=== PATIENT | male | born 1935 | race Caucasian/White ===

== ENCOUNTER → 2022-10-19 10:32 | Outpatient (BNVA) | payer MEDICARE, SELFPAY | PROVIDERS: PCP Family Medicine; Visit Provider Podiatrist Foot & Ankle Surgery | DX: I73.9 Peripheral vascular disease, unspecified (principal); L60.8 Other nail disorders; I89.0 Lymphedema, not elsewhere classified | CPT/HCPCS: 99203 ==

== ENCOUNTER 2022-10-26 14:03 | Inpatient (IN) | payer MEDICARE, SELFPAY ==
[2022-10-26 14:06] VITALS: BP 157/70; PULSE 83; RESP 16; TEMP 37.1; O2SAT 94
--- NOTE | 2022-10-26 14:23 | W.ED.FALL ---
HPI - Fall General: Chief Complaint: Fall Stated Complaint: FALL/ BACK PAIN Time Seen by Provider: 10/26/22 14:23 Source: patient Mode of arrival: ambulatory History of Present Illness: 87-year-old male who fell while going up stairs he missed stepped did not have a firm painter ski edge on the stair rail while he was going up into a porch from ground-level he slipped fell backwards landed on his upper back and his head he does not believe he lost consciousness he is not on anything more than an aspirin daily. No vomiting. He is otherwise awake and alert answers questions well. MD complaint: fall Onset (ago): minute(s) Fall from: down stairs (#) (2) Place fall occurred: home Loss of consciousness: Unsure Prolonged down time: no Symptoms prior to fall: none Context: tripped/slipped Location of injury: head and back (Thoracic) Associated symptoms-after fall: Denies abdominal pain, chest pain, confusion, difficulty walking, headache(s), hematuria, lightheadedness, neck pain, numbness, short of breath, vertigo or weakness Review of Systems Const: Denies: fever(s), chills, body aches, change in appetite, fatigue or malaise ENMT: Denies: throat pain, ear or mastoid pain, nasal discharge or nasal congestion Card: Denies: chest pain or lightheadedness Resp: Denies: dyspnea, productive cough or non-productive cough GI: Denies: abdominal pain, nausea or vomiting : Denies: flank pain, dysuria, urinary frequency, urinary urgency or hematuria Musc: Denies: neck pain Skin/Breast: Denies: rash or pruritus Neuro: Denies: headache(s), difficulty walking, vertigo or confusion [facility] ED PFSH: Medical History (Updated 10/26/22 @ 17:36 by Bartolome Rios DO) HTN (hypertension) Physical Exam Const: GENERAL APPEARANCE: cooperative and comfortable ORIENTATION/CONSCIOUSNESS: Yes awake, Yes oriented to person, Yes oriented to place and Yes oriented to time HENMT: COMMON NORMALS: normocephalic, atraumatic and hearing grossly normal bilaterally HEAD & SCALP: normocephalic and atraumatic Resp: COMMON NORMALS: normal respiratory effort, No retractions, No use of accessory muscles and clear to auscultation bilaterally AUSCULTATION: clear to auscultation bilaterally Cardio: COMMON NORMALS: regular rate, regular rhythm and No murmurs present (Cardio) RATE: regular rate RHYTHM: regular rhythm GI: COMMON NORMALS: Soft to palpation and No hepatosplenomegaly present AUSCULTATION: Yes normoactive bowel sounds PALPATION: Yes Soft to palpation, No Tenderness to palpation present (GI), No Guarding due to palpation present (GI) and Yes No hepatosplenomegaly present Extremity: COMMON NORMALS: normal to inspection, capillary refill normal and no calf tenderness OTHER: Neurovascular intact lower extremities patient is able to dorsi plantarflex strength and follow commands with movements of the lower extremities. Neuro: SENSORIUM/ORIENTATION: Yes oriented to person, Yes oriented to place and Yes oriented to time Skin: COMMON NORMALS: no rashes or lesions noted GENERAL SKIN EXAM: no rashes or lesions noted Course Vital Signs: Vital signs: Vital Signs Temperature 98.7 F 10/26/22 14:06 Pulse Rate 83 10/26/22 14:06 Respiratory Rate 16 10/26/22 14:06 Blood Pressure 157/70 10/26/22 14:06 Pulse Oximetry 94 10/26/22 14:06 Oxygen Delivery Me thod 10/26/22 14:06 MDM - Fall Medical Decision Making Unstable thoracic spine fracture without current cord impingement but at risk for same. Discussed Dr. Hughes he will see the patient. Will admit to the hospitalist. Thomson catrachito advised that he remain at bedrest n.p.o. after midnight discussed the hospitalist orders written preoperative labs ordered. Medical Records I reviewed the patient's medical records. Lab Data I reviewed the patient's lab results. 10/26/22 14:46 10/26/22 14:46 Radiology Impressions Cervical Spine CT 10/26/22 14:29 IMPRESSION: No evidence of acute fracture or dislocation. Head CT 10/26/22 14:29 IMPRESSION: 1. No evidence of intracranial hemorrhage or mass effect. 2. Moderate small vessel changes with moderate parenchymal volume loss. 3. Vascular calcification. 4. No acute intracranial findings. Thoracic Spine CT 10/26/22 14:29 IMPRESSION: 1. Hyperextension shear type fracture with distraction involving the superior endplate at T10 extending into the T9-T10 disc space. Associated widening anteriorly with disruption of the anterior longitudinal ligament measuring 13 mm. Disruption of the posterior longitudinal ligament with probable extension to the posterior elements. 2. Additional comminuted fracture of the T9 spinous process. 3. Minimal retropulsion of the above-described fracture with moderate central canal stenosis and indentation on the thoracic cord at this level. Recommend spine surgery consultation and further evaluation with MRI. 4. Associated moderate surrounding paravertebral hematoma at the T9-T10 levels. 5. Moderate thoracic kyphosis with diffuse ankylosis. Notified Bartolome Rios DO at 10/26/2022 4:03 PM. Chest X-Ray 10/26/22 16:18 IMPRESSION: Tracheal and mediastinal findings as noted above. Right diaphragm elevation may be due to hepatomegaly or focal eventration. Laboratory Results WBC 11.2 10^3/uL (4.0-10.0) H 10/26/22 14:46 RBC 4.34 10^6/uL (4.1-5.3) 10/26/22 14:46 Hgb 12.8 g/dL (11.7-16.6) 10/26/22 14:46 Hct 40.0 % (42.0-52.0) L 10/26/22 14:46 MCV 92.2 fl (80-94) 10/26/22 14:46 MCH 29.5 pg (28.0-34.0) 10/26/22 14:46 MCHC 32.0 g/dL (30.0-36.0) 10/26/22 14:46 RDW 14.2 % (12.1-15.1) 10/26/22 14:46 Plt Count 223 10^3/cmm (130-400) 10/26/22 14:46 MPV 10.0 fL (7.4-10.4) 10/26/22 14:46 Neut % (Auto) 77.0 % 10/26/22 14:46 Lymph % (Auto) 12.8 % 10/26/22 14:46 [place] % (Auto) 7.6 % 10/26/22 14:46 Eos % (Auto) 1.4 % 10/26/22 14:46 Baso % (Auto) 0.3 % 10/26/22 14:46 Neut # (Auto) 8.61 10^3/uL (1.8-7.7) H 10/26/22 14:46 Lymph # (Auto) 1.4 10^3/uL (0.8-4.8) 10/26/22 14:46 [place] # (Auto) 0.9 10^3/uL (0.2-0.9) 10/26/22 14:46 Eos # (Auto) 0.2 10^3/uL (0.0-0.8) 10/26/22 14:46 Baso # (Auto) 0.0 10^3/uL (0.0-0.1) 10/26/22 14:46 Nucleated RBC % (auto) 0 % 10/26/22 14:46 Nucleated RBCs # 0.0 /100WBC 10/26/22 14:46 PT 13.40 SECONDS (12.1-14.9) 10/26/22 14:46 INR 0.99 (0.8-1.2) 10/26/22 14:46 APTT 27.0 SECONDS (23.9-36.7) 10/26/22 14:46 Sodium 138 mmol/L (136-145) 10/26/22 14:46 Potassium 4.0 mmol/L (3.5-5.1) 10/26/22 14:46 Chloride 100 mmol/L (98-107) 10/26/22 14:46 Carbon Dioxide 27 mmol/L (22-29) 10/26/22 14:46 Anion Gap 15.0 (5-19) 10/26/22 14:46 BUN 21 mg/dL (8-23) 10/26/22 14:46 Creatinine 0.9 mg/dL (0.7-1.2) 10/26/22 14:46 GFR Calculation Not Reportable 10/26/22 14:46 Glucose 115 mg/dL (65-115) 10/26/22 14:46 Calculated Osmolality 290 mOsm/kg (285-295) 10/26/22 14:46 Calcium 9.3 mg/dL (8.5-10.5) 10/26/22 14:46 Urine Color Yellow (Yellow) 10/26/22 15:30 Urine Appearance Clear (CLEAR) 10/26/22 15:30 Urine pH 7 (5-7) 10/26/22 15:30 Ur Specific Morris 1.015 (1.005-1.030) 10/26/22 15:30 Urine Protein Neg (Negative) 10/26/22 15:30 Urine Glucose (UA) Norm (Normal) 10/26/22 15:30 Urine Ketones Negative (Negative) 10/26/22 15:30 Urine Blood Neg (Negative) 10/26/22 15:30 Urine Nitrate Negative (Negative) 10/26/22 15:30 Urine Bilirubin Neg (Negative) 10/26/22 15:30 Urine Urobilinogen 1 mg/dL (Negative) H 10/26/22 15:30 Ur Leukocyte Esterase Negative (Negative) 10/26/22 15:30 Discharge Plan Discharge Patient Disposition: Admitted As Inpatient Clinical Impression: Fracture of thoracic spine Condition: Stable Prescriptions: No Action irbesartan-hydrochlorothiazide 300-12.5 mg tablet 1 tab PO DAILY duloxetine 20 mg capsule,delayed release(DR/EC) 20 mg PO DAILY methimazole 10 mg tablet 10 mg PO DAILY Referrals: Miki Ariza MD [Primary Care Provider] - Patient Instructions: Opioid Safety, Pain Management Coding Level of Care Code ED Dining Services Manager for Sonny Nelson
--- NOTE | 2022-10-26 14:29 | CT_ITS ---
WS: [id number] CT CERVICAL TRAUMA TECHNIQUE: Noncontrast CT of the cervical spine with coronal and sagittal reformatted images. CLINICAL INFORMATION: trauma COMPARISON: 2018 DLP: 1486.[address] scans at [facility] use at least one of these dose optimization techniques: automated e xposure control; mA and/or kV adjustment per patient size (includes targeted exams where dose is matc hed to clinical indication); or iterative reconstruction. FINDINGS: Straightening of the normal cervical lordosis. Advanced spondylitic changes cervical spine. Prominent pannus formation at the C1-2 articulation similar to 2018. Slight anterolisthesis C5 on C6. Disc spa ce narrowing worse at C6-C7 and C7-T1. Advanced multilevel facet arthropathy. Normal occipital condyles. No high-grade spinal canal narrowing. Normal C1 ring. No evidence of acute fracture or dislocation. Large LEFT thyroid nodule similar to 2018 measuring 3.6 x 4.2 CM. Mastoids air cells are well aerated . CT/CT cervical spin wo con* [id number] IMPRESSION: No evidence of acute fracture or dislocation.
--- NOTE | 2022-10-26 14:29 | CT_ITS ---
WS: [id number] CT HEAD TECHNIQUE: Noncontrast CT of the head obtained from the skullbase to the vertex. CLINICAL INFORMATION: trauma COMPARISON: 2018 DLP: 1486.[address] scans at [facility] use at least one of these dose optimization techniques: automated e xposure control; mA and/or kV adjustment per patient size (includes targeted exams where dose is matc hed to clinical indication); or iterative reconstruction. FINDINGS: Some images degraded by patient motion. No evidence of intracranial hemorrhage or mass effect. Ventricular system and basal cisterns are marques nt. Moderate small vessel changes with moderate parenchymal volume loss. Vascular calcification. No e xtra-axial fluid collections. No evidence of mass or mass effect. Paranasal sinuses and mastoid air cells are well aerated. .Normal visualized soft tissues. CT/CT head wo con* [id number] IMPRESSION: 1. No evidence of intracranial hemorrhage or mass effect. 2. Moderate small vessel changes with moderate parenchymal volume loss. 3. Vascular calcification. 4. No acute intracranial findings.
--- NOTE | 2022-10-26 14:29 | CT_ITS ---
WS: [id number] CT THORACIC SPINE TECHNIQUE: Noncontrast CT of the thoracic spine with coronal and sagittal reformatted images. CLINICAL INFORMATION: trauma COMPARISON: None. DLP: 1860.[address] scans at [facility] use at least one of these dose optimization techniques: automated e xposure control; mA and/or kV adjustment per patient size (includes targeted exams where dose is matc hed to clinical indication); or iterative reconstruction. FINDINGS: Ankylosis thoracic spine with mild thoracic kyphosis. Calcified anterior and posterior longitudinal l igaments. Hyperextension type injury with shear type fracture involving the superior endplate at T10. This extends into the disc space at T9-T10 and likely into the posterior elements. Anterior widening at the fracture site with disruption of the anterior longitudinal ligament measuring 13 mm. Associat ed surrounding paravertebral hematoma. Disruption of the posterior longitudinal ligament. Mild retropulsion with moderate central canal stenosis with indentation on the thoracic cord. Recomme nd further evaluation with MRI. Associated fracture of the T9 spinous process mass with extension thr ough the nuchal ligament. Fracture extends to involve the posterior cortex at T10. Fracture extends t o the RIGHT pedicle at T10. Pedicles otherwise appear grossly intact. Adrenal glands are normal. Peripherally calcified RIGHT renal lesion measuring 2.3 CM. Bilateral pretty l cortical atrophy. CT/CT thoracic spin wo con* [id number] IMPRESSION: 1. Hyperextension shear type fracture with distraction involving the superior endplate at T10 extending into the T9-T10 disc space. Associated widening anter iorly with disruption of the anterior longitudinal ligament measuring 13 mm. Di sruption of the posterior longitudinal ligament with probable extension to the posterior elements. 2. Additional comminuted fracture of the T9 spinous process. 3. Minimal retropulsion of the above-described fracture with moderate central canal stenosis and indentation on the thoracic cord at this level. Recommend sp ine surgery consultation and further evaluation with MRI. 4. Associated moderate surrounding paravertebral hematoma at the T9-T10 levels . 5. Moderate thoracic kyphosis with diffuse ankylosis. Notified Bartolome Rios DO at 10/26/2022 4:03 PM.
[2022-10-26 14:57] LABS: Basophils % 0.3 %; Eosinophils # 0.2 10^3/uL (0.0-0.8); Eosinophils % 1.4 %; Hemoglobin 12.8 g/dL (11.7-16.6); Lymphocytes # 1.4 10^3/uL (0.8-4.8); Lymphocytes % 12.8 %; Mean Corpuscular Hemoglobin 29.5 pg (28.0-34.0); Mean Corpuscular Volume 92.2 fl (80-94); Monocytes # 0.9 10^3/uL (0.2-0.9); Monocytes % 7.6 %; Neutrophils # 8.61 10^3/uL (1.8-7.7); Nucleated Red Blood Cells % 0 %; Platelet Count 223 10^3/cmm (130-400); Red Blood Count 4.34 10^6/uL (4.1-5.3); Red Cell Distribution Width 14.2 % (12.1-15.1); White Blood Count 11.2 10^3/uL (4.0-10.0)
[2022-10-26 15:17] LABS: Blood Urea Nitrogen 21 mg/dL (8-23); Calcium 9.3 mg/dL (8.5-10.5); Carbon Dioxide 27 mmol/L (22-29); Chloride 100 mmol/L (98-107); Glucose 115 mg/dL (65-115); Osmolality Calculated 290 mOsm/kg (285-295); Sodium 138 mmol/L (136-145)
[2022-10-26] MEDS: ketorolac 30 mg/mL INJ 15 MG IVP (15:54)
[2022-10-26] MEDS: dexamethasone 10 mg/mL INJ IVP (15:57)
[2022-10-26] MEDS: orphenadrine 30 mg/mL Inj 2 mL 60 MG IVP (15:57)
[2022-10-26 16:14] LABS: Add Urine Microscopic? NO; Charge for UA Resulting for Rev
--- NOTE | 2022-10-26 16:17 | ECG_ITS ---
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 Measurements Intervals [place] Rate: 84 P: 89 GA: 191 QRS: -40 QRSD: 146 T: 28 QT: 387 QTc: 458 Interpretive Statements SINUS RHYTHM LEFT AXIS DEVIATION [QRS AXIS < -30] RIGHT BUNDLE BRANCH BLOCK [120+ ms QRS DURATION, UPRIGHT V1, 40+ ms S IN I/aVL/V4/V5/V6] No previous ECG available for comparison Electronically Signed On 10-27-2022 2:19:39 CDT by Bao Ibarra M.D. [email or web address]
--- NOTE | 2022-10-26 16:18 | XR_ITS ---
WS: [id number] EXAMINATION: XR chest 1V portable [id number] REASON FOR EXAM: dyspnea/cough COMPARISON: None available. ORDER DATE: 10/26/2022 4:18 PM TECHNIQUE: A single, portable frontal chest x-ray was obtained. X-RAY FINDINGS: The lungs are clear. There is 5 to 6 cm elevation of the right hemidiaphragm. Pleural spaces are roddy r. There is possible tracheal displacement to the right with widened mediastinum possibly due to goit er or other left paratracheal mass. No previous studies available for comparison.. No pleural effusio ns or pneumothorax. No cardiomegaly. No evidence for pulmonary edema. Soft tissue and osseous structures are unremarkable. No tubes or lines are present. XR/XR chest 1V portable [id number] IMPRESSION: Tracheal and mediastinal findings as noted above. Right diaphragm elevation may be due to hepatomegaly or focal eventration.
[2022-10-26 16:32] LABS: Bilirubin Urine Neg (Negative); Blood Urine Neg (Negative); Glucose Urine UA Norm (Normal); Ketones Urine Negative (Negative); Leukocyte Esterase Urine Negative (Negative); Nitrate Urine Negative (Negative); Protein Urine Neg (Negative); Specific Gravity, Urine 1.015 (1.005-1.030); Urine Appearance Clear (CLEAR); Urine Color Yellow (Yellow); Urobilinogen Urine 1 mg/dL (Negative); pH Urine 7 (5-7)
--- NOTE | 2022-10-26 16:47 | PM.HP ---
Providers/Chief Complaint Primary Care Provider: Miki Ariza MD Chief Complaint: FALL/ BACK PAIN History of Present Illness Chuckie Gandhi is a 87 year old male with past medical history of hypertension, hyperthyroidism, came in today after experiencing a mechanical fall at home, while climbing stairs, denied any chest pain, palpitation, lightheadedness, loss of consciousness, during the episode, currently is back pain is controlled with, pain medication. CT thoracic spine has shown: Hyperextension shear type fracture with distraction involving the superior endplate at T10 extending into the T9-T10 disc space. CT head without contrast: No acute intracranial pathology CT cervical spin wo con:No evidence of acute fracture or dislocation X-ray chest: No acute findings Pertinent labs: WBC 11.2, H&H 12/40 PLT : 223 , serum sodium 138 serum potassium 4, BUN 21 serum creatinine 0.9, urinalysis clean Review of Systems General: Reports: 10 or more systems reviewed and unremarkable except in HPI and below Const: Denies: fever(s), chills, body aches, change in appetite or diaphoresis Card: Denies: palpitations, edema, swelling of feet/ankles, dyspnea on exertion, orthopnea or leg pain with exertion Resp: Denies: dyspnea, productive cough, wheezing or pain on inspiration GI: Denies: abdominal pain, nausea, vomiting, diarrhea or constipation : Denies: flank pain or difficulty urinating Musc: Denies: extremity swelling Neuro: Denies: headache(s) or confusion Medications/Allergies Home Medications Medication Instructions Recorded Confirmed Last Taken Type duloxetine 20 mg capsule,delayed 20 mg PO DAILY 10/19/22 10/26/22 10/26/22 History release irbesartan 300 1 tab PO DAILY 10/19/22 10/26/22 10/26/22 History mg-hydrochlorothiazide 12.5 mg tablet methimazole 10 mg tablet 10 mg PO DAILY 10/26/22 10/26/22 10/26/22 History Allergies Allergy/AdvReac Type Severity Reaction Status Date / Time No Known Allergies Allergy Verified 10/26/22 14:13 PFSH Acute PFSH: Medical History (Updated 10/26/22 @ 17:36 by Bartolome Rios DO) HTN (hypertension) Vitals/I&O/Wt Last Vital Signs Temp 98.7 F 10/26/22 14:06 Pulse 83 10/26/22 14:06 Resp 16 10/26/22 14:06 BP 157/70 10/26/22 14:06 Pulse Ox 94 10/26/22 14:06 O2 Del Method 10/26/22 14:06 Weight last 48 hrs Weight 125.191 kg Physical Exam Const: COMMON NORMALS: patient oriented x3 HENMT: COMMON NORMALS: normocephalic and atraumatic HEAD & SCALP: normocephalic and atraumatic Resp: COMMON NORMALS: clear to auscultation bilaterally AUSCULTATION: clear to auscultation bilaterally Cardio: COMMON NORMALS: regular rate, regular rhythm, S1 normal heart sound present, S2 normal heart sound present, No gallops present (Cardio), No murmurs present (Cardio), No rub (Cardio) and Peripheral pulses 2+ throughout RATE: regular rate RHYTHM: regular rhythm HEART SOUNDS: S1 normal heart sound present and S2 normal heart sound present PERIPHERAL PULSES: Peripheral pulses 2+ throughout GI: COMMON NORMALS: Normal to inspection, nondistended, normoactive bowel sounds present, Soft to palpation, non-tender, No hepatosplenomegaly present and no masses AUSCULTATION: Yes normoactive bowel sounds PALPATION: Yes Soft to palpation and Yes No hepatosplenomegaly present RECTAL EXAM: Yes deferred Extremity: COMMON NORMALS: no clubbing, cyanosis or edema and no pedal edema Neuro: COMMON NORMALS: patient oriented x3 Data 10/26/22 14:46 10/26/22 14:46 A&P Assessment and plan (1) HTN (hypertension): (2) Thoracic spine fracture: (3) Hyperthyroidism: Plan Chuckie Gandhi is a 87 year old male with past medical history of hypertension, hyperthyroidism, came in today after experiencing a mechanical fall at home, while climbing stairs, denied any chest pain, palpitation, lightheadedness, loss of consciousness, during the episode, currently is back pain is controlled with, pain medication. Assessment: Thoracic spine fracture: Pain control Bowel regimen Spine surgery on board N.p.o. History of hyperthyroidism Continue methimazole History of hypertension: Continue losartan and hydrochlorothiazide CODE STATUS: Full code DVT prophylaxis on Lovenox Attestations Medical Necessity Statement*: Patient is to be in hospital management of thoracic spine fracture.Anticipated length of stay greater than 2 midnights Coding Level of Care Code 31883 Diagnoses HTN (hypertension) I10 Thoracic spine fracture S22.009A Hyperthyroidism E05.90
[2022-10-26 17:00] LABS: INR 0.99 (0.8-1.2)
--- NOTE | 2022-10-26 18:14 | PC.NURSE ---
Report called to Lilliam SAEZ. @ 1247
--- NOTE | 2022-10-26 18:34 | P.CONIM_ITS ---
Providers/Reason For Consult Consulting Physician/Specialty*: Orthospine Reason for Consult*: Back pain Attending Physician: Angelito Longoria MD Primary Care Provider: Miki Ariza MD History of Present Illness History of Present Illness Chuckie Gandhi is a 87 year old male who fell from a standing position after tripping on his left lower extremity falling backwards sustaining injury to his mid back. He presented to [facility] where x-rays confirmed a T10 fracture. Orthopedic spine was consulted for further management. Patient was evaluated in room 261 after being transferred up from the emergency room with continued back pain denied any leg pain other than leg weakness that has had for a long time on the left side. He denies any loss of conscious in the fall denies any neck pain . Denies any hip pain. States he has normal sensation in both legs all the way up to his abdomen and to his arms and chest. Any movement makes his back much worse. Rest gives him some temporary relief. He has had bilateral total knee replacements in the past with cataract surgery. Has a Thomson catheter present. He lives with his grandsons. Review of Systems General: Reports: 10 or more systems reviewed and unremarkable except in HPI and below Const: Denies: fever(s), chills, body aches, change in appetite or diaphoresis Card: Denies: palpitations, edema, swelling of feet/ankles, dyspnea on exertion, orthopnea or leg pain with exertion Resp: Denies: dyspnea, productive cough, wheezing or pain on inspiration GI: Denies: abdominal pain, nausea, vomiting, diarrhea or constipation : Denies: flank pain or difficulty urinating Musc: Denies: extremity swelling Neuro: Denies: headache(s) or confusion Medications/Allergies Home Medications Medication Instructions Recorded Confirmed Last Taken Type duloxetine 20 mg capsule,delayed 20 mg PO DAILY 10/19/22 10/26/22 10/26/22 History release irbesartan 300 1 tab PO DAILY 10/19/22 10/26/22 10/26/22 History mg-hydrochlorothiazide 12.5 mg tablet methimazole 10 mg tablet 10 mg PO DAILY 10/26/22 10/26/22 10/26/22 History Allergies Allergy/AdvReac Type Severity Reaction Status Date / Time No Known Allergies Allergy Verified 10/26/22 14:13 PFSH Acute PFSH: Medical History (Updated 10/26/22 @ 18:39 by Jayden Siddiqui PA-C) HTN (hypertension) Vitals/I&O/Wt Last Vital Signs Temp 98.7 F 10/26/22 14:06 Pulse 83 10/26/22 14:06 Resp 16 10/26/22 14:06 BP 157/70 10/26/22 14:06 Pulse Ox 94 10/26/22 14:06 O2 Del Method 10/26/22 14:06 Weight last 48 hrs Weight 276 lb Physical Exam Narrative: He is alert oriented x3 has good general appearance mild acute distress. He is tender with palpation in the mid back. He has full range of motion of both upper extremities full range of motion of the cervical spine. He has good sensation light touch through all 4 extremities. He does have 1+ edema in both lower extremities. He appears to fire in both upper extremities in all motor groups with 5/5 strength. Radial pulses are palpable. He has good sensat ion light touch in all dermatomal layers of the thoracic spine. He has good sensation light touch in all dermatomes of both lower extremities he moves both lower extremities with good strength. 1+ edema in both feet. Pulses are weak but palpable at the dorsalis pedis and posterior tibial region. Calves are supple. Negative logroll bilaterally. Well-healed incisions over both anterior knees from previous knee replacement surgery. HENMT: COMMON NORMALS: normocephalic and atraumatic HEAD & SCALP: norm ocephalic and atraumatic Resp: OTHER: Labored Cardio: COMMON NORMALS: regular rate and regular rhythm RATE: regular rate RHYTHM: regular rhythm GI: COMMON NORMALS: Soft to palpation and non-tender PALPATION: Yes Soft to palpation : COMMON NORMALS: Yes no CVA tenderness BLADDER/KIDNEY EXAM: Yes no CVA tenderness Back/Pelvis: COMMON NORMALS: no CVA tenderness Psych: COMMON NORMALS: mental status grossly normal and cooperative Data 10/26/22 14:46 10/26/22 14:[address]: Radiologist's impression: CT/CT thoracic spin wo con* [id number] IMPRESSION: ? 1.? Hyperextension shear type fracture with distraction involving the superior endplate at T10 extending into the T9-T10 disc space. Associated widening anteriorly with disruption of the anterior longitudinal ligament measuring 13 mm. Disruption of the posterior longitudinal ligament with probable extension to the posterior elements. 2. ? Additional comminuted fracture of the T9 spinous process. 3.? Minimal retropulsion of the above-described fracture with moderate central canal stenosis and indentation on the thoracic cord at this level. Recommend spine surgery consultation and further evaluation with MRI. 4.? Associated moderate surrounding paravertebral hematoma at the T9-T10 levels. 5.? Moderate thoracic kyphosis with diffuse ankylosis. A&P Assessment and plan (1) Traumatic compression fracture of T10 vertebra: Discussed at length with the patient and operative procedure that involves T7- T12 lumbar fusion based on the the nature of his fracture required for spinal cord stabilization. I discussed the procedure at length with him. We will keep him n.p.o. after midnight. Discussed with Dr. Natarajan agrees above-stated plan. More than 50% of the time spent with the patient today involved coordination of care, counseling and discussion of conservative versus surgical treatment options. Total amount of time spent with the patient was 34 minutes. Coding Level of Care Code Acute Code for [facility] Fwd Diagnoses Traumatic compression fracture of T10 vertebra S22.070A Time Spent (min) 34
[2022-10-26 20:00] VITALS: BP 154/78; BP 161/80; PULSE 80; PULSE 85; RESP 18; TEMP 36.3; TEMP 36.8; O2SAT 90
[2022-10-26] MEDS: ceFAZolin 2,000 MG in sodium chloride 0.9% (plus) 50 ML 100 MG IV (20:11)
[2022-10-26] MEDS: sodium chloride 0.9% 1,000 ML 100 ML IV (20:12)
[2022-10-27] VITALS (27 sets, daily range): BP systolic 112–161; BP diastolic 60–109; PULSE 73–103; RESP 11–21; TEMP 35.9–36.8; O2SAT 93–100
[2022-10-27 05:45] LABS: Basophils % 0.1 %; Hematocrit 39.9 % (42.0-52.0); Hemoglobin 12.9 g/dL (11.7-16.6); Lymphocytes % 7.8 %; Mean Corpuscular HGB Conc 32.3 g/dL (30.0-36.0); Mean Corpuscular Hemoglobin 29.4 pg (28.0-34.0); Mean Corpuscular Volume 90.9 fl (80-94); Mean Platelet Volume 10.2 fL (7.4-10.4); Monocytes # 0.3 10^3/uL (0.2-0.9); Monocytes % 2.4 %; Neutrophils # 11.31 10^3/uL (1.8-7.7); Neutrophils % 89.3 %; Nucleated Red Blood Cells % 0 %; Platelet Count 211 10^3/cmm (130-400); Red Blood Count 4.39 10^6/uL (4.1-5.3); Red Cell Distribution Width 14.1 % (12.1-15.1); White Blood Count 12.7 10^3/uL (4.0-10.0)
[2022-10-27] MEDS: sodium chloride 0.9% 1,000 ML 100 ML IV ×2 (05:51→14:43)
[2022-10-27 05:58] LABS: Anion Gap 14.3 (5-19); Blood Urea Nitrogen 23 mg/dL (8-23); Calcium 8.8 mg/dL (8.5-10.5); Carbon Dioxide 25 mmol/L (22-29); Chloride 103 mmol/L (98-107); Glucose 144 mg/dL (65-115); Osmolality Calculated 292 mOsm/kg (285-295); Potassium 4.3 mmol/L (3.5-5.1); Sodium 138 mmol/L (136-145)
[2022-10-27] MEDS: sodium chloride 0.9% 1,000 ML 30 ML IV (06:52)
[2022-10-27] MEDS: ipratropium-albuterol 3 mL Neb INHALATION (06:52)
--- NOTE | 2022-10-27 06:58 | SUR.PREOP ---
on arrival to pre op patient has audible wheezes, sat is 94%. patient states not short of breath. duoneb given per order from appliance assembler/ antesthesia
[2022-10-27] MEDS: ceFAZolin 2,000 MG in sodium chloride 0.9% (plus) 50 ML 100 MG IV ×3 (07:02→22:24)
--- NOTE | 2022-10-27 07:05 | W.PM.OPSUD ---
Surgery/Procedure H&P Update DATE OF PROCEDURE: October 27, 2022 DATE H&P PERFORMED: 10/27/22 H&P UPDATE INFORMATION: I have reviewed H&P completed within last 30 days, I have examined patient prior to procedure and No changes to prior documentation PREOP DIAGNOSIS: Traumatic fracture to thoracic 10 PLANNED PROCEDURE: Operation Date: 10/27/22 07:00 Proposed Procedures p Spinal Fusion(Not Applicable) - Johan Hughes DO
[2022-10-27] MEDS: lidocaine-epi 1% 20 mL INJ 10 ML INJECTION (07:45)
[2022-10-27] MEDS: vancomycin 1,000 MG SDV 1000 MG XX (07:45)
--- NOTE | 2022-10-27 09:19 | PC.CHAP ---
Pastoral Care Encounter/Spiritual Assessment Type of Contact [] Declined human capital analyst visit [] Patient/Family/Request visit [] Outpatient visit [] Follow-up visit [] Physician referral [] Code/Alert [x] Routine visit [] Staff referral [] Actively dying [] Patient sleeping [] Family support [] [x] Out of room [] Palliative care [] [] Receiving care in room [] Pre-surgical visit [] Trauma [] Long length of stay [] ICU visit [] Other: Relational/Emotional Strength [] Patient feels connected with others/family/visitors/staff [] Distress [] Loneliness/isolation [] Abandonment Spirituality of Patient [] Person of Aliyah [] Attends Mandaeism of their Aliyah [] Believes in Prayer [] Reads Bible or Druze materials [] There are Spiritual issues to be addressed Flight Inspector Interventions [] Prayer [] Active listening [] Non-anxious presence [] Spiritual/emotional support [] Crisis/trauma care [] Spiritual counseling [] Bereavement support [] Provided bereavement packet [] Provided Bible/devotional materials [] Provided toy/stuffed animal, coloring book to patient or family member [] Provided Communion [] Anointing/[place] [] Salvation [] Completed spiritual assessment [] Other: Impact on Illness or Injury [] Angry [] Fearful [] Anxious [] Often cries [] Exhaustion [] Unable to work [] Unable to attend rastafari [] Unable to walk/stand [] Unable to read [] Unable to drive [] Unable to eat/drink [] Unable to sleep [] Unable to be with family [] Patient intubated [] Other: Summary Pt was out of room in surgery. However, two males sitting in the room. One identified as a grandson and the second was a friend. Time spent with patient 3m
--- NOTE | 2022-10-27 09:30 | XR_ITS ---
WS: [id number] EXAMINATION: XR thoracic spine 2V [id number] REASON FOR EXAM: OR PICS COMPARISON: None available. ORDER DATE: 10/27/2022 9:30 AM FINDINGS: Under penetrated intraoperative single view which is a 3-D seen as a cine study rotated exam include s some vertebra which are located in the thoracic region with rib outlines faintly seen. This is a la teral projection with surgical sponges noted in or superimposing the dorsal soft tissue XR/XR thoracic spine 2V [id number] IMPRESSION: Fluoroscopy time 17 seconds.
--- NOTE | 2022-10-27 09:31 | P.ANESASSM_ITS ---
Pre-Anesthetic Assessment Height/Weight: Height 1.78 m Weight 125.191 kg Temp Pulse Resp BP Pulse Ox O2 Del Method 97.4 F L 87 18 151/63 95 Room Air 10/27/22 06:37 10/27/22 06:37 10/27/22 06:37 10/27/22 06:37 10/27/22 06:37 10/27/22 06:37 Preop Diagnosis: Traumatic fracture to thoracic 10 Operation Date: 10/27/22 07:00 Proposed Procedures p Spinal Fusion(Not Applicable) - Johan Hughes, Familial anesthetic complications: none Was Beta Nini taken within 24 hours: N/A Was Clonidine taken within 24 hours: N/A Social No alcohol and No tobacco Exam alert, oriented x 3 and regular rate & rhythm rhonchi, audible wheezing Airway Submandibular: within normal limits Cervical ROM: within normal limits Mallampati: Class III Dentition: chipped Pulmonary Chronic Obstructive Pulmonary Disease CV/HEM Hypertension and Peripheral Vascular Disease Metabolic Hyperlipidemia, Morbid Obesity and Thyroid Disease Musc/skel Lower Back Pain and Osteoarthritis/DJD Anesthetic Plan ASA status: 3 Anesthesia: General Other: a.line Medications/Allergies Home Medications Medication Instructions Recorded Confirmed Last Taken Type duloxetine 20 mg capsule,delayed 20 mg PO DAILY 10/19/22 10/26/22 10/26/22 History release irbesartan 300 1 tab PO DAILY 10/19/22 10/26/22 10/26/22 History mg-hydrochlorothiazide 12.5 mg tablet methimazole 10 mg tablet 10 mg PO DAILY 10/26/22 10/26/22 10/26/22 History intraoperative neuromonitoring #1 ea 10/27/22 10/27/22 Unknown Rx Allergies Allergy/AdvReac Type Severity Reaction Status Date / Time No Known Allergies Allergy Verified 10/26/22 14:13 Current Medications Generic Name Dose Route Start Last Admin Trade Name Freq PRN Reason Stop Dose Admin Hydrochlorothiazide 12.5 mg 10/27/22 06:00 10/27/22 05:51 Hydrochlorothiazide 25 Mg Tablet PO Not Given QAM REJI Sodium Chloride 1,000 mls @ 100 mls/hr 10/26/22 18:37 10/27/22 05:51 Sodium Chloride 0.9% IV 100 mls/hr .Q10H REJI Administration Sodium Chloride 1,000 mls @ 30 mls/hr 10/27/22 07:00 10/27/22 06:52 Sodium Chloride 0.9% IV 10/28/22 06:59 30 mls/hr .Q24H REJI Administration Losartan Potassium 100 mg 10/27/22 06:00 10/27/22 05:51 Losartan 50 Mg Tablet PO Not Given QAM REJI PFSH Anesthesia Medical History (Updated 10/26/22 @ 18:39 by Jayden Siddiqui PA-C) HTN (hypertension) Data Anesthesia 10/27/22 05:11 10/27/22 05:11 Short CBC 10/26/22 10/27/22 Range/Units 14:46 05:11 WBC 11.2 H 12.7 H (4.0-10.0) 10^3/uL Hgb 12.8 12.9 (11.7-16.6) g/dL Hct 40.0 L 39.9 L (42.0-52.0) % MCV 92.2 90.9 (80-94) fl Plt Count 223 211 (130-400) 10^3/cmm Neut % (Auto) 77.0 89.3 % Neut # (Auto) 8.61 H 11.31 H (1.8-7.7) 10^3/uL BMP 10/26/22 10/27/22 14:46 05:11 Sodium 138 138 Potassium 4.0 4.3 Chloride 100 103 Carbon Dioxide 27 25 BUN 21 23 Creatinine 0.9 0.8 Glucose 115 144 H Calcium 9.3 8.8 Urine 10/26/22 Range/Units 15:30 Urine Color Yellow (Yellow) Urine Appearance Clear (CLEAR) Urine pH 7 (5-7) Ur Specific [place] 1.015 (1.005-1.030) Urine Protein Neg (Negative) Urine Glucose (UA) Norm (Normal) Urine Ketones Negative (Negative) Urine Nitrate Negative (Negative) Urine Bilirubin Neg (Negative) Ur Leukocyte Esterase Negative (Negative) Coags 10/26/22 14:46 PT 13.40 INR 0.99 APTT 27.0 Cardiac Studies: No Data to Display
--- NOTE | 2022-10-27 10:05 | P.OP_ITS ---
Operative Report Date of procedure: October 27, 2022 Pre-op diagnosis: Preop Diagnosis Traumatic fracture to thoracic 10 Post-op diagnosis: same Procedure done: 1. T7-T12 posterior spine fusion 2. T7- T12 posterior spine instrumentation 3. Bone marrow aspirate right iliac crest 4. Use of computer navigation stereotactic spine 5. fracture reduction of spine 6. use of allograft Surgeon: Johan Hughes Patient Safety Manager: Jayden Siddiqui Patient Safety Manager: The surgical aide, Jayden Siddiqui, PAC was needed for his expertise under the microscope. He was important and necessary throughout the procedure to complete in a safe and timely manner. He assisted with patient positioning prepping and draping tissue retraction suctioning of the operative field protection of the dural sac and tissue closure Estimated blood loss (mL): 300 Procedure: 1. T7-T12 posterior spine fusion 2. T7- T12 posterior spine instrumentation 3. Bone marrow aspirate right iliac crest 4. Use of computer navigation stereotactic spine 5. fracture reduction of spine 6. use of allograft Patient brought the op suite after undergoing anesthesia patient was placed in the prone position. Neuro monitoring was done prior to prepping the patient neuro monitoring showed no changes after from the patient in the prone position. All areas impingement well-padded. Patient was prepped draped normal sterile fashion. Skin incision made from T7 down to T12. Subperiosteal dissection was made out from the spinous process out to the transverse processes of T7 down to T12. Spinous process of L1 was exposed. Next bone marrow aspirate was taken from the right iliac crest using the SnapUp cell bone marrow aspiration kit. Approximate 20 cc of bone marrow aspirate were taken from right iliac crest through percutaneous incision. Next attention was brought to attaching the spinous process clamp to the L1 spinous process in order to facilitate using computer navigation. The C-arm was then brought in fiducial was attached to the spinous process clamp. C-arm was then spun around the patient. Information from the C-arm was then loaded the computer then used for placement of the pedicle screws. Extension was brought to placing the pedicle screws. This was done using the gearshift probe which was linked to the computer navigation. Pedicle feeler was used followed by placement of screw. This was done at T12 bilaterally, T11 bilaterally, only on T10 on the right side because left side had the fracture going through. Screws were also placed at T9 bilaterally T8 bilaterally and T7 bilaterally. Next tension was brought to placing the rods on the screws. Rods were measured and cut to appropriate size implants. Rods were then placed onto the pedicle screw tulips. In the screw caps were then placed. The fracture was then reduced by distracting through the T9-10 screws. On the right. And then T9 and a heavy marisa clamp on the left. All the screws were then torqued down and the position of the fracture was reduced. Next the lamina and transverse processes were decorticated using high-speed bur. In the ostial amp bone graft mixed with the bone marrow aspirate was packed in the gutters. Wound had vancomycin placed deep drain placed and then was closed in a layered fashion with 0 Vicryl 2-0 Vicryl and Monocryl suture. Sterile dressings were applied and patient was transferred to the PACU in stable condition.
[2022-10-27] MEDS: midazolam 1 mg/mL INJ 2 mL 2 MG IVP (10:40)
[2022-10-27] MEDS: fentaNYL 50 mcg/mL INJ 2mL 100 MCG IVP (11:00)
--- NOTE | 2022-10-27 13:43 | PM.PN ---
Subjective Subjective: Currently scheduled for thoracic spine fusion. Medications: Medication Review Details: Generic Name Dose Route Start Last Admin Trade Name Freq PRN Reason Stop Dose Admin Hydrochlorothiazid e 12.5 mg 10/27/22 06:00 10/27/22 05:51 Hydrochlorothiaz merced 25 Mg Tablet PO Not Given QAM REJI Sodium Chloride 1,000 mls @ 100 m ls/hr 10/26/22 18:37 10/27/22 05:51 Sodium Chloride 0.9% IV 100 mls/hr .Q10H REJI Administration Losartan Potassium 100 mg 10/27/22 06:00 10/27/22 05:51 Losartan 50 Mg T ablet PO Not Given QAM REJI Vitals/I&O/Wt Last Vital Signs Temp 96.6 F L 10/27/22 12:23 Pulse 94 10/27/22 13:14 Resp 12 10/27/22 12:23 BP 145/74 10/27/22 12:23 Pulse Ox 98 10/27/22 13:14 O2 Del Method Simple Mask 10/27/22 12:23 O2 Flow Rate 5 10/27/22 12:23 FiO2 40 10/27/22 13:14 10/26/22 10/27/22 10/27/22 22:59 06:59 14:59 Intake Total 290 / 290 965 / 1255 1264 / 1264 Output Total 850 / 850 600 / 600 Balance 290 / 290 115 / 405 664 / 664 Weight last 48 hrs Weight 125.191 kg Physical Exam Const: COMMON NORMALS: patient oriented x3 HENMT: COMMON NORMALS: normocephalic and atraumatic HEAD & SCALP: normocephalic and atraumatic Resp: COMMON NORMALS: clear to auscultation bilaterally AUSCULTATION: clear to auscultation bilaterally Cardio: COMMON NORMALS: regular rate, regular rhythm, S1 normal heart sound present, S2 normal heart sound present, No gallops present (Cardio), No murmurs present (Cardio), No rub (Cardio) and Peripheral pulses 2+ throughout RATE: regular rate RHYTHM: regular rhythm HEART SOUNDS: S1 normal heart sound present and S2 normal heart sound present PERIPHERAL PULSES: Peripheral pulses 2+ throughout GI: COMMON NORMALS: Normal to inspection, nondistended, normoactive bowel sounds present, Soft to palpation, non-tender, No hepatosplenomegaly present and no masses AUSCULTATION: Yes normoactive bowel sounds PALPATION: Yes Soft to palpation and Yes No hepatosplenomegaly present RECTAL EXAM: Yes deferred Extremity: COMMON NORMALS: no clubbing, cyanosis or edema and no pedal edema Neuro: COMMON NORMALS: patient oriented x3 Urinary Catheter Management: Thomson: Cath Placed During This Visit: no Reason for Continuing Indwelling Catheter: Perioperative Use in Selected Surgeries Data 10/27/22 05:11 10/27/22 05:11 A&P Assessment and plan (1) HTN (hypertension): (2) Thoracic spine fracture: (3) Hyperthyroidism: Plan Chuckie Gandhi is a 87 year old male with past medical history of hypertension, hyperthyroidism, came in today after experiencing a mechanical fall at home, while climbing stairs, denied any chest pain, palpitation, lightheadedness, loss of consciousness, during the episode, currently is back pain is controlled with, pain medication. Assessment: Traumatic thoracic spine fracture: Status post: T7-T12 posterior spine fusion. Pain control Bowel regimen Spine surgery on board N.p.o. History of hyperthyroidism Continue methimazole History of hypertension: Continue losartan and hydrochlorothiazide CODE STATUS: Full code DVT prophylaxis on Lovenox Attestations Medical Necessity Statement*: Needs to be in hospital for management of thoracic spine fracture. Coding Level of Care Code 74113 Diagnoses HTN (hypertension) I10 Thoracic spine fracture S22.009A Hyperthyroidism E05.90
--- NOTE | 2022-10-27 15:32 | ANE.PACU2 ---
Inpatient post-anesthesia follow up: Airway intact: Yes Vital signs: Temperature 97.6 F Pulse Rate 73 Respiratory Rate 15 Blood Pressure 147/79 Pulse Oximetry 100 Oxygen Delivery Me thod BiPAP Oxygen Flow Rate 5 Fraction of Inspir ed Oxygen 40 Hydration adequate: Yes Nausea and vomiting: No Pain level: 3 Mental status: Baseline
[2022-10-27] MEDS: HYDROcodone-acetaminophen 5-325 mg Tablet PO (17:41)
[2022-10-27] MEDS: docusate sodium 100 mg Capsule PO (17:41)
--- NOTE | 2022-10-27 20:24 | PC.NURSE ---
patient was audibly wheezing at shift change bedside report this evening, this nurse notified dr boswell to relay symptoms and order to d/c IVF was given. fluids stopped per orders, will continue to monitor the patient.
[2022-10-28] VITALS (11 sets, daily range): BP systolic 120–157; BP diastolic 64–82; PULSE 76–97; RESP 16–18; TEMP 36.6–36.9; O2SAT 92–95
[2022-10-28 05:35] LABS: Basophils % 0.1 %; Hematocrit 35.5 % (42.0-52.0); Hemoglobin 11.1 g/dL (11.7-16.6); Lymphocytes # 1.2 10^3/uL (0.8-4.8); Lymphocytes % 6.7 %; Mean Corpuscular HGB Conc 31.3 g/dL (30.0-36.0); Mean Corpuscular Hemoglobin 29.4 pg (28.0-34.0); Mean Corpuscular Volume 94.2 fl (80-94); Mean Platelet Volume 10.6 fL (7.4-10.4); Monocytes # 1.4 10^3/uL (0.2-0.9); Monocytes % 8.1 %; Neutrophils # 14.69 10^3/uL (1.8-7.7); Neutrophils % 84.7 %; Nucleated Red Blood Cells % 0 %; Platelet Count 174 10^3/cmm (130-400); Red Blood Count 3.77 10^6/uL (4.1-5.3); Red Cell Distribution Width 14.5 % (12.1-15.1); White Blood Count 17.4 10^3/uL (4.0-10.0)
[2022-10-28 05:51] LABS: Blood Urea Nitrogen 29 mg/dL (8-23); Calcium 8.2 mg/dL (8.5-10.5); Carbon Dioxide 24 mmol/L (22-29); Chloride 105 mmol/L (98-107); Glucose 126 mg/dL (65-115); Osmolality Calculated 293 mOsm/kg (285-295); Sodium 138 mmol/L (136-145)
[2022-10-28 05:58] LABS: Slide Review Slide Review Perform
[2022-10-28] MEDS: losartan 50 mg Tablet 100 MG PO (06:03)
[2022-10-28] MEDS: hydroCHLOROthiazide 25 mg Tablet 12.5 MG PO (06:03)
[2022-10-28] MEDS: ceFAZolin 2,000 MG in sodium chloride 0.9% (plus) 50 ML 100 MG IV (06:04)
[2022-10-28] MEDS: enoxaparin 40 mg/0.4 mL Syringe SUBCUT (06:04)
--- NOTE | 2022-10-28 07:16 | PM.PN ---
Subjective Subjective: POD 1 Patient resting comfortably. Reports mild back pain. Reports continued weakness in his left lower extremity which she had prior to his fall. Denies any chest pain, shortness of breath, headaches. Vitals/I&O/Wt Last Vital Signs Temp 97.8 F 10/28/22 03:49 Pulse 79 10/28/22 05:53 Resp 16 10/28/22 03:49 BP 126/70 10/28/22 06:03 Pulse Ox 93 10/28/22 03:49 O2 Del Method Room Air 10/28/22 03:49 O2 Flow Rate 5 10/27/22 12:23 FiO2 40 10/27/22 14:57 10/27/22 10/28/22 10/28/22 22:59 06:59 14:59 Intake Total 966.667 / 3117.334 50 / 3167.334 50 / 50 Output Total 685 / 1285 300 / 1585 Balance 281.667 / 1832.334 -250 / 1582.334 50 / 50 Weight last 48 hrs Weight 276 lb Physical Exam Narrative: Patient presents alert and oriented x3 with a good general appearance normal mood and affect. Normal coordination normal stability. Mild tenderness around the incisional site with the incision appear to be clean and dry with Hemovac intact. No signs of erythema or drainage. No signs of infection. Patient denies any fevers or chills. 4/5 motor strength both lower extremities with negative straight leg raise bilaterally. Calves are supple no medial thigh tenderness. Pulses are 1+ at the dorsalis pedis and posterior tibial region. Good capillary refill throughout normal sensation light touch both lower extremities. Urinary Catheter Management: Thomson: Cath Placed During This Visit: no Reason for Continuing Indwelling Catheter: Perioperative Use in Selected Surgeries Data 10/28/22 05:23 10/28/22 05:23 A&P Assessment and plan (1) S/P spinal fusion: Discussed with the nurse to discontinue Hemovac drain as well as Thomson catheter after physical therapy assesses. Continue incentive spirometer for pulmonary toilet. We will have delinquency prevention social worker consulted for placement. SCD for mechanical DVT prophylaxis. (2) Traumatic compression fracture of T10 vertebra: Attestations Medical Necessity Statement*: Defer to the medical team Coding Level of Care Code Acute Code for [facility] Fwd Diagnoses S/P spinal fusion Z98.1 Traumatic compression fracture of T10 vertebra S22.070A
[2022-10-28] MEDS: docusate sodium 100 mg Capsule PO ×2 (07:57→16:33)
[2022-10-28] MEDS: HYDROcodone-acetaminophen 5-325 mg Tablet PO ×2 (07:57→23:55)
[2022-10-28] MEDS: methIMAzole 5 MG Tablet 10 MG PO (08:35)
[2022-10-28] MEDS: duloxetine 20 mg Capsule PO (08:35)
--- NOTE | 2022-10-28 11:31 | PC.NURSE ---
Addendum entered by Beverly Rogers RN 10/28/22 16:36: Love remained in place, removal was of a different patient, this patient refuses removal at this time and wanting to wait til tomorrow as he does not feel as though he can urinate appropriatly into urinal at this time. This nurse educated patient on risks of leaving love in longer than expected. Original Note: Patient accidentally pulled out hemavac this AM, this nurse and nursing service administrator at bedside to place occlusive dressing after assessing site. Love removed with no complications.
[2022-10-28] MEDS: lidocaine 4% cream 5 gm 1 APPLIC TOPICAL (16:32)
--- NOTE | 2022-10-28 17:31 | PM.PN ---
Subjective Subjective: S/p thoracic spine fusion, so far has done well, WBC has up trended to 17.4, likely reactive, from postop. Working with physical therapy. Medications: Medication Review Details: Generic Name Dose Route Start Last Admin Trade Name Freq PRN Reason Stop Dose Admin Hydrocodone Bitart /Acetaminophen 1 - 2 tab 10/27/22 09:47 10/28/22 07:57 Hydrocodone-Acet aminophen 5-325 Mg Tablet PO 1 tab Q4H PRN Administration MODERATE TO SEVER E PAIN Docusate Sodium 100 mg 10/27/22 18:00 10/28/22 16:33 Docusate Sodium 100 Mg Capsule PO 100 mg BID REJI Administration Duloxetine HCl 20 mg 10/27/22 09:00 10/28/22 08:35 Duloxetine 20 Mg Capsule PO 20 mg DAILY REJI Administration Enoxaparin Sodium 40 mg 10/28/22 06:00 10/28/22 06:04 Enoxaparin 40 Mg /0.4 Ml Syringe SUBCUT 40 mg Q24H REJI Administration Hydrochlorothiazid e 12.5 mg 10/27/22 06:00 10/28/22 06:03 Hydrochlorothiaz merced 25 Mg Tablet PO 12.5 mg QAM REJI Administration Lidocaine 1 applic 10/28/22 14:46 10/28/22 16:32 Lidocaine 4% Cre am 5 Gm TOPICAL 1 applic TID PRN Administration DISCOMFORT Losartan Potassium 100 mg 10/27/22 06:00 10/28/22 06:03 Losartan 50 Mg T ablet PO 100 mg QAM REJI Administration Methimazole 10 mg 10/27/22 09:00 10/28/22 08:35 Methimazole 5 Mg Tablet PO 10 mg DAILY REJI Administration Vitals/I&O/Wt Last Vital Signs Temp 97.9 F 10/28/22 11:45 Pulse 93 10/28/22 15:28 Resp 18 10/28/22 15:28 BP 134/82 10/28/22 15:28 Pulse Ox 94 10/28/22 15:28 O2 Del Method Room Air 10/28/22 15:28 O2 Flow Rate 5 10/27/22 12:23 FiO2 40 10/27/22 14:57 10/28/22 10/28/22 10/28/22 06:59 14:59 22:59 Intake Total 50 / 3167.334 530 / 530 Output Total 300 / 1585 40 / 40 400 / 440 Balance -250 / 1582.334 490 / 490 -400 / 90 Physical Exam Const: COMMON NORMALS: patient oriented x3 HENMT: COMMON NORMALS: normocephalic and atraumatic HEAD & SCALP: normocephalic and atraumatic Resp: COMMON NORMALS: clear to auscultation bilaterally AUSCULTATION: clear to auscultation bilaterally Cardio: COMMON NORMALS: regular rate, regular rhythm, S1 normal heart sound present, S2 normal heart sound present, No gallops present (Cardio), No murmurs present (Cardio), No rub (Cardio) and Peripheral pulses 2+ throughout RATE: regular rate RHYTHM: regular rhythm HEART SOUNDS: S1 normal heart sound present and S2 normal heart sound present PERIPHERAL PULSES: Peripheral pulses 2+ throughout GI: COMMON NORMALS: Normal to inspection, nondistended, normoactive bowel sounds present, Soft to palpation, non-tender, No hepatosplenomegaly present and no masses AUSCULTATION: Yes normoactive bowel sounds PALPATION: Yes Soft to palpation and Yes No hepatosplenomegaly present RECTAL EXAM: Yes deferred Extremity: COMMON NORMALS: no clubbing, cyanosis or edema and no pedal edema Neuro: COMMON NORMALS: patient oriented x3 Urinary Catheter Management: Thomson: Cath Placed During This Visit: no Reason for Continuing Indwelling Catheter: Perioperative Use in Selected Surgeries Data 10/28/22 05:23 10/28/22 05:23 A&P Assessment and plan (1) HTN (hypertension): (2) Thoracic spine fracture: (3) Hyperthyroidism: (4) Leukocytosis: Plan Chuckie Gandhi is a 87 year old male with past medical history of hypertension, hyperthyroidism, came in today after experiencing a mechanical fall at home, while climbing stairs, denied any chest pain, palpitation, lightheadedness, loss of consciousness, during the episode, currently is back pain is controlled with, pain medication. Assessment: Traumatic thoracic spine fracture: Status post: T7-T12 posterior spine fusion. Pain control Bowel regimen Spine surgery on board History of hyperthyroidism Continue methimazole History of hypertension: Continue losartan and hydrochlorothiazide Leukocytosis: Likely reactive, postop Monitor for now CODE STATUS: Full code DVT prophylaxis on Lovenox Attestations Medical Necessity Statement*: Patient in hospital awaiting SNF placement. Coding Level of Care Code 31910 Diagnoses HTN (hypertension) I10 Thoracic spine fracture S22.009A Hyperthyroidism E05.90 Leukocytosis D72.829
[2022-10-29] VITALS (9 sets, daily range): BP systolic 118–159; BP diastolic 69–78; PULSE 80–95; RESP 14–20; TEMP 36.6–37.3; O2SAT 92–94
[2022-10-29 06:05] LABS: Anion Gap 14.7 (5-19); Blood Urea Nitrogen 29 mg/dL (8-23); Calcium 8.1 mg/dL (8.5-10.5); Carbon Dioxide 25 mmol/L (22-29); Chloride 104 mmol/L (98-107); Glucose 133 mg/dL (65-115); Osmolality Calculated 296 mOsm/kg (285-295); Potassium 4.7 mmol/L (3.5-5.1); Sodium 139 mmol/L (136-145)
[2022-10-29] MEDS: losartan 50 mg Tablet 100 MG PO (06:08)
[2022-10-29] MEDS: hydroCHLOROthiazide 25 mg Tablet 12.5 MG PO (06:09)
[2022-10-29] MEDS: enoxaparin 40 mg/0.4 mL Syringe SUBCUT (06:10)
--- NOTE | 2022-10-29 09:00 | PM.PN ---
Subjective Subjective: Patient pain controlled. Sitting up eating breakfast Vitals/I&O/Wt Last Vital Signs Temp 98.5 F 10/29/22 07:41 Pulse 82 10/29/22 08:47 Resp 16 10/29/22 08:47 BP 159/78 10/29/22 07:41 Pulse Ox 94 10/29/22 08:47 O2 Del Method Room Air 10/29/22 08:47 O2 Flow Rate 5 10/27/22 12:23 FiO2 40 10/27/22 14:57 10/28/22 10/29/22 10/29/22 22:59 06:59 14:59 Intake Total 240 / 770 Output Total 900 / 940 600 / 1540 300 / 300 Balance -660 / -170 -600 / -770 -300 / -300 Physical Exam Narrative: Moving extremities ambulating Urinary Catheter Management: Thomson: Cath Placed During This Visit: no Reason for Continuing Indwelling Catheter: Required Immobilization for Trauma or Surgery or Anesthesia Data 10/28/22 05:23 10/29/22 05:20 A&P Assessment and plan (1) S/P spinal fusion: Okay to discharge from spine standpoint I will have him follow-up in 1 to 2 weeks in the orthopedic clinic Attestations Medical Necessity Statement*: Per primary service Coding Level of Care Code Acute Code for Chg Fwd Diagnoses S/P spinal fusion Z98.1
[2022-10-29 09:27] LABS: Basophils % 0.1 %; Eosinophils % 0.1 %; Hemoglobin 10.9 g/dL (11.7-16.6); Lymphocytes # 1.5 10^3/uL (0.8-4.8); Mean Corpuscular HGB Conc 32.1 g/dL (30.0-36.0); Mean Corpuscular Volume 93.7 fl (80-94); Mean Platelet Volume 10.1 fL (7.4-10.4); Monocytes # 1.3 10^3/uL (0.2-0.9); Monocytes % 9.4 %; Neutrophils # 10.57 10^3/uL (1.8-7.7); Neutrophils % 78.7 %; Nucleated Red Blood Cells % 0 %; Platelet Count 179 10^3/cmm (130-400); Red Blood Count 3.63 10^6/uL (4.1-5.3); Red Cell Distribution Width 14.6 % (12.1-15.1); White Blood Count 13.4 10^3/uL (4.0-10.0)
[2022-10-29] MEDS: HYDROcodone-acetaminophen 5-325 mg Tablet PO (09:56)
[2022-10-29] MEDS: duloxetine 20 mg Capsule PO (09:57)
[2022-10-29] MEDS: methIMAzole 5 MG Tablet 10 MG PO (09:57)
[2022-10-29] MEDS: docusate sodium 100 mg Capsule PO ×2 (09:57→18:02)
--- NOTE | 2022-10-29 15:06 | P.PN_ITS ---
Subjective Subjective: Pain is better controlled, no other acute events, working with physical therapy. Medications: Medication Review Details: Generic Name Dose Route Start Last Admin Trade Name Freq PRN Reason Stop Dose Admin Hydrocodone Bitart /Acetaminophen 1 - 2 tab 10/27/22 09:47 10/29/22 09:56 Hydrocodone-Acet aminophen 5-325 Mg Tablet PO 2 tab Q4H PRN Administration MODERATE TO SEVER E PAIN Docusate Sodium 100 mg 10/27/22 18:00 10/29/22 09:57 Docusate Sodium 100 Mg Capsule PO 100 mg BID REJI Administration Duloxetine HCl 20 mg 10/27/22 09:00 10/29/22 09:57 Duloxetine 20 Mg Capsule PO 20 mg DAILY REJI Administration Enoxaparin Sodium 40 mg 10/28/22 06:00 10/29/22 06:10 Enoxaparin 40 Mg /0.4 Ml Syringe SUBCUT 40 mg Q24H REJI Administration Hydrochlorothiazid e 12.5 mg 10/27/22 06:00 10/29/22 06:09 Hydrochlorothiaz merced 25 Mg Tablet PO 12.5 mg QAM REJI Administration Lidocaine 1 applic 10/28/22 14:46 10/28/22 16:32 Lidocaine 4% Cre am 5 Gm TOPICAL 1 applic TID PRN Administration DISCOMFORT Losartan Potassium 100 mg 10/27/22 06:00 10/29/22 06:08 Losartan 50 Mg T ablet PO 100 mg QAM REJI Administration Methimazole 10 mg 10/27/22 09:00 10/29/22 09:57 Methimazole 5 Mg Tablet PO 10 mg DAILY REJI Administration Vitals/I&O/Wt Last Vital Signs Temp 97.9 F 10/29/22 11:30 Pulse 95 10/29/22 11:30 Resp 20 H 10/29/22 11:30 BP 154/76 10/29/22 11:30 Pulse Ox 93 10/29/22 11:30 O2 Del Method Room Air 10/29/22 11:30 O2 Flow Rate 5 10/27/22 12:23 FiO2 40 10/27/22 14:57 10/29/22 10/29/22 10/29/22 06:59 14:59 22:59 Output Total 600 / 1540 600 / 600 Balance -600 / -770 -600 / -600 Physical Exam Const: COMMON NORMALS: patient oriented x3 HENMT: COMMON NORMALS: normocephalic and atraumatic HEAD & SCALP: normoceph alic and atraumatic Resp: COMMON NORMALS: clear to auscultation bilaterally AUSCULTATION: clear to auscultation bilaterally Cardio: COMMON NORMALS: regular rate, regular rhythm, S1 normal heart sound present, S2 normal heart sound present, No gallops present (Cardio), No murmurs present (Cardio), No rub (Cardio) and Peripheral pulses 2+ throughout RATE: regular rate RHYTHM: regular rhythm HEART SOUNDS: S1 normal heart sound present and S2 normal heart sound present PERIPHERAL PULSES: Peripheral pulses 2+ throughout GI: COMMON NORMALS: Normal to inspection, nondistended, normoactive bowel sounds present, Soft to palpation, non-tender, No hepatosplenomegaly present and no masses AUSCULTATION: Yes normoactive bowel sounds PALPATION: Yes Soft to palpation and Yes No hepatosplenomegaly present RECTAL EXAM: Yes deferred Extremity: COMMON NORMALS: no clubbing, cyanosis or edema and no pedal edema Neuro: COMMON NORMALS: patient oriented x3 Urinary Catheter Management: Thomson: Cath Placed During This Visit: no Reason for Continuing Indwelling Catheter: Required Immobilization for Trauma or Surgery or Anesthesia Data 10/29/22 09:15 10/29/22 05:20 A&P Assessment and plan (1) HTN (hypertension): (2) Thoracic spine fracture: (3) Hyperthyroidism: (4) Leukocytosis: Plan Chuckie Gandhi is a 87 year old male with past medical history of hypertension, hyperthyroidism, came in today after experiencing a mechanical fall at home, while climbing stairs, denied any chest pain, palpitation, lightheadedness, loss of consciousness, during the episode, currently is back pain is controlled with, pain medication. Assessment: Traumatic thoracic spine fracture: Status post: T7-T12 posterior spine fusion. Pain control Bowel regimen Spine surgery on board History of hyperthyroidism Continue methimazole History of hypertension: Continue losartan and hydrochlorothiazide Leukocytosis: Likely reactive, postop Monitor for now CODE STATUS: Full code DVT prophylaxis on Lovenox Attestations Medical Necessity Statement*: Awaiting placement. Coding Level of Care Code 86534 Diagnoses HTN (hypertension) I10 Thoracic spine fracture S22.009A Hyperthyroidism E05.90 Leukocytosis D72.829
[2022-10-30] VITALS (10 sets, daily range): BP systolic 111–161; BP diastolic 66–82; PULSE 79–89; RESP 16–22; TEMP 36.6–37; O2SAT 91–95
[2022-10-30] MEDS: hydroCHLOROthiazide 25 mg Tablet 12.5 MG PO (04:27)
[2022-10-30] MEDS: losartan 50 mg Tablet 100 MG PO (04:27)
[2022-10-30] MEDS: enoxaparin 40 mg/0.4 mL Syringe SUBCUT (04:32)
[2022-10-30] MEDS: HYDROcodone-acetaminophen 5-325 mg Tablet PO (08:43)
[2022-10-30] MEDS: duloxetine 20 mg Capsule PO (08:44)
[2022-10-30] MEDS: methIMAzole 5 MG Tablet 10 MG PO (08:44)
[2022-10-30] MEDS: docusate sodium 100 mg Capsule PO ×2 (08:44→17:42)
--- NOTE | 2022-10-30 12:17 | P.PN_ITS ---
Subjective Subjective: No acute events doing better. Medications: Medication Review Details: Generic Name Dose Route Start Last Admin Trade Name Freq PRN Reason Stop Dose Admin Hydrocodone Bitart /Acetaminophen 1 - 2 tab 10/27/22 09:47 10/30/22 08:43 Hydrocodone-Acet aminophen 5-325 Mg Tablet PO 2 tab Q4H PRN Administration MODERATE TO SEVER E PAIN Docusate Sodium 100 mg 10/27/22 18:00 10/30/22 08:44 Docusate Sodium 100 Mg Capsule PO 100 mg BID REJI Administration Duloxetine HCl 20 mg 10/27/22 09:00 10/30/22 08:44 Duloxetine 20 Mg Capsule PO 20 mg DAILY REJI Administration Enoxaparin Sodium 40 mg 10/28/22 06:00 10/30/22 04:32 Enoxaparin 40 Mg /0.4 Ml Syringe SUBCUT 40 mg Q24H REJI Administration Hydrochlorothiazid e 12.5 mg 10/27/22 06:00 10/30/22 04:27 Hydrochlorothiaz merced 25 Mg Tablet PO 12.5 mg QAM REJI Administration Lidocaine 1 applic 10/28/22 14:46 10/28/22 16:32 Lidocaine 4% Cre am 5 Gm TOPICAL 1 applic TID PRN Administration DISCOMFORT Losartan Potassium 100 mg 10/27/22 06:00 10/30/22 04:27 Losartan 50 Mg T ablet PO 100 mg QAM REJI Administration Methimazole 10 mg 10/27/22 09:00 10/30/22 08:44 Methimazole 5 Mg Tablet PO 10 mg DAILY REJI Administration Vitals/I&O/Wt Last Vital Signs Temp 97.8 F 10/30/22 11:51 Pulse 89 10/30/22 11:51 Resp 18 10/30/22 11:51 BP 111/66 10/30/22 11:51 Pulse Ox 95 10/30/22 11:51 O2 Del Method Room Air 10/30/22 11:51 O2 Flow Rate 5 10/27/22 12:23 FiO2 40 10/27/22 14:57 10/29/22 10/30/22 10/30/22 22:59 06:59 14:59 Intake Total 593 / 593 360 / 360 Output Total 650 / 1250 400 / 1650 Balance -57 / -657 -400 / -1057 360 / 360 Physical Exam Const: COMMON NORMALS: patient oriented x3 HENMT: COMMON NORMALS: normocephalic and atraumatic HEAD & SCALP: normocephalic and atraumatic Resp: COMMON NORMALS: clear to auscultation bilaterally AUSCULTATION: clear to auscultation bilaterally Cardio: COMMON NORMALS: regular rate, regular rhythm, S1 normal heart sound present, S2 normal heart sound present, No gallops present (Cardio), No murmurs present (Cardio), No rub (Cardio) and Peripheral pulses 2+ throughout RATE: regular rate RHYTHM: regular rhythm HEART SOUNDS: S1 normal heart sound present and S2 normal heart sound present PERIPHERAL PULSES: Peripheral pulses 2+ throughout GI: COMMON NORMALS: Normal to inspection, nondistended, normoactive bowel sounds present, Soft to palpation, non-tender, No hepatosplenomegaly present and no masses AUSCULTATION: Yes normoactive bowel sounds PALPATION: Yes Soft to palpation and Yes No hepatosplenomegaly present RECTAL EXAM: Yes deferred Extremity: COMMON NORMALS: no clubbing, cyanosis or edema and no pedal edema Neuro: COMMON NORMALS: patient oriented x3 Urinary Catheter Management: Thomson: Cath Placed During This Visit: no Reason for Continuing Indwelling Catheter: Acute Urinary Retention or Obstruction Data 10/29/22 09:15 10/29/22 05:20 A&P Assessment and plan (1) HTN (hypertension): (2) Thoracic spine fracture: (3) Hyperthyroidism: (4) Leukocytosis: Plan Chuckie Gandhi is a 87 year old male with past medical history of hypertension, hyperthyroidism, came in today after experiencing a mechanical fall at home, while climbing stairs, denied any chest pain, palpitation, lightheadedness, loss of consciousness, during the episode, currently is back pain is controlled with, pain medication. Assessment: Traumatic thoracic spine fracture: Status post: T7-T12 posterior spine fusion. Pain control Bowel regimen Spine surgery on board History of hyperthyroidism Continue methimazole History of hypertension: Continue losartan and hydrochlorothiazide Leukocytosis: Likely reactive, postop Monitor for now CODE STATUS: Full code DVT prophylaxis on Lovenox Attestations Medical Necessity Statement*: Currently awaiting shelter placement. Coding Level of Care Code 95492 Diagnoses HTN (hypertension) I10 Thoracic spine fracture S22.009A Hyperthyroidism E05.90 Leukocytosis D72.829
[2022-10-31] VITALS (11 sets, daily range): BP systolic 108–164; BP diastolic 65–79; PULSE 71–86; RESP 15–18; TEMP 36.2–37.3; O2SAT 92–96
--- NOTE | 2022-10-31 04:39 | PC.NURSE ---
Patient's love removed by dayshift at the end of shift, Patient has voided with urinal twice for a total of 200 ml urine output. Patient bladder scanned and 230 mls urine retained. Fluids encouraged.
[2022-10-31] MEDS: enoxaparin 40 mg/0.4 mL Syringe SUBCUT (05:44)
[2022-10-31] MEDS: hydroCHLOROthiazide 25 mg Tablet 12.5 MG PO (05:45)
[2022-10-31] MEDS: losartan 50 mg Tablet 100 MG PO (05:45)
[2022-10-31] MEDS: docusate sodium 100 mg Capsule PO ×2 (08:48→17:26)
[2022-10-31] MEDS: duloxetine 20 mg Capsule PO (08:48)
[2022-10-31] MEDS: methIMAzole 5 MG Tablet 10 MG PO (08:48)
[2022-10-31] MEDS: HYDROcodone-acetaminophen 5-325 mg Tablet PO (08:48)
--- NOTE | 2022-10-31 12:24 | P.PN_ITS ---
Subjective Subjective: No acute events doing better. Medications: Medication Review Details: Generic Name Dose Route Start Last Admin Trade Name Freq PRN Reason Stop Dose Admin Docusate Sodium 100 mg 10/27/22 18:00 10/31/22 08:48 Docusate Sodium 100 Mg Capsule PO 100 mg BID REJI Administration Duloxetine HCl 20 mg 10/27/22 09:00 10/31/22 08:48 Duloxetine 20 Mg Capsule PO 20 mg DAILY REJI Administration Enoxaparin Sodium 40 mg 10/28/22 06:00 10/31/22 05:44 Enoxaparin 40 Mg /0.4 Ml Syringe SUBCUT 40 mg Q24H REJI Administration Hydrochlorothiazid e 12.5 mg 10/27/22 06:00 10/31/22 05:45 Hydrochlorothiaz merced 25 Mg Tablet PO 12.5 mg QAM REJI Administration Lidocaine 1 applic 10/28/22 14:46 10/28/22 16:32 Lidocaine 4% Cre am 5 Gm TOPICAL 1 applic TID PRN Administration DISCOMFORT Losartan Potassium 100 mg 10/27/22 06:00 10/31/22 05:45 Losartan 50 Mg T ablet PO 100 mg QAM REJI Administration Methimazole 10 mg 10/27/22 09:00 10/31/22 08:48 Methimazole 5 Mg Tablet PO 10 mg DAILY REJI Administration Vitals/I&O/Wt Last Vital Signs Temp 98.0 F 10/31/22 11:35 Pulse 84 10/31/22 11:35 Resp 18 10/31/22 11:35 BP 108/65 10/31/22 11:35 Pulse Ox 92 10/31/22 11:35 O2 Del Method Room Air 10/31/22 11:35 O2 Flow Rate 5 10/27/22 12:23 FiO2 40 10/27/22 14:57 10/30/22 10/31/22 10/31/22 22:59 06:59 14:59 Intake Total 480 / 1080 480 / 480 Output Total 800 / 800 350 / 1150 175 / 175 Balance -320 / 280 -350 / -70 305 / 305 Physical Exam Const: COMMON NORMALS: patient oriented x3 HENMT: COMMON NORMALS: normocephalic and atraumatic HEAD & SCALP: normocephalic and atraumatic Resp: COMMON NORMALS: clear to auscultation bilaterally AUSCULTATION: clear to auscultation bilaterally Cardio: COMMON NORMALS: regular rate, regular rhythm, S1 normal heart sound present, S2 normal heart sound present, No gallops present (Cardio), No murmurs present (Cardio), No rub (Cardio) and Peripheral pulses 2+ throughout RATE: regular rate RHYTHM: regular rhythm HEART SOUNDS: S1 normal heart sound present and S2 normal heart sound present PERIPHERAL PULSES: Peripheral pulses 2+ throughout GI: COMMON NORMALS: Normal to inspection, nondistended, normoactive bowel sounds present, Soft to palpation, non-tender, No hepatosplenomegaly present and no masses AUSCULTATION: Yes normoactive bowel sounds PALPATION: Yes Soft to palpation and Yes No hepatosplenomegaly present RECTAL EXAM: Yes deferred Extremity: COMMON NORMALS: no clubbing, cyanosis or edema and no pedal edema Neuro: COMMON NORMALS: patient oriented x3 Urinary Catheter Management: Thomson: Cath Placed During This Visit: yes, but has since been removed by the nurse Reason for Continuing Indwelling Catheter: Decision to DC Catheter Date Urinary Catheter Removed: 10/30/22 Time Urinary Catheter Discontinued: 19:30 Data 10/29/22 09:15 10/29/22 05:20 A&P Assessment and plan (1) HTN (hypertension): (2) Thoracic spine fracture: (3) Hyperthyroidism: (4) Leukocytosis: Plan Chuckie Gandhi is a 87 year old male with past medical history of hypertension, hyperthyroidism, came in today after experiencing a mechanical fall at home, while climbing stairs, denied any chest pain, palpitation, lightheadedness, loss of consciousness, during the episode, currently is back pain is controlled with, pain medication. Assessment: Traumatic thoracic spine fracture: Status post: T7-T12 posterior spine fusion. Pain control Bowel regimen Spine surgery on board History of hyperthyroidism Continue methimazole History of hypertension: Continue losartan and hydrochlorothiazide Leukocytosis: Likely reactive, postop Monitor for now CODE STATUS: Full code DVT prophylaxis on Lovenox Attestations Medical Necessity Statement*: Awaiting [facility] [facility]. Coding Level of Care Code Acute Code for [facility] Fwd Diagnoses HTN (hypertension) I10 Thoracic spine fracture S22.009A Hyperthyroidism E05.90 Leukocytosis D72.829
--- NOTE | 2022-10-31 15:16 | PC.SOCIAL ---
IMM Update pg 2 of IMM updated and reviewed w/ patient. Copy provided and copy in chart dated, and initialed.
[2022-10-31] MEDS: ketorolac 30 mg/mL INJ IVP (23:10)
[2022-11-01 04:00] VITALS: BP 135/73; PULSE 75; RESP 16; TEMP 36.6; O2SAT 94
[2022-11-01 05:49] VITALS: BP 135/73
[2022-11-01] MEDS: losartan 50 mg Tablet 100 MG PO (05:49)
[2022-11-01] MEDS: hydroCHLOROthiazide 25 mg Tablet 12.5 MG PO (05:49)
[2022-11-01] MEDS: enoxaparin 40 mg/0.4 mL Syringe SUBCUT (05:50)
--- NOTE | 2022-11-01 07:30 | PM.PN ---
Subjective Subjective: POD 5 Patient resting comfortably. Patient has been very deconditioned difficulty with mobilizing. Denies any back pain. Describes lower extremity weakness primarily on the left side. Denies any chest pain, Vitals/I&O/Wt Last Vital Signs Temp 97.9 F 11/01/22 04:00 Pulse 75 11/01/22 04:00 Resp 16 11/01/22 04:00 BP 135/73 11/01/22 05:49 Pulse Ox 94 11/01/22 04:00 O2 Del Method Room Air 10/31/22 16:00 O2 Flow Rate 5 10/27/22 12:23 FiO2 40 10/27/22 14:57 10/31/22 11/01/22 11/01/22 22:59 06:59 14:59 Intake Total 480 / 1320 Output Total 225 / 400 550 / 950 Balance 255 / 920 -550 / 370 Physical Exam Narrative: Patient presents alert and oriented x3 with a good general appearance normal mood and affect. Normal coordination normal stability. Mild tenderness around the incisional site with the incision appear to be clean and dry. No signs of erythema or drainage. No signs of infection. Patient denies any fevers or chills. 4/5 motor strength both lower extremities with negative straight leg raise bilaterally. Calves are supple no medial thigh tenderness. Pulses are 2+ at the dorsalis pedis and posterior tibial region. Good capillary refill throughout normal sensation light touch both lower extremities. HENMT: COMMON NORMALS: normocephalic HEAD & SCALP: normocephalic Urinary Catheter Management: Thomson: Cath Placed During This Visit: yes, but has since been removed by the nurse Reason for Continuing Indwelling Catheter: Decision to DC Catheter Date Urinary Catheter Removed: 10/30/22 Time Urinary Catheter Discontinued: 19:30 Data 10/29/22 09:15 10/29/22 05:20 A&P Assessment and plan (1) S/P spinal fusion: Physical therapy to continue to mobilize. Continue to be cautious with bending lifting or twisting activities. Continue incentive spirometry for pulmonary toilet. Discussed with the nurse to change the dressing to [place]. We will see him back in the office in 1 to 2 weeks for postoperative follow-up. Ready for discharge to nursing facility when medically stable. Attestations Medical Necessity Statement*: Defer to medical team Coding Level of Care Code Acute Code for Chg Fwd Diagnoses S/P spinal fusion Z98.1
[2022-11-01 07:59] VITALS: BP 153/69; PULSE 80; RESP 18; TEMP 36.4; O2SAT 94
[2022-11-01] MEDS: duloxetine 20 mg Capsule PO (09:56)
[2022-11-01] MEDS: methIMAzole 5 MG Tablet 10 MG PO (09:56)
[2022-11-01] MEDS: docusate sodium 100 mg Capsule PO (09:56)
[2022-11-01] MEDS: acetaminophen 325 mg Tablet 650 MG PO (09:58)
--- NOTE | 2022-11-01 10:17 | P.DS_ITS ---
Discharge Providers Date of Admission: 10/26/22 17:53 Date of Discharge: November 01, 2022 Attending Provider at Admission: Angelito Longoria MD Attending Provider at Discharge: Ana Rosa Corbin MD Primary Care Provider: Miki Ariza MD Diagnoses at Discharge Discharge Diagnosis (1) S/P spinal fusion: Status: Acute Reason for Visit Reason for Visit: FALL/ BACK PAIN Hospital Course Hospital Course Chuckie Gandhi is a 87 year old male with past medical history of hypertension, hyperthyroidism, came in today after experiencing a mechanical fall at home, while climbing stairs, He was found to have hyperextension shear type fracture with distraction involving the superior endplate at T10 extending into the T9- T10 disc space. He underwent T7-T12 posterior spine fusion and instrumentation with Dr. Hughes on October 27, 2022. Postop course was notable for transiently requiring high oxygen up to 5 L, however currently patient is saturating 94% on room air. Transiently high oxygen requirements were likely related to a combination of atelectasis, postop sedation and pain management. He has been successfully been able to wean down 94% on room air. Chest x-ray showed possible tracheal displacement to the right side with mild widened mediastinum possibly due to goiter. She lungs were otherwise clear. Patient is known to have an enlarged thyroid with multiple thyroid nodules largest in the left lobe, trachea was noted to be deviated to the right by the enlarged left thyroid lobe even in April 2021. Rceommend continued follow up with PCP as outapatient for the same. Physical Exam Narrative: General: No acute distress, AO x3 HEENT: PERRLA, pupils bilaterally equal and reactive, pallors not present Chest: Normal vesicular breath sounds, no added sounds, equal good air entry bilaterally CVS: S1-S2 regular, no murmurs, no tachycardia, no gallops, no rubs Abdomen: Soft, nontender, no organomegaly, bowel sounds present Neuro: No focal deficits, no facial deformity, AO x3, power 5/5 in all limbs Urinary Catheter Management: Thomson: Cath Placed During This Visit: yes, but has since been removed by the nurse Reason for Continuing Indwelling Catheter: Decision to DC Catheter Date Urinary Catheter Removed: 10/30/22 Time Urinary Catheter Discontinued: 19:30 Discharge Data Studies Completed and Pending Completed Studies During Hospitalization Category Date Time Status CT cervical spin wo con* [id number] Stat Cat Scan 10/26/22 14:[address] head wo con* [id number] Stat Cat Scan 10/26/22 14:[address] thoracic spin wo con* [id number] Stat Cat Scan 10/26/22 14:29 Completed XR chest 1V portable [id number] Stat Exams 10/26/22 16:18 Completed XR thoracic spine 2V [id number] Routine Exams 10/27/22 09:30 Completed Pending at discharge Category Date Time Status COVID [SARS Covid-2 Antigen] Routine Lab 11/01/22 08:09 Uncollected Radiology Impressions Cervical Spine CT 10/26/22 14:29 IMPRESSION: No evidence of acute fracture or dislocation. Head CT 10/26/22 14:29 IMPRESSION: 1. No evidence of intracranial hemorrhage or mass effect. 2. Moderate small vessel changes with moderate parenchymal volume loss. 3. Vascular calcification. 4. No acute intracranial findings. Thoracic Spine CT 10/26/22 14:29 IMPRESSION: 1. Hyperextension shear type fracture with distraction involving the superior endplate at T10 extending into the T9-T10 disc space. Associated widening a nteriorly with disruption of the anterior longitudinal ligament measuring 13 mm. Disruption of the posterior longitudinal ligament with probable extension to the posterior elements. 2. Additional comminuted fracture of the T9 spinous process. 3. Minimal retropulsion of the above-described fracture with moderate central canal stenosis and indentation on the thoracic cord at this level. Recommend spine surgery consultation and further evaluation with MRI. 4. Associated moderate surrounding paravertebral hematoma at the T9-T10 levels. 5. Moderate thoracic kyphosis with diffuse ankylosis. Notified Bartolome Rios DO at 10/26/2022 4:03 PM. Chest X-Ray 10/26/22 16:18 IMPRESSION: Tracheal and mediastinal findings as noted above. Right diaphragm elevation may be due to hepatomegaly or focal eventration. Thoracic Spine X-Ray 10/27/22 09:30 IMPRESSION: Fluoroscopy time 17 seconds. Laboratory Results WBC 13.4 10^3/uL (4.0-10.0) H 10/29/22 09:15 Corrected WBC Cancelled 10/29/22 05:20 RBC 3.63 10^6/uL (4.1-5.3) L 10/29/22 09:15 Hgb 10.9 g/dL (11.7-16.6) L 10/29/22 09:15 Hct 34.0 % (42.0-52.0) L 10/29/22 09:15 MCV 93.7 fl (80-94) 10/29/22 09:15 MCH 30.0 pg (28.0-34.0) 10/29/22 09:15 MCHC 32.1 g/dL (30.0-36.0) 10/29/22 09:15 RDW 14.6 % (12.1-15.1) 10/29/22 09:15 Plt Count 179 10^3/cmm (130-400) 10/29/22 09:15 MPV 10.1 fL (7.4-10.4) 10/29/22 09:15 Gran % Cancelled 10/29/22 05:20 Neut % (Auto) 78.7 % 10/29/22 09:15 Lymph % (Auto) 11.0 % 10/29/22 09:15 [place] % (Auto) 9.4 % 10/29/22 09:15 Eos % (Auto) 0.1 % 10/29/22 09:15 Baso % (Auto) 0.1 % 10/29/22 09:15 Neut # (Auto) 10.57 10^3/uL (1.8-7.7) H 10/29/22 09:15 Lymph # (Auto) 1.5 10^3/uL (0.8-4.8) 10/29/22 09:15 [place] # (Auto) 1.3 10^3/uL (0.2-0.9) H 10/29/22 09:15 Eos # (Auto) 0.0 10^3/uL (0.0-0.8) 10/29/22 09:15 Baso # (Auto) 0.0 10^3/uL (0.0-0.1) 10/29/22 09:15 Absolute Gran (auto) Cancelled 10/29/22 05:20 Nucleated RBC % (auto) 0 % 10/29/22 09:15 Nucleated RBCs # 0.0 /100WBC 10/29/22 09:15 PT 13.40 SECONDS (12.1-14.9) 10/26/22 14:46 INR 0.99 (0.8-1.2) 10/26/22 14:46 APTT 27.0 SECONDS (23.9-36.7) 10/26/22 14:46 Sodium 139 mmol/L (136-145) 10/29/22 05:20 Potassium 4.7 mmol/L (3.5-5.1) 10/29/22 05:20 Chloride 104 mmol/L (98-107) 10/29/22 05:20 Carbon Dioxide 25 mmol/L (22-29) 10/29/22 05:20 Anion Gap 14.7 (5-19) 10/29/22 05:20 BUN 29 mg/dL (8-23) H 10/29/22 05:20 Creatinine 0.8 mg/dL (0.7-1.2) 10/29/22 05:20 GFR Calculation Not Reportable 10/29/22 05:20 Glucose 133 mg/dL (65-115) H 10/29/22 05:20 Calculated Osmolality 296 mOsm/kg (285-295) H 10/29/22 05:20 Calcium 8.1 mg/dL (8.5-10.5) L 10/29/22 05:20 Urine Color Yellow (Yellow) 10/26/22 15:30 Urine Appearance Clear (CLEAR) 10/26/22 15:30 Urine pH 7 (5-7) 10/26/22 15:30 Ur Specific [place] 1.015 (1.005-1.030) 10/26/22 15:30 Urine Protein Neg (Negative) 10/26/22 15:30 Urine Glucose (UA) Norm (Normal) 10/26/22 15:30 Urine Ketones Negative (Negative) 10/26/22 15:30 Urine Blood Neg (Negative) 10/26/22 15:30 Urine Nitrate Negative (Negative) 10/26/22 15:30 Urine Bilirubin Neg (Negative) 10/26/22 15:30 Urine Urobilinogen 1 mg/dL (Negative) H 10/26/22 15:30 Ur Leukocyte Esterase Negative (Negative) 10/26/22 15:30 Vitals Last Vital Signs Temp 97.6 F 11/01/22 07:59 Pulse 80 11/01/22 07:59 Resp 18 11/01/22 07:59 BP 153/69 11/01/22 07:59 Pulse Ox 94 11/01/22 07:59 O2 Del Method Room Air 11/01/22 07:59 O2 Flow Rate 5 10/27/22 12:23 FiO2 40 10/27/22 14:57 Discharge Plan Discharge Patient Disposition: Xfer SNF Condition: Stable Prescriptions: New (DME) intraoperative neuromonitoring See Rx Instructions .Route .MEDSUPPLY Qty: 1 0RF Rx Instructions: As directed tramadol 50 mg tablet 50 mg PO Q8H PRN (Reason: pain) 5 Days Qty: 15 0RF bisacodyl 5 mg Tablet,Delayed Release (Dr/Ec) 10 mg PO DAILY PRN (Reason: Constipation (see protocol)) 30 Days Qty: 60 0RF ibuprofen 600 mg tablet 600 mg PO Q8H PRN (Reason: pain (scale score 4-6)) 7 Days Qty: 20 0RF docusate sodium 100 mg Capsule 100 mg PO BID 30 Days Qty: 60 0RF Continued irbesartan-hydrochlorothiazide 300-12.5 mg tablet 1 tab PO DAILY duloxetine 20 mg capsule,delayed release(DR/EC) 20 mg PO DAILY methimazole 10 mg tablet 10 mg PO DAILY Discharge Orders: Discharge Order (Routine); Ordered 11/01/22 Ordered By: Ana Rosa Corbin Referrals: [facility] [Outside] Johan Hughes DO [Physician] - 11/09/22 10:15 am Miki Ariza MD [Primary Care Provider] - Discharge Diet: Advance as tolerated Discharge Activity: Limit activity as instructed Patient Instructions: Opioid Safety, Pain Management Activity Restrictions/Additional Instructions: Thank you for choosing [facility] for your care! The following is a list of instructions, from your provider, to follow upon your dis charge to ensure you have the optimal recovery from your recent injury or surgery. Follow-up care is a street part of your treatment and safety. Be sure to make and go to all appointments and call your doctor if you are having problems. If you do not already have a follow-up appointment made, call Dr. Hughes's] office in the next 1-3 days to make follow up appointment for 1 weeks at [phone]. It is also a good idea to know your test results and keep a list of the medicines you take. Medications will be prescribed for you at your provider's discretion. These medications are to be used as instructed; if they are taken more often that prescribed they will not be refilled early and in most cases will not be refilled at all. > When a refill is needed, you should contact taisha varela 2-3 business days before your prescription runs out. Medications will NOT be refilled by [employer] providers after hours! > Many pain medications contain Tylenol (Acetaminophen). Do not consume more than 4,000 mg of Tylenol per day in total with any combination of medications. > Pain medications can cause constipation. Please use an over the counter stool softener as directed, while taking pain medications. Consult your local pharmacist with questions or recommendations on stool softeners. If constipation persists, contact our office or your primary care provider. > While under our care, you are not to receive pain medications or other controlled substances from any other provider unless our office is notified and approves. Any attempts to do so will result in refusal to prescribe any further pain medications and possible dismissal from our practice. ? Walking is essential for the healing process after surgery. We would like you to slowly advance your walking. This should be done on relatively flat clear ground (inside or out) or can be done on a treadmill. Remember this goal does not have to happen all at once, slowly increase your d istance and duration. This can be broken into more more than one walk per day as tolerated. Patients who walk as directed after surgery rarely require Physical Therapy. In the unlikely event this issue arises your provider will direct hospital staff to make the appropriate arrangements. ? No lifting over 5 pounds {a gallon of milk) or bending/twisting until further notice. Each of these activities places an unnecessary amount of stress onto the body and can impede the delicate healing process. > Instead of bending at the waist, keep your back straight and bend at the knees. > Instead of twisting your torso, keep your back straight and turn your entire body with your feet. ? You may sleep in any position which makes you comfortable. Many patients find comfort sleeping in a reclining chair. It is not abnormal to have difficulty sleeping for the first several weeks following your surgery. We recommend trying Benadry! or Tylenol PM as directed to help with your sleeping difficulties. Both medications are over the counter and available without prescription. ? NO SMOKING!!! Smoking dramatically increases the probability of developing postoperative wound infections. ? Common complaints after lumbar and/or thoracic spine surgery include, but are not limited to: numbness and/or tingling in the legs, pain around the incision and surrounding tissues, muscle spasms, or stiffness of the middle to low back. Contact our office if these symptoms persist or if an acute change occurs. ? No driving for the first 3-5days, and not while taking narcotics until seen at your follow-up appointment and cleared. There are no restrictions for riding on short trips, however if you take a longer trip, arrangements should be made to make regular stops to get out of the vehicle and stretch . ? Swelling is an unfortunate event that will take place with any surgery and is the primary source of your postoperative discomfort. While walking and regular approved activities helps control inflammation, there are additional steps you can take to minimize swelling. > Place ice over the surgical site and surrounding tissue for twenty minutes, followed by applying a low/medium heat (heating pad) for an additional twenty minutes every 1-2 hours as needed for painrelief. > You may use of over the counter anti-inflammatory medications (Ibuprofen, Motrin, Aleve, Advil, etc) as directed on the package label. These types of medicines will significantly reduce the amount of discomfort you experience after surgery from swelling. It should be noted that if you have and allergy to any of these medications, or a history of ulcers or kidney disease you should consult you primary care provider prior to starting these medications. Discharge Attestations Time Spent in Discharge Care*: greater than 30 min Quality Metrics Clinical Quality Measures [ No reported AMI, CVA or VTE this stay] Coding Level of Care Code Acute Code for Chg Fwd Diagnoses S/P spinal fusion Z98.1
[2022-11-01 12:00] VITALS: BP 137/66; PULSE 87; RESP 16; TEMP 36.7; O2SAT 92
[2022-11-01 13:38] VITALS: BP 137/66; PULSE 87; RESP 16; TEMP 36.7; O2SAT 92
[2022-11-01 13:38] LABS: SARS Covid-2 Antigen negative (Negative)
== END 2022-11-01 14:34 | disposition skilled nursing facility (03) | DRG 460 ==
LOC: ER 17:36 → MEDSURG 17:53
PROVIDERS: Orthopaedic Surgery; Admitting Provider Internal Medicine; Emergency Provider Family Medicine; PCP Family Medicine; Visit Provider Student in an Organized Health Care Education/Training Program
PROC: 0RG707J Fusion of 2 to 7 Thoracic Vertebral Joints with Autologous Tissue Substitute, Posterior Approach, Anterior Column, Open Approach (ICD-10-PCS; principal; 2022-10-27 07:00)
DX: S22.070A Wedge compression fracture of T9-T10 vertebra, initial encounter for closed fracture (principal); W10.9XXA Fall (on) (from) unspecified stairs and steps, initial encounter; I10 Essential (primary) hypertension; E04.2 Nontoxic multinodular goiter; Z75.1 Person awaiting admission to adequate facility elsewhere; D72.829 Elevated white blood cell count, unspecified
CPT/HCPCS: 36415; 51702; 51798; 70450; 71045; 72070; 72125; 72128; 76000; 80048; 81003; 85025; 85610; 85730; 87426; 93005; 94660; 96365; 96372; 96375; 97110; 97116; 97161; 97167; 97530; 97535; 99285; A9281; C1713; J0690; J1100; J1170; J1650; J1885; J2250; J2360; J2370; J2405; J2704; J3010; J3370; J3490; J3535; J7030; P9047

== ENCOUNTER 2022-11-06 20:20 | Inpatient (IN) | payer MEDICARE, SELFPAY ==
[2022-11-06] VITALS (8 sets, daily range): BP systolic 94–139; BP diastolic 50–82; PULSE 97–110; RESP 22–24; TEMP 37.5; O2SAT 91–98; BMI 43.0
--- NOTE | 2022-11-06 20:45 | XRR_ITS ---
PROCEDURE INFORMATION: Exam: XR Chest Exam date and time: 11/06/2022 9:05 PM Age: 87 years old Clinical indication: Other: AMS TECHNIQUE: Imaging protocol: Radiologic exam of the chest. Views: 1 view. Other technique: The patient is rotated to the left. COMPARISON: No relevant prior studies available. FINDINGS: Lungs: Lungs are clear bilaterally. Pleural spaces: No pleural effusion. No pneumothorax. Heart/Mediastinum: Cardiac silhouette is moderately enlarged. Mediastinal contours are unremarkable. Bones/joints: Patient has had prior fusion in the mid and lower thoracic spine. Degenerative changes in the spine and shoulders. XR/XR chest 1V portable [id number] IMPRESSION: 1. No acute cardiopulmonary process. 2. Incidental/nonacute findings are listed in the report.
--- NOTE | 2022-11-06 20:45 | CTR_ITS ---
PROCEDURE INFORMATION: Exam: CT Head Without Contrast Exam date and time: 11/06/2022 9:33 PM Age: 87 years old Clinical indication: Altered mental status/memory loss; Additional info: AMS TECHNIQUE: Imaging protocol: Computed tomography of the head without contrast. Radiation optimization: All CT scans at this facility use at least one of these dose optimization techniques: automated exposure control; mA and/or kV adjustment per patient size (includes targeted exams where dose is matched to clinical indication); or iterative reconstruction. REPORTING DATA: Count of CT and Cardiac NM exams in prior 12 months: This patient has received 3 known CTs and 0 known cardiac nuclear medicine studies in the 12 months prior to the current study. COMPARISON: CT head wo con* [id number] 10/26/2022 3:01 PM RADIATION DOSE METRICS: Total DLP (mGy-cm): 1198.08 FINDINGS: Brain: No acute intracranial hemorrhage. No acute infarct. No intra-axial or extra-axial masses. Cannon-white matter differentiation is preserved. No cerebral edema. No extra-axial fluid collections. No midline shift. Stable moderate atrophy of the brain parenchyma. Stable moderately decreased attenuation in the deep white matter, consistent with moderate chronic microangiopathic change. No evidence for Chiari 1 malformation. Bilateral basal ganglia calcifications. Cerebral ventricles: No hydrocephalus. Paranasal sinuses: Paranasal sinuses are clear. Mastoid air cells: Mastoid air cells are clear bilaterally. Orbital cavities: Globes and lenses, extraocular muscles, and optic nerves are intact bilaterally. No acute intraorbital abnormality. Nasal cavity: Mild right nasal septal deviation. Bones/joints: No acute fracture. Soft tissues: No acute abnormality of the extracranial soft tissues. Vasculature: Atherosclerotic changes in the visualized arteries. CT/CT head wo con* [id number] IMPRESSION: 1. No acute abnormality of the brain. 2. Stable moderate atrophy of the brain parenchyma. 3. 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 4. Incidental/nonacute findings are listed in the report.
--- NOTE | 2022-11-06 20:56 | ED_ITS ---
HPI - General Adult General: Chief complaint: General Medical Stated complaint: AMS Time Seen by Provider: 11/06/22 20:36 Source: patient History of Present Illness: 87-year-old male who had thoracic surgery last week. He has been at [facility] for rehabilitation. His son called an ambulance today because he was concerned about the patient's confusion. He seemed more confused than normal. Evidently he has not been up since his surgery. He is running a temperature today. No increase in pain. Onset (ago): unknown Location: back Radiation: non-radiation Severity: moderate Pain Consistency: constant Associated symptoms: Reports confusion, decreased appetite, dyspnea, fevers/chills, short of breath and weakness (Generalized); Deny chest pain, cough, headache(s), nausea, rash or vomiting Review of Systems General: Reports: ROS unobtainable due to mental status Const: Reports: fever(s) ENMT: Denies: throat pain Card: Denies: chest pain Resp: Reports: dyspnea; Denies: productive cough or non-productive cough GI: Denies: abdominal pain, nausea or vomiting Musc: Reports: back pain Skin/Breast: Denies: rash Neuro: Reports: confusion; Denies: headache(s) PFSH ED PFSH: Medical History HTN (hypertension) Physical Exam Const: COMMON NORMALS: no acute distress GENERAL APPEARANCE: cooperative, ill appearing and frail appearing ORIENTATION/CONSCIOUSNESS: Yes awake, Yes oriented to person, Yes oriented to place and Yes confused (Mildly); not oriented to time HENMT: COMMON NORMALS: normocephalic, atraumatic and Normal external nose present HEAD & SCALP: normocephalic and atraumatic FACE & SINUS: normal facial exam and face symmetric NOSE: Normal external nose present Eye: COMMON NORMALS: Equal, round and reactive pupils present and EOMs intact bilaterally PUPIL: Yes Equal, round and reactive pupils present Neck/C-Spine: GENERAL: Yes trachea midline Chest: CHEST: Yes Symmetrical chest wall rise Resp: COMMON NORMALS: normal respiratory effort, No retractions, No use of accessory muscles and clear to auscultation bilaterally AUSCULTATION: clear to auscultation bilaterally Cardio: COMMON NORMALS: regular rate and regular rhythm RATE: regular rate RHYTHM: regular rhythm GI: COMMON NORMALS: Normal to inspection, nondistended, normoactive bowel sounds present Extremity: COMMON NORMALS: no pedal edema Neuro: RJ COMA SCALE: document GCS findings Rj coma scale eye opening: Spontaneous Rj coma scale verbal response: Confused Rj coma scale motor response: Obey commands Rj coma scale total score: 14 SENSOR IUM/ORIENTATION: Yes oriented to person, Yes oriented to place and No oriented to time CRANIAL NERVES: Yes CN normal except as noted SENSORY EXAM: Yes extremities (intact) MOTOR EXAM: Normal motor muscle tone present throughout Psych: ATTITUDE: Yes calm Skin: COMMON NORMALS: no rashes or lesions noted GENERAL SKIN EXAM: no rashes or lesions noted Course Consultations: Consultation #1: [place] Vital Signs: Vital signs: Vital Signs Temperature 99.5 F 11/06/22 20:20 Pulse Rate 98 11/06/22 22:05 Respiratory Rate 22 H 11/06/22 22:05 Blood Pressure 139/72 11/06/22 22:05 Pulse Oximetry 98 11/06/22 22:05 Oxygen Delivery Me thod Nasal Cannula 11/06/22 21:35 Oxygen Flow Rate 2 11/06/22 22:05 [facility] - General Adult Medical Decision Making Elevated temperature and heart rate. White blood cell count is 13.6. Hemoglobin is 10.6. Sodium is 127. BUN 47 creatinine 1.2. His urinalysis shows positive nitrates 2+ leukocyte esterase and 10-15 whites. His CRP is 162. Head CT shows no acute abnormality. Chest x-ray shows no acute process. His D-dimer was significantly elevated postoperatively. CTA of the chest is pending. CTA reveals small bilateral pleural effusions and atelectasis versus infiltrates. After Thomson was placed, he had well over a liter out, which may not have been helping his mental status. Although, it does not seem significantly improved. He will be admitted for urinary tract infection, urinary retention with mental status changes. Hospitalist is seeing the patient in the ER. Lab Data 11/06/22 20:36 11/06/22 20:36 Radiology Impressions Chest X-Ray 11/06/22 20:45 IMPRESSION: 1. No acute cardiopulmonary process. 2. Incidental/nonacute findings are listed in the report. Head CT 11/06/22 20:45 IMPRESSION: 1. No acute abnormality of the brain. 2. Stable moderate atrophy of the brain parenchyma. 3. 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 4. Incidental/nonacute findings are listed in the report. Chest CTA 11/06/22 21:17 IMPRESSION: 1. Negative for pulmonary embolus. 2. Left thyroid 3.9 cm complex cyst, nonemergent thyroid ultrasound could further evaluate this. 3. Coronary artery atherosclerotic calcifications. 4. Small bilateral pleural effusions. 5. Bibasilar atelectasis versus infiltrate. 6. Surgical hardware in the spine with a T10 vertebral body fracture, similar to prior exam. COMMENTS: Consistent with the [employer]'s Incidental Findings Committee white paper (J Am Jose Radiol 2015): In patients aged 35 years and older with an incidental thyroid nodule equal to or greater than 1.[address], MRI or extrathyroidal US, further evaluation with dedicated thyroid US is recommended for patients with normal life expectancy and without comorbidities. For smaller nodules without suspicious features, no further evaluation or follow up is recommended. Laboratory Results WBC 13.6 10^3/uL (4.0-10.0) H 11/06/22 20:36 RBC 3.65 10^6/uL (4.1-5.3) L 11/06/22 20:36 Hgb 10.6 g/dL (11.7-16.6) L 11/06/22 20:36 Hct 33.8 % (42.0-52.0) L 11/06/22 20:36 MCV 92.6 fl (80-94) 11/06/22 20:36 MCH 29.0 pg (28.0-34.0) 11/06/22 20:36 MCHC 31.4 g/dL (30.0-36.0) 11/06/22 20:36 RDW 15.0 % (12.1-15.1) 11/06/22 20:36 Plt Count 347 10^3/cmm (130-400) 11/06/22 20:36 MPV 9.7 fL (7.4-10.4) 11/06/22 20:36 Neut % (Auto) 87.5 % 11/06/22 20:36 Lymph % (Auto) 4.2 % 11/06/22 20:36 Baldwin % (Auto) 6.3 % 11/06/22 20:36 Eos % (Auto) 0.8 % 11/06/22 20:36 Baso % (Auto) 0.1 % 11/06/22 20:36 Neut # (Auto) 11.88 10^3/uL (1.8-7.7) H 11/06/22 20:36 Lymph # (Auto) 0.6 10^3/uL (0.8-4.8) L 11/06/22 20:36 Baldwin # (Auto) 0.9 10^3/uL (0.2-0.9) 11/06/22 20:36 Eos # (Auto) 0.1 10^3/uL (0.0-0.8) 11/06/22 20:36 Baso # (Auto) 0.0 10^3/uL (0.0-0.1) 11/06/22 20:36 Nucleated RBC % (auto) 0 % 11/06/22 20:36 Nucleated RBCs # 0.0 /100WBC 11/06/22 20:36 PT 15.50 SECONDS (12.1-14.9) H 11/06/22 20:36 INR 1.19 (0.8-1.2) 11/06/22 20:36 APTT 24.9 SECONDS (23.9-36.7) 11/06/22 20:36 D-Dimer 5.97 ug/mIFEU (0-0.59) H 11/06/22 20:36 Specimen Type Arterial 11/06/22 21:21 Sample Site Radial, right 11/06/22 21:21 ABG pH 7.48 (7.35-7.45) H 11/06/22 21:21 ABG pCO2 43.2 mmHg (35-45) 11/06/22 21:21 ABG pO2 74.5 mmHg (80.0-100.0) L 11/06/22 21:21 ABG HCO3 32.3 mmol/L (22-26) H 11/06/22 21:21 ABG Base Excess 8.0 mmol/L (-2.0-2.0) H 11/06/22 21:21 Navjot Test Pos 11/06/22 21:21 Hematocrit 31.0 % (42-52) L 11/06/22 21:21 O2 Delivery Device Nc 11/06/22 21:21 O2 Liters/Min 1.5 % 11/06/22 21:21 Topology Professor ID ellpe 11/06/22 21:21 Sodium 127 mmol/L (136-145) L 11/06/22 20:36 Potassium 3.7 mmol/L (3.5-5.1) 11/06/22 20:36 Chloride 90 mmol/L (98-107) L 11/06/22 20:36 Carbon Dioxide 31 mmol/L (22-29) H 11/06/22 20:36 Anion Gap 9.7 (5-19) 11/06/22 20:36 BUN 47 mg/dL (8-23) H 11/06/22 20:36 Creatinine 1.2 mg/dL (0.7-1.2) 11/06/22 20:36 GFR Calculation Not Reportable 11/06/22 20:36 Glucose 146 mg/dL (65-115) H 11/06/22 20:36 Calculated Osmolality 279 mOsm/kg (285-295) L 11/06/22 20:36 Lactate 1.5 mmol/L (0.5-2.2) 11/06/22 20:36 Calcium 8.1 mg/dL (8.5-10.5) L 11/06/22 20:36 Total Bilirubin 0.7 mg/dL (0.15-1.2) 11/06/22 20:36 AST 26 U/L (0-40) 11/06/22 20:36 ALT 16 U/L (0-41) 11/06/22 20:36 Alkaline Phosphatase 135 U/L (40-130) H 11/06/22 20:36 Creatine Kinase 73 U/L (39-308) 11/06/22 20:36 C-Reactive Protein 161.9 mg/L (0.0-4.9) H 11/06/22 20:36 NT-Pro-B Natriuret Pep 554 pg/mL (0-450) H 11/06/22 20:36 Total Protein 6.7 g/dL (6.6-8.7) 11/06/22 20:36 Albumin 2.7 g/dL (3.5-5.2) L 11/06/22 20:36 Globulin 4.0 g/dL (1.3-4.6) 11/06/22 20:36 Urine Color Yellow (Yellow) 11/06/22 21:00 Urine Appearance Sl hazy (CLEAR) A 11/06/22 21:00 Urine pH 8 (5-7) H 11/06/22 21:00 Ur Specific [place] 1.010 (1.005-1.030) 11/06/22 21:00 Urine Protein Neg (Negative) 11/06/22 21:00 Urine Glucose (UA) Norm (Normal) 11/06/22 21:00 Urine Ketones Negative (Negative) 11/06/22 21:00 Urine Blood Neg (Negative) 11/06/22 21:00 Urine Nitrate Positive (Negative) H 11/06/22 21:00 Urine Bilirubin Neg (Negative) 11/06/22 21:00 Prot Sulfosalicylic Acd Negative (Negative) 11/06/22 21:00 Urine Urobilinogen 1 mg/dL (Negative) H 11/06/22 21:00 Ur Leukocyte Esterase 2+ (Negative) H 11/06/22 21:00 Urine RBC 0-4 /hpf (0-2) H 11/06/22 21:00 Urine WBC 10-15 /hpf (0-5) H 11/06/22 21:00 Ur Squamous Epith Cells 0-4 /hpf (0-5) H 11/06/22 21:00 Calcium Oxalate Crystal 15-25 /hpf H 11/06/22 21:00 Amorphous Sediment Not Reportable 11/06/22 21:00 Urine Bacteria 3+ /hpf (NONE) H 11/06/22 21:00 SARS-CoV-2 Ag (Rapid) negative (Negative) 11/06/22 22:08 Discharge Plan Discharge Patient Disposition: Admitted As Inpatient Clinical Impression: Acute UTI, Altered mental status, LAKEISHA (acute kidney injury), Acute urinary retention Condition: Fair Prescriptions: No Action irbesartan-hydrochlorothiazide 300-12.5 mg tablet 1 tab PO DAILY duloxetine 20 mg capsule,delayed release(DR/EC) 20 mg PO DAILY methimazole 10 mg tablet 10 mg PO DAILY (DME) intraoperative neuromonitoring See Rx Instructions .Route .MEDSUPPLY Qty: 1 0RF Rx Instructions: As directed bisacodyl 5 mg Tablet,Delayed Release (Dr/Ec) 10 mg PO DAILY PRN (Reason: Constipation (see protocol)) 30 Days Qty: 60 0RF docusate sodium 100 mg Capsule 100 mg PO BID 30 Days Qty: 60 0RF ibuprofen 600 mg tablet 600 mg PO Q8H PRN (Reason: pain (scale score 4-6)) 7 Days Qty: 20 0RF Referrals: Miki Ariza MD [Primary Care Provider] - Coding Level of Care Code ED 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
[2022-11-06 20:58] LABS: Basophils % 0.1 %; Eosinophils # 0.1 10^3/uL (0.0-0.8); Eosinophils % 0.8 %; Hematocrit 33.8 % (42.0-52.0); Hemoglobin 10.6 g/dL (11.7-16.6); Lymphocytes # 0.6 10^3/uL (0.8-4.8); Lymphocytes % 4.2 %; Mean Corpuscular HGB Conc 31.4 g/dL (30.0-36.0); Mean Corpuscular Volume 92.6 fl (80-94); Mean Platelet Volume 9.7 fL (7.4-10.4); Monocytes # 0.9 10^3/uL (0.2-0.9); Monocytes % 6.3 %; Neutrophils # 11.88 10^3/uL (1.8-7.7); Neutrophils % 87.5 %; Nucleated Red Blood Cells % 0 %; Platelet Count 347 10^3/cmm (130-400); Red Blood Count 3.65 10^6/uL (4.1-5.3); White Blood Count 13.6 10^3/uL (4.0-10.0)
[2022-11-06 21:04] LABS: INR 1.19 (0.8-1.2); Partial Thromboplastin Time 24.9 SECONDS (23.9-36.7)
[2022-11-06 21:12] LABS: Lactate (Lactic Acid level) 1.5 mmol/L (0.5-2.2)
[2022-11-06 21:14] LABS: D Dimer 5.97 ug/mIFEU (0-0.59)
--- NOTE | 2022-11-06 21:17 | CTR_ITS ---
PROCEDURE INFORMATION: Exam: CTA Chest With Contrast Exam date and time: 11/06/2022 9:36 PM Age: 87 years old Clinical indication: Shortness of breath and other: S/P thoracic spine surgery x2 weeks; Prior surgery; Surgery date: <1 month; Surgery type: Thoracic rods x2 weeks ago; Additional info: SOB post op TECHNIQUE: Imaging protocol: Computed tomographic angiography of the chest with contrast. 3D rendering (Not supervised by radiologist): MIP and/or 3D reconstructed images were created by the technologist. Radiation optimization: All CT scans at this facility use at least one of these dose optimization techniques: automated exposure control; mA and/or kV adjustment per patient size (includes targeted exams where dose is matched to clinical indication); or iterative reconstruction. Contrast material: OMNI 350; Contrast volume: 100 ml; Contrast route: INTRAVENOUS (IV); REPORTING DATA: Count of CT and Cardiac NM exams in prior 12 months: This patient has received 3 known CTs and 0 known cardiac nuclear medicine studies in the 12 months prior to the current study. COMPARISON: CR (CHEST, ) 11/06/2022 9:05 PM RADIATION DOSE METRICS: Total DLP (mGy-cm): 493.54 FINDINGS: Pulmonary arteries: Normal. No pulmonary emboli. Aorta: Unremarkable. No aortic aneurysm. No aortic dissection. Thyroid: Left thyroid 3.9 cm complex cyst, nonemergent thyroid ultrasound could further evaluate this. Lungs: Bibasilar atelectasis versus infiltrate. Pleural spaces: Small bilateral pleural effusions. Heart: Unremarkable. No cardiomegaly. No pericardial effusion. Coronary arteries: Coronary artery atherosclerotic calcifications. Lymph nodes: Unremarkable. No enlarged lymph nodes. Bones/joints: Surgical hardware in the spine with a T10 vertebral body fracture, similar to prior exam. Soft tissues: Unremarkable. CT/CT angio chest PE protcl [id number] IMPRESSION: 1. Negative for pulmonary embolus. 2. Left thyroid 3.9 cm complex cyst, nonemergent thyroid ultrasound could further evaluate this. 3. Coronary artery atherosclerotic calcifications. 4. Small bilateral pleural effusions. 5. Bibasilar atelectasis versus infiltrate. 6. Surgical hardware in the spine with a T10 vertebral body fracture, similar to prior exam. COMMENTS: Consistent with the [employer]'s Incidental Findings Committee white paper (J Am Jose Radiol 2015): In patients aged 35 years and older with an incidental thyroid nodule equal to or greater than 1.[address], MRI or extrathyroidal US, further evaluation with dedicated thyroid US is recommended for patients with normal life expectancy and without comorbidities. For smaller nodules without suspicious features, no further evaluation or follow up is recommended.
[2022-11-06 21:20] LABS: ABG PCO2 43.2 mmHg (35-45); ABG PH Result 7.48 (7.35-7.45); Blood Gas Allen Test Pos; Blood Gas LPM 1.5 %; Blood Gas Sample Site Radial, right; Blood Gas Sample Type Arterial; HCO3 ABG 32.3 mmol/L (22-26); Oxygen Device NC; PO2 ABG 74.5 mmHg (80.0-100.0)
[2022-11-06 21:21] LABS: Bilirubin Urine Neg (Negative); Blood Urine Neg (Negative); Glucose Urine UA Norm (Normal); Ketones Urine Negative (Negative); Leukocyte Esterase Urine 2+ (Negative); Nitrate Urine Positive (Negative); Protein Urine Neg (Negative); Sulfosalicylic Acid Urine Negative (Negative); Urine Appearance SL Hazy (CLEAR); Urine Color Yellow (Yellow); Urobilinogen Urine 1 mg/dL (Negative); pH Urine 8 (5-7)
[2022-11-06 21:22] LABS: Add Urine Microscopic? YES; Bacteria Urine 3+ /hpf; Squamous Epithelial Cell Urine 0-4 /hpf (0-5)
[2022-11-06] MEDS: iohexol 350 mg/mL 500 mL Btl (per mL) IV (21:22)
[2022-11-06 21:23] LABS: Calcium Oxalate Crystals Urine 15-25 /hpf
[2022-11-06 21:23] LABS: Alanine Aminotransferase 16 U/L (0-41); Albumin Level 2.7 g/dL (3.5-5.2); Alkaline Phosphatase 135 U/L (40-130); Anion Gap 9.7 (5-19); Aspartate Amino Transferase 26 U/L (0-40); Blood Urea Nitrogen 47 mg/dL (8-23); C Reactive Protein 161.9 mg/L (0.0-4.9); Calcium 8.1 mg/dL (8.5-10.5); Carbon Dioxide 31 mmol/L (22-29); Chloride 90 mmol/L (98-107); Creatine Phosphokinase 73 U/L (39-308); Glucose 146 mg/dL (65-115); NT Pro B Type Natriuretic Pept 554 pg/mL (0-450); Osmolality Calculated 279 mOsm/kg (285-295); Potassium 3.7 mmol/L (3.5-5.1); Sodium 127 mmol/L (136-145); Total Bilirubin 0.7 mg/dL (0.15-1.2); Total Protein 6.7 g/dL (6.6-8.7)
[2022-11-06 21:24] LABS: Add Urine Culture? Yes; RBC Urine 0-4 /hpf (0-2)
[2022-11-06] MEDS: piperacillin-tazobactam 4.5 GM in sodium chloride 0.9% (plus) 50 ML IV (22:01)
[2022-11-06] MEDS: vancomycin 1,000 MG in sodium chloride 0.9% 250 ML 250 MG IV (22:02)
[2022-11-06 22:30] LABS: SARS Covid-2 Antigen negative (Negative)
[2022-11-07] VITALS (10 sets, daily range): BP systolic 112–148; BP diastolic 40–75; PULSE 60–99; RESP 16–23; TEMP 36.5–37.2; O2SAT 91–96; BMI 40.3
--- NOTE | 2022-11-07 01:25 | P.HP_ITS ---
Providers/Chief Complaint Admitting Physician: Edwin Onofre MD Primary Care Provider: Miki Ariza MD Chief Complaint: AMS History of Present Illness Chuckie Gandhi is a 87 year old male with a past medical history of hypertension, hypothyroidism, recent history of traumatic thoracic spine fracture, who presents to [facility] due to altered mental status. Currently patient is alert to person, not to place, to time, he follows some commands, but I cannot get much history from him, he keeps repeating that he came here to the hospital because he hurt his back, he keeps asking for his sons, he denies any chest pain, denies any shortness of breath is on 2 L, denies any abdominal pain, denies any diarrhea, Thomson catheter was placed, over 1200 cc output, according to ER physician, family has been checking up on him daily after his surgery, he had a fever according to family, he has been confused, no family at bedside Review of Systems Const: Denies: fever(s) Card: Denies: chest pain Resp: Denies: dyspnea GI: Denies: abdominal pain Medications/Allergies Home Medications Medication Instructions Recorded Confirmed Last Taken Type duloxetine 20 mg capsule,delayed 20 mg PO DAILY 10/19/22 11/03/22 10/26/22 History release irbesartan 300 1 tab PO DAILY 10/19/22 11/03/22 10/26/22 History mg-hydrochlorothiazide 12.5 mg tablet methimazole 10 mg tablet 10 mg PO DAILY 10/26/22 11/03/22 10/26/22 History intraoperative neuromonitoring #1 ea 10/27/22 11/03/22 Unknown Rx bisacodyl 5 mg tablet,delayed 10 mg PO DAILY PRN Constipation 11/01/22 11/03/22 Unknown Rx release (see protocol) 30 days #60 tabs docusate sodium 100 mg capsule 100 mg PO BID 30 days #60 caps 11/01/22 11/03/22 Unknown Rx ibuprofen 600 mg tablet 600 mg PO Q8H PRN pain (scale 11/01/22 11/03/22 Unknown Rx score 4-6) 7 days #20 tabs Allergies Allergy/AdvReac Type Severity Reaction Status Date / Time No Known Allergies Allergy Verified 11/03/22 15:04 PFSH Acute PFSH: Medical History (Updated 11/07/22 @ 01:29 by Edwin Onofre MD) HTN (hypertension) Surgical History (Updated 11/07/22 @ 01:27 by Edwin Onofre MD) History of spinal fusion Vitals/I&O/Wt Last Vital Signs Temp 98.5 F 11/07/22 00:00 Pulse 99 11/07/22 00:00 Resp 22 H 11/06/22 22:05 BP 118/40 11/07/22 00:00 Pulse Ox 95 11/07/22 00:00 O2 Del Method Nasal Cannula 11/07/22 00:00 O2 Flow Rate 2 11/07/22 00:00 11/06/22 11/06/22 11/07/22 14:59 22:59 06:59 Output Total 1600 / 1600 Balance -1600 / -1600 Weight last 48 hrs Weight 136.078 kg Physical Exam Const: COMMON NORMALS: no acute distress EXAM LIMITATIONS: altered mental status ORIENTATION/CONSCIOUSNESS: Yes awake and Yes oriented to person; not oriented to place and not oriented to time HENMT: COMMON NORMALS: normocephalic HEAD & SCALP: normocephalic Eye: COMMON NORMALS: Equal, round and reactive pupils present Neck/C-Spine: COMMON NORMALS: no JVD Lymph: LYMPHATIC: no lymphadenopathy noted Resp: COMMON NORMALS: normal respiratory effort, No retractions and No use of accessory muscles Cardio: COMMON NORMALS: regular rate, regular rhythm, S1 normal heart sound present and S2 normal heart sound present RATE: regular rate RHYTHM: regular rhythm HEART SOUNDS: S1 normal heart sound present and S2 normal heart sound present GI: COMMON NORMALS: Normal to inspection, nondistended, normoactive bowel sounds present, Soft to palpation and non-tender Extremity: COMMON NORMALS: no pedal edema Neuro: OTHER: Does not follow neurologic testing Urinary Catheter Management: Thomson: Cath Placed During This Visit: yes Urinary Catheter Date of Insertion: 11/06/22 Urinary Catheter Time of Insertion: 21:00 Data 11/06/22 20:36 11/06/22 20:36 Micro: Microbiology 11/06/22 20:30 Blood Culture - Preliminary Blood SPECIMEN COLLECTED 11/06/22 20:45 Blood Culture - Preliminary Blood SPECIMEN COLLECTED A&P Assessment and plan (1) Acute UTI: (2) Altered mental status: (3) LAKEISHA (acute kidney injury): (4) Pneumonia: (5) Hyperthyroidism: (6) HTN (hypertension): Plan Acute encephalopathy -Likely secondary pneumonia, UTI -Neurochecks, aspiration precautions Pneumonia, with hypoxia -CT of the chest showing bibasilar atelectasis versus infiltrate -Sputum cultures, blood cultures -Vancomycin, cefepime UTI diet, follow urine cultures, continue cefepime Full code Lovenox DVT prophylaxis Attestations Medical Necessity Statement*: Patient requires hospitalization, inpatient, greater than 2 minutes, for altered mental status, UTI, pneumonia, hypoxia Diagnoses Acute UTI N39.0 Altered mental status R41.82 LAKEISHA (acute kidney injury) N17.9 Pneumonia J18.9 Hyperthyroidism E05.90 HTN (hypertension) I10
--- NOTE | 2022-11-07 01:29 | USR_ITS ---
PROCEDURE INFORMATION: Exam: US Retroperitoneal; Complete; Kidneys and Bladder Exam date and time: 11/07/2022 2:09 AM Age: 87 years old Clinical indication: Abnormal findings; Abnormal lab test; Other: UTI TECHNIQUE: Imaging protocol: Real-time ultrasound of the retroperitoneum with image documentation. Complete exam focused on the kidneys and bladder. COMPARISON: No relevant prior studies available. FINDINGS: The right kidney measures 12.9 cm in length. The left kidney measures 13.6 cm in length. There is no hydronephrosis or perinephric fluid. Neither ureter is visible or obviously dilated. The renal parenchymal thickness and echogenicity appear within normal limits for age. 26 x 21 x 23 mm cyst in the lower right kidney. There is no sonographically visible renal calculus, or solid mass. Thomson catheter in the urinary bladder. The bladder is empty, not able to be otherwise evaluated at this time. US/US renal BI* [id number] IMPRESSION: 1. No hydronephrosis of either kidney. 2. No perinephric fluid. 3. Other findings discussed above.
--- NOTE | 2022-11-07 01:34 | PC.NURSE ---
Pt arrived from ER via transport on [facility], transferred to bariatric bed.
--- NOTE | 2022-11-07 02:03 | PC.PHAR ---
Pharmacokinetic dosing service Date: 11/07/22 Time: 202 Objective: Patient: Chuckie Gandhi Floor: 262-1 Age: 87 yo Serum creatinine: 1.2 mg/dL Height: 70.0 Inches Weight (kg): 136.078 Diagnosis: Relevant medical/social history: Cultures and sensitivities: Other labs: Assessment: IBW (kg): 73.00 Dosing wt(kg): 98.2 Estimated Creatinine clearance (ml/min): 43.9 CRCL method: Cockcroft and Gault using ibw(default). Drug selected: Vancomycin Loading dose (mg): 0 Vd (liters): 88.4 (factor used: 0.9 L/kg) Jayson (hr-1): 0.041 Half life (hrs): 16.91 Recommended dose: 2000 mg Interval: 24 hrs Infusion time (hrs): 1.5 Predicted peak (mcg/mL): 35.0 Predicted trough (mcg/mL): 13.91 Adjusted body weight was selected for vancomycin dosing. To switch back, select the total body weight option above. Renal function is stable [ ] /unstable [ ] Recommendations: Give Vancomycin 2000 mg q 24 hrs with an expected Cpeak of 35.0 mcg/ml and an expected Ctrough of 13.91 mcg/ml Renal dosing of other antibiotics (review renal dosing of other medications and list guidelines here): Thank you for the consult, will continue to follow. Signature: Jagruti Malave [facility]
[2022-11-07 02:12] LABS: Procalcitonin 0.36 ng/mL (0-0.5); Thyroid Stimulating Hormone 0.06 uIU/mL (0.27-4.20)
[2022-11-07] MEDS: sodium chloride 0.9% 1,000 ML 75 ML IV ×2 (03:06→17:16)
[2022-11-07] MEDS: enoxaparin 40 mg/0.4 mL Syringe SUBCUT (03:07)
[2022-11-07] MEDS: vancomycin 1,000 MG in sodium chloride 0.9% 250 ML 250 MG IV (03:07)
[2022-11-07] MEDS: pantoprazole 40 mg SDV IVP (03:19)
--- NOTE | 2022-11-07 03:39 | PC.NURSE ---
Received call from [facility] NADJA Levine to get update on pt status. RN informed of current dx and tx. RN was thankful for the update.
[2022-11-07] MEDS: piperacillin-tazobactam 3.375 GM in sodium chloride 0.9% (plus) 50 ML IV ×3 (05:36→21:38)
--- NOTE | 2022-11-07 18:30 | PM.MISC ---
Miscellaneous Note Purpose of Documentation: Mental status improving today, mentation at baseline per family who visisted him today ongoing wound care TSH 0.06, patient takes methimazole as outpatient which is on hold now Check FT3 and FT4
[2022-11-08] VITALS (9 sets, daily range): BP systolic 126–167; BP diastolic 64–92; PULSE 66–84; RESP 16–19; TEMP 36.7–37.1; O2SAT 63–97
[2022-11-08] MEDS: enoxaparin 40 mg/0.4 mL Syringe SUBCUT (02:07)
[2022-11-08] MEDS: vancomycin 2,000 MG/400 ML PIGGYBACK 200 MG IV (02:07)
[2022-11-08] MEDS: pantoprazole 40 mg SDV IVP (02:20)
[2022-11-08] MEDS: sodium chloride 0.9% 1,000 ML 75 ML IV (04:57)
[2022-11-08] MEDS: piperacillin-tazobactam 3.375 GM in sodium chloride 0.9% (plus) 50 ML IV ×3 (04:58→20:05)
[2022-11-08 05:47] LABS: Basophils % 0.2 %; Eosinophils # 0.2 10^3/uL (0.0-0.8); Eosinophils % 2.7 %; Hematocrit 30.5 % (42.0-52.0); Hemoglobin 9.4 g/dL (11.7-16.6); Lymphocytes # 1.3 10^3/uL (0.8-4.8); Lymphocytes % 14.5 %; Mean Corpuscular HGB Conc 30.8 g/dL (30.0-36.0); Mean Corpuscular Volume 94.1 fl (80-94); Mean Platelet Volume 9.2 fL (7.4-10.4); Monocytes # 0.8 10^3/uL (0.2-0.9); Monocytes % 9.5 %; Neutrophils # 6.29 10^3/uL (1.8-7.7); Neutrophils % 72.1 %; Nucleated Red Blood Cells % 0 %; Platelet Count 306 10^3/cmm (130-400); Red Blood Count 3.24 10^6/uL (4.1-5.3); White Blood Count 8.7 10^3/uL (4.0-10.0)
[2022-11-08] MEDS: morphine 4 mg/mL SDV 1 mL 2 MG IVP (06:28)
[2022-11-08 06:32] LABS: Alanine Aminotransferase 15 U/L (0-41); Albumin Level 2.5 g/dL (3.5-5.2); Alkaline Phosphatase 98 U/L (40-130); Anion Gap 12.4 (5-19); Aspartate Amino Transferase 26 U/L (0-40); Blood Urea Nitrogen 31 mg/dL (8-23); Calcium 7.8 mg/dL (8.5-10.5); Carbon Dioxide 28 mmol/L (22-29); Chloride 101 mmol/L (98-107); Creatinine Clr Calc Pharmacy 85.6097; Free T4 Free Thyroxine 1.25 ng/dL (0.82-1.77); Globulin 3.4 g/dL (1.3-4.6); Glucose 98 mg/dL (65-115); Osmolality Calculated 293 mOsm/kg (285-295); Potassium 3.4 mmol/L (3.5-5.1); Sodium 138 mmol/L (136-145); T3 Free 1.5 PG/ML (2.0-4.4); Total Bilirubin 0.5 mg/dL (0.15-1.2); Total Protein 5.9 g/dL (6.6-8.7)
[2022-11-08 12:16] LABS: Cortisol Random 18.01 ug/dL (2.47-19.5)
--- NOTE | 2022-11-08 16:21 | P.PN_ITS ---
Subjective Subjective: Patient was seen and examined this morning, has been afebrile,wbc is trending down Medications: Medication Review Details: Generic Name Dose Route Start Last Admin Trade Name Freq PRN Reason Stop Dose Admin Enoxaparin Sodium 40 mg 11/07/22 01:30 11/08/22 02:07 Enoxaparin 40 Mg /0.4 Ml Syringe SUBCUT 40 mg Q24H REJI Administration Piperacillin Sod/T azobactam 50 mls @ 12.5 mls /hr 11/07/22 05:00 11/08/22 13:48 Sod 3.375 gm/ So dium Chloride IV 12.5 mls/hr Q8H REJI Administration Protocol Vancomycin/PEG/NAD A/Lysine/Water 2,000 mg in 400 m ls @ 200 mls/hr 11/08/22 02:00 11/08/22 04:53 Vancocin IV Infused Q24H REJI Infusion Morphine Sulfate 2 mg 11/07/22 01:29 11/08/22 06:28 Morphine 4 Mg/Ml Sdv 1 Ml IVP 2 mg Q4H PRN Administration SEVERE PAIN Pantoprazole Sodiu m 40 mg 11/07/22 01:30 11/08/22 02:20 Pantoprazole 40 Mg Sdv IVP 40 mg Q24H REJI Administration Vitals/I&O/Wt Last Vital Signs Temp 98.3 F 11/08/22 12:00 Pulse 66 11/08/22 12:00 Resp 19 H 11/08/22 12:00 BP 126/64 11/08/22 12:00 Pulse Ox 63 L 11/08/22 12:00 O2 Del Method Nasal Cannula 11/08/22 12:00 O2 Flow Rate 2 11/08/22 08:48 11/08/22 11/08/22 11/08/22 06:59 14:59 22:59 Intake Total 1326.25 / 3146.25 770 / 770 Output Total 1250 / 1250 Balance 76.25 / 1896.25 770 / 770 Weight last 48 hrs Weight 127.573 kg Weight 136.078 kg Physical Exam HENMT: COMMON NORMALS: normocephalic and atraumatic HEAD & SCALP: normocephalic and atraumatic Resp: COMMON NORMALS: clear to auscultation bilaterally EFFORT & INSPEC TION: Yes symmetric chest movement AUSCULTATION: clear to auscultation bilaterally Cardio: COMMON NORMALS: regular rate, regular rhythm, S1 normal heart sound present, S2 normal heart sound present, No gallops present (Cardio), No murmurs present (Cardio), No rub (Cardio) and Peripheral pulses 2+ throughout RATE: regular rate RHYTHM: regular rhythm HEART SOUNDS: S1 normal heart sound present and S2 normal heart sound present PERIPHERAL PULSES: Peripheral pulses 2+ throughout GI: COMMON NORMALS: Normal to inspection, nondistended, normoactive bowel sounds present, Soft to palpation, non-tender, No hepatosplenomegaly present and no masses AUSCULTATION: Yes normoactive bowel sounds PALPATION: Yes Soft to palpation and Yes No hepatosplenomegaly present RECTAL EXAM: Yes deferred Extremity: COMMON NORMALS: no clubbing, cyanosis or edema and no pedal edema Urinary Catheter Management: Thomson: Cath Placed During This Visit: yes Reason for Continuing Indwelling Catheter: Other Urinary Catheter Date of Insertion: 11/06/22 Urinary Catheter Time of Insertion: 21:00 Data 11/08/22 05:15 11/08/22 05:15 Micro: Microbiology 11/06/22 20:45 Blood Culture - Preliminary Blood Staphylococcus sp coag neg 11/06/22 21:00 Urine Culture - Preliminary Urine,Clean Catch Gram Negative Rods 11/06/22 20:30 Blood Culture - Preliminary Blood NEGATIVE TO DATE 11/07/22 05:45 MRSA Culture - Final Nose A&P Assessment and plan (1) Acute UTI: (2) Altered mental status: (3) LAKEISHA (acute kidney injury): (4) Pneumonia: (5) Hyperthyroidism: (6) HTN (hypertension): Plan 89-ynrh-wap-year-old male with past medical his hypertension hyperthyroidism, recent history of thoracic spine fusion s/p traumatic thoracic spine fracture, recently discharged to SNF, came back with chief complaint of altered mental status.Currently he is being managed for Assessment: Acute metabolic encephalopathy: Possibly secondary to UTI and pneumonia CTA chest: Reviewed negative for pulmonary embolism, small bilateral pleural effusion, bibasilar atelectasis versus infiltrate. CT head without contrast: No acute intracranial pathology Urine culture gram-negative marisa: Pending identification Blood culture:07/21 coagulase-negative staph: Possible contamination:Currently appropriately covered with vancomycin. MRSA culture negative Currently he is empirically on vancomycin and Zosyn Aspiration precaution Frequent neurochecks Pneumonia, with hypoxia -CT of the chest showing bibasilar atelectasis versus infiltrate -Sputum cultures, blood cultures -Vancomycin, cefepime History of hyperthyroidism: TSH:0.06 , free T4:1.25 , free T3:1.5 , Follow repeat TSH free T4 and T3 Continue to hold methimazole UTI: Renal ultrasound has not shown any hydronephrosis,No perinephric fluid. Follow urine cultures, continue Zosyn Full code Lovenox DVT prophylaxis Attestations Medical Necessity Statement*: Needs to be in hospital for IV antibiotics. Coding Level of Care Code 68083 Diagnoses Acute UTI N39.0 Altered mental status R41.82 LAKEISHA (acute kidney injury) N17.9 Pneumonia J18.9 Hyperthyroidism E05.90 HTN (hypertension) I10
[2022-11-09] VITALS (8 sets, daily range): BP systolic 132–175; BP diastolic 69–89; PULSE 64–75; RESP 15–18; TEMP 36.4–36.5; O2SAT 90–98
[2022-11-09] MEDS: vancomycin 2,000 MG/400 ML PIGGYBACK 200 MG IV (01:26)
[2022-11-09] MEDS: enoxaparin 40 mg/0.4 mL Syringe SUBCUT (01:26)
[2022-11-09] MEDS: pantoprazole 40 mg SDV IVP (01:26)
[2022-11-09] MEDS: piperacillin-tazobactam 3.375 GM in sodium chloride 0.9% (plus) 50 ML IV ×3 (04:06→20:47)
[2022-11-09 06:03] LABS: Basophils % 0.1 %; Eosinophils # 0.3 10^3/uL (0.0-0.8); Eosinophils % 4.1 %; Hematocrit 32.1 % (42.0-52.0); Hemoglobin 9.9 g/dL (11.7-16.6); Lymphocytes # 1.2 10^3/uL (0.8-4.8); Lymphocytes % 16.4 %; Mean Corpuscular HGB Conc 30.8 g/dL (30.0-36.0); Mean Corpuscular Hemoglobin 29.7 pg (28.0-34.0); Mean Corpuscular Volume 96.4 fl (80-94); Mean Platelet Volume 9.4 fL (7.4-10.4); Monocytes # 0.5 10^3/uL (0.2-0.9); Monocytes % 7.3 %; Neutrophils # 5.12 10^3/uL (1.8-7.7); Neutrophils % 71.5 %; Nucleated Red Blood Cells % 0 %; Platelet Count 306 10^3/cmm (130-400); Red Blood Count 3.33 10^6/uL (4.1-5.3); Red Cell Distribution Width 14.9 % (12.1-15.1); White Blood Count 7.2 10^3/uL (4.0-10.0)
[2022-11-09 06:25] LABS: Alanine Aminotransferase 14 U/L (0-41); Albumin Level 2.4 g/dL (3.5-5.2); Alkaline Phosphatase 95 U/L (40-130); Anion Gap 11.4 (5-19); Aspartate Amino Transferase 26 U/L (0-40); Blood Urea Nitrogen 20 mg/dL (8-23); Calcium 7.9 mg/dL (8.5-10.5); Carbon Dioxide 30 mmol/L (22-29); Chloride 98 mmol/L (98-107); Creatinine Clr Calc Pharmacy 85.6097; Globulin 3.6 g/dL (1.3-4.6); Glucose 93 mg/dL (65-115); Osmolality Calculated 284 mOsm/kg (285-295); Potassium 3.4 mmol/L (3.5-5.1); Sodium 136 mmol/L (136-145); Total Bilirubin 0.5 mg/dL (0.15-1.2)
[2022-11-09 06:35] LABS: Thyroid Stimulating Hormone 0.09 uIU/mL (0.27-4.20)
[2022-11-09 06:36] LABS: Free T4 Free Thyroxine 1.18 ng/dL (0.82-1.77); T3 Free 1.6 PG/ML (2.0-4.4)
[2022-11-09] MEDS: acetaminophen 325 mg Tablet 650 MG PO (10:54)
--- NOTE | 2022-11-09 17:31 | PM.PN ---
Subjective Subjective: Patient was seen and examined this morning, he was seen sitting in the chair, holding good conversation, denied any significant complaints. Medications: Medication Review Details: Generic Name Dose Route Start Last Admin Trade Name Marah PRN Reason Stop Dose Admin Acetaminophen 650 mg 11/07/22 01:29 11/09/22 10:54 Acetaminophen 32 5 Mg Tablet PO 650 mg Q6H PRN Administration Mild/Mod Pain Or Temp >/= 101 Enoxaparin Sodium 40 mg 11/07/22 01:30 11/09/22 01:26 Enoxaparin 40 Mg /0.4 Ml Syringe SUBCUT 40 mg Q24H REJI Administration Piperacillin Sod/T azobactam 50 mls @ 12.5 mls /hr 11/07/22 05:00 11/09/22 17:01 Sod 3.375 gm/ So dium Chloride IV Infused Q8H REJI Infusion Protocol Vancomycin/PEG/NAD A/Lysine/Water 2,000 mg in 400 m ls @ 200 mls/hr 11/08/22 02:00 11/09/22 03:25 Vancocin IV Infused Q24H REJI Infusion Morphine Sulfate 2 mg 11/07/22 01:29 11/08/22 06:28 Morphine 4 Mg/Ml Sdv 1 Ml IVP 2 mg Q4H PRN Administration SEVERE PAIN Pantoprazole Sodiu m 40 mg 11/07/22 01:30 11/09/22 01:26 Pantoprazole 40 Mg Sdv IVP 40 mg Q24H REJI Administration Vitals/I&O/Wt Last Vital Signs Temp 97.7 F 11/09/22 12:00 Pulse 64 11/09/22 15:35 Resp 16 11/09/22 15:35 BP 132/74 11/09/22 15:35 Pulse Ox 95 11/09/22 15:35 O2 Del Method Nasal Cannula 11/09/22 15:35 O2 Flow Rate 2 11/09/22 08:00 11/09/22 11/09/22 11/09/22 06:59 14:59 22:59 Intake Total 1170 / 3230 290 / 290 50 / 340 Output Total 850 / 850 700 / 700 Balance 320 / 2380 290 / 290 -650 / -360 Physical Exam HENMT: COMMON NORMALS: normocephalic and atraumatic HEAD & SCALP: normocephalic and atraumatic Resp: COMMON NORMALS: normal respiratory effort, No retractions, No use of accessory muscles and clear to auscultation bilaterally EFFORT & INSPECTION: Yes symmetric chest movement AUSCULTATION: clear to auscultation bilaterally Cardio: COMMON NORMALS: regular rate, regular rhythm, S1 normal heart sound present, S2 normal heart sound present, No gallops present (Cardio), No murmurs present (Cardio), No rub (Cardio) and Peripheral pulses 2+ throughout RATE: regular rate RHYTHM: regular rhythm HEART SOUNDS: S1 normal heart sound present and S2 normal heart sound present PERIPHERAL PULSES: Peripheral pulses 2+ throughout GI: COMMON NORMALS: Normal to inspection, nondistended, normoactive bowel sounds present, Soft to palpation, non-tender, No hepatosplenomegaly present and no masses AUSCULTATION: Yes normoactive bowel sounds PALPATION: Yes Soft to palpation and Yes No hepatosplenomegaly present RECTAL EXAM: Yes deferred Extremity: COMMON NORMALS: no clubbing, cyanosis or edema and no pedal edema Urinary Catheter Management: Thomson: Cath Placed During This Visit: yes Reason for Continuing Indwelling Catheter: Acute Urinary Retention or Obstruction Urinary Catheter Date of Insertion: 11/06/22 Urinary Catheter Time of Insertion: 21:00 Data 11/09/22 05:36 11/09/22 05:36 Micro: Microbiology 11/06/22 20:45 Blood Culture - Preliminary Blood Staphylococcus epidermidis 11/06/22 21:00 Urine Culture - Final Urine,Clean Catch Morganella morganii A&P Assessment and plan (1) Acute UTI: (2) Altered mental status: (3) Pneumonia: (4) Hyperthyroidism: (5) HTN (hypertension): Plan 74-qflb-[age]ai-year-old male with past medical his hypertension hyperthyroidism, recent history of thoracic spine fusion s/p traumatic thoracic spine fracture, recently discharged to SNF, came back with chief complaint of altered mental status.Currently he is being managed for Assessment: Acute metabolic encephalopathy: Possibly secondary to UTI and pneumonia CTA chest: Reviewed negative for pulmonary embolism, small bilateral pleural effusion, bibasilar atelectasis versus infiltrate. CT head without contrast: No acute intracranial pathology Urine culture : Morganella Morgagni Blood culture:07/21 coagulase-negative staph: Possible contamination:Currently appropriately covered with vancomycin. MRSA culture negative Currently he is empirically on vancomycin and Zosyn Aspiration precaution Frequent neurochecks Pneumonia, with hypoxia -CT of the chest showing bibasilar atelectasis versus infiltrate -Sputum cultures, blood cultures -Vancomycin, cefepime History of hyperthyroidism: TSH:0.06 , free T4:1.25 , free T3:1.5 , Repeat TSH:0.09 free T4: 1.18 and Free T3: 1.6 Resume methimazole UTI: Renal ultrasound has not shown any hydronephrosis,No perinephric fluid. Follow urine cultures, continue Zosyn Full code Lovenox DVT prophylaxis Attestations Medical Necessity Statement*: In hospital for IV antibiotic. Coding Level of Care Code 98019 Diagnoses Acute UTI N39.0 Altered mental status R41.82 Pneumonia J18.9 Hyperthyroidism E05.90 HTN (hypertension) I10
--- NOTE | 2022-11-09 17:50 | XRR_ITS ---
PROCEDURE INFORMATION: Exam: XR Thoracic Spine Exam date and time: 11/09/2022 6:38 PM Age: 87 years old Clinical indication: Pain in thoracic spine; Prior surgery; Surgery date: Post-operative (0-2 days); Additional info: Fusion, needs to be portable TECHNIQUE: Imaging protocol: Radiologic exam of the thoracic spine. Views: 3 views. COMPARISON: OT XR thoracic spine 2V [id number] 10/27/2022 7:47 AM FINDINGS: Bones/joints: Recently placed posterior spinal fusion hardware within the mid and lower thoracic spine. Normal alignment. Redemonstrated sequela of ankylosing spondylitis. Soft tissues: Unremarkable. XR/XR thoracic spine 2V [id number] IMPRESSION: Posterior spinal fusion hardware in expected alignment. No acute findings.
[2022-11-10] VITALS (7 sets, daily range): BP systolic 121–177; BP diastolic 67–82; PULSE 66–74; RESP 16–20; TEMP 36.3–37.1; O2SAT 95–98
[2022-11-10] MEDS: enoxaparin 40 mg/0.4 mL Syringe SUBCUT (01:08)
[2022-11-10] MEDS: vancomycin 2,000 MG/400 ML PIGGYBACK 200 MG IV (01:11)
[2022-11-10] MEDS: pantoprazole 40 mg SDV IVP (03:16)
[2022-11-10] MEDS: piperacillin-tazobactam 3.375 GM in sodium chloride 0.9% (plus) 50 ML IV ×2 (05:36→13:09)
[2022-11-10 08:18] LABS: Basophils % 0.2 %; Eosinophils # 0.3 10^3/uL (0.0-0.8); Eosinophils % 4.7 %; Hemoglobin 9.5 g/dL (11.7-16.6); Lymphocytes # 1.1 10^3/uL (0.8-4.8); Lymphocytes % 20.2 %; Mean Corpuscular HGB Conc 30.6 g/dL (30.0-36.0); Mean Corpuscular Hemoglobin 29.6 pg (28.0-34.0); Mean Corpuscular Volume 96.6 fl (80-94); Mean Platelet Volume 9.6 fL (7.4-10.4); Monocytes # 0.5 10^3/uL (0.2-0.9); Monocytes % 8.6 %; Neutrophils # 3.69 10^3/uL (1.8-7.7); Neutrophils % 65.9 %; Nucleated Red Blood Cells % 0 %; Platelet Count 288 10^3/cmm (130-400); Red Blood Count 3.21 10^6/uL (4.1-5.3); Red Cell Distribution Width 14.6 % (12.1-15.1); White Blood Count 5.6 10^3/uL (4.0-10.0)
[2022-11-10] MEDS: methIMAzole 5 MG Tablet 10 MG PO (09:05)
[2022-11-10 09:15] LABS: Alanine Aminotransferase 13 U/L (0-41); Albumin Level 0.2 g/dL (3.5-5.2); Alkaline Phosphatase 80 U/L (40-130); Aspartate Amino Transferase 25 U/L (0-40); Blood Urea Nitrogen 16 mg/dL (8-23); Calcium 7.4 mg/dL (8.5-10.5); Carbon Dioxide 25 mmol/L (22-29); Creatinine Clr Calc Pharmacy 85.6097; Globulin 5.1 g/dL (1.3-4.6); Glucose 95 mg/dL (65-115); Total Bilirubin 0.4 mg/dL (0.15-1.2); Total Protein 5.3 g/dL (6.6-8.7)
[2022-11-10 09:21] LABS: Anion Gap 16.6 (5-19); Chloride 102 mmol/L (98-107); Osmolality Calculated 291 mOsm/kg (285-295); Potassium 3.6 mmol/L (3.5-5.1); Sodium 140 mmol/L (136-145)
--- NOTE | 2022-11-10 12:12 | PC.SOCIAL ---
IMM update IMM updated with patient. Verbalized an understanding. Copy Pg 2 provided. Initialled, dated, timed, and placed in chart.
--- NOTE | 2022-11-10 19:36 | P.PN_ITS ---
Subjective Subjective: Patient was seen and examined this morning, no acute events, working with physical therapy. Medications: Medication Review Details: Generic Name Dose Route Start Last Admin Trade Name Freq PRN Reason Stop Dose Admin Acetaminophen 650 mg 11/07/22 01:29 11/09/22 10:54 Acetaminophen 32 5 Mg Tablet PO 650 mg Q6H PRN Administration Mild/Mod Pain Or Temp >/= 101 Enoxaparin Sodium 40 mg 11/07/22 01:30 11/10/22 01:08 Enoxaparin 40 Mg /0.4 Ml Syringe SUBCUT 40 mg Q24H REJI Administration Piperacillin Sod/T azobactam 50 mls @ 12.5 mls /hr 11/07/22 05:00 11/10/22 17:09 Sod 3.375 gm/ So dium Chloride IV Infused Q8H REJI Infusion Protocol Vancomycin/PEG/NAD A/Lysine/Water 2,000 mg in 400 m ls @ 200 mls/hr 11/08/22 02:00 11/10/22 03:16 Vancocin IV Infused Q24H REJI Infusion Methimazole 10 mg 11/10/22 09:00 11/10/22 09:05 Methimazole 5 Mg Tablet PO 10 mg DAILY REJI Administration Morphine Sulfate 2 mg 11/07/22 01:29 11/08/22 06:28 Morphine 4 Mg/Ml Sdv 1 Ml IVP 2 mg Q4H PRN Administration SEVERE PAIN Pantoprazole Sodiu m 40 mg 11/07/22 01:30 11/10/22 03:16 Pantoprazole 40 Mg Sdv IVP 40 mg Q24H REJI Administration Vitals/I&O/Wt Last Vital Signs Temp 98.4 F 11/10/22 19:17 Pulse 68 11/10/22 19:17 Resp 18 11/10/22 19:17 BP 177/82 11/10/22 19:17 Pulse Ox 96 11/10/22 19:17 O2 Del Method Nasal Cannula 11/10/22 19:17 O2 Flow Rate 3 11/10/22 19:17 11/10/22 11/10/22 11/10/22 06:59 14:59 22:59 Intake Total 450 / 910 880 / 880 290 / 1170 Output Total 1250 / 1950 600 / 600 Balance -800 / -1040 880 / 880 -310 / 570 Physical Exam HENMT: COMMON NORMALS: normocephalic and atraumatic HEAD & SCALP: normocephalic and atraumatic Resp: COMMON NORMALS: normal respiratory effort, No retractions, No use of accessory muscles and clear to auscultation bilaterally EFFORT & INSPECTION: Yes symmetric chest movement AUSCULTATION: clear to auscultation bilaterally Cardio: COMMON NORMALS: regular rate, regular rhythm, S1 normal heart sound present, S2 normal heart sound present, No gallops present (Cardio), No murmurs present (Cardio), No rub (Cardio) and Peripheral pulses 2+ throughout RATE: regular rate RHYTHM: regular rhythm HEART SOUNDS: S1 normal heart sound present and S2 normal heart sound present PERIPHERAL PULSES: Peripheral pulses 2+ throughout GI: COMMON NORMALS: Normal to inspection, nondistended, normoactive bowel sounds present, Soft to palpation, non-tender, No hepatosplenomegaly present and no masses AUSCULTATION: Yes normoactive bowel sounds PALPATION: Yes Soft to palpation and Yes No hepatosplenomegaly present RECTAL EXAM: Yes deferred Extremity: COMMON NORMALS: no clubbing, cyanosis or edema and no pedal edema Urinary Catheter Management: Thomson: Cath Placed During This Visit: yes Reason for Continuing Indwelling Catheter: Acute Urinary Retention or Obstructi on Urinary Catheter Date of Insertion: 11/06/22 Urinary Catheter Time of Insertion: 21:00 Data 11/10/22 07:46 11/10/22 07:46 Micro: Microbiology 11/06/22 20:45 Blood Culture - Final Blood Staphylococcus epidermidis A&P Assessment and plan (1) Acute UTI: (2) Altered mental status: (3) Pneumonia: (4) Hyperthyroidism: (5) HTN (hypertension): Plan [id number]-year-old male with past medical his hypertension hyperthyroidism, recent history of thoracic spine fusion s/p traumatic thoracic spine fracture, recently discharged to SNF, came back with chief complaint of altered mental status.Currently he is being managed for Assessment: Acute metabolic encephalopathy: Possibly secondary to UTI and pneumonia CTA chest: Reviewed negative for pulmonary embolism, small bilateral pleural effusion, bibasilar atelectasis versus infiltrate. CT head without contrast: No acute intracranial pathology Urine culture : Morganella Morgagni Blood culture:07/21 coagulase-negative staph: Possible contamination:Currently appropriately covered with vancomycin. MRSA culture negative Currently he is empirically on vancomycin and Zosyn Aspiration precaution Frequent neurochecks Pneumonia, with hypoxia -CT of the chest showing bibasilar atelectasis versus infiltrate -Sputum cultures, blood cultures -Vancomycin, cefepime History of hyperthyroidism: TSH:0.06 , free T4:1.25 , free T3:1.5 , Repeat TSH:0.09 free T4: 1.18 and Free T3: 1.6 Resume methimazole UTI: Renal ultrasound has not shown any hydronephrosis,No perinephric fluid. Follow urine cultures, continue Zosyn Full code Lovenox DVT prophylaxis Attestations Medical Necessity Statement*: Currently awaiting placement Coding Level of Care Code Acute Code for Chg Fwd Diagnoses Acute UTI N39.0 Altered mental status R41.82 Pneumonia J18.9 Hyperthyroidism E05.90 HTN (hypertension) I10
[2022-11-11] VITALS: BP 158/73; PULSE 70; RESP 20; TEMP 36.5
[2022-11-11] MEDS: enoxaparin 40 mg/0.4 mL Syringe SUBCUT (01:17)
[2022-11-11 01:24] LABS: Basophils % 0.2 %; Eosinophils # 0.2 10^3/uL (0.0-0.8); Eosinophils % 3.1 %; Hemoglobin 9.4 g/dL (11.7-16.6); Lymphocytes # 1.6 10^3/uL (0.8-4.8); Mean Corpuscular HGB Conc 31.3 g/dL (30.0-36.0); Mean Corpuscular Hemoglobin 29.4 pg (28.0-34.0); Mean Corpuscular Volume 93.8 fl (80-94); Mean Platelet Volume 9.4 fL (7.4-10.4); Monocytes # 0.5 10^3/uL (0.2-0.9); Neutrophils % 64.2 %; Nucleated Red Blood Cells % 0 %; Platelet Count 285 10^3/cmm (130-400); Red Cell Distribution Width 14.3 % (12.1-15.1); White Blood Count 6.5 10^3/uL (4.0-10.0)
[2022-11-11 01:44] LABS: Alanine Aminotransferase 14 U/L (0-41); Albumin Level 2.4 g/dL (3.5-5.2); Alkaline Phosphatase 90 U/L (40-130); Anion Gap 8.2 (5-19); Aspartate Amino Transferase 23 U/L (0-40); Blood Urea Nitrogen 16 mg/dL (8-23); Calcium 7.8 mg/dL (8.5-10.5); Carbon Dioxide 32 mmol/L (22-29); Chloride 101 mmol/L (98-107); Globulin 3.5 g/dL (1.3-4.6); Glucose 96 mg/dL (65-115); Osmolality Calculated 287 mOsm/kg (285-295); Potassium 3.2 mmol/L (3.5-5.1); Sodium 138 mmol/L (136-145); Total Bilirubin 0.4 mg/dL (0.15-1.2); Total Protein 5.9 g/dL (6.6-8.7)
[2022-11-11 01:46] LABS: Creatinine Clr Calc Pharmacy 85.6097; Vancomycin Trough 12.3 ug/mL (10-15)
[2022-11-11] MEDS: pantoprazole 40 mg SDV IVP (03:03)
[2022-11-11 03:53] VITALS: BP 144/68; PULSE 70; RESP 22; TEMP 36.8; O2SAT 97
[2022-11-11] MEDS: levoFLOXacin 750 mg Tablet PO (05:59)
[2022-11-11 08:00] VITALS: BP 146/69; PULSE 70; RESP 18; TEMP 36.4; O2SAT 96; O2SAT 98
[2022-11-11] MEDS: potassium chloride ER 20 mEq Tablet PO (09:21)
[2022-11-11] MEDS: methIMAzole 5 MG Tablet 10 MG PO (09:21)
--- NOTE | 2022-11-11 09:37 | P.DS_ITS ---
Discharge Providers Date of Admission: 11/07/22 00:54 Date of Discharge: November 11, 2022 Attending Provider at Admission: Edwin Onofre MD Attending Provider at Discharge: Angelito Longoria MD Primary Care Provider: Miki Ariza MD Diagnoses at Discharge Discharge Diagnosis (1) Acute UTI: Status: Acute (2) Altered mental status: Status: Acute (3) Pneumonia: Status: Acute (4) Hyperthyroidism: Status: Acute (5) HTN (hypertension): Status: Acute Reason for Visit Reason for Visit: AMS Hospital Course Hospital Course [id number]-year-old male with past medical his hypertension hyperthyroidism, recent history of thoracic spine fusion s/p traumatic thoracic spine fracture, recently discharged to SNF, came back with chief complaint of altered mental status.during the hospital stay he was managed for acute metabolic encephalopathy secondary to UTI pneumonia and COVID-19,CTA chest: Reviewed negative for pulmonary embolism, small bilateral pleural effusion, bibasilar atelectasis versus infiltrate.CT head without contrast: No acute intracranial pathology,Urine culture : Morganella Morgagni,Blood culture:07/21 coagulase- negative staph: Possible contamination:Appropriately covered with vancomycin.MRSA culture negative During the hospital stay he was on broad spectrum antibiotic vancomycin and Zosyn, on discharge he was switched to p.o. levofloxacin for additional 3 days. At the time of discharge he was at his baseline mentation he was holding good conversations, he was afebrile hemodynamically stable, overall he responded well to above medical management and was discharged in stable condition to SNF.He will continue to follow his PCP as outpatient. Physical Exam HENMT: COMMON NORMALS: normocephalic and atraumatic HEAD & SCALP: normocephalic and atraumatic Resp: COMMON NORMALS: normal respiratory effort, No retractions, No use of accessory muscles and clear to auscultation bilaterally EFFORT & INSPECTION: Yes symmetric chest movement AUSCULTATION: clear to auscultation bilaterally Cardio: COMMON NORMALS: regular rate, regular rhythm, S1 normal heart sound present, S2 normal heart sound present, No gallops present (Cardio), No murmurs present (Cardio), No rub (Cardio) and Peripheral pulses 2+ throughout RATE: regular rate RHYTHM: regular rhythm HEART SOUNDS: S1 normal heart sound present and S2 normal heart sound present PERIPHERAL PULSES: Peripheral pulses 2+ throughout GI: COMMON NORMALS: Normal to inspection, nondistended, normoactive bowel sounds present, Soft to palpation, non-tender, No hepatosplenomegaly present and no masses AUSCULTATION: Yes normoactive bowel sounds PALPATION: Yes Soft to palpation and Yes No hepatosplenomegaly present RECTAL EXAM: Yes deferred Extremity: COMMON NORMALS: no clubbing, cyanosis or edema and no pedal edema Urinary Catheter Management: Thomson: Cath Placed During This Visit: yes Reason for Continuing Indwelling Catheter: Acute Urinary Retention or Obstruction Urinary Catheter Date of Insertion: 11/06/22 Urinary Catheter Time of Insertion: 21:00 Discharge Data Studies Completed and Pending Completed Studies During Hospitalization Category Date Time Status CT angio chest PE protcl [id number] Urgent Cat Scan 11/06/22 21:[address] head wo con* [id number] Stat Cat Scan 11/06/22 20:45 Completed XR chest 1V portable [id number] Stat Exams 11/06/22 20:45 Completed XR thoracic spine 2V [id number] Routine Exams 11/09/22 17:50 Completed US renal BI* [id number] Routine Ultrasound 11/07/22 01:29 Completed Pending at discharge Category Date Time Status Blood Culture Stat Lab 11/06/22 20:45 Results SARS Covid-2 Antigen Routine Lab 11/11/22 09:23 Received Sputum Culture and Gram Stain Stat Lab 11/07/22 01:24 Uncollected Radiology Impressions Chest X-Ray 11/06/22 20:45 IMPRESSION: 1. No acute cardiopulmonary process. 2. Incidental/nonacute findings are listed in the report. Head CT 11/06/22 20:45 IMPRESSION: 1. No acute abnormality of the brain. 2. Stable moderate atrophy of the brain parenchyma. 3. 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 4. Incidental/nonacute findings are listed in the report. Chest CTA 11/06/22 21:17 IMPRESSION: 1. Negative for pulmonary embolus. 2. Left thyroid 3.9 cm complex cyst, nonemergent thyroid ultrasound could further evaluate this. 3. Coronary artery atherosclerotic calcifications. 4. Small bilateral pleural effusions. 5. Bibasilar atelectasis versus infiltrate. 6. Surgical hardware in the spine with a T10 vertebral body fracture, similar to prior exam. COMMENTS: Consistent with the [employer]'s Incidental Findings Committee white paper (J Am Jose Radiol 2015): In patients aged 35 years and older with an incidental thyroid nodule equal to or greater than 1.[address], MRI or extrathyroidal US, further evaluation with dedicated thyroid US is recommended for patients with normal life expectancy and without comorbidities. For smaller nodules without suspicious features, no further evaluation or follow up is recommended. Renal Ultrasound 11/07/22 01:29 IMPRESSION: 1. No hydronephrosis of either kidney. 2. No perinephric fluid. 3. Other findings discussed above. Thoracic Spine X-Ray 11/09/22 17:50 IMPRESSION: Posterior spinal fusion hardware in expected alignment. No acute findings. Laboratory Results WBC 6.5 10^3/uL (4.0-10.0) 11/11/22 01:03 RBC 3.20 10^6/uL (4.1-5.3) L 11/11/22 01:03 Hgb 9.4 g/dL (11.7-16.6) L 11/11/22 01:03 Hct 30.0 % (42.0-52.0) L 11/11/22 01:03 MCV 93.8 fl (80-94) 11/11/22 01:03 MCH 29.4 pg (28.0-34.0) 11/11/22 01:03 MCHC 31.3 g/dL (30.0-36.0) 11/11/22 01:03 RDW 14.3 % (12.1-15.1) 11/11/22 01:03 Plt Count 285 10^3/cmm (130-400) 11/11/22 01:03 MPV 9.4 fL (7.4-10.4) 11/11/22 01:03 Neut % (Auto) 64.2 % 11/11/22 01:03 Lymph % (Auto) 24.0 % 11/11/22 01:03 [place] % (Auto) 8.0 % 11/11/22 01:03 Eos % (Auto) 3.1 % 11/11/22 01:03 Baso % (Auto) 0.2 % 11/11/22 01:03 Neut # (Auto) 4.20 10^3/uL (1.8-7.7) 11/11/22 01:03 Lymph # (Auto) 1.6 10^3/uL (0.8-4.8) 11/11/22 01:03 [place] # (Auto) 0.5 10^3/uL (0.2-0.9) 11/11/22 01:03 Eos # (Auto) 0.2 10^3/uL (0.0-0.8) 11/11/22 01:03 Baso # (Auto) 0.0 10^3/uL (0.0-0.1) 11/11/22 01:03 Nucleated RBC % (auto) 0 % 11/11/22 01:03 Nucleated RBCs # 0.0 /100WBC 11/11/22 01:03 PT 15.50 SECONDS (12.1-14.9) H 11/06/22 20:36 INR 1.19 (0.8-1.2) 11/06/22 20:36 APTT 24.9 SECONDS (23.9-36.7) 11/06/22 20:36 D-Dimer 5.97 ug/mIFEU (0-0.59) H 11/06/22 20:36 Specimen Type Arterial 11/06/22 21:21 Sample Site Radial, right 11/06/22 21:21 ABG pH 7.48 (7.35-7.45) H 11/06/22 21:21 ABG pCO2 43.2 mmHg (35-45) 11/06/22 21:21 ABG pO2 74.5 mmHg (80.0-100.0) L 11/06/22 21:21 ABG HCO3 32.3 mmol/L (22-26) H 11/06/22 21:21 ABG Base Excess 8.0 mmol/L (-2.0-2.0) H 11/06/22 21:21 Navjot Test Pos 11/06/22 21:21 Hematocrit 31.0 % (42-52) L 11/06/22 21:21 O2 Delivery Device Nc 11/06/22 21:21 O2 Liters/Min 1.5 % 11/06/22 21:21 Wet Suit Gluer ID irasema 11/06/22 21:21 Sodium 138 mmol/L (136-145) 11/11/22 01:03 Potassium 3.2 mmol/L (3.5-5.1) L 11/11/22 01:03 Chloride 101 mmol/L (98-107) 11/11/22 01:03 Carbon Dioxide 32 mmol/L (22-29) H 11/11/22 01:03 Anion Gap 8.2 (5-19) 11/11/22 01:03 BUN 16 mg/dL (8-23) 11/11/22 01:03 Creatinine 0.6 mg/dL (0.7-1.2) L 11/11/22 01:03 GFR Calculation Not Reportable 11/11/22 01:03 Glucose 96 mg/dL (65-115) 11/11/22 01:03 Calculated Osmolality 287 mOsm/kg (285-295) 11/11/22 01:03 Lactate 1.5 mmol/L (0.5-2.2) 11/06/22 20:36 Calcium 7.8 mg/dL (8.5-10.5) L 11/11/22 01:03 Total Bilirubin 0.4 mg/dL (0.15-1.2) 11/11/22 01:03 AST 23 U/L (0-40) 11/11/22 01:03 ALT 14 U/L (0-41) 11/11/22 01:03 Alkaline Phosphatase 90 U/L (40-130) 11/11/22 01:03 Creatine Kinase 73 U/L (39-308) 11/06/22 20:36 C-Reactive Protein 161.9 mg/L (0.0-4.9) H 11/06/22 20:36 NT-Pro-B Natriuret Pep 554 pg/mL (0-450) H 11/06/22 20:36 Total Protein 5.9 g/dL (6.6-8.7) L 11/11/22 01:03 Albumin 2.4 g/dL (3.5-5.2) L 11/11/22 01:03 Globulin 3.5 g/dL (1.3-4.6) 11/11/22 01:03 Procalcitonin 0.36 ng/mL (0-0.5) 11/06/22 20:36 TSH 0.09 uIU/mL (0.27-4.20) L 11/09/22 05:36 Free T4 1.18 ng/dL (0.82-1.77) 11/09/22 05:36 Free T3 1.6 PG/ML (2.0-4.4) L 11/09/22 05:36 Random Cortisol 18.01 ug/dL (2.47-19.5) 11/08/22 05:15 Urine Color Yellow (Yellow) 11/06/22 21:00 Urine Appearance Sl hazy (CLEAR) A 11/06/22 21:00 Urine pH 8 (5-7) H 11/06/22 21:00 Ur Specific [place] 1.010 (1.005-1.030) 11/06/22 21:00 Urine Protein Neg (Negative) 11/06/22 21:00 Urine Glucose (UA) Norm (Normal) 11/06/22 21:00 Urine Ketones Negative (Negative) 11/06/22 21:00 Urine Blood Neg (Negative) 11/06/22 21:00 Urine Nitrate Positive (Negative) H 11/06/22 21:00 Urine Bilirubin Neg (Negative) 11/06/22 21:00 Prot Sulfosalicylic Acd Negative (Negative) 11/06/22 21:00 Urine Urobilinogen 1 mg/dL (Negative) H 11/06/22 21:00 Ur Leukocyte Esterase 2+ (Negative) H 11/06/22 21:00 Urine RBC 0-4 /hpf (0-2) H 11/06/22 21:00 Urine WBC 10-15 /hpf (0-5) H 11/06/22 21:00 Ur Squamous Epith Cells 0-4 /hpf (0-5) H 11/06/22 21:00 Calcium Oxalate Crystal 15-25 /hpf H 11/06/22 21:00 Amorphous Sediment Not Reportable 11/06/22 21:00 Urine Bacteria 3+ /hpf (NONE) H 11/06/22 21:00 Vancomycin Trough 12.3 ug/mL (10-15) 11/11/22 01:03 SARS-CoV-2 Ag (Rapid) negative (Negative) 11/06/22 22:08 Vitals Last Vital Signs Temp 97.5 F L 11/11/22 08:00 Pulse 70 11/11/22 08:00 Resp 18 11/11/22 08:00 BP 146/69 11/11/22 08:00 Pulse Ox 96 11/11/22 08:00 O2 Del Method Nasal Cannula 11/11/22 08:00 O2 Flow Rate 3 11/11/22 08:00 Discharge Plan Discharge Patient Disposition: Xfer SNF Condition: Stable Prescriptions: New levofloxacin 500 mg tablet 500 mg PO DAILY 3 Days Qty: 3 0RF Continued irbesartan-hydrochlorothiazide 300-12.5 mg tablet 1 tab PO DAILY duloxetine 20 mg capsule,delayed release(DR/EC) 20 mg PO DAILY methimazole 10 mg tablet 10 mg PO DAILY bisacodyl 5 mg Tablet,Delayed Release (Dr/Ec) 10 mg PO DAILY PRN (Reason: Constipation (see protocol)) 30 Days Qty: 60 0RF docusate sodium 100 mg Capsule 100 mg PO BID 30 Days Qty: 60 0RF ibuprofen 600 mg tablet 600 mg PO Q8H PRN (Reason: pain (scale score 4-6)) 7 Days Qty: 20 0RF Discharge Orders: Discharge Order (Routine); Ordered 11/11/22 Ordered By: Angelito Longoria Referrals: [facility] [Outside] Miki Ariza MD [Primary Care Provider] - Patient Instructions: Opioid Safety Discharge Attestations Time Spent in Discharge Care*: less than 30 min Quality Metrics Clinical Quality Measures [ No reported AMI, CVA or VTE this stay] Coding Level of Care Code Acute Code for Chg Fwd Diagnoses Acute UTI N39.0 Altered mental status R41.82 Pneumonia J18.9 Hyperthyroidism E05.90 HTN (hypertension) I10
[2022-11-11 09:50] LABS: SARS Covid-2 Antigen positive (Negative)
[2022-11-11 12:00] VITALS: BP 148/75; PULSE 71; RESP 16; TEMP 36.5; O2SAT 93
[2022-11-11 16:00] VITALS: BP 166/75; PULSE 81; RESP 18; TEMP 36.3; O2SAT 94
[2022-11-11 16:08] VITALS: BP 166/75; PULSE 81; RESP 18; TEMP 36.3; O2SAT 94
== END 2022-11-11 16:10 | disposition skilled nursing facility (03) | DRG 193 ==
LOC: ER 11-07 00:11 → MEDSURG 11-07 01:05
PROVIDERS: Student in an Organized Health Care Education/Training Program; Admitting Provider Family Medicine; Emergency Provider Emergency Medicine; PCP Family Medicine; Visit Provider Internal Medicine
DX: J18.9 Pneumonia, unspecified organism (principal); G93.41 Metabolic encephalopathy; U07.1 COVID-19; N39.0 Urinary tract infection, site not specified; N17.9 Acute kidney failure, unspecified; I10 Essential (primary) hypertension; E03.9 Hypothyroidism, unspecified; Z98.1 Arthrodesis status; B96.89 Other specified bacterial agents as the cause of diseases classified elsewhere
CPT/HCPCS: 36415; 36600; 51702; 70450; 71045; 71275; 72070; 76770; 80053; 80202; 81001; 82533; 82550; 82803; 83605; 83880; 84145; 84439; 84443; 84481; 85025; 85378; 85610; 85730; 86140; 87040; 87077; 87086; 87186; 87205; 87426; 87641; 94664; 96365; 96367; 96372; 97110; 97161; 97530; 99285; C9113; J1650; J2270; J2543; J3370; J3372; J7030; J7050; Q9967

== ENCOUNTER 2022-11-16 19:41 | Emergency (ER) | payer MEDICARE, SELFPAY ==
[2022-11-16 19:43] VITALS: BP 125/82; PULSE 86; RESP 22; TEMP 36.9; O2SAT 94; BMI 44.4
--- NOTE | 2022-11-16 19:54 | CTR_ITS ---
PROCEDURE INFORMATION: Exam: CTA Chest With Contrast Exam date and time: 11/16/2022 11:55 PM Age: 87 years old Clinical indication: Cough and shortness of breath; Prior surgery; Surgery type: Thoracolumbar fusion. Patient HX: Cough with SOB and hypoxia. Covid +; Additional info: Covid positive, dyspnea, hypoxia TECHNIQUE: Imaging protocol: Computed tomographic angiography of the chest with contrast. 3D rendering (Not supervised by radiologist): MIP and/or 3D reconstructed images were created by the technologist. Radiation optimization: All CT scans at this facility use at least one of these dose optimization techniques: automated exposure control; mA and/or kV adjustment per patient size (includes targeted exams where dose is matched to clinical indication); or iterative reconstruction. Contrast material: OMNI 350; Contrast volume: 61 ml; Contrast route: INTRAVENOUS (IV); REPORTING DATA: Count of CT and Cardiac NM exams in prior 12 months: This patient has received 5 known CTs and 0 known cardiac nuclear medicine studies in the 12 months prior to the current study. COMPARISON: CT angio chest PE [facility] [id number] 11/06/2022 9:36 PM RADIATION DOSE METRICS: Total DLP (mGy-cm): 323.84 FINDINGS: Pulmonary arteries: There is a left upper lobe subsegmental pulmonary artery filling defect on series 7, image 168. No other definite thrombus is seen. There is mixing artifact distally in the pulmonary arteries. Aorta: Unremarkable. No aortic aneurysm. No aortic dissection. Thyroid: Cystic mass left thyroid measuring 3.9 cm is unchanged. Lungs: There is a new 8 mm ground-glass nodule posterior right upper lobe series 5, image 30. There is consolidation or atelectasis in the lower lobes adjacent to the pleural fluid which is similar. Pleural spaces: There is a small left pleural effusion. Heart: Stable heart size. Heart RV/LV ratio: RV/LV ratio is normal. Coronary arteries: Marked coronary artery atherosclerosis. Lymph nodes: Unremarkable. No enlarged lymph nodes. Bones/joints: Thoracic fusion hardware again seen. Fracture of the T10 vertebrae adjacent to the screws unchanged. Soft tissues: Unremarkable. CT/CT angio chest [id number] IMPRESSION: 1. Left upper lobe subsegmental filling defects suspicious for thrombus. Differential diagnosis is mixing artifact. No findings of right heart strain. 2. Small left pleural effusion with bibasilar consolidation or atelectasis is similar. There is a new right upper lobe ground-glass nodule which is favored to be infectious/inflammatory.
[2022-11-16 20:26] LABS: ABG PH Result 7.36 (7.35-7.45); Alveolar-Arterial Oxygen Gradi 6.1 mmHg (5-10); Arterial Blood Gas Hematocrit 32.9 % (42-52); Base Excess ABG 9.1 mmol/L (-2.0-2.0); Blood Gas Sample Site Brachial, right; Blood Gas Sample Type Arterial; Carboxyhemoglobin 1.5 %THgb (0.4-20.1); HCO3 ABG 36.6 mmol/L (22-26); HGB O2 Sat 96.4 % (95-100); Ionized Calcium Level - ABG 1.2 mmol/L (1.1-1.4); Methemoglobin 0.2 % (0.4-1.5); Oxygen Device NC; Total Hemoglobin 10.7 g/dL (14-18)
[2022-11-16 20:27] LABS: ABG PCO2 65.5 mmHg (35-45)
--- NOTE | 2022-11-16 20:42 | W.ED.AMS ---
Documented by User: Matt Wilkins DO 11/16/22 20:45 HPI - Altered Mental Status General: Chief Complaint: Altered Mental Status Stated Complaint: AMS, Covid pt Time Seen by Provider: 11/16/22 19:46 History of Present Illness: Patient presents to the ER by EMS with complaints that detention stated that he is harder to understand and has altered mental status since being tested positive for COVID on Tuesday. Patient is on oxygen and is currently on his baseline oxygen at 3 L per nasal cannula. She is alert and oriented and answers questions appropriately. MD complaint: altered mental status Onset (ago): day(s) Severity: mild Consistency of symptoms: Constant Treatments prior to arrival: oxygen Review of Systems General: Reports: 10 or more systems reviewed and unremarkable except in HPI and below Const: Denies: fever(s) or chills Eyes: Denies: change in vision or photophobia ENMT: Denies: throat pain or odynophagia Card: Denies: chest pain, palpitations or irregular heart rhythm Resp: Denies: dyspnea, productive cough or non-productive cough GI: Denies: abdominal pain, nausea, vomiting or diarrhea : Denies: flank pain, difficulty urinating or dysuria Musc: Denies: neck pain or back pain PFSH ED PFSH: Medical History Acute urinary retention Acute UTI LAKEISHA (acute kidney injury) Altered mental status HTN (hypertension) Hyperthyroidism Pneumonia Surgical History History of spinal fusion Physical Exam Const: COMMON NORMALS: no acute distress, average body habitus, patient oriented x3, no limitations, healthy appearing, alert and well nourished HENMT: COMMON NORMALS: normocephalic, atraumatic, hearing grossly normal bilaterally, external ears normal, Normal external nose present and moist oral mucous membranes HEAD & SCALP: normocephalic and atraumatic NOSE: Normal external nose present EXTERNAL EAR: Yes external ears normal Eye: COMMON NORMALS: Equal, round and reactive pupils present, EOMs intact bilaterally, conjunctivae normal and no scleral icterus CONJUNCTIVA: Yes conjunctivae normal PUPIL: Yes Equal, round and reactive pupils present Neck/C-Spine: COMMON NORMALS: full ROM, no lymphadenopathy, supple, no meningeal signs, no JVD and Thyroid normal THYROID: Thyroid normal Lymph: LYMPHATIC: no lymphadenopathy noted Chest: COMMONS NORMALS: normal inspection of the chest and normal palpation of entire chest wall Cardio: COMMON NORMALS: no JVD, regular rate, regular rhythm, S1 normal heart sound present and S2 normal heart sound present RATE: regular rate RHYTHM: regular rhythm HEART SOUNDS: S1 normal heart sound present and S2 normal heart sound present GI: COMMON NORMALS: Normal to inspection, nondistended, normoactive bowel sounds present, Soft to palpation, non-tender, No hepatosplenomegaly present and no masses PALPATION: Yes Soft to palpation and Yes No hepatosplenomegaly present : COMMON NORMALS: Yes no CVA tenderness BLADDER/KIDNEY EXAM: Yes no CVA tenderness Back/Pelvis: COMMON NORMALS: no CVA tenderness Neuro: COMMON NORMALS: patient oriented x3 SENSORIUM/ORIENTATION: Yes alert MENINGEAL SIGNS: Yes no meningeal signs Course Vital Signs: Vital signs: Vital Signs Temperature 98.5 F 11/16/22 19:43 Pulse Rate 83 11/16/22 21:44 Respiratory Rate 20 H 11/16/22 21:44 Blood Pressure 150/70 11/16/22 21:44 Pulse Oximetry 94 11/16/22 21:44 Oxygen Delivery Me thod Nasal Cannula 11/16/22 19:43 Oxygen Flow Rate 3 11/16/22 19:43 MDM - Altered Mental Status Differential Diagnosis Likely altered mental status; Unlikely alcoholic intoxication, delirium, dementia, hypoglycemia, hyponatremia, subarachnoid hemorrhage or sepsis Medical Records I reviewed the patient's medical records. Lab Data I reviewed the patient's lab results. 11/16/22 20:35 11/16/22 20:35 Radiology Impressions Chest CTA 11/16/22 19:54 IMPRESSION: 1. Left upper lobe subsegmental filling defects suspicious for thrombus. Differential diagnosis is mixing artifact. No findings of right heart strain. 2. Small left pleural effusion with bibasilar consolidation or atelectasis is similar. There is a new right upper lobe ground-glass nodule which is favored to be infectious/inflammatory. ADDENDUM: 11/17/22 0122 THIS REPORT CONTAINS FINDINGS THAT MAY BE CRITICAL TO PATIENT CARE. The findings were verbally communicated via telephone conference with Matt Salazar at 1:19 AM CDT on 11/17/2022. The findings were acknowledged and understood. Laboratory Results WBC 11.7 10^3/uL (4.0-10.0) H 11/16/22 20:35 RBC 3.62 10^6/uL (4.1-5.3) L 11/16/22 20:35 Hgb 10.4 g/dL (11.7-16.6) L 11/16/22 20:35 Hct 34.9 % (42.0-52.0) L 11/16/22: MCV 96.4 fl (80-94) H 11/16/22 20:35 MCH 28.7 pg (28.0-34.0) 11/16/22 20: MCHC 29.8 g/dL (30.0-36.0) L 11/16/22: RDW 14.6 % (12.1-15.1) 11/16/22 20:35 Plt Count 445 10^3/cmm (130-400) H 11/16/22 20: MPV 9.1 fL (7.4-10.4) 11/16/22 20:35 Neut % (Auto) 81.4 % 11/16/22 20:35 Lymph % (Auto) 10.2 % 11/16/22 20:35 [place] % (Auto) 7.4 % 11/16/22 20:35 Eos % (Auto) 0.3 % 11/16/22 20:35 Baso % (Auto) 0.2 % 11/16/22 20:35 Neut # (Auto) 9.54 10^3/uL (1.8-7.7) H 11/16/22 20:35 Lymph # (Auto) 1.2 10^3/uL (0.8-4.8) 11/16/22 20:35 [place] # (Auto) 0.9 10^3/uL (0.2-0.9) 11/16/22 20:35 Eos # (Auto) 0.0 10^3/uL (0.0-0.8) 11/16/22 20:35 Baso # (Auto) 0.0 10^3/uL (0.0-0.1) 11/16/22 20:35 Nucleated RBC % (auto) 0 % 11/16/22 20:35 Nucleated RBCs # 0.0 /100WBC 11/16/22 20:35 Specimen Type Arterial 11/16/22 23:00 Sample Site Radial, left 11/16/22 23:00 ABG pH 7.47 (7.35-7.45) H 11/16/22 23:00 ABG pCO2 50.5 mmHg (35-45) H 11/16/22 23:00 ABG pO2 73.3 mmHg (80.0-100.0) L 11/16/22 23:00 ABG HCO3 36.4 mmol/L (22-26) H 11/16/22 23:00 ABG O2 Saturation 98.0 11/16/22 20:14 ABG Base Excess 11.1 mmol/L (-2.0-2.0) H 11/16/22 23:00 Navjot Test Pos 11/16/22 23:00 A-a O2 Gradient 6.1 mmHg (5-10) 11/16/22 20:14 Hematocrit 33.1 % (42-52) L 11/16/22 23:00 Hgb O2 Saturation 96.4 % (95-100) 11/16/22 20:14 Carboxyhemoglobin 1.5 %THgb (0.4-20.1) 11/16/22 20:14 Methemoglobin 0.2 % (0.4-1.5) L 11/16/22 20:14 Total Hemoglobin 10.7 g/dL (14-18) L 11/16/22 20:14 Sodium 152.0 mmol/L (131-143) H 11/16/22 20:14 Potassium 3.0 mmol/L (3.5-5.0) L 11/16/22 20:14 Glucose 118.0 mg/dL (70-115) H 11/16/22 20:14 Ionized Calcium 1.2 mmol/L (1.1-1.4) 11/16/22 20:14 O2 Delivery Device Nc 11/16/22 23:00 O2 Liters/Min 3.0 % 11/16/22 23:00 FiO2 32.0 % 11/16/22 23:00 [employer] Development Advisor ID Alewe 11/16/22 23:00 Sodium 146 mmol/L (136-145) H 11/16/22 20:35 Potassium 3.0 mmol/L (3.5-5.1) L 11/16/22 20:35 Chloride 103 mmol/L (98-107) 11/16/22 20:35 Carbon Dioxide 32 mmol/L (22-29) H 11/16/22 20:35 Anion Gap 14.0 (5-19) 11/16/22 20:35 BUN 23 mg/dL (8-23) 11/16/22 20:35 Creatinine 0.7 mg/dL (0.7-1.2) 11/16/22 20:35 GFR Calculation Not Reportable 11/16/22 20:35 Glucose 109 mg/dL (65-115) 11/16/22 20:35 Calculated Osmolality 306 mOsm/kg (285-295) H 11/16/22 20:35 Lactate 1.0 mmol/L (0.5-2.2) 11/16/22 20:35 Calcium 8.7 mg/dL (8.5-10.5) 11/16/22 20:35 Magnesium 1.7 mg/dL (1.7-2.3) 11/16/22 20:35 Total Bilirubin 0.6 mg/dL (0.15-1.2) 11/16/22 20:35 AST 20 U/L (0-40) 11/16/22 20:35 ALT 12 U/L (0-41) 11/16/22 20:35 Alkaline Phosphatase 116 U/L (40-130) 11/16/22 20:35 NT-Pro-B Natriuret Pep 1163 pg/mL (0-450) H 11/16/22 20:35 Total Protein 6.8 g/dL (6.6-8.7) 11/16/22 20:35 Albumin 2.7 g/dL (3.5-5.2) L 11/16/22 20:35 Globulin 4.1 g/dL (1.3-4.6) 11/16/22 20:35 Discharge Plan Discharge Patient Disposition: Home Clinical Impression: Pulmonary embolism Condition: Stable Prescriptions: New Eliquis 5 mg tablet 10 mg PO BID 7 Days Qty: 28 0RF Rx Instructions: take loading dose over first week Eliquis 5 mg tablet 5 mg PO BID Qty: 60 0RF Rx Instructions: start after first week of loading dose No Action irbesartan-hydrochlorothiazide 300-12.5 mg tablet 1 tab PO DAILY duloxetine 20 mg capsule,delayed release(DR/EC) 20 mg PO DAILY methimazole 10 mg tablet 10 mg PO DAILY bisacodyl 5 mg Tablet,Delayed Release (Dr/Ec) 10 mg PO DAILY PRN (Reason: Constipation (see protocol)) 30 Days Qty: 60 0RF docusate sodium 100 mg Capsule 100 mg PO BID 30 Days Qty: 60 0RF Discharge Orders: Discharge ED (Routine); Ordered 11/17/22 Ordered By: Miguelito Yusuf Referrals: Miki Ariza MD [Primary Care Provider] - 1-3 days Discharge Diet: Advance as tolerated Discharge Activity: Resume usual activity Patient Instructions: Pulmonary Embolism (ED) Coding Level of Care Code ED [employer] for [employer]g Fwd Documented by User: Miguelito Yusuf MD 11/17/22 01:53 HPI - Altered Mental Status General: Chief Complaint: Altered Mental Status Stated Complaint: AMS, Covid pt Time Seen by Provider: 11/16/22 19:46 PFSH ED PFSH: Medical History Acute urinary retention Acute UTI LAKEISHA (acute kidney injury) Altered mental status HTN (hypertension) Hyperthyroidism Pneumonia Surgical History History of spinal fusion Course Vital Signs: Vital signs: Vital Signs Temperature 98.5 F 11/16/22 19:43 Pulse Rate 83 11/16/22 21:44 Respiratory Rate 20 H 11/16/22 21:44 Blood Pressure 150/70 11/16/22 21:44 Pulse Oximetry 94 11/16/22 21:44 Oxygen Delivery Me thod Nasal Cannula 11/16/22 19:43 Oxygen Flow Rate 3 11/16/22 19:43 MDM - Altered Mental Status Medical Decision Making Patient presents here with some dyspnea. He is currently on his baseline on 3 L she is in no distress CT showed a very small possible pulmonary embolism he is just getting over COVID we will start him on Eliquis feel he is stable for discharge back to the detention blood work here is all normal. He is return if worsening. Lab Data 11/16/22 20:35 11/16/22 20:35 Radiology Impressions Chest CTA 11/16/22 19:54 IMPRESSION: 1. Left upper lobe subsegmental filling defects suspicious for thrombus. Differential diagnosis is mixing artifact. No findings of right heart strain. 2. Small left pleural effusion with bibasilar consolidation or atelectasis is similar. There is a new right upper lobe ground-glass nodule which is favored to be infectious/inflammatory. ADDENDUM: 11/17/22 0122 THIS REPORT CONTAINS FINDINGS THAT MAY BE CRITICAL TO PATIENT CARE. The findings were verbally communicated via telephone conference with Matt Salazar at 1:19 AM CDT on 11/17/2022. The findings were acknowledged and understood. Laboratory Results WBC 11.7 10^3/uL (4.0-10.0) H 11/16/22 20:35 RBC 3.62 10^6/uL (4.1-5.3) L 11/16/22 20:35 Hgb 10.4 g/dL (11.7-16.6) L 11/16/22 20:35 Hct 34.9 % (42.0-52.0) L 11/16/22 20:35 MCV 96.4 fl (80-94) H 11/16/22 20:35 MCH 28.7 pg (28.0-34.0) 11/16/22 20:35 MCHC 29.8 g/dL (30.0-36.0) L 11/16/22 20:35 RDW 14.6 % (12.1-15.1) 11/16/22 20:35 Plt Count 445 10^3/cmm (130-400) H 11/16/22 20:35 MPV 9.1 fL (7.4-10.4) 11/16/22 20:35 Neut % (Auto) 81.4 % 11/16/22 20:35 Lymph % (Auto) 10.2 % 11/16/22 20:35 [place] % (Auto) 7.4 % 11/16/22 20:35 Eos % (Auto) 0.3 % 11/16/22 20:35 Baso % (Auto) 0.2 % 11/16/22 20:35 Neut # (Auto) 9.54 10^3/uL (1.8-7.7) H 11/16/22 20:35 Lymph # (Auto) 1.2 10^3/uL (0.8-4.8) 11/16/22 20:35 [place] # (Auto) 0.9 10^3/uL (0.2-0.9) 11/16/22 20:35 Eos # (Auto) 0.0 10^3/uL (0.0-0.8) 11/16/22 20:35 Baso # (Auto) 0.0 10^3/uL (0.0-0.1) 11/16/22 20:35 Nucleated RBC % (auto) 0 % 11/16/22 20:35 Nucleated RBCs # 0.0 /100WBC 11/16/22 20:35 Specimen Type Arterial 11/16/22 23:00 Sample Site Radial, left 11/16/22 23:00 ABG pH 7.47 (7.35-7.45) H 11/16/22 23:00 ABG pCO2 50.5 mmHg (35-45) H 11/16/22 23:00 ABG pO2 73.3 mmHg (80.0-100.0) L 11/16/22 23:00 ABG HCO3 36.4 mmol/L (22-26) H 11/16/22 23:00 ABG O2 Saturation 98.0 11/16/22 20:14 ABG Base Excess 11.1 mmol/L (-2.0-2.0) H 11/16/22 23:00 Navjot Test Pos 11/16/22 23:00 A-a O2 Gradient 6.1 mmHg (5-10) 11/16/22 20:14 Hematocrit 33.1 % (42-52) L 11/16/22 23:00 Hgb O2 Saturation 96.4 % (95-100) 11/16/22 20:14 Carboxyhemoglobin 1.5 %THgb (0.4-20.1) 11/16/22 20:14 Methemoglobin 0.2 % (0.4-1.5) L 11/16/22 20:14 Total Hemoglobin 10.7 g/dL (14-18) L 11/16/22 20:14 Sodium 152.0 mmol/L (131-143) H 11/16/22 20:14 Potassium 3.0 mmol/L (3.5-5.0) L 11/16/22 20:14 Glucose 118.0 mg/dL (70-115) H 11/16/22 20:14 Ionized Calcium 1.2 mmol/L (1.1-1.4) 11/16/22 20:14 O2 Delivery Device Nc 11/16/22 23:00 O2 Liters/Min 3.0 % 11/16/22 23:00 FiO2 32.0 % 11/16/22 23:00 Manpower Development Advisor ID Alewe 11/16/22 23:00 Sodium 146 mmol/L (136-145) H 11/16/22 20:35 Potassium 3.0 mmol/L (3.5-5.1) L 11/16/22 20:35 Chloride 103 mmol/L (98-107) 11/16/22 20:35 Carbon Dioxide 32 mmol/L (22-29) H 11/16/22 20:35 Anion Gap 14.0 (5-19) 11/16/22 20:35 BUN 23 mg/dL (8-23) 11/16/22 20:35 Creatinine 0.7 mg/dL (0.7-1.2) 11/16/22 20:35 GFR Calculation Not Reportable 11/16/22 20:35 Glucose 109 mg/dL (65-115) 11/16/22 20:35 Calculated Osmolality 306 mOsm/kg (285-295) H 11/16/22 20:35 Lactate 1.0 mmol/L (0.5-2.2) 11/16/22 20:35 Calcium 8.7 mg/dL (8.5-10.5) 11/16/22 20:35 Magnesium 1.7 mg/dL (1.7-2.3) 11/16/22 20:35 Total Bilirubin 0.6 mg/dL (0.15-1.2) 11/16/22 20:35 AST 20 U/L (0-40) 11/16/22 20:35 ALT 12 U/L (0-41) 11/16/22 20:35 Alkaline Phosphatase 116 U/L (40-130) 11/16/22 20:35 NT-Pro-B Natriuret Pep 1163 pg/mL (0-450) H 11/16/22 20:35 Total Protein 6.8 g/dL (6.6-8.7) 11/16/22 20:35 Albumin 2.7 g/dL (3.5-5.2) L 11/16/22 20:35 Globulin 4.1 g/dL (1.3-4.6) 11/16/22 20:35 Discharge Plan Discharge Patient Disposition: Home Clinical Impression: Pulmonary embolism Condition: Stable Prescriptions: New Eliquis 5 mg tablet 10 mg PO BID 7 Days Qty: 28 0RF Rx Instructions: take loading dose over first week Eliquis 5 mg tablet 5 mg PO BID Qty: 60 0RF Rx Instructions: start after first week of loading dose No Action irbesartan-hydrochlorothiazide 300-12.5 mg tablet 1 tab PO DAILY duloxetine 20 mg capsule,delayed release(DR/EC) 20 mg PO DAILY methimazole 10 mg tablet 10 mg PO DAILY bisacodyl 5 mg Tablet,Delayed Release (Dr/Ec) 10 mg PO DAILY PRN (Reason: Constipation (see protocol)) 30 Days Qty: 60 0RF docusate sodium 100 mg Capsule 100 mg PO BID 30 Days Qty: 60 0RF Discharge Orders: Discharge ED (Routine); Ordered 11/17/22 Ordered By: Miguelito Yusuf Referrals: Miki Ariza MD [Primary Care Provider] - 1-3 days Discharge Diet: Advance as tolerated Discharge Activity: Resume usual activity Patient Instructions: Pulmonary Embolism (ED) Coding Level of Care Code ED [employer] for Sonny Nelson
[2022-11-16 20:51] LABS: Basophils % 0.2 %; Eosinophils % 0.3 %; Hematocrit 34.9 % (42.0-52.0); Hemoglobin 10.4 g/dL (11.7-16.6); Lymphocytes # 1.2 10^3/uL (0.8-4.8); Lymphocytes % 10.2 %; Mean Corpuscular HGB Conc 29.8 g/dL (30.0-36.0); Mean Corpuscular Hemoglobin 28.7 pg (28.0-34.0); Mean Corpuscular Volume 96.4 fl (80-94); Mean Platelet Volume 9.1 fL (7.4-10.4); Monocytes # 0.9 10^3/uL (0.2-0.9); Monocytes % 7.4 %; Neutrophils # 9.54 10^3/uL (1.8-7.7); Neutrophils % 81.4 %; Nucleated Red Blood Cells % 0 %; Platelet Count 445 10^3/cmm (130-400); Red Blood Count 3.62 10^6/uL (4.1-5.3); Red Cell Distribution Width 14.6 % (12.1-15.1); White Blood Count 11.7 10^3/uL (4.0-10.0)
[2022-11-16 21:19] LABS: Alanine Aminotransferase 12 U/L (0-41); Albumin Level 2.7 g/dL (3.5-5.2); Alkaline Phosphatase 116 U/L (40-130); Aspartate Amino Transferase 20 U/L (0-40); Blood Urea Nitrogen 23 mg/dL (8-23); Calcium 8.7 mg/dL (8.5-10.5); Carbon Dioxide 32 mmol/L (22-29); Chloride 103 mmol/L (98-107); Globulin 4.1 g/dL (1.3-4.6); Glucose 109 mg/dL (65-115); Magnesium 1.7 mg/dL (1.7-2.3); NT Pro B Type Natriuretic Pept 1163 pg/mL (0-450); Osmolality Calculated 306 mOsm/kg (285-295); Sodium 146 mmol/L (136-145); Total Bilirubin 0.6 mg/dL (0.15-1.2); Total Protein 6.8 g/dL (6.6-8.7)
[2022-11-16 21:44] VITALS: BP 150/70; PULSE 83; RESP 20; O2SAT 94
[2022-11-16 23:11] LABS: ABG PCO2 50.5 mmHg (35-45); ABG PH Result 7.47 (7.35-7.45); Arterial Blood Gas Hematocrit 33.1 % (42-52); Base Excess ABG 11.1 mmol/L (-2.0-2.0); Blood Gas Allen Test Pos; Blood Gas Sample Site Radial, left; Blood Gas Sample Type Arterial; HCO3 ABG 36.4 mmol/L (22-26); Oxygen Device NC; PO2 ABG 73.3 mmHg (80.0-100.0)
[2022-11-17] MEDS: iohexol 350 mg/mL 500 mL Btl (per mL) IV (00:12)
[2022-11-17] MEDS: enoxaparin 100 mg/mL Syringe SUBCUT (02:01)
== END 2022-11-17 07:35 | disposition home or self-care (01) ==
PROVIDERS: Emergency Medicine; Emergency Provider Emergency Medicine; PCP Family Medicine
DX: I26.99 Other pulmonary embolism without acute cor pulmonale (principal); I10 Essential (primary) hypertension
CPT/HCPCS: 36600; 71275; 80051; 80053; 82330; 82803; 82805; 83605; 83735; 83880; 85025; 87040; 96372; J1650; Q9967

== ENCOUNTER 2022-11-21 11:08 | Inpatient (IN) | payer MEDICARE, SELFPAY ==
[2022-11-21] VITALS (23 sets, daily range): BP systolic 96–181; BP diastolic 51–102; PULSE 59–99; RESP 4–25; TEMP 37.7; O2SAT 94–100
--- NOTE | 2022-11-21 11:14 | ECG_ITS ---
[facility] Test Date: 2022-11-21 Pat Name: Chuckie Gandhi Department: Room: Gender: Male [employer] Att[employer]: : 1935 Requested By: Chris Garnica Order Number: [id number] Zuly MD: Niko Nelson M.D. Measurements Intervals Morris Rate: 83 P: 83 KS: 157 QRS: -32 QRSD: 145 T: 76 QT: 421 QTc: 497 Interpretive Statements SINUS RHYTHM WITH MARKED SINUS ARRHYTHMIA LEFT AXIS DEVIATION [QRS AXIS < -30] RIGHT BUNDLE BRANCH BLOCK [120+ ms QRS DURATION, UPRIGHT V1, 40+ ms S IN I/aVL/V4/V5/V6] INTERPRETATION BASED ON A DEFAULT AGE OF 40 YEARS Compared to ECG 10/26/2022 17:15:56 No significant changes Electronically Signed On 11-21-2022 16:20:45 CDT by Niko Nelson M.D. [email or web address]
--- NOTE | 2022-11-21 11:17 | CTR_ITS ---
PROCEDURE INFORMATION: Exam: CT Head Without Contrast Exam date and time: 11/21/2022 11:39 AM Age: 87 years old Clinical indication: Altered mental status/memory loss; Confusion or disorientation TECHNIQUE: Imaging protocol: Computed tomography of the head without contrast. Radiation optimization: All CT scans at this facility use at least one of these dose optimization techniques: automated exposure control; mA and/or kV adjustment per patient size (includes targeted exams where dose is matched to clinical indication); or iterative reconstruction. REPORTING DATA: Count of CT and Cardiac NM exams in prior 12 months: This patient has received 6 known CTs and 0 known cardiac nuclear medicine studies in the 12 months prior to the current study. COMPARISON: CT head wo con* [id number] 11/06/2022 9:33 PM RADIATION DOSE METRICS: Total DLP (mGy-cm): 1064.28 FINDINGS: Brain: There is diffuse cerebral atrophy and chronic microvascular white matter disease. There is no acute intracranial hemorrhage. Cerebral ventricles: There is no significant ventricular dilation. The basal cisterns are unremarkable. Paranasal sinuses: The paranasal sinuses are clear. Mastoid air cells: The mastoid air cells are clear. Bones/joints: There is hyperostosis frontalis. The calvarium is intact. Soft tissues: The visible extracranial soft tissues are unremarkable. CT/CT head wo con* [id number] IMPRESSION: No acute intracranial abnormality.
--- NOTE | 2022-11-21 11:17 | XRR_ITS ---
PROCEDURE INFORMATION: Exam: XR Chest Exam date and time: 11/21/2022 11:27 AM Age: 87 years old Clinical indication: Shortness of breath; Additional info: SOB with ms change TECHNIQUE: Imaging protocol: Radiologic exam of the chest. Views: 1 view. COMPARISON: CR (CHEST, ) 11/06/2022 9:05 PM FINDINGS: Lungs: Lungs are clear. Pleural spaces: There is no pleural effusion or pneumothorax. Heart/Mediastinum: There is mild enlargement of the cardiac silhouette. Bones/joints: There is posterolateral fusion hardware in the lower thoracic and upper lumbar spine. No acute fracture. XR/XR chest 1V portable [id number] IMPRESSION: No acute findings.
[2022-11-21] MEDS: ondansetron 2 mg/ML SDV 2 mL 4 MG IVP (11:24)
--- NOTE | 2022-11-21 11:24 | ED_ITS ---
HPI - Altered Mental Status General: Chief Complaint: ER Hold Stated Complaint: AMS Time Seen by Provider: 11/21/22 11:09 History of Present Illness: 87-year-old male presents emergency department chief complaint of having altered mental status patient apparently was diagnosed with COVID-19 roughly 8 days ago. The patient apparently had some form of a recent back surgery last 1 month. Patient has a known history of heart issues which is current on Eliquis patient per EMS was found to be hypotensive upon arrival he said he had a failure to thrive picture with reduced appetite oral intake over the last 1 week. The patient per the correction is a full code as per EMS patient mumbles upon talking to him and his which he is currently guarding his airway with a gag reflex., The patient's history is very limited at this time. Review of Systems General: Reports: 10 or more systems reviewed and unremarkable except in HPI and below Narrative: Patient is unable to provide any additional review of systems due to his mental status change and altered mentation. [facility] ED PFSH: Medical History Acute urinary retention Acute UTI LAKEISHA (acute kidney injury) Altered mental status COVID Fracture of thoracic spine HTN (hypertension) Hyperthyroidism Pneumonia Pulmonary embolism Thoracic spine fracture Traumatic compression fracture of T10 vertebra Surgical History History of spinal fusion S/P spinal fusion Physical Exam Const: COMMON NORMALS: average body habitus, no limitations, healthy ap pearing, alert and well nourished; negative for patient oriented x3 (Alert oriented x1 current GCS is 10 patient does have a gag reflex. Patien) HENMT: COMMON NORMALS: normocephalic, atraumatic, hearing grossly normal bilaterally, external ears normal, Normal external nose present and moist oral mucous membranes HEAD & SCALP: normocephalic and atraumatic NOSE: Normal external nose present EXTERNAL EAR: Yes external ears normal Eye: COMMON NORMALS: Equal, round and reactive pupils present, EOMs intact gloria aterally, conjunctivae normal and no scleral icterus CONJUNCTIVA: Yes con junctivae normal PUPIL: Yes Equal, round and reactive pupils present Neck/C-Spine: COMMON NORMALS: full ROM, no lymphadenopathy, supple, no meningeal signs, no JVD and Thyroid normal THYROID: Thyroid normal Lymph: LYMPHATIC: no lymphadenopathy noted Chest: COMMONS NORMALS: normal inspection of the chest and normal palpation of entire chest wall Resp: OTHER: Reduced breath sounds obese bilaterally no is wheezing crackles rales or rhonchi noted Cardio: COMMON NORMALS: no JVD, regular rhythm, S1 normal heart sound present and S2 normal heart sound present; negative for regular rate (Mild tachycardia appreciated) RATE: abnormal rate (Mild tachycardia appreciated) RHYTHM: regular rhythm HEART SOUNDS: S1 normal heart sound present and S2 normal heart sound present GI: COMMON NORMALS: Normal to inspection, nondistended, normoactive bowel sounds present, Soft to palpation, non-tender, No hepatosplenomegaly present and no masses PALPATION: Yes Soft to palpation and Yes No hepatosplenomegaly present : COMMON NORMALS: Yes no CVA tenderness BLADDER/KIDNEY EXAM: Yes no CVA tenderness Back/Pelvis: COMMON NORMALS: no CVA tenderness Neuro: COMMON NORMALS: negative for patient oriented x3 (Alert oriented x1 current GCS is 10 patient does have a gag reflex. Patien) SENSORIUM/LENORE ENTATION: Yes alert MENINGEAL SIGNS: Yes no meningeal signs Skin: NARRATIVE SKIN EXAM: Multiple appearing bruises noted to the abdominal wall Procedures Central Line Placement Right IJ: Time Out Performed: Yes Patient Placed on Monitor/Pulse Ox: Yes MD Prep: mask, gown and gloves Central Line Prep: Chlorhexidine scrub and sterile drapes applied Local Anesthetic: lidocaine 1% Amount of anesthesia used (mL): 6 Ultrasound Used for Placement: Yes Central Line Lumen Inserted: triple Post Procedure: sutured in place, good blood return, all ports aspirated, flushed, capped and sterile dressing applied Post Procedure X-Ray: tip of catheter in good position and no pneumothorax seen Patient Tolerated Procedure: well and no complications Complications: none Course Vital Signs: Vital signs: Vital Signs Temperature 99.9 F H 11/21/22 11:08 Pulse Rate 97 11/21/22 14:08 Respiratory Rate 23 H 11/21/22 14:00 Blood Pressure 118/102 11/21/22 14:00 Pulse Oximetry 96 11/21/22 14:08 Oxygen Delivery Me thod Non-Rebreather 11/21/22 11:08 Oxygen Flow Rate 12 11/21/22 11:08 Fraction of Inspir ed Oxygen 35 11/21/22 14:08 MDM - Altered Mental Status Medical Decision Making Due to the patient's symptoms and condition due to his presentation underlying sepsis is probable patient does have a recent COVID-19 diagnosis of approximately 9 days from initial onset. Patient is currently maintaining his airway good breath sounds appreciated bilaterally slight diminished in the bases. Patient's blood pressure is currently 110/52 SPO2 is 100% on 6 L simple mask family will be contacted patient is currently maintaining airway CT imaging of the head will be obtained basic lab work imaging will be obtained we will continue to follow. Patient's blood pressure continued to drop which requiring central line placement discussed patient case with Dr. Clay is great acceptance to the ICU discussed patient case the case at this time patient is a limited DNR which does not recommend any CPR or chest compressions or any additional interventions with ventilation which is okay with BiPAP at this time and which also is okay with blood pressure elevated medications and IV fluids antibiotics we will continue to follow Lab Data 11/21/22 11:20 11/21/22 11:[address] 11/21/22 11:17 IMPRESSION: No acute intracranial abnormality. Chest X-Ray 11/21/22 13:02 IMPRESSION: Satisfactory position of the right internal jugular central line. Laboratory Results WBC 12.6 10^3/uL (4.0-10.0) H 11/21/22 11:20 RBC 3.29 10^6/uL (4.1-5.3) L 11/21/22 11:20 Hgb 9.6 g/dL (11.7-16.6) L 11/21/22 11:20 Hct 32.7 % (42.0-52.0) L 11/21/22 11:20 MCV 99.4 fl (80-94) H 11/21/22 11:20 MCH 29.2 pg (28.0-34.0) 11/21/22 11:20 MCHC 29.4 g/dL (30.0-36.0) L 11/21/22 11:20 RDW 15.2 % (12.1-15.1) H 11/21/22 11:20 Plt Count 234 10^3/cmm (130-400) 11/21/22 11:20 MPV 10.3 fL (7.4-10.4) 11/21/22 11:20 Neut % (Auto) 75.3 % 11/21/22 11:20 Lymph % (Auto) 18.4 % 11/21/22 11:20 Hart % (Auto) 5.3 % 11/21/22 11:20 Eos % (Auto) 0.2 % 11/21/22 11:20 Baso % (Auto) 0.2 % 11/21/22 11:20 Neut # (Auto) 9.47 10^3/uL (1.8-7.7) H 11/21/22 11:20 Lymph # (Auto) 2.3 10^3/uL (0.8-4.8) 11/21/22 11:20 Hart # (Auto) 0.7 10^3/uL (0.2-0.9) 11/21/22 11:20 Eos # (Auto) 0.0 10^3/uL (0.0-0.8) 11/21/22 11:20 Baso # (Auto) 0.0 10^3/uL (0.0-0.1) 11/21/22 11:20 Nucleated RBC % (auto) 0.2 % 11/21/22 11:20 Nucleated RBCs # 0.0 /100WBC 11/21/22 11:20 Specimen Type Arterial 11/21/22 11:25 Sample Site Brachial, right 11/21/22 11:25 ABG pH 7.29 (7.35-7.45) L 11/21/22 11:25 ABG pCO2 78.5 mmHg (35-45) H* 11/21/22 11:25 ABG pO2 203.0 mmHg (80.0-100.0) H 11/21/22 11:25 ABG HCO3 37.5 mmol/L (22-26) H 11/21/22 11:25 ABG Base Excess 8.8 mmol/L (-2.0-2.0) H 11/21/22 11:25 Navjot Test Pos 11/21/22 11:25 Hematocrit 30.4 % (42-52) L 11/21/22 11:25 O2 Delivery Device Nrb 11/21/22 11:25 O2 Liters/Min 10.0 % 11/21/22 11:25 FiO2 100.0 % 11/21/22 11:25 Residential Youth Counselor ID Monro 11/21/22 11:25 Sodium 159 mmol/L (136-145) H 11/21/22 11:20 Potassium 3.1 mmol/L (3.5-5.1) L 11/21/22 11:20 Chloride 112 mmol/L (98-107) H 11/21/22 11:20 Carbon Dioxide 34 mmol/L (22-29) H 11/21/22 11:20 Anion Gap 16.1 (5-19) 11/21/22 11:20 BUN 56 mg/dL (8-23) H 11/21/22 11:20 Creatinine 2.8 mg/dL (0.7-1.2) H 11/21/22 11:20 GFR Calculation Not Reportable 11/21/22 11:20 Glucose 113 mg/dL (65-115) 11/21/22 11:20 Calculated Osmolality 344 mOsm/kg (285-295) H 11/21/22 11:20 Lactic Acid 1.8 mmol/L (0.5-2.2) 11/21/22 11:20 Calcium 7.7 mg/dL (8.5-10.5) L 11/21/22 11:20 Total Bilirubin 0.8 mg/dL (0.15-1.2) 11/21/22 11:20 AST 44 U/L (0-40) H 11/21/22 11:20 ALT 16 U/L (0-41) 11/21/22 11:20 Alkaline Phosphatase 90 U/L (40-130) 11/21/22 11:20 Troponin T Gen 5 ng/L 228 ng/L (0-15) H* 11/21/22 11:20 C-Reactive Protein 155.3 mg/L (0.0-4.9) H 11/21/22 11:20 NT-Pro-B Natriuret Pep 936 pg/mL (0-450) H 11/21/22 11:20 Total Protein 6.6 g/dL (6.6-8.7) 11/21/22 11:20 Albumin 2.3 g/dL (3.5-5.2) L 11/21/22 11:20 Globulin 4.3 g/dL (1.3-4.6) 11/21/22 11:20 Procalcitonin 0.46 ng/mL (0-0.5) 11/21/22 11:20 Urine Color Dark yellow (Yellow) 11/21/22 12:10 Urine Appearance Clear (CLEAR) 11/21/22 12:10 Urine pH 5 (5-7) 11/21/22 12:10 Ur Specific [place] 1.015 (1.005-1.030) 11/21/22 12:10 Urine Protein Neg (Negative) 11/21/22 12:10 Urine Glucose (UA) Norm (Normal) 11/21/22 12:10 Urine Ketones Negative (Negative) 11/21/22 12:10 Urine Blood Neg (Negative) 11/21/22 12:10 Urine Nitrate Negative (Negative) 11/21/22 12:10 Urine Bilirubin Neg (Negative) 11/21/22 12:10 Urine Urobilinogen 1 mg/dL (Negative) H 11/21/22 12:10 Ur Leukocyte Esterase Negative (Negative) 11/21/22 12:10 Urine Opiates Screen Positive ng/mL (Negative) H 11/21/22 12:10 Ur Barbiturates Screen Negative ng/mL (Negative) 11/21/22 12:10 Ur Phencyclidine Scrn Negative ng/mL (Negative) 11/21/22 12:10 Ur Amphetamines Screen Negative ng/mL (Negative) 11/21/22 12:10 U Benzodiazepines Scrn Negative ng/mL (Negative) 11/21/22 12:10 Urine Cocaine Screen Negative ng/mL (Negative) 11/21/22 12:10 U Marijuana (THC) Screen Negative ng/mL (Negative) 11/21/22 12:10 Discharge Plan Discharge Patient Disposition: Admitted As Inpatient Admit Provider: Pramod Antonio Clinical Impression: Sepsis, COVID, Elevated troponin Condition: Stable Coding Level of Care Code ED Cover Maker for Sonny Nelson
[2022-11-21] MEDS: sodium chloride 0.9% 1,000 ML 999 ML IV (11:30)
[2022-11-21 11:31] LABS: Basophils % 0.2 %; Eosinophils % 0.2 %; Hematocrit 32.7 % (42.0-52.0); Hemoglobin 9.6 g/dL (11.7-16.6); Lymphocytes # 2.3 10^3/uL (0.8-4.8); Lymphocytes % 18.4 %; Mean Corpuscular HGB Conc 29.4 g/dL (30.0-36.0); Mean Corpuscular Hemoglobin 29.2 pg (28.0-34.0); Mean Corpuscular Volume 99.4 fl (80-94); Mean Platelet Volume 10.3 fL (7.4-10.4); Monocytes # 0.7 10^3/uL (0.2-0.9); Monocytes % 5.3 %; Neutrophils # 9.47 10^3/uL (1.8-7.7); Neutrophils % 75.3 %; Nucleated Red Blood Cells % 0.2 %; Platelet Count 234 10^3/cmm (130-400); Red Blood Count 3.29 10^6/uL (4.1-5.3); Red Cell Distribution Width 15.2 % (12.1-15.1); White Blood Count 12.6 10^3/uL (4.0-10.0)
[2022-11-21 11:37] LABS: ABG PH Result 7.29 (7.35-7.45); Arterial Blood Gas Hematocrit 30.4 % (42-52); Base Excess ABG 8.8 mmol/L (-2.0-2.0); Blood Gas Allen Test Pos; Blood Gas Sample Type Arterial; HCO3 ABG 37.5 mmol/L (22-26)
[2022-11-21 11:38] LABS: ABG PCO2 78.5 mmHg (35-45); Blood Gas Operator Identificat MONRO; Blood Gas Sample Site Brachial, right; Oxygen Device NRB
[2022-11-21 12:06] LABS: Lactic Sepsis W/Reflex 1.8 mmol/L (0.5-2.2)
[2022-11-21 12:11] LABS: Troponin T (5th) Once 228 ng/L (0-15)
[2022-11-21 12:13] LABS: NT Pro B Type Natriuretic Pept 936 pg/mL (0-450); Procalcitonin 0.46 ng/mL (0-0.5)
[2022-11-21 12:18] LABS: Add Urine Microscopic? NO; Charge for UA Resulting for Rev
[2022-11-21] MEDS: cefTRIAXone 1,000 MG in sodium chloride 0.9% (plus) 50 ML 100 MG IV (12:18)
--- NOTE | 2022-11-21 12:20 | USCV_ITS ---
Chuckie Gandhi Age: 87 Gender: M : 1935 Exam Date: 11/21/2022 12:30 Ordering Phys: Chris Garnica Technologist: TAMI [place] [facility] [place] [place]: cardiogenic shock BP: / HR: 64 Rhythm: Sinus Technical Quality: MEASUREMENTS (Male / Female) Normal Values 2D ECHO LV Diastolic Diameter PLAX 6.2 cm 4.2 - 5.9 / 3.9 - 5.3 cm LV Systolic Diameter PLAX 4.8 cm IVS Diastolic Thickness 0.6 cm 0.6 - 1.0 / 0.6 - 0.9 cm IVS Systolic Thickness 1.1 cm LVPW Diastolic Thickness 0.7 cm 0.6 - 1.0 / 0.6 - 0.9 cm LVPW Systolic Thickness 1.0 cm LV Ejection Fraction 2D Teich 46.5 % LV Ejection Fraction MOD 2C 39.0 % LV Ejection Fraction 2C AL 39.9 % FINDINGS Left Ventricle This is a poor quality study with limited views available. The apical view is the only reasonable view. 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 The septum and lateral mendez appear to contract fairly normally. A very rough estimate of the ejection fraction and that limited view is 40%. No Doppler examination was performed. Right Ventricle Normal right ventricular size and systolic function. Right Atrium Mildly increased right atrial size. Left Atrium Mildly increased left atrial size. Mitral Valve Structurally normal mitral valve. Aortic Valve Structurally normal trileaflet aortic valve. Tricuspid Valve Structurally normal tricuspid valve. Pulmonic Valve Pulmonic valve not well visualized. Pericardium Normal pericardium without effusion. Aorta Normal ascending aorta dimension. IVC Inferior vena cava not visualized. CONCLUSIONS This is a poor quality study with limited views available. The apical view is the only reasonable view. 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 The septum and lateral mendez appear to contract fairly normally. A very rough estimate of the ejection fraction and that limited view is 40%. No Doppler examination was performed. Mildly increased right atrial size. Mildly increased left atrial size. There are no prior echocardiogram studies to compare. Dr. Niko Nelson MD (Electronically Signed) Final Date: 21 Nov 2022 16:15 S
[2022-11-21 12:24] LABS: Alanine Aminotransferase 16 U/L (0-41); Albumin Level 2.3 g/dL (3.5-5.2); Alkaline Phosphatase 90 U/L (40-130); Anion Gap 16.1 (5-19); Aspartate Amino Transferase 44 U/L (0-40); Blood Urea Nitrogen 56 mg/dL (8-23); C Reactive Protein 155.3 mg/L (0.0-4.9); Calcium 7.7 mg/dL (8.5-10.5); Carbon Dioxide 34 mmol/L (22-29); Chloride 112 mmol/L (98-107); Globulin 4.3 g/dL (1.3-4.6); Glucose 113 mg/dL (65-115); Osmolality Calculated 344 mOsm/kg (285-295); Potassium 3.1 mmol/L (3.5-5.1); Sodium 159 mmol/L (136-145); Total Bilirubin 0.8 mg/dL (0.15-1.2); Total Protein 6.6 g/dL (6.6-8.7)
[2022-11-21 12:32] LABS: Bilirubin Urine Neg (Negative); Blood Urine Neg (Negative); Glucose Urine UA Norm (Normal); Ketones Urine Negative (Negative); Leukocyte Esterase Urine Negative (Negative); Nitrate Urine Negative (Negative); Protein Urine Neg (Negative); Specific Gravity, Urine 1.015 (1.005-1.030); Urine Appearance Clear (CLEAR); Urine Color Dark Yellow (Yellow); Urobilinogen Urine 1 mg/dL (Negative); pH Urine 5 (5-7)
[2022-11-21 12:35] LABS: Amphetamines Screen Urine Negative (Negative); Barbiturates Screen Urine Negative (Negative); Benzodiazepines Screen Urine Negative (Negative); Cocaine Screen Urine Negative (Negative); Opiate Screen Urine Positive (Negative); PCP Screen Urine Negative (Negative); THC Screen Urine Negative (Negative)
--- NOTE | 2022-11-21 13:02 | XRR_ITS ---
PROCEDURE INFORMATION: Exam: XR Chest Exam date and time: 11/21/2022 1:09 PM Age: 87 years old Clinical indication: Other vascular access device placement or adjustment; Central line, non-tunnelled; Additional info: Central line placement TECHNIQUE: Imaging protocol: Radiologic exam of the chest. Views: 1 view. COMPARISON: CR (CHEST, ) 11/21/2022 11:27 AM FINDINGS: Tubes, catheters and devices: Right internal jugular central line tip is in the lower SVC near the cavoatrial junction. Lungs: There is no consolidation. Pleural spaces: There is no pleural effusion or pneumothorax. Heart/Mediastinum: There is mild enlargement of the cardiac silhouette. There is a prominent epicardial fat pad. Bones/joints: Thoracolumbar posterolateral fusion hardware noted. No acute fracture. There is moderate degenerative disease at the left shoulder. XR/XR chest 1V portable [id number] IMPRESSION: Satisfactory position of the right internal jugular central line.
[2022-11-21] MEDS: remdesivir 200 MG in sodium chloride 0.9% (100 ml) 60 ML 100 MG IV (13:13)
--- NOTE | 2022-11-21 14:24 | P.HP_ITS ---
Providers/Chief Complaint Admitting Physician: Pramod Antonio MD Primary Care Provider: Miki Ariza MD Chief Complaint: AMS History of Present Illness Chuckie Gandhi is a 87 year old male who was sent from a custodial when he was found to be confused/obtunded. In the ER he was in respiratory distress was put on BiPAP, troponin significantly high, ACS protocol initiated, son was called to address goals of care, he does not want intubation or chest compressions however agreeable for BiPAP, antibiotics central line placement, patient recently had back surgery and then suffered with UTI, it was partially treated. Most of the information has been taken from the collaterals, patient is not able to provide any history. He grimaces to pain withdraws to pain but does not open eyes or make eye contact he has been given septic bolus and antibiotics, lactic acid unremarkable, he does have acute on chronic kidney disease, hyponatremia, stat echo was requested approximate EF seems to be around 40 to 45% official read is pending, central line right IJ has been placed, blood pressure improving at the time of my evaluation, will give him albumin Review of Systems General: Reports: ROS unobtainable due to medical condition and ROS unobtainable due to mental status Medications/Allergies Home Medications Medication Instructions Recorded Confirmed Last Taken Type duloxetine 20 mg capsule,delayed 20 mg PO DAILY 10/19/22 11/21/22 11/21/22 History release irbesartan 300 1 tab PO DAILY 10/19/22 11/21/22 11/21/22 History mg-hydrochlorothiazide 12.5 mg tablet methimazole 10 mg tablet 10 mg PO DAILY 10/26/22 11/21/22 11/21/22 History bisacodyl 5 mg tablet,delayed 10 mg PO DAILY PRN Constipation 11/01/22 11/21/22 Unknown Rx release (see protocol) 30 days #60 tabs docusate sodium 100 mg capsule 100 mg PO BID 30 days #60 caps 11/01/22 11/21/22 11/21/22 Rx apixaban 5 mg tablet (Eliquis) 5 mg PO BID #60 tabs 11/17/22 11/21/22 11/21/22 Rx ibuprofen 600 mg tablet 600 mg PO Q8H PRN Pain 11/21/22 11/21/22 Unknown History tramadol 50 mg tablet 50 mg PO Q8H PRN Pain 11/21/22 11/21/22 Unknown History Allergies Allergy/AdvReac Type Severity Reaction Status Date / Time No Known Allergies Allergy Verified 11/16/22 19:48 PFSH Acute PFSH: Medical History Acute urinary retention Acute UTI LAKEISHA (acute kidney injury) Altered mental status COVID Fracture of thoracic spine HTN (hypertension) Hyperthyroidism Pneumonia Pulmonary embolism Thoracic spine fracture Traumatic compression fracture of T10 vertebra Surgical History History of spinal fusion S/P spinal fusion Vitals/I&O/Wt Last Vital Signs Temp 99.9 F H 11/21/22 11:08 Pulse 97 11/21/22 14:08 Resp 23 H 11/21/22 14:00 BP 118/102 11/21/22 14:00 Pulse Ox 96 11/21/22 14:08 O2 Del Method Non-Rebreather 11/21/22 11:08 O2 Flow Rate 12 11/21/22 11:08 FiO2 35 11/21/22 14:08 11/20/22 11/21/22 11/21/22 22:59 06:59 14:59 Intake Total 1050 / 1050 Balance 1050 / 1050 Weight last 48 hrs Weight 123.831 kg Physical Exam Narrative: Patient is obtunded Currently on BiPAP Facial grimacing to painful stimuli Withdraws to pain Abdomen distended, right leg 1+ edema as compared to left, Thomson catheter draining concentrated urine Abdomen distended, assisted bilateral breath sounds Morbidly obese Dry skin Neuro exam limited No skin mottling Cap refill less than 2 seconds Urinary Catheter Management: Thomson: Cath Placed During This Visit: yes Urinary Catheter Date of Insertion: 11/21/22 Urinary Catheter Time of Insertion: 12:13 Data 11/21/22 11:20 11/21/22 11:20 Micro: Microbiology 11/21/22 13:39 Blood Culture - Preliminary Blood SPECIMEN COLLECTED 11/21/22 11:20 Blood Culture - Preliminary Blood SPECIMEN COLLECTED A&P Assessment and plan (1) Sepsis: (2) Elevated troponin: (3) Lymphedema: (4) PVD (peripheral vascular disease): (5) NSTEMI (non-ST elevated myocardial infarction): (6) Septic shock: (7) Goals of care, counseling/discussion: (8) Hypernatremia: Plan Septic shock with metabolic encephalopathy Patient received septic bolus Antibiotics administered, lactic acid normal Sepsis criteria met with tachypnea tachycardia leukocytosis and endorgan damage Most likely source of infection is recent UTI and pneumonia, recent CT scan show ed left pleural effusion, PE right upper lobe pneumonia Concentrated urine noted Patient is DNR/DNI, son is agreeable for central line placement, antibiotics and vasopressors CT head unremarkable Continue broad-spectrum antibiotics We will give him 1 bag of albumin Hypoalbuminemia with hemoconcentration Hypernatremia: We will add D5 half-normal saline Check sodium level every 6 hours Acute on chronic kidney disease related to sepsis Hold nephrotoxic agents such as ibuprofen and antihypertensive regimen Adequate urine output In case his creatinine is not improving by tomorrow we will request CT abdomen pelvis without contrast Respiratory distress Patient is DO NOT RESUSCITATE/DO NOT INTUBATE Recently had left upper lobe PE diagnosis for which she was put on Eliquis NSTEMI Troponin trending down EKG without infarctive changes Will request echo Start ACS protocol We will place NG tube to give aspirin and Plavix DO NOT RESUSCITATE/DO NOT INTUBATE N.p.o. until he is more awake and alert ACS protocol Guarded prognosis Son updated Attestations Medical Necessity Statement*: Will need ICU more than 2 midnights anticipated for multiorgan failure, septic shock Diagnoses Sepsis A41.9 Elevated troponin R77.8 Lymphedema I89.0 PVD (peripheral vascular disease) I73.9 NSTEMI (non-ST elevated myocardial infarction) I21.4 Septic shock A41.9; R65.21 Goals of care, counseling/discussion Z71.89 Hypernatremia E87.0
[2022-11-21 14:41] LABS: Troponin 5 2HR Delta -13.4 ABS# (0-10)
[2022-11-21 14:43] LABS: Troponin 5 2HR 214.6 ng/L (0-15)
[2022-11-21 14:49] LABS: Lactate Dehydrogenase 224 U/L (135-225)
[2022-11-21 14:57] LABS: Procalcitonin 0.45 ng/mL (0-0.5)
[2022-11-21 15:05] LABS: Creatine Phosphokinase 1107 U/L (39-308)
[2022-11-21] MEDS: lidocaine 1% 5 ML in potassium chloride premix 100 ML 26.25 ML IV (15:13)
[2022-11-21 15:27] LABS: ABG PH Result 7.38 (7.35-7.45); Alveolar-Arterial Oxygen Gradi 8.7 mmHg (5-10); Arterial Blood Gas Hematocrit 29.7 % (42-52); Base Excess ABG 6.8 mmol/L (-2.0-2.0); Blood Gas Allen Test Pos; Blood Gas Operator Identificat MONRO; Blood Gas Sample Site Brachial, right; Blood Gas Sample Type Arterial; Carboxyhemoglobin 1.6 %THgb (0.4-20.1); HCO3 ABG 33.1 mmol/L (22-26); HGB O2 Sat 96.7 % (95-100); Ionized Calcium Level - ABG 1.1 mmol/L (1.1-1.4); Methemoglobin 0.6 % (0.4-1.5); Oxygen Device BIPAP; Oxygen Saturation ABG 98.9; Potassium Level - ABG 2.9 mmol/L (3.5-5.0); Total Hemoglobin 9.7 g/dL (14-18)
[2022-11-21 15:49] LABS: CKMB 4.7 ng/mL (0-10.4)
--- NOTE | 2022-11-21 16:52 | PC.PHAR ---
Pharmacokinetic dosing service Objective: Patient: Floor: Age: 87 yo Serum creatinine: 2.8 mg/dL Height: 70.1 Inches Weight (kg): 124 Assessment: IBW (kg): 73.23 Dosing wt(kg): 93.5 Estimated Creatinine clearance (ml/min): 24.1 CRCL method: Cockcroft and Gault using adjusted body weight Drug selected: Vancomycin Loading dose (mg): Vd (liters): 65.5 (factor used: 0.7 L/kg) Jayson (hr-1): 0.024 Half life (hrs): 28.88 CLvanco=?? 1.572 L/hr Recommended dose: 1500 mg Interval: 36 hrs Infusion time (hrs): 1 Predicted peak (mcg/mL): 39.1 Predicted trough (mcg/mL): 16.88 Adjusted body weight was selected for vancomycin dosing. Renal function is stable [ ] /unstable [ ] Recommendations: Give Vancomycin 1500 mg q 36 hrs with an expected Cpeak of 39.1 mcg/ml and an expected Ctrough of 16.88 mcg/ml AUC 0-24 /VIRA Data: VIRA 0.5 mcg/mL:?? AUC/VIRA:? 1272.3 VIRA 1.0 mcg/mL:?? AUC/VIRA:? 636.1 --------- VIRA 1.5 mcg/mL:?? AUC/VIRA:? 424.1 VIRA 2.0 mcg/mL:?? AUC/VIRA:? 318.1 Thank you for the consult, will continue to follow.
[2022-11-21] MEDS: albumin 12.5 GM/250 ML VIAL IV (16:53)
[2022-11-21] MEDS: dextrose 5%-sod chloride 0.45% 1,000 ML 100 ML IV (16:53)
[2022-11-21] MEDS: piperacillin-tazobactam 3.375 GM in sodium chloride 0.9% (plus) 50 ML IV (17:28)
[2022-11-21] MEDS: FUROsemide 10 mg/mL SDV 2mL 20 MG IVP (17:29)
[2022-11-21] MEDS: vancomycin 1,500 MG/300 ML PIGGYBACK 200 MG IV (17:29)
[2022-11-21 17:37] LABS: ABG PCO2 47.9 mmHg (35-45); ABG PH Result 7.44 (7.35-7.45); Arterial Blood Gas Hematocrit 28.3 % (42-52); Base Excess ABG 7.5 mmol/L (-2.0-2.0); Blood Gas Allen Test Pos; Blood Gas Operator Identificat MONRO; Blood Gas Sample Site Radial, left; Blood Gas Sample Type Arterial; HCO3 ABG 32.6 mmol/L (22-26); Oxygen Device BIPAP
[2022-11-21 18:30] LABS: Troponin 5 6HR 190.4 ng/L (0-15)
[2022-11-21 18:48] LABS: Troponin 5 6HR Delta -37.6 ng/L (0-12)
[2022-11-22] VITALS (77 sets, daily range): BP systolic 82–157; BP diastolic 47–117; PULSE 60–97; RESP 12–32; TEMP 36.4–36.7; O2SAT 60–100
[2022-11-22] MEDS: piperacillin-tazobactam 3.375 GM in sodium chloride 0.9% (plus) 50 ML IV ×3 (02:31→18:22)
[2022-11-22] MEDS: dextrose 5%-sod chloride 0.45% 1,000 ML 100 ML IV ×2 (02:32→11:31)
[2022-11-22 03:08] LABS: Basophils % 0.3 %; Eosinophils # 0.2 10^3/uL (0.0-0.8); Eosinophils % 1.3 %; Hematocrit 32.8 % (42.0-52.0); Hemoglobin 9.6 g/dL (11.7-16.6); Lymphocytes # 1.4 10^3/uL (0.8-4.8); Lymphocytes % 11.8 %; Mean Corpuscular HGB Conc 29.3 g/dL (30.0-36.0); Mean Corpuscular Hemoglobin 28.7 pg (28.0-34.0); Mean Corpuscular Volume 97.9 fl (80-94); Mean Platelet Volume 10.7 fL (7.4-10.4); Monocytes # 0.4 10^3/uL (0.2-0.9); Monocytes % 3.5 %; Neutrophils # 9.55 10^3/uL (1.8-7.7); Neutrophils % 82.6 %; Nucleated Red Blood Cells % 0 %; Platelet Count 239 10^3/cmm (130-400); Red Blood Count 3.35 10^6/uL (4.1-5.3); Red Cell Distribution Width 15.2 % (12.1-15.1); White Blood Count 11.6 10^3/uL (4.0-10.0)
[2022-11-22 03:21] LABS: Blood Urea Nitrogen 58 mg/dL (8-23); C Reactive Protein 138.5 mg/L (0.0-4.9); Calcium 7.5 mg/dL (8.5-10.5); Carbon Dioxide 31 mmol/L (22-29); Chloride 113 mmol/L (98-107); Glucose 162 mg/dL (65-115); Magnesium 1.7 mg/dL (1.7-2.3); Osmolality Calculated 340 mOsm/kg (285-295); Sodium 155 mmol/L (136-145)
[2022-11-22] MEDS: heparin drip 25,000 UNIT/500 ML PREMIX 34.67 UNIT IV (05:50)
[2022-11-22] MEDS: heparin 5,000 unit/mL INJ 1 mL IV (05:52)
[2022-11-22 06:28] LABS: Partial Thromboplastin Time 31.2 SECONDS (23.9-36.7)
[2022-11-22] MEDS: clopidogrel 75 mg Tablet NG-TUBE (07:59)
[2022-11-22] MEDS: aspirin 81 mg EC Tablet XX (07:59)
--- NOTE | 2022-11-22 10:38 | PC.NURSE ---
Addendum entered by Beverly Rogers RN 11/22/22 17:43: Patient continues to have multiple loose stools, placed a rectal tube to assist with incontinence and wound healing. Pressure injuries to sacrum has had new optifoams placed multiple times throughout the day with barrier cream. Linens changed frequently and frequent turns however patient attempts refusals of turns. Patient remains AAOx4 with confusion. Attempted to wean off levophed throughout the day but have been unsuccessful. Original Note: Patient resting in bed, AAOx4 with some c/o pain to back and buttocks. Liquid BM this am with sample sent to lab. BP stable while on Levophed but drops significantly with MAP below 60 when weaned off. Will reattempt later in day and monitors blood pressures. No new events, room clean and clutter free with call light within reach.
--- NOTE | 2022-11-22 11:51 | P.PN_ITS ---
Subjective Subjective: Patient is much more awake and alert Water I gave him sip of water He enjoyed drinking water Requested speech therapy Give him a break from BiPAP ABG reviewed Normal pH Sodium 155 potassium 3.0, creatinine improving with 2.5 adequate urine output No active chest pain EF preserved without wall motion abnormality Vitals/I&O/Wt Last Vital Signs Temp 97.7 F 11/22/22 10:00 Pulse 78 11/22/22 10:30 Resp 13 11/22/22 10:30 BP 148/82 11/22/22 10:30 Pulse Ox 95 11/22/22 10:15 O2 Del Method Nasal Cannula 11/22/22 10:00 O2 Flow Rate 5 11/22/22 10:00 FiO2 26 11/22/22 07:00 11/21/22 11/22/22 11/22/22 22:59 06:59 14:59 Intake Total 845.970 / 5710.900 977.065 / 6687.965 1329.227 / 1329.227 Output Total 725 / 725 450 / 1175 Balance 120.970 / 4985.900 527.065 / 5512.965 1329.227 / 1329.227 Weight last 48 hrs Weight 123.831 kg Physical Exam Narrative: Patient is awake and alert Lower extremity swelling noted 1+ bilaterally Has significant weakness of right arm as compared to left Able to follow commands Pleasant and cooperative Very talkative S1, S2 Currently on 5 L nasal cannula Abdomen distended bowel sounds sluggish Urinary Catheter Management: Thomson: Cath Placed During This Visit: yes Reason for Continuing Indwelling Catheter: Accurate Measurement of Urinary Out put in Critically Ill Patients Urinary Catheter Date of Insertion: 11/21/22 Urinary Catheter Time of Insertion: 12:13 Data 11/22/22 02:35 11/22/22 02:35 Micro: Microbiology 11/21/22 11:20 Blood Culture - Preliminary Blood NEGATIVE TO DATE 11/21/22 13:39 Blood Culture - Preliminary Blood SPECIMEN COLLECTED A&P Assessment and plan (1) Goals of care, counseling/discussion: (2) Hypernatremia: (3) Septic shock: (4) NSTEMI (non-ST elevated myocardial infarction): (5) Sepsis: (6) Elevated troponin: (7) Lymphedema: (8) PVD (peripheral vascular disease): Plan Septic shock: Resolved septic shock: Resolved: Off pressors Metabolic encephalopathy related to UTI and pneumonia and sepsis: Improved Acute on chronic kidney disease: Improving with adequate diuresis Positive fluid balance we will give him Lasix today Hypoalbuminemia patient received 1 bag of albumin yesterday Hypernatremia related to intravascular volume depletion: Discontinue D5 patient is able to eat we will request speech therapy NSTEMI: EKG did not show infarctive changes, troponin trending down, type II [place]? Sepsis related Echo did not show wall motion normality EF 40% DO NOT RESUSCITATE/DO NOT INTUBATE Allow him to eat today Significant improvement as compared to yesterday Patient is stating that he was trying to go to [facility] from [facility] but because of COVID that was put on hold he does not need quarantine for now he was diagnosed with COVID-19 11/10 Recent diagnosis of pulmonary embolism continue Eliquis once creatinine function improved I will discontinue heparin drip and put him on once a day dose of Lovenox Attestations Medical Necessity Statement*: He can be transferred out of ICU patient can be transferred out of ICU Diagnoses Goals of care, counseling/discussion Z71.89 Hypernatremia E87.0 Septic shock A41.9; R65.21 NSTEMI (non-ST elevated myocardial infarction) I21.4 Sepsis A41.9 Elevated troponin R77.8 Lymphedema I89.0 PVD (peripheral vascular disease) I73.9
[2022-11-22] MEDS: sodium chloride 0.9% 1,000 ML 999 ML IV (13:31)
[2022-11-22 13:36] LABS: Partial Thromboplastin Time 192.3 SECONDS (23.9-36.7)
[2022-11-23] VITALS (61 sets, daily range): BP systolic 94–144; BP diastolic 32–83; PULSE 60–92; RESP 15–39; TEMP 36.4–36.8; O2SAT 75–100
[2022-11-23] MEDS: potassium chloride ER 20 mEq Tablet 40 MEQ PO ×2 (01:57→09:33)
[2022-11-23] MEDS: doxycycline 100 mg Tablet PO ×3 (01:58→17:39)
[2022-11-23] MEDS: enoxaparin 120 mg/0.8 mL Syringe SUBCUT (01:58)
[2022-11-23] MEDS: piperacillin-tazobactam 3.375 GM in sodium chloride 0.9% (plus) 50 ML IV (02:07)
[2022-11-23] MEDS: FUROsemide 10 mg/mL SDV 4mL 40 MG IVP (02:07)
[2022-11-23 03:13] LABS: Basophils % 0.1 %; Eosinophils # 0.5 10^3/uL (0.0-0.8); Eosinophils % 5.5 %; Hematocrit 28.6 % (42.0-52.0); Hemoglobin 8.4 g/dL (11.7-16.6); Lymphocytes # 1.3 10^3/uL (0.8-4.8); Lymphocytes % 14.8 %; Mean Corpuscular HGB Conc 29.4 g/dL (30.0-36.0); Mean Corpuscular Hemoglobin 28.4 pg (28.0-34.0); Mean Corpuscular Volume 96.6 fl (80-94); Mean Platelet Volume 10.9 fL (7.4-10.4); Monocytes # 0.4 10^3/uL (0.2-0.9); Monocytes % 4.5 %; Neutrophils # 6.35 10^3/uL (1.8-7.7); Neutrophils % 74.5 %; Nucleated Red Blood Cells % 0 %; Platelet Count 182 10^3/cmm (130-400); Red Blood Count 2.96 10^6/uL (4.1-5.3); Red Cell Distribution Width 14.9 % (12.1-15.1); White Blood Count 8.5 10^3/uL (4.0-10.0)
[2022-11-23 03:39] LABS: Anion Gap 10.9 (5-19); Blood Urea Nitrogen 50 mg/dL (8-23); Calcium 7.3 mg/dL (8.5-10.5); Carbon Dioxide 31 mmol/L (22-29); Chloride 112 mmol/L (98-107); Glucose 134 mg/dL (65-115); Osmolality Calculated 327 mOsm/kg (285-295); Sodium 151 mmol/L (136-145)
[2022-11-23 03:52] LABS: Potassium 2.9 mmol/L (3.5-5.1)
[2022-11-23 04:22] LABS: Magnesium 1.6 mg/dL (1.7-2.3)
[2022-11-23] MEDS: lidocaine 1% 5 ML in potassium chloride premix 100 ML 52.5 ML IV (04:22)
--- NOTE | 2022-11-23 08:37 | P.PN_ITS ---
Subjective Subjective: Adequate urine output Patient is awake and alert Patient was wanting to drink Creatinine improving Hypokalemia hypomagnesemia noted Sodium improving gradually Awaiting speech therapy recommendations I would hold his Lasix dose for today Vitals/I&O/Wt Last Vital Signs Temp 97.6 F 11/23/22 08:00 Pulse 64 11/23/22 08:00 Resp 24 H 11/23/22 08:00 BP 134/69 11/23/22 07:30 Pulse Ox 77 L 11/23/22 07:00 O2 Del Method Nasal Cannula 11/22/22 20:12 O2 Flow Rate 2 11/22/22 20:12 FiO2 26 11/22/22 07:00 11/22/22 11/23/22 11/23/22 22:59 06:59 14:59 Intake Total 695.499 / 3664.173 275 / 3939.173 120 / 120 Output Total 1100 / 1100 1400 / 2500 Balance -404.501 / 2564.173 -1125 / 1439.173 120 / 120 Weight last 48 hrs Weight 123.831 kg Physical Exam Narrative: Patient is awake and alert Fatigued and lethargic Currently on 2 L nasal cannula No active chest pain Abdomen soft Rectal tube 700 mL out Nonfocal neuro exam S1, S2 Cold extremities, room temperature was very cold as well No active signs of vascular compromise Urinary Catheter Management: Thomson: Cath Placed During This Visit: yes Reason for Continuing Indwelling Catheter: Accurate Measurement of Urinary Output in Critically Ill Patients Urinary Catheter Date of Insertion: 11/21/22 Urinary Catheter Time of Insertion: 12:13 Data 11/23/22 03:00 11/23/22 03:00 Micro: Microbiology 11/22/22 01:30 MRSA Culture - Final Nose 11/22/22 08:26 C.difficile Toxin B Gene (PCR) - Final Stool - Stool Aspirate 11/21/22 13:39 Blood Culture - Preliminary Blood NEGATIVE TO DATE 11/21/22 11:20 Blood Culture - Preliminary Blood NEGATIVE TO DATE A&P Assessment and plan (1) Goals of care, counseling/discussion: (2) Hypernatremia: (3) Septic shock: (4) NSTEMI (non-ST elevated myocardial infarction): (5) Sepsis: (6) Elevated troponin: (7) Lymphedema: (8) PVD (peripheral vascular disease): (9) Hypoxia: (10) MRSA pneumonia: Plan NSTEMI Patient not having any chest pain No wall motion abnormality on echo EF 40% Hold Lasix for today adequate urine output Concern for type II CT, not a candidate for coronary angiogram LAKEISHA related to sepsis Creatinine improving Hypoxia related to MRSA pneumonia Continue doxycycline discontinue IV antibiotic Patient is deconditioned We will need physical therapy Sepsis related encephalopathy: Resolved DNR/DNI Updated son Hypokalemia: Repleted Hold Lasix for today Cardiac diet He can be transferred out of ICU Patient is getting therapeutic Lovenox for NSTEMI which I may discontinue by tomorrow Patient expecting go to a different long term this time Hyponatremia related to poor p.o. intake, gradually improving Attestations Medical Necessity Statement*: Out of ICU to [facility] Diagnoses Goals of care, counseling/discussion Z71.89 Hypernatremia E87.0 Septic shock A41.9; R65.21 NSTEMI (non-ST elevated myocardial infarction) I21.4 Sepsis A41.9 Elevated troponin R77.8 Lymphedema I89.0 PVD (peripheral vascular disease) I73.9 Hypoxia R09.02 MRSA pneumonia J15.212
[2022-11-23] MEDS: clopidogrel 75 mg Tablet NG-TUBE (09:32)
[2022-11-23] MEDS: aspirin 81 mg EC Tablet XX (09:33)
[2022-11-24] VITALS (49 sets, daily range): BP systolic 94–165; BP diastolic 44–88; PULSE 68–123; RESP 16–34; TEMP 36.4–37.2; O2SAT 92–100
[2022-11-24 03:34] LABS: Basophils % 0.1 %; Eosinophils # 0.5 10^3/uL (0.0-0.8); Eosinophils % 5.2 %; Hematocrit 28.2 % (42.0-52.0); Hemoglobin 8.7 g/dL (11.7-16.6); Lymphocytes # 1.7 10^3/uL (0.8-4.8); Lymphocytes % 18.9 %; Mean Corpuscular HGB Conc 30.9 g/dL (30.0-36.0); Mean Corpuscular Hemoglobin 29.8 pg (28.0-34.0); Mean Corpuscular Volume 96.6 fl (80-94); Mean Platelet Volume 11.2 fL (7.4-10.4); Monocytes # 0.5 10^3/uL (0.2-0.9); Monocytes % 5.7 %; Neutrophils # 6.14 10^3/uL (1.8-7.7); Neutrophils % 69.3 %; Nucleated Red Blood Cells % 0 %; Platelet Count 192 10^3/cmm (130-400); Red Blood Count 2.92 10^6/uL (4.1-5.3); Red Cell Distribution Width 14.8 % (12.1-15.1); White Blood Count 8.9 10^3/uL (4.0-10.0)
[2022-11-24 03:53] LABS: Anion Gap 11.3 (5-19); Blood Urea Nitrogen 47 mg/dL (8-23); Calcium 7.8 mg/dL (8.5-10.5); Carbon Dioxide 32 mmol/L (22-29); Chloride 110 mmol/L (98-107); Glucose 105 mg/dL (65-115); Osmolality Calculated 323 mOsm/kg (285-295); Potassium 3.3 mmol/L (3.5-5.1); Sodium 150 mmol/L (136-145)
[2022-11-24] MEDS: dextrose 5% 1,000 ML 30 ML IV (08:18)
[2022-11-24] MEDS: potassium chloride ER 20 mEq Tablet 40 MEQ PO (08:18)
[2022-11-24] MEDS: aspirin 81 mg EC Tablet XX (08:18)
[2022-11-24] MEDS: clopidogrel 75 mg Tablet NG-TUBE (08:18)
[2022-11-24] MEDS: enoxaparin 40 mg/0.4 mL Syringe SUBCUT (08:18)
[2022-11-24] MEDS: doxycycline 100 mg Tablet PO ×2 (08:19→17:15)
--- NOTE | 2022-11-24 10:44 | PC.SOCIAL ---
Pg 2 IMM Explained to pt Pg 2 IMM. No questions voiced. Provided pt a copy. Initialed, dated, & timed a copy & placed in chart.
--- NOTE | 2022-11-24 11:16 | PM.PN ---
Subjective Subjective: Also with worsening loose stools 1450 Start D5 Patient is currently on 2 L saturating 100% Awake and alert senior online marketing manager updated ICU nurse at the bedside Creatinine improving Adequate urine output Hemoglobin stable Potassium 3.3: Repleted Vitals/I&O/Wt Last Vital Signs Temp 97.6 F 11/24/22 08:30 Pulse 79 11/24/22 08:30 Resp 23 H 11/24/22 08:30 BP 111/67 11/24/22 08:30 Pulse Ox 100 11/24/22 08:30 O2 Del Method Nasal Cannula 11/24/22 08:30 O2 Flow Rate 1.5 11/24/22 08:30 FiO2 26 11/22/22 07:00 11/23/22 11/24/22 11/24/22 22:59 06:59 14:59 Intake Total 440 / 760 240 / 1000 240 / 240 Output Total 250 / 250 300 / 550 Balance 190 / 510 -60 / 450 240 / 240 Physical Exam Narrative: Patient is awake and alert Currently on 2 L saturating 100% No active complaints Abdomen soft S1, S2 Mild signs of fluid overload Pleasant and cooperative Nonfocal neuro exam Urinary Catheter Management: Thomson: Cath Placed During This Visit: yes Reason for Continuing Indwelling Catheter: Accurate Measurement of Urinary Output in Critically Ill Patients Urinary Catheter Date of Insertion: 11/21/22 Urinary Catheter Time of Insertion: 12:13 Data 11/24/22 02:41 11/24/22 02:41 Micro: Microbiology 11/22/22 13:07 Urine Culture - Final Urine Catheterized 11/21/22 11:15 Bacterial Antigens - Final Urine Kidney 11/21/22 11:15 Legionella Urinary Antigen - Final Urine Catheterized A&P Assessment and plan (1) MRSA pneumonia: (2) Hypoxia: (3) Goals of care, counseling/discussion: (4) Hypernatremia: (5) Septic shock: (6) NSTEMI (non-ST elevated myocardial infarction): (7) Sepsis: (8) Elevated troponin: (9) Lymphedema: (10) PVD (peripheral vascular disease): (11) Hypokalemia: (12) Diarrhea: Plan MRSA pneumonia: Continue doxycycline Wean oxygen gradually Currently doing well on 2 L Patient is a chronic retainer his bicarb is around 30s, underlying COPD Type II NH: NSTEMI: Echo unremarkable, no active chest pain LAKEISHA related to sepsis: Creatinine improving with adequate p.o. intake Hypernatremia related to dehydration poor p.o. intake start D5 for 10 hours Plan is to discharge him to [facility] once sodium is better which might be tomorrow Son has been updated Son is happy with his progress Metabolic encephalopathy related to sepsis: Resolved Diarrhea: C. difficile ruled out Imodium for now check mag level Hypokalemia: Repleted Chronic anemia: Stable DVT prophylaxis: With therapeutic Lovenox once a day because of high creatinine Attestations Medical Necessity Statement*: Discharge once sodium is better Diagnoses MRSA pneumonia J15.212 Hypoxia R09.02 Goals of care, counseling/discussion Z71.89 Hypernatremia E87.0 Septic shock A41.9; R65.21 NSTEMI (non-ST elevated myocardial infarction) I21.4 Sepsis A41.9 Elevated troponin R77.8 Lymphedema I89.0 PVD (peripheral vascular disease) I73.9 Hypokalemia E87.6 Diarrhea R19.7
--- NOTE | 2022-11-24 16:19 | PC.OT ---
OT EVALUATION ORDERS RECEIVED. HOLD PER NURSING AT THIS TIME. WILL ATTEMPT AGAIN TOMORROW.
[2022-11-24] MEDS: magnesium oxide 400 mg tablet PO (17:15)
--- NOTE | 2022-11-24 18:53 | PC.NURSE ---
Shift Note Frequent safety and comfort rounds continue. Orders and/or nursing care completed as indicated. Patient monitored for response to intervention and treatment(s). Education provided includes frequent turning, wound care, Nutrition, medications at administration, Physical therapy, and fall risk with use of call light. Patient verbalized understanding of teachings. Overall uneventful shift. Patient protested frequent turning and physical therapy attempts by nurse, but allowed staff to complete. Patient son called and given update. Patient resting in bed , oxygenating well on room air, see charting for vitals. Patient has no requests at this time.
[2022-11-25] VITALS (34 sets, daily range): BP systolic 126–171; BP diastolic 48–115; PULSE 62–96; RESP 18–38; TEMP 36.3–37.1; O2SAT 92–100
[2022-11-25 04:05] LABS: Basophils % 0.2 %; Eosinophils # 0.3 10^3/uL (0.0-0.8); Eosinophils % 3.2 %; Hematocrit 28.7 % (42.0-52.0); Hemoglobin 8.7 g/dL (11.7-16.6); Lymphocytes # 1.6 10^3/uL (0.8-4.8); Lymphocytes % 15.6 %; Mean Corpuscular HGB Conc 30.3 g/dL (30.0-36.0); Mean Corpuscular Volume 95.7 fl (80-94); Monocytes # 0.7 10^3/uL (0.2-0.9); Monocytes % 6.7 %; Neutrophils % 73.2 %; Nucleated Red Blood Cells % 0 %; Platelet Count 202 10^3/cmm (130-400); Red Cell Distribution Width 14.6 % (12.1-15.1); White Blood Count 10.4 10^3/uL (4.0-10.0)
[2022-11-25 04:26] LABS: Anion Gap 9.5 (5-19); Blood Urea Nitrogen 37 mg/dL (8-23); Calcium 8.1 mg/dL (8.5-10.5); Carbon Dioxide 32 mmol/L (22-29); Chloride 108 mmol/L (98-107); Glucose 148 mg/dL (65-115); Osmolality Calculated 313 mOsm/kg (285-295); Potassium 3.5 mmol/L (3.5-5.1); Sodium 146 mmol/L (136-145)
[2022-11-25] MEDS: doxycycline 100 mg Tablet PO ×2 (08:14→18:17)
[2022-11-25] MEDS: potassium chloride ER 20 mEq Tablet 40 MEQ PO (08:14)
[2022-11-25] MEDS: aspirin 81 mg EC Tablet PO (08:14)
[2022-11-25] MEDS: magnesium oxide 400 mg tablet PO ×2 (08:14→18:17)
[2022-11-25] MEDS: enoxaparin 40 mg/0.4 mL Syringe SUBCUT (08:14)
[2022-11-25] MEDS: clopidogrel 75 mg Tablet PO (08:14)
--- NOTE | 2022-11-25 12:08 | P.PN_ITS ---
Subjective Subjective: SNF placement Sodium and creatinine improved No active chest pain We will request speech therapy I change his diet to soft mechanical because initially patient was drowsy however no aspiration events noted so far digital production manager and ICU nurse notified Patient is awaiting prior Auth approval She can be transferred out of ICU We will give him dose of Lasix for positive fluid balance Vitals/I&O/Wt Last Vital Signs Temp 98.4 F 11/25/22 04:00 Pulse 70 11/25/22 11:00 Resp 32 H 11/25/22 11:00 BP 158/88 11/25/22 11:00 Pulse Ox 95 11/25/22 08:41 O2 Del Method Room Air 11/25/22 08:41 O2 Flow Rate 1 11/24/22 12:30 FiO2 26 11/22/22 07:00 11/24/22 11/25/22 11/25/22 22:59 06:59 14:59 Intake Total 360 / 720 240 / 960 120 / 120 Output Total 1450 / 1450 400 / 1850 Balance -1090 / -730 -160 / -890 120 / 120 Physical Exam Narrative: Patient looks good overloaded Currently on room air Eating breakfast Drowsy but awake and alert Nonfocal neuro exam Lower extremity edema Mild rhonchi Abdomen soft but distended Awake and alert GCS 15 Pleasant and cooperative Urinary Catheter Management: Thomson: Cath Placed During This Visit: yes Reason for Continuing Indwelling Catheter: Accurate Measurement of Urinary Output in Critically Ill Patients Urinary Catheter Date of Insertion: 11/21/22 Urinary Catheter Time of Insertion: 12:13 Data 11/25/22 03:05 11/25/22 03:05 Micro: Microbiology 11/22/22 13:07 Urine Culture - Final Urine Catheterized 11/21/22 11:15 Bacterial Antigens - Final Urine Kidney A&P Assessment and plan (1) Diarrhea: (2) Hypokalemia: (3) MRSA pneumonia: (4) Hypoxia: (5) Goals of care, counseling/discussion: (6) Hypernatremia: (7) Septic shock: (8) NSTEMI (non-ST elevated myocardial infarction): (9) Sepsis: (10) Elevated troponin: (11) Lymphedema: (12) PVD (peripheral vascular disease): Plan Awaiting SNF placement Fluid overload positive fluid balance because of the IV fluids given in the ICU We will give 1 dose of Lasix Potassium normal Creatinine improved LAKEISHA: Resolved Encephalopathy: Resolved MRSA pneumonia currently patient is on room air Significant improvement He can use BiPAP and on as-needed basis NSTEMI likely type II DC no wall motion abnormality on echo No active chest pain ACS protocol discontinued continue aspirin and DVT prophylactic Lovenox dose for now Diarrhea: Resolved Patient tolerating mechanical soft Continue PT OT ST Awaiting approval for prior Auth DNR/DNI Can be transferred out of ICU Patient is physically deconditioned Attestations 2 Medical Necessity Statement*: Awaiting placement Diagnoses Diarrhea R19.7 Hypokalemia E87.6 MRSA pneumonia J15.212 Hypoxia R09.02 Goals of care, counseling/discussion Z71.89 Hypernatremia E87.0 Septic shock A41.9; R65.21 NSTEMI (non-ST elevated myocardial infarction) I21.4 Sepsis A41.9 Elevated troponin R77.8 Lymphedema I89.0 PVD (peripheral vascular disease) I73.9
[2022-11-26] VITALS (14 sets, daily range): BP systolic 88–174; BP diastolic 51–69; PULSE 66–169; RESP 14–30; TEMP 37.2–39.1; O2SAT 90–100
[2022-11-26] MEDS: FUROsemide 10 mg/mL SDV 4mL 40 MG IVP ×2 (01:13→18:18)
[2022-11-26 05:21] LABS: Basophils % 0.1 %; Eosinophils % 0.1 %; Hematocrit 29.2 % (42.0-52.0); Hemoglobin 9.1 g/dL (11.7-16.6); Lymphocytes # 1.4 10^3/uL (0.8-4.8); Lymphocytes % 10.4 %; Mean Corpuscular HGB Conc 31.2 g/dL (30.0-36.0); Mean Corpuscular Hemoglobin 29.2 pg (28.0-34.0); Mean Corpuscular Volume 93.6 fl (80-94); Mean Platelet Volume 10.8 fL (7.4-10.4); Monocytes # 1.4 10^3/uL (0.2-0.9); Monocytes % 9.9 %; Neutrophils # 10.61 10^3/uL (1.8-7.7); Neutrophils % 78.2 %; Nucleated Red Blood Cells % 0 %; Platelet Count 231 10^3/cmm (130-400); Red Blood Count 3.12 10^6/uL (4.1-5.3); Red Cell Distribution Width 14.6 % (12.1-15.1); White Blood Count 13.6 10^3/uL (4.0-10.0)
[2022-11-26 05:43] LABS: Anion Gap 12.6 (5-19); Blood Urea Nitrogen 29 mg/dL (8-23); Calcium 8.2 mg/dL (8.5-10.5); Carbon Dioxide 32 mmol/L (22-29); Chloride 105 mmol/L (98-107); Glucose 149 mg/dL (65-115); Osmolality Calculated 311 mOsm/kg (285-295); Potassium 3.6 mmol/L (3.5-5.1); Sodium 146 mmol/L (136-145)
[2022-11-26] MEDS: aspirin 81 mg EC Tablet PO (08:42)
[2022-11-26] MEDS: doxycycline 100 mg Tablet PO ×2 (08:42→16:52)
[2022-11-26] MEDS: potassium chloride ER 20 mEq Tablet 40 MEQ PO (08:43)
[2022-11-26] MEDS: magnesium oxide 400 mg tablet PO ×2 (08:43→16:52)
[2022-11-26] MEDS: enoxaparin 40 mg/0.4 mL Syringe SUBCUT (08:47)
--- NOTE | 2022-11-26 10:32 | PM.PN ---
Subjective Subjective: This morning patient is awake and alert He was getting medications through his modified diet Currently on room air He does look fatigued and lethargic but that seems to be his new baseline with fluctuant mentation Able to answer most of my questions Vitals/I&O/Wt Last Vital Signs Temp 99.5 F 11/26/22 08:00 Pulse 84 11/26/22 08:27 Resp 20 H 11/26/22 08:27 BP 156/62 11/26/22 08:00 Pulse Ox 93 11/26/22 08:27 O2 Del Method Room Air 11/26/22 08:27 O2 Flow Rate 1 11/24/22 12:30 FiO2 26 11/22/22 07:00 11/25/22 11/26/22 11/26/22 22:59 06:59 14:59 Intake Total 1135 / 1495 100 / 1595 Output Total 800 / 800 1700 / 2500 800 / 800 Balance 335 / 695 -1600 / -905 -800 / -800 Physical Exam Narrative: Morbid obese male Currently on room air Flexion mentation Awake and alert Able to answer my questions appropriately No new focal deficit No active signs of vascular compromise Lower extremity edema slightly better No audible stridor or wheezing Doing well on room air No acute respiratory distress Variable S1-S2 Dry mucous membranes Urinary Catheter Management: Thomson: Cath Placed During This Visit: yes Reason for Continuing Indwelling Catheter: Assist Healing of Perineal & Sacral Wounds- Incontinent Patients Urinary Catheter Date of Insertion: 11/21/22 Urinary Catheter Time of Insertion: 12:13 Data 11/26/22 05:11 11/26/22 05:11 A&P Assessment and plan (1) Diarrhea: (2) Hypokalemia: (3) MRSA pneumonia: (4) Hypoxia: (5) Goals of care, counseling/discussion: (6) Hypernatremia: (7) Septic shock: (8) NSTEMI (non-ST elevated myocardial infarction): (9) Sepsis: (10) Elevated troponin: (11) Lymphedema: (12) PVD (peripheral vascular disease): Plan 87-year-old male resident of [facility], presented with altered mental status shortness of breath, dehydration, at the time of my admission CODE STATUS was discussed he was made DNR/DNI, his breathing status improved significantly with use of BiPAP, as per the son this time this is the most lucid condition of his father that they are able to communicate, as per the son patient was confused and obtunded for about 2 weeks at the group home they had concerns with [facility] now wants to change his group home, he has been accepted going through prior authorization, patient has been diagnosed with MRSA pneumonia, he recovered well from septic shock, metabolic encephalopathy improved, patient seems to have a new baseline mentation, he requires verbal clues when he is eating, otherwise able to answer most of the questions, he is doing well on room air, getting antibiotics for MRSA pneumonia Please note, he was diagnosed with NSTEMI ACS was started at the time of admission, echo did not show significant wall motion abnormality, creatinine at that time was abnormal, son did not want to pursue angiogram however now his kidney function is improved decision has been made to manage him conservatively, patient is getting physical therapy, speech therapy Septic shock and metabolic encephalopathy related to MRSA pneumonia: Resolved LAKEISHA related to sepsis: Resolved NSTEMI: Likely type II AL Echo unremarkable other than EF 40% without wall motion abnormality Fluctuant mentation with possible underlying dementia Patient seems to be well oriented, communicative, I do believe with better hydration his mentation will improve Dehydration related hyponatremia Poor p.o. intake He seems to have dysphagia due to his muscle weakness CT head unremarkable I do not see any focal deficits He will need speech therapy Peripheral vascular disease: No acute signs of vascular compromise Diarrhea: Improved C. difficile ruled out, responded to Imodium disPosition: SNF long-term placement DNR/DNI, son okay with vasopressors and medical management in ICU and BiPAP High risk for readmission secondary to poor intake, fluctuant mentation Attestations Medical Necessity Statement*: Discharge later today versus tomorrow , Awaiting prior authorization Coding Level of Care Code 13889 Diagnoses Diarrhea R19.7 Hypokalemia E87.6 MRSA pneumonia J15.212 Hypoxia R09.02 Goals of care, counseling/discussion Z71.89 Hypernatremia E87.0 Septic shock A41.9; R65.21 NSTEMI (non-ST elevated myocardial infarction) I21.4 Sepsis A41.9 Elevated troponin R77.8 Lymphedema I89.0 PVD (peripheral vascular disease) I73.9
--- NOTE | 2022-11-26 11:23 | PC.OT ---
OT TREATMENT ATTEMPTED. PATIENT IS VERY CONFUSED TODAY. STATES, PLEASE.. SEVERAL TIMES BUT UNABLE TO COMPLETE SENTENCE. ATTEMPTED TO HAVE PATIENT PERFORM GROOMING TASK; ATTEMPTED TO HAND HIM A TOOTHBRUSH WITH TOOTHPASTE ON IT BUT HE STATES, NOT RIGHT NOW.. AND APPEARS AGITATED. NURSING INFORMED
[2022-11-26 16:33] LABS: ABG PCO2 37.6 mmHg (35-45); Arterial Blood Gas Hematocrit 29.7 % (42-52); Base Excess ABG 12.6 mmol/L (-2.0-2.0); Blood Gas Allen Test Pos; Blood Gas Operator Identificat MONRO; Blood Gas Sample Site Radial, right; Blood Gas Sample Type Arterial; HCO3 ABG 35.4 mmol/L (22-26); Oxygen Device ROOM AIR; PO2 ABG 64.7 mmHg (80.0-100.0)
[2022-11-26 16:35] LABS: ABG PH Result 7.58 (7.35-7.45)
[2022-11-26] MEDS: acetaminophen 500 mg Tablet PO (16:53)
--- NOTE | 2022-11-26 16:57 | XRR_ITS ---
PROCEDURE INFORMATION: Exam: XR Chest Exam date and time: 11/26/2022 4:10 PM Age: 87 years old Clinical indication: Shortness of breath; Prior surgery; Surgery date: 6+ months; Surgery type: Back; Additional info: SOB TECHNIQUE: Imaging protocol: Radiologic exam of the chest. Views: 1 view. COMPARISON: CR (CHEST, ) 11/21/2022 1:09 PM FINDINGS: Tubes, catheters and devices: Right internal jugular central line is stable in position with the tip in the superior vena cava. Lungs: Interval development of mild interstitial pulmonary edema. Increasing atelectasis in the left lingula and left lower lobe. Pleural spaces: Moderate left pleural effusion, increased in size. No pneumothorax. Heart/Mediastinum: Stable moderate enlargement of the cardiac silhouette. Mediastinal contours are unremarkable. Vasculature: Stable vascular calcifications in the aorta. Bones/joints: Degenerative changes in the spine and shoulders. Bones are diffusely osteopenic. Prior fusion in the visualized lower thoracic spine. Osseous findings are stable. XR/XR chest 1V portable [id number] IMPRESSION: 1. Interval development of mild interstitial pulmonary edema. 2. Moderate left pleural effusion, increased in size with increasing atelectasis in the left lingula and left lower lobe. 3. Right internal jugular central line is stable in position with the tip in the superior vena cava. 4. Incidental/nonacute findings are listed in the report.
[2022-11-26 18:03] LABS: Urine Appearance Clear (CLEAR); Urine Color Yellow (Yellow)
[2022-11-26 18:04] LABS: Add Urine Microscopic? YES; Bilirubin Urine Neg (Negative); Blood Urine 3+ (Negative); Glucose Urine UA Norm (Normal); Ketones Urine Negative (Negative); Leukocyte Esterase Urine 1+ (Negative); Nitrate Urine Negative (Negative); Protein Urine Neg (Negative); Urobilinogen Urine Norm (Negative); pH Urine 7 (5-7)
[2022-11-26 18:06] LABS: Bacteria Urine 1+ /hpf; RBC Urine 25-40 /hpf (0-2); Squamous Epithelial Cell Urine 0-4 /hpf (0-5); WBC Urine 55-80 /hpf (0-5)
[2022-11-26 18:07] LABS: Add Urine Culture? Yes; Amorphous Sediment Urine 1+ /hpf; Mucus Urine TRACE /hpf
--- NOTE | 2022-11-26 19:37 | PC.NURSE ---
LOW BP Pt is on BIPAP. Difficult to arouse. Opens eyes but not answering questions. Mumbles confused words. BP 88/5/. Dr Quinn notified of changes. Aware of pts code status and problems with bolusing of IV fluids due to fluid overload. Is aware of CXR results today. Orders received and pt will be transferred to ICU. Road Equipment Operator notified. Dr Quinn was Voalted sons phone #
[2022-11-26] MEDS: sodium chloride 0.9% 500 ML 999 ML IV (19:44)
--- NOTE | 2022-11-26 19:46 | CTR_ITS ---
PROCEDURE INFORMATION: Exam: CT Head Without Contrast Exam date and time: 11/27/2022 7:22 AM Age: 87 years old Clinical indication: Altered mental status/memory loss; Additional info: R/O stroke TECHNIQUE: Imaging protocol: Computed tomography of the head without contrast. Radiation optimization: All CT scans at this facility use at least one of these dose optimization techniques: automated exposure control; mA and/or kV adjustment per patient size (includes targeted exams where dose is matched to clinical indication); or iterative reconstruction. REPORTING DATA: Count of CT and Cardiac NM exams in prior 12 months: This patient has received 7 known CTs and 0 known cardiac nuclear medicine studies in the 12 months prior to the current study. COMPARISON: CT head wo con* [id number] 11/21/2022 11:39 AM RADIATION DOSE METRICS: Total DLP (mGy-cm): 1214.08 FINDINGS: Brain: Unchanged prominent brain sulci seen, related to the patient's age. Associated unchanged moderate to severe nonspecific periventricular white matter low attenuation areas. 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 There are no intracranial masses, mass effect or midline shift. There is no cerebral edema. There is no subarachnoid hemorrhage. There are no intra-or extra-axial fluid collections, intraventricular or intraparenchymal hemorrhage. No definite areas of low attenuation or sahni-white matter junction obscuration seen on the noncontrast CT to suggest a subacute stroke - although the underlying white matter changes limit assessment. Cerebral ventricles: The lateral, third and fourth ventricles appear unremarkable. The suprasellar and basilar cisterns appear unremarkable. Paranasal sinuses: The visualized sinuses are unremarkable. Mastoid air cells: The visualized mastoids are unremarkable. Orbital cavities: The visualized orbits are unremarkable. Bones/joints: No definite acute osseous or skull abnormalities seen. Soft tissues: Unremarkable. Notes: If there is further clinical concern for intracranial pathology, MRI of the brain may be performed for further assessment. CT/CT head wo con* [id number] IMPRESSION: 1. No non-contrast CT evidence of intracranial hemorrhage, masses or subacute stroke. 2. Age related changes, as noted above.
[2022-11-26 19:51] LABS: ABG PCO2 46.3 mmHg (35-45); ABG PH Result 7.52 (7.35-7.45); Arterial Blood Gas Hematocrit 29.5 % (42-52); Base Excess ABG 13.2 mmol/L (-2.0-2.0); Blood Gas Allen Test Pos; Blood Gas Sample Type Arterial; Carboxyhemoglobin 1.4 %THgb (0.4-20.1); HCO3 ABG 37.5 mmol/L (22-26); HGB O2 Sat 97.3 % (95-100); Ionized Calcium Level - ABG 1.2 mmol/L (1.1-1.4); Methemoglobin 0.4 % (0.4-1.5); Oxygen Saturation ABG 99.1; Potassium Level - ABG 3.6 mmol/L (3.5-5.0); Total Hemoglobin 9.6 g/dL (14-18)
[2022-11-26 19:53] LABS: Alveolar-Arterial Oxygen Gradi 4.8 mmHg (5-10); Blood Gas Sample Site Radial, right; Oxygen Device BIPAP
[2022-11-26] MEDS: vancomycin 1,500 MG/300 ML PIGGYBACK 200 MG IV (20:00)
--- NOTE | 2022-11-26 20:26 | PC.NURSE ---
TRANSFER Pt transferred to ICU 2. Report was given to Sherie SAEZ
--- NOTE | 2022-11-26 20:48 | CTR_ITS ---
PROCEDURE INFORMATION: Exam: CT Chest Without Contrast; Diagnostic Exam date and time: 11/27/2022 7:24 AM Age: 87 years old Clinical indication: Shortness of breath; Prior surgery; Surgery date: 6+ months; Surgery type: Back; Additional info: Hypoxia TECHNIQUE: Imaging protocol: Diagnostic computed tomography of the chest without contrast. Radiation optimization: All CT scans at this facility use at least one of these dose optimization techniques: automated exposure control; mA and/or kV adjustment per patient size (includes targeted exams where dose is matched to clinical indication); or iterative reconstruction. REPORTING DATA: Count of CT and Cardiac NM exams in prior 12 months: This patient has received 7 known CTs and 0 known cardiac nuclear medicine studies in the 12 months prior to the current study. COMPARISON: 1. CT angio chest [id number] 11/16/2022 11:[address] angio chest PE protcl [id number] 11/06/2022 9:[address] cervical spin wo con* [id number] 06/05/2018 1:53 PM RADIATION DOSE METRICS: Total DLP (mGy-cm): 768.33 FINDINGS: Tubes, catheters and devices: Right-sided central venous line noted with the distal tip in the mid/lower SVC. Thyroid: 5.1 cm hypoattenuating nodule in the left lobe of the thyroid, similar to prior exams dating back to 2018. Lungs: Respiratory motion limiting fine pulmonary detail. Left basilar consolidation, similar to prior exam. Minimal consolidation in the medial/posterior basal segment of the right lower lobe, similar to prior exam. Subtle stable focal area of ground-glass density measuring up to 8 mm in the posterior segment of the right upper lobe (axial series 7, image 30). Pleural spaces: Small left-sided pleural effusion, similar to prior exam. Heart: Heart is enlarged for size. Coronary arteries: Coronary artery calcifications noted. Lymph nodes: The supraclavicular region appears normal. There are no enlarged lymph nodes in the axilla. There are no enlarged lymph nodes in the mediastinal or hilar regions. Vasculature: Unremarkable. No aortic aneurysm. Bones/joints: Partially visualized posterior spinal fixation hardware. Fracture again noted in the superior T10 vertebral body similar to prior exams. Soft tissues: Unremarkable. CT/CT chest wo con [id number] IMPRESSION: No significant change from prior exam.
[2022-11-26] MEDS: piperacillin-tazobactam 3.375 GM in sodium chloride 0.9% (plus) 50 ML IV (21:16)
[2022-11-26] MEDS: enoxaparin 120 mg/0.8 mL Syringe SUBCUT (21:16)
[2022-11-27] VITALS (49 sets, daily range): BP systolic 85–186; BP diastolic 44–106; PULSE 63–85; RESP 17–65; TEMP 36.6–37.1; O2SAT 84–100
[2022-11-27 04:30] LABS: Basophils % 0.2 %; Eosinophils % 0.3 %; Hematocrit 26.5 % (42.0-52.0); Hemoglobin 8.2 g/dL (11.7-16.6); Lymphocytes # 1.7 10^3/uL (0.8-4.8); Lymphocytes % 11.7 %; Mean Corpuscular HGB Conc 30.9 g/dL (30.0-36.0); Mean Corpuscular Hemoglobin 29.5 pg (28.0-34.0); Mean Corpuscular Volume 95.3 fl (80-94); Mean Platelet Volume 10.8 fL (7.4-10.4); Monocytes # 1.4 10^3/uL (0.2-0.9); Monocytes % 9.3 %; Neutrophils # 11.34 10^3/uL (1.8-7.7); Neutrophils % 77.4 %; Nucleated Red Blood Cells % 0 %; Platelet Count 230 10^3/cmm (130-400); Red Blood Count 2.78 10^6/uL (4.1-5.3); White Blood Count 14.7 10^3/uL (4.0-10.0)
[2022-11-27 04:51] LABS: Lactic Sepsis W/Reflex 0.9 mmol/L (0.5-2.2)
[2022-11-27 04:52] LABS: Anion Gap 12.3 (5-19); Blood Urea Nitrogen 28 mg/dL (8-23); Calcium 7.9 mg/dL (8.5-10.5); Carbon Dioxide 33 mmol/L (22-29); Chloride 106 mmol/L (98-107); Glucose 127 mg/dL (65-115); Osmolality Calculated 313 mOsm/kg (285-295); Potassium 3.3 mmol/L (3.5-5.1); Sodium 148 mmol/L (136-145)
[2022-11-27] MEDS: piperacillin-tazobactam 3.375 GM in sodium chloride 0.9% (plus) 50 ML IV ×3 (05:02→20:06)
[2022-11-27] MEDS: magnesium oxide 400 mg tablet PO ×2 (08:41→19:00)
[2022-11-27] MEDS: potassium chloride ER 20 mEq Tablet 40 MEQ PO (08:41)
[2022-11-27] MEDS: enoxaparin 120 mg/0.8 mL Syringe SUBCUT ×2 (08:42→20:06)
--- NOTE | 2022-11-27 08:42 | USR_ITS ---
PROCEDURE INFORMATION: Exam: US Duplex Left Upper Extremity Veins, Limited Exam date and time: 11/27/2022 10:51 AM Age: 87 years old Clinical indication: Edema, localized; Upper extremity, left; Additional info: Left hand swelling TECHNIQUE: Imaging protocol: Real-time duplex ultrasound of the left extremity with 2-D sahni scale, color Doppler flow and spectral waveform analysis including responses to compression and other maneuvers (when performed) with image documentation. Limited exam focused on the left upper extremity veins. COMPARISON: US thyroid [id number] 03/27/2020 10:46 AM FINDINGS: Left deep veins: Unremarkable. Axillary and brachial veins are patent throughout without thrombus. Normal Doppler waveforms. Normal compressibility and augmentation response. Visualized internal jugular and subclavian veins are patent. Left superficial veins: Unremarkable. Visualized cephalic and basilic veins are patent without thrombus. Soft tissues: Unremarkable. US/[place] [id number] IMPRESSION: No evidence of deep vein thrombosis.
--- NOTE | 2022-11-27 08:42 | USR_ITS ---
PROCEDURE INFORMATION: Exam: US Duplex Lower Extremity Veins, Bilateral Exam date and time: 11/27/2022 10:23 AM Age: 87 years old Clinical indication: Edema, localized; Lower extremity, bilateral; Additional info: Dvt TECHNIQUE: Imaging protocol: Real-time duplex ultrasound of the bilateral extremities with 2-D sahni scale, color Doppler flow and spectral waveform analysis including responses to compression and other maneuvers (when performed) with image documentation. Complete exam focused on the lower extremity veins. COMPARISON: US renal BI* [id number] 11/07/2022 2:09 AM FINDINGS: Right deep veins: Unremarkable. The common femoral, femoral, proximal profunda femoral and popliteal veins are patent without thrombus. Normal Doppler waveforms. Normal compressibility and augmentation response. Right superficial veins: Saphenofemoral junction is patent without thrombus. Left deep veins: Unremarkable. The common femoral, femoral, proximal profunda femoral and popliteal veins are patent without thrombus. Normal Doppler waveforms. Normal compressibility and augmentation response. Left superficial veins: Saphenofemoral junction is patent without thrombus. Soft tissues: Unremarkable. US/[place] [id number] IMPRESSION: No evidence of deep vein thrombosis.
--- NOTE | 2022-11-27 08:44 | ECG_ITS ---
[facility], Formerly 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 Measurements Intervals [place] Rate: 77 P: 83 [place]: 165 QRS: -15 QRSD: 145 T: 23 QT: 426 QTc: 484 Interpretive Statements SINUS RHYTHM RIGHT BUNDLE BRANCH BLOCK [120+ ms QRS DURATION, UPRIGHT V1, 40+ ms S IN I/aVL/V4/V5/V6] Compared to ECG 11/21/2022 11:14:06 Sinus arrhythmia no longer present Left-axis deviation no longer present Electronically Signed On 11-27-2022 19:22:57 CDT by Bao Ibarra M.D. [id number]
[2022-11-27] MEDS: aspirin 81 mg EC Tablet PO (08:48)
[2022-11-27] MEDS: pantoprazole 40 mg SDV IVP ×2 (09:51→20:06)
[2022-11-27] MEDS: sucralfate 1 gm Tablet PO ×2 (09:51→20:06)
[2022-11-27 10:32] LABS: Troponin(5th) Baseline 102 ng/L (0-15)
[2022-11-27 10:44] LABS: Procalcitonin 0.43 ng/mL (0-0.5); Thyroid Stimulating Hormone 0.11 uIU/mL (0.27-4.20); Vitamin B12 483 pg/mL (232-1245)
--- NOTE | 2022-11-27 10:44 | ECG_ITS ---
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 Measurements Intervals [place] Rate: 79 P: 63 [place]: 163 QRS: -12 QRSD: 141 T: 20 QT: 424 QTc: 486 Interpretive Statements SINUS RHYTHM INTRAVENTRICULAR CONDUCTION DELAY [130+ ms QRS DURATION] PROBABLE LATERAL MYOCARDIAL INFARCTION , PROBABLY OLD [35 ms Q WAVE IN I/aVL/V5/V6] Compared to ECG 11/27/2022 09:38:30 Intraventricular conduction delay now present Myocardial infarct finding now present Right bundle-branch block no longer present Electronically Signed On 11-27-2022 19:31:25 CDT by Bao Ibarra M.D. [id number]
[2022-11-27 10:55] LABS: C Reactive Protein 197.4 mg/L (0.0-4.9); Creatine Phosphokinase 32 U/L (39-308); Ferritin 820 ng/mL (30-400); Iron 15 ug/dL (59-158); Magnesium 1.3 mg/dL (1.7-2.3); Percent Saturation 14.2 % (20-50); Total Iron Binding Capacity 105 mcg/dl; Unsaturated Iron Binding 90 ug/dL (112-347)
[2022-11-27 10:56] LABS: D Dimer 6.93 ug/mIFEU (0-0.59)
[2022-11-27 11:30] LABS: Hematocrit 26.9 % (42.0-52.0); Hemoglobin 8.2 g/dL (11.7-16.6)
[2022-11-27] MEDS: vancomycin 1,500 MG/300 ML PIGGYBACK 200 MG IV (13:14)
[2022-11-27] MEDS: magnesium sulfate premix 2 GM/50 ML PIGGYBACK IV (13:26)
--- NOTE | 2022-11-27 14:44 | P.PN_ITS ---
Subjective Subjective: Was seen this morning, he is much more alert and awake, was on BiPAP, he was moved down to the ICU, due to hypotension, placed on pressors, currently off pressors, follows commands, he is off pressors, he was actually transitioned to nasal cannula in front of me, he denies any shortness of breath, his primary complaint is left hand and left arm swelling he tells me that is hurting him a lot, he is not exactly sure how he got that way, he is alert to person, to place, not to time, he is shocked to learn that he has pneumonia he tells me he has pneumonia again, denies any chest pain, Vitals/I&O/Wt Last Vital Signs Temp 98.6 F 11/27/22 08:00 Pulse 79 11/27/22 13:00 Resp 21 H 11/27/22 13:00 BP 154/60 11/27/22 13:00 Pulse Ox 98 11/27/22 13:00 O2 Del Method Nasal Cannula 11/27/22 09:00 O2 Flow Rate 2 11/27/22 09:00 FiO2 30 11/27/22 08:00 11/26/22 11/27/22 11/27/22 22:59 06:59 14:59 Intake Total 800 / 920 50 / 970 50 / 50 Output Total 1300 / 2100 450 / 2550 Balance -500 / -1180 -400 / -1580 50 / 50 Physical Exam Const: COMMON NORMALS: no acute distress and patient oriented x3 HENMT: COMMON NORMALS: normocephalic HEAD & SCALP: normocephalic Resp: COMMON NORMALS: normal respiratory effort, No retractions, No use of accessory muscles and clear to auscultation bilaterally AUSCULTATION: clear to auscultation bilaterally Cardio: COMMON NORMALS: regular rate, regular rhythm, S1 normal heart sound present and S2 normal heart sound present RATE: regular rate RHYTHM: regular rhythm HEART SOUNDS: S1 normal heart sound present and S2 normal heart sound present GI: COMMON NORMALS: Normal to inspection, nondistended, normoactive bowel sounds present and non-tender Extremity: COMMON NORMALS: no calf tenderness and no pedal edema NARRATIVE EXTREMITY EXAM: Left hand, left forearm swelling Neuro: COMMON NORMALS: patient oriented x3 Psych: COMMON NORMALS: mental status grossly normal Urinary Catheter Management: Thomson: Cath Placed During This Visit: yes Reason for Continuing Indwelling Catheter: Other Urinary Catheter Date of Insertion: 11/21/22 Urinary Catheter Time of Insertion: 12:13 Data 11/27/22 11:25 11/27/22 04:10 Micro: Microbiology 11/26/22 19:00 Blood Culture - Preliminary Blood SPECIMEN COLLECTED 11/26/22 19:00 Blood Culture - Preliminary Blood SPECIMEN COLLECTED 11/21/22 13:39 Blood Culture - Final Blood NO GROWTH AFTER 5 DAYS 11/21/22 11:20 Blood Culture - Final Blood NO GROWTH AFTER 5 DAYS A&P Assessment and plan (1) Diarrhea: (2) Hypokalemia: (3) MRSA pneumonia: (4) Hypoxia: (5) Goals of care, counseling/discussion: (6) Hypernatremia: (7) Septic shock: (8) NSTEMI (non-ST elevated myocardial infarction): (9) Sepsis: (10) Elevated troponin: (11) Lymphedema: (12) PVD (peripheral vascular disease): (13) Acute encephalopathy: (14) Aspiration pneumonia: (15) Systolic CHF: (16) Hypomagnesemia: (17) Swelling of left hand: (18) Acute anemia: (19) GI bleed: (20) Iron deficiency anemia: (21) Acute respiratory failure with hypoxia: Plan 87-year-old male resident of [facility], presented with altered mental status shortness of breath, dehydration, at the time of my admission CODE STATUS was discussed he was made DNR/DNI, his breathing status improved significantly with use of BiPAP, as per the son this time this is the most lucid condition of his father that they are able to communicate, as per the son patient was confused and obtunded for about 2 weeks at the retirement they had concerns with [facility] now wants to change his retirement, he has been accepted going through prior authorization, patient has been diagnosed with MRSA pneumonia, he recovered well from septic shock, metabolic encephalopathy improved, patient seems to have a new baseline mentation, he requires verbal clues when he is eating, otherwise able to answer most of the questions, he is doing well on room air, getting antibiotics for MRSA pneumonia, however 11/26/2022 patient developed fevers, placed on BiPAP due to increased work of breathing concerns for aspiration pneumonia, that he was moved down to ICU due to hypotension Acute hypoxic respiratory failure -Secondary to history of pulmonary embolism, possible worsening? -MRSA pneumonia -Aspiration pneumonia -Monitor respiratory status -Continue BiPAP Septic shock and metabolic encephalopathy related to MRSA pneumonia: Resolving -Off pressors -Continue vancomycin, Zosyn History of pulmonary embolism -Patient presented to the emergency room on 11/16/2022, he was positive for COVID, found to have a left upper lobe subsegmental filling defect suspicious for thrombus however differential diagnosis is mixing artifact, was placed on Eliquis -Here his D-dimer is elevated at 6.93, elevated troponins -Switch to therapeutic Lovenox -Venous ultrasound ordered Swelling of left hand, venous ultrasound, on therapeutic Lovenox Aspiration pneumonias, aspiration precautions, speech therapy eval Hypomagnesemia, will replace LAKEISHA related to sepsis: Resolving NSTEMI: -Type I versus type II -Does have sepsis, septic shock as above from pneumonia -Has no chest pain complaints -Echo unremarkable other than EF 40%, 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 -Serial EKGs, serial troponins, telemetry monitoring Fluctuant mentation with possible underlying dementia Patient seems to be well oriented, communicative, Will monitor Has evidence of acute anemia, iron deficiency anemia -Possible slow GI bleed -Possibly related to sepsis -Protonix, Carafate -Monitor hemoglobin closely Dehydration related hyponatremia Poor p.o. intake He seems to have dysphagia due to his muscle weakness CT head unremarkable I do not see any focal deficits He will need speech therapy Peripheral vascular disease: No acute signs of vascular compromise Diarrhea: Improved C. difficile ruled out, responded to Imodium disPosition: SNF long-term placement DNR/DNI, son okay with vasopressors and medical management in ICU and BiPAP High risk for readmission secondary to poor intake, fluctuant mentation Plan for today continue monitoring ICU, monitor blood pressures continue BiPAP replace magnesium continue broad-spectrum antibiotic therapy, monitor troponins, monitor hemoglobin, Attestations Medical Necessity Statement*: Patient requires a position due to septic shock, acute hypoxia, respiratory failure, history of pulmonary embolism, left hand swelling, aspiration pneumonia, hypomagnesemia, LAKEISHA, NSTEMI, acute anemia, slow GI bleed, iron deficiency, Coding Level of Care Code Critical Care >/= 30 minutes Critical care time (in minutes): 40 The high probability of a clinically significant, sudden or life threatening deterioration, as referenced in this documentation, required my full and direct attention, intervention and personal management. The critical care time shown is in addition to time spent performing any reported separately billable procedures and includes the following: [x] Data and vital sign review and interpretation [x ] Patient assessment, examination and intervention [x] Medication orders and management [x] Patient/Family updates as able [x] Care Coordination and Documentation. Diagnoses Diarrhea R19.7 Hypokalemia E87.6 MRSA pneumonia J15.212 Hypoxia R09.02 Goals of care, counseling/discussion Z71.89 Hypernatremia E87.0 Septic shock A41.9; R65.21 NSTEMI (non-ST elevated myocardial infarction) I21.4 Sepsis A41.9 Elevated troponin R77.8 Lymphedema I89.0 PVD (peripheral vascular disease) I73.9 Acute encephalopathy G93.40 Aspiration pneumonia J69.0 Systolic CHF I50.20 Hypomagnesemia E83.42 Swelling of left hand M79.89 Acute anemia D64.9 GI bleed K92.2 Iron deficiency anemia D50.9 Acute respiratory failure with hypoxia J96.01
[2022-11-27 15:47] LABS: Troponin 5 6HR 99.11 ng/L (0-15)
[2022-11-27 15:54] LABS: Troponin 5 6HR Delta -2.89 ng/L (0-12)
[2022-11-27 18:48] LABS: Adenovirus Not Detected (NOT DETECT); Chlamydia Pneumoniae Not Detected (NOT DETECT); Coronavirus 229E,HKU1,NL63,OC4 Not Detected (NOT DETECT); Human Metapneumovirus Not Detected (NOT DETECT); Human Rhinovirus/Enterovirus Not Detected (NOT DETECT); Influenza A Not Detected (NOT DETECT); Influenza A H1 Not Detected (NOT DETECT); Influenza A H1-2009 Not Detected (NOT DETECT); Influenza A H3 Not Detected (NOT DETECT); Influenza B Not Detected (NOT DETECT); Mycoplasma Pneumoniae Not Detected (NOT DETECT); Parainfluenza Virus Type 1 Not Detected (NOT DETECT); Parainfluenza Virus Type 2 Not Detected (NOT DETECT); Parainfluenza Virus Type 3 Not Detected (NOT DETECT); Parainfluenza Virus Type 4 Not Detected (NOT DETECT); Respiratory Syncytial Virus A Not Detected (NOT DETECT); Respiratory Syncytial Virus B Not Detected (NOT DETECT); SARS-COV-2 Detected (NOT DETECT)
[2022-11-27 18:50] LABS: Hematocrit 26.4 % (42.0-52.0)
[2022-11-27] MEDS: budesonide 0.5 mg/2 mL Neb INHALATION (20:00)
[2022-11-28] VITALS (50 sets, daily range): BP systolic 79–143; BP diastolic 43–77; PULSE 65–98; RESP 16–31; TEMP 36.3–37.6; O2SAT 90–100; BMI 39.4
[2022-11-28 03:54] LABS: Basophils % 0.2 %; Eosinophils # 0.3 10^3/uL (0.0-0.8); Eosinophils % 2.4 %; Hematocrit 23.6 % (42.0-52.0); Hemoglobin 7.1 g/dL (11.7-16.6); Lymphocytes # 1.7 10^3/uL (0.8-4.8); Lymphocytes % 15.3 %; Mean Corpuscular HGB Conc 30.1 g/dL (30.0-36.0); Mean Corpuscular Hemoglobin 28.6 pg (28.0-34.0); Mean Corpuscular Volume 95.2 fl (80-94); Mean Platelet Volume 10.9 fL (7.4-10.4); Monocytes # 0.7 10^3/uL (0.2-0.9); Monocytes % 6.5 %; Neutrophils # 8.04 10^3/uL (1.8-7.7); Neutrophils % 74.3 %; Nucleated Red Blood Cells % 0 %; Platelet Count 243 10^3/cmm (130-400); Red Blood Count 2.48 10^6/uL (4.1-5.3); Red Cell Distribution Width 15.2 % (12.1-15.1); White Blood Count 10.8 10^3/uL (4.0-10.0)
[2022-11-28 04:11] LABS: Lactate (Lactic Acid level) 1.2 mmol/L (0.5-2.2)
[2022-11-28 04:13] LABS: Procalcitonin 0.33 ng/mL (0-0.5)
--- NOTE | 2022-11-28 04:27 | PC.NURSE ---
Blood Transfusion Patient's hgb is 7.[address] Quinn contacted and order received to transfuse 1 unit of PRBC. Verbal consent obtained from patient's son, Giancarlo Gandhi via phone due to patient's confusion. Consent confirmed with NADJA Rehman.
[2022-11-28 04:33] LABS: NT Pro B Type Natriuretic Pept 987 pg/mL (0-450)
[2022-11-28 04:44] LABS: Alanine Aminotransferase 13 U/L (0-41); Albumin Level 1.7 g/dL (3.5-5.2); Alkaline Phosphatase 90 U/L (40-130); Anion Gap 14.7 (5-19); Aspartate Amino Transferase 26 U/L (0-40); Blood Urea Nitrogen 31 mg/dL (8-23); C Reactive Protein 139.2 mg/L (0.0-4.9); Calcium 7.2 mg/dL (8.5-10.5); Carbon Dioxide 29 mmol/L (22-29); Chloride 100 mmol/L (98-107); Creatine Phosphokinase 21 U/L (39-308); Globulin 3.6 g/dL (1.3-4.6); Glucose 121 mg/dL (65-115); Magnesium 1.7 mg/dL (1.7-2.3); Osmolality Calculated 298 mOsm/kg (285-295); Phosphorus 3.3 mg/dL (2.5-4.5); Potassium 3.7 mmol/L (3.5-5.1); Sodium 140 mmol/L (136-145); Total Bilirubin 0.2 mg/dL (0.15-1.2); Total Protein 5.3 g/dL (6.6-8.7)
[2022-11-28] MEDS: piperacillin-tazobactam 3.375 GM in sodium chloride 0.9% (plus) 50 ML IV ×3 (05:52→21:02)
[2022-11-28] MEDS: vancomycin 1,500 MG/300 ML PIGGYBACK 200 MG IV (06:53)
[2022-11-28] MEDS: ipratropium-albuterol 3 mL Neb INHALATION ×4 (07:03→20:49)
[2022-11-28] MEDS: budesonide 0.5 mg/2 mL Neb INHALATION ×2 (07:03→20:49)
[2022-11-28] MEDS: aspirin 81 mg EC Tablet PO (09:07)
[2022-11-28] MEDS: magnesium oxide 400 mg tablet PO ×2 (09:07→18:36)
[2022-11-28] MEDS: pantoprazole 40 mg SDV IVP ×2 (09:07→21:03)
[2022-11-28] MEDS: sucralfate 1 gm Tablet PO ×2 (09:07→21:03)
[2022-11-28] MEDS: dexamethasone 10 mg/mL INJ 6 MG IVP (09:08)
[2022-11-28] MEDS: sodium chloride 0.9% 100 mL Bag 50 ML IV (09:08)
[2022-11-28] MEDS: remdesivir 200 MG in sodium chloride 0.9% (100 ml) 60 ML 100 MG IV (09:12)
[2022-11-28] MEDS: iron sucrose 200 MG in sodium chloride 0.9% (100 ml) 100 ML 220 MG IV (09:12)
--- NOTE | 2022-11-28 09:12 | XRR_ITS ---
PROCEDURE INFORMATION: Exam: XR Chest Exam date and time: 11/28/2022 9:54 AM Age: 87 years old Clinical indication: Shortness of breath; Additional info: SOB TECHNIQUE: Imaging protocol: Radiologic exam of the chest. Views: 1 view. Other technique: Frontal portable semiupright view of the chest. COMPARISON: CT chest con [id number] 11/27/2022 7:24 AM FINDINGS: Tubes, catheters and devices: EKG leads are present overlying the chest. The right internal jugular venous catheter tip is in the lower SVC. Lungs: There is persistent stable left lower lobe opacity obscuring the left diaphragmatic and descending aortic shadows. The lungs are otherwise peripherally clear bilaterally. The pulmonary vasculature is normal. Pleural spaces: Small stable left pleural effusion. No pneumothorax. Heart/Mediastinum: The heart is normal in size and contour. Mediastinum: Stable. Bones/joints: Bilateral thoracic and lumbar spinal pedicle screw and marisa systems. Stable. XR/XR chest 1V portable [id number] IMPRESSION: 1. Stable left lower lobe atelectasis/consolidation. 2. Small stable left pleural effusion.
[2022-11-28 11:49] LABS: Hematocrit 27.3 % (42.0-52.0); Hemoglobin 8.5 g/dL (11.7-16.6)
[2022-11-28] MEDS: morphine 4 mg/mL SDV 1 mL 1 MG IVP (14:18)
--- NOTE | 2022-11-28 14:21 | PM.PN ---
Subjective Subjective: Patient was seen this running, alert to person, to place, not to time, he does complain of shortness of breath is on 2 L, reports weakness, fatigue, Vitals/I&O/Wt Last Vital Signs Temp 99.1 F 11/28/22 09:30 Pulse 74 11/28/22 14:00 Resp 29 H 11/28/22 14:18 BP 135/44 11/28/22 14:00 Pulse Ox 90 11/28/22 14:00 O2 Del Method Nasal Cannula 11/28/22 11:35 O2 Flow Rate 2 11/28/22 11:35 FiO2 30 11/28/22 04:51 11/27/22 11/28/22 11/28/22 22:59 06:59 14:59 Intake Total 310 / 710 530 / 1240 1150 / 1150 Output Total 700 / 700 250 / 950 Balance -390 / 10 280 / 290 1150 / 1150 Weight last 48 hrs Weight 124.738 kg Physical Exam Const: COMMON NORMALS: no acute distress ORIENTATION/CONSCIOUSNESS: Yes awake, Yes oriented to person and Yes oriented to place; not oriented to time Resp: COMMON NORMALS: normal respiratory effort, No retractions and No use of accessory muscles AUSCULTATION: wheezes Cardio: COMMON NORMALS: regular rate, regular rhythm, S1 normal heart sound present and S2 normal heart sound present RATE: regular rate RHYTHM: regular rhythm HEART SOUNDS: S1 normal heart sound present and S2 normal heart sound present GI: COMMON NORMALS: Normal to inspection, nondistended, normoactive bowel sounds present and non-tender Extremity: COMMON NORMALS: no pedal edema Neuro: SENSORIUM/ORIENTATION: Yes oriented to person, Yes oriented to place and No oriented to time Psych: COMMON NORMALS: mental status grossly normal Urinary Catheter Management: Thomson: Cath Placed During This Visit: yes Reason for Continuing Indwelling Catheter: Accurate Measurement of Urinary Output in Critically Ill Patients Urinary Catheter Date of Insertion: 11/21/22 Urinary Catheter Time of Insertion: 12:13 Data 11/28/22 11:24 11/28/22 03:00 Micro: Microbiology 11/28/22 11:37 Occult Blood (FIT) - Final Stool - Stool Aspirate 11/26/22 17:05 Urine Culture - Final Urine,Clean Catch 11/26/22 19:00 Blood Culture - Preliminary Blood NEGATIVE TO DATE 11/26/22 19:00 Blood Culture - Preliminary Blood NEGATIVE TO DATE Other data: Review chest x-ray shows a left lower lobe atelectasis Reviewed blood work A&P Assessment and plan (1) Diarrhea: (2) Hypokalemia: (3) MRSA pneumonia: (4) Hypoxia: (5) Goals of care, counseling/discussion: (6) Hypernatremia: (7) Septic shock: (8) NSTEMI (non-ST elevated myocardial infarction): (9) Sepsis: (10) Elevated troponin: (11) Lymphedema: (12) PVD (peripheral vascular disease): (13) Acute encephalopathy: (14) Aspiration pneumonia: (15) Systolic CHF: (16) Hypomagnesemia: (17) Swelling of left hand: (18) Acute anemia: (19) GI bleed: (20) Iron deficiency anemia: (21) Acute respiratory failure with hypoxia: (22) Pneumonia due to COVID-19 virus: Plan 87-year-old male resident of [facility], presented with altered mental status shortness of breath, dehydration, at the time of my admission CODE STATUS was discussed he was made DNR/DNI, his breathing status improved significantly with use of BiPAP, as per the son this time this is the most lucid condition of his father that they are able to communicate, as per the son patient was confused and obtunded for about 2 weeks at the longterm they had concerns with [facility] now wants to change his longterm, he has been accepted going through prior authorization, patient has been diagnosed with MRSA pneumonia, he recovered well from septic shock, metabolic encephalopathy improved, patient seems to have a new baseline mentation, he requires verbal clues when he is eating, otherwise able to answer most of the questions, he is doing well on room air, getting antibiotics for MRSA pneumonia, however 11/26/2022 patient developed fevers, placed on BiPAP due to increased work of breathing concerns for pneumonia, respiratory failure, that he was moved down to ICU due to hypotension COVID-19 pneumonia -Highly suspicious that patient either has a reinfection, or persistent infection from her prior COVID-19 infection -COVID-19 positive -Has complaints of shortness of breath weakness fatigue and tiredness -On 11/26/2022, he developed fevers, placed on BiPAP, due to a concerns for respiratory failure, hypotension, requiring Levophed -He also had a ER visit on 11/16/2022 for left upper lob subsegmental pulmonary emboli, his D-dimer is increased, CT of the chest did show focal area of groundglass density in the posterior segment of the right upper lobe -Due to persistent shortness of breath, fevers, hypercoagulability, respiratory failure, is highly likely that patient's persistent shortness of breath, is from COVID-19 pneumonia -I discussed this in detail with patient, he voiced understanding, all questions answered -We will start him on remdesivir -Start him on Decadron -Follow blood cultures, sputum cultures, clinical status Acute hypoxic respiratory failure -Secondary to history of pulmonary embolism, COVID pneumonia -With prior history of MRSA pneumonia -I was concerned for aspiration pneumonia, however chest x-ray this morning does not show any upper lobe infiltrates, he tolerated seizure diet well work with speech therapy, no choking or coughing episodes thus felt to be less likely, did have infiltrates in left upper lobe -Monitor respiratory status -Continue BiPAP Septic shock and metabolic encephalopathy related to MRSA pneumonia: Resolving -Off pressors -Continue vancomycin, Zosyn History of pulmonary embolism -Patient presented to the emergency room on 11/16/2022, he was positive for COVID, found to have a left upper lobe subsegmental filling defect suspicious for thrombus however differential diagnosis is mixing artifact, was placed on Eliquis -Here his D-dimer is elevated at 6.93, elevated troponins -Therapeutic Lovenox currently on hold due to anemia -Venous ultrasound negative for DVT -As patient is developed anemia he potentially will be a great candidate for anticoagulation, we will monitor his hemoglobin, consider IVC filter placement based on clinical progress Swelling of left hand, venous ultrasound, negative for DVT, monitor, Aspiration pneumonias concern, aspiration precautions, speech therapy eval, dysphagia diet Hypomagnesemia, will replace LAKEISHA related to sepsis: Resolving NSTEMI: -Type I versus type II -Does have sepsis, septic shock as above from pneumonia -Has no chest pain complaints -Echo unremarkable other than EF 40%, 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 intake He seems to have dysphagia due to his muscle weakness CT head unremarkable I do not see any focal deficits He will need speech therapy Peripheral vascular disease: No acute signs of vascular compromise Diarrhea: Improved C. difficile ruled out, responded to Imodium disPosition: SNF long-term placement DNR/DNI, son okay with vasopressors and medical management in ICU and BiPAP High risk for readmission secondary to poor intake, fluctuant mentation Plan for today transfuse 1 unit PRBC, monitor hemoglobin, will give him 1 dose IV Venofer, start Decadron, start remdesivir, COVID-19 precautions Attestations Medical Necessity Statement*: Patient requires hospitalization for COVID-19 pneumonia, pulmonary embolism, respiratory failure, now developing acute anemia, concerns for pneumonia, respiratory failure, septic shock Diagnoses Diarrhea R19.7 Hypokalemia E87.6 MRSA pneumonia J15.212 Hypoxia R09.02 Goals of care, counseling/discussion Z71.89 Hypernatremia E87.0 Septic shock A41.9; R65.21 NSTEMI (non-ST elevated myocardial infarction) I21.4 Sepsis A41.9 Elevated troponin R77.8 Lymphedema I89.0 PVD (peripheral vascular disease) I73.9 Acute encephalopathy G93.40 Aspiration pneumonia J69.0 Systolic CHF I50.20 Hypomagnesemia E83.42 Swelling of left hand M79.89 Acute anemia D64.9 GI bleed K92.2 Iron deficiency anemia D50.9 Acute respiratory failure with hypoxia J96.01 Pneumonia due to COVID-19 virus U07.1; J12.82
--- NOTE | 2022-11-28 18:30 | PC.NURSE ---
Transfer Note Patient transferred to med-surg room 261 from ICU via bed. Handoff report given to NADJA Medrano. Patient oriented to environment and equipment. Covering service notified. Orders reviewed and will continue to monitor. Patient transferred on 2LNC and is alert but confused. No belongings with patient upon transfer. Multiple wounds/skin issues noted, please see wound assessment for detail.
[2022-11-29] VITALS (16 sets, daily range): BP systolic 115–162; BP diastolic 58–71; PULSE 72–89; RESP 16–25; TEMP 36.4–37.1; O2SAT 95–98
[2022-11-29] MEDS: ipratropium-albuterol 3 mL Neb INHALATION ×6 (00:14→23:11)
[2022-11-29 01:24] LABS: Vancomycin Trough 20.5 ug/mL (10-15)
[2022-11-29 04:25] LABS: Basophils % 0.1 %; Hematocrit 26.5 % (42.0-52.0); Hemoglobin 8.3 g/dL (11.7-16.6); Lymphocytes % 10.1 %; Mean Corpuscular HGB Conc 31.3 g/dL (30.0-36.0); Mean Corpuscular Hemoglobin 28.5 pg (28.0-34.0); Mean Corpuscular Volume 91.1 fl (80-94); Mean Platelet Volume 10.6 fL (7.4-10.4); Monocytes # 0.5 10^3/uL (0.2-0.9); Monocytes % 5.3 %; Neutrophils % 83.7 %; Nucleated Red Blood Cells % 0 %; Platelet Count 258 10^3/cmm (130-400); Red Blood Count 2.91 10^6/uL (4.1-5.3); Red Cell Distribution Width 15.9 % (12.1-15.1); White Blood Count 10.2 10^3/uL (4.0-10.0)
[2022-11-29 04:42] LABS: Lactate (Lactic Acid level) 1.2 mmol/L (0.5-2.2)
[2022-11-29] MEDS: piperacillin-tazobactam 3.375 GM in sodium chloride 0.9% (plus) 50 ML IV ×3 (04:48→21:00)
[2022-11-29 04:53] LABS: NT Pro B Type Natriuretic Pept 1233 pg/mL (0-450); Procalcitonin 0.25 ng/mL (0-0.5)
[2022-11-29 05:04] LABS: Alanine Aminotransferase 15 U/L (0-41); Albumin Level 1.8 g/dL (3.5-5.2); Alkaline Phosphatase 91 U/L (40-130); Anion Gap 12.7 (5-19); Aspartate Amino Transferase 24 U/L (0-40); Blood Urea Nitrogen 31 mg/dL (8-23); C Reactive Protein 105.8 mg/L (0.0-4.9); Calcium 7.5 mg/dL (8.5-10.5); Carbon Dioxide 30 mmol/L (22-29); Chloride 99 mmol/L (98-107); Creatine Phosphokinase 28 U/L (39-308); Glucose 129 mg/dL (65-115); Magnesium 1.7 mg/dL (1.7-2.3); Osmolality Calculated 294 mOsm/kg (285-295); Phosphorus 3.8 mg/dL (2.5-4.5); Potassium 3.7 mmol/L (3.5-5.1); Sodium 138 mmol/L (136-145); Total Bilirubin 0.3 mg/dL (0.15-1.2); Total Protein 5.8 g/dL (6.6-8.7)
[2022-11-29 05:26] LABS: Creatinine Clr Calc Pharmacy 52.0529
[2022-11-29] MEDS: remdesivir 100 MG in sodium chloride 0.9% (100 ml) 80 ML IV (05:43)
[2022-11-29] MEDS: vancomycin 1,500 MG/300 ML PIGGYBACK 200 MG IV (06:52)
[2022-11-29] MEDS: budesonide 0.5 mg/2 mL Neb INHALATION ×2 (09:00→20:09)
[2022-11-29] MEDS: sucralfate 1 gm Tablet PO ×2 (09:33→21:00)
[2022-11-29] MEDS: magnesium oxide 400 mg tablet PO ×2 (09:33→17:54)
[2022-11-29] MEDS: pantoprazole 40 mg SDV IVP ×2 (09:33→21:00)
[2022-11-29] MEDS: dexamethasone 10 mg/mL INJ 6 MG IVP (09:33)
[2022-11-29] MEDS: aspirin 81 mg EC Tablet PO (09:33)
--- NOTE | 2022-11-29 14:29 | PM.PN ---
Subjective Subjective: Patient was seen this morning, he continues to feel weak and fatigued, reports poor appetite, denies any shortness of breath, has persistent pain in his left hand, I had a detailed discussion about patient's COVID-19 diagnosis, his development of anemia after anticoagulation, concerns for hypercoagulability, his prior CT angiogram showed concerns for possible pulmonary embolism, his hemoglobin has improved after his transfusion,, I did discuss his IVC filter with him, he is not sure what he wants to do but he tells me that what ever I think is best for him, Vitals/I&O/Wt Last Vital Signs Temp 97.5 F L 11/29/22 11:00 Pulse 89 11/29/22 11:00 Resp 25 H 11/29/22 11:00 BP 132/69 11/29/22 11:00 Pulse Ox 98 11/29/22 09:12 O2 Del Method Nasal Cannula 11/29/22 09:12 O2 Flow Rate 2 11/29/22 09:12 FiO2 30 11/28/22 04:51 11/28/22 11/29/22 11/29/22 22:59 06:59 14:59 Intake Total 50 / 1200 150 / 1350 1070 / 1070 Output Total 850 / 850 200 / 1050 Balance -800 / 350 -50 / 300 1070 / 1070 Weight last 48 hrs Weight 126.751 kg Weight 124.738 kg Physical Exam Const: COMMON NORMALS: no acute distress and patient oriented x3 Resp: COMMON NORMALS: normal respiratory effort, No retractions, No use of accessory muscles and clear to auscultation bilaterally AUSCULTATION: clear to auscultation bilaterally Cardio: COMMON NORMALS: regular rate, regular rhythm, S1 normal heart sound present and S2 normal heart sound present RATE: regular rate RHYTHM: regular rhythm HEART SOUNDS: S1 normal heart sound present and S2 normal heart sound present GI: COMMON NORMALS: Normal to inspection, nondistended, normoactive bowel sounds present and non-tender Extremity: COMMON NORMALS: no clubbing, cyanosis or edema and no pedal edema Neuro: COMMON NORMALS: patient oriented x3 Psych: COMMON NORMALS: mental status grossly normal Urinary Catheter Management: Thomson: Cath Placed During This Visit: yes Reason for Continuing Indwelling Catheter: Other Urinary Catheter Date of Insertion: 05/07/23 Urinary Catheter Time of Insertion: 12:13 Data 11/29/22 04:13 11/29/22 04:13 Micro: Microbiology 11/28/22 11:37 Occult Blood (FIT) - Final Stool - Stool Aspirate A&P Assessment and plan (1) Diarrhea: (2) Hypokalemia: (3) MRSA pneumonia: (4) Hypoxia: (5) Goals of care, counseling/discussion: (6) Hypernatremia: (7) Septic shock: (8) NSTEMI (non-ST elevated myocardial infarction): (9) Sepsis: (10) Elevated troponin: (11) Lymphedema: (12) PVD (peripheral vascular disease): (13) Acute encephalopathy: (14) Aspiration pneumonia: (15) Systolic CHF: (16) Hypomagnesemia: (17) Swelling of left hand: (18) Acute anemia: (19) GI bleed: (20) Iron deficiency anemia: (21) Acute respiratory failure with hypoxia: (22) Pneumonia due to COVID-19 virus: Plan 87-year-old male resident of [facility], presented with altered mental status shortness of breath, dehydration, at the time of my admission CODE STATUS was discussed he was made DNR/DNI, his breathing status improved significantly with use of BiPAP, as per the son this time this is the most lucid condition of his father that they are able to communicate, as per the son patient was confused and obtunded for about 2 weeks at the longterm they had concerns with [facility] now wants to change his longterm, he has been accepted going through prior authorization, patient has been diagnosed with MRSA pneumonia, he recovered well from septic shock, metabolic encephalopathy improved, patient seems to have a new baseline mentation, he requires verbal clues when he is eating, otherwise able to answer most of the questions, he is doing well on room air, getting antibiotics for MRSA pneumonia, however 11/26/2022 patient developed fevers, placed on BiPAP due to increased work of breathing concerns for pneumonia, respiratory failure, that he was moved down to ICU due to hypotension COVID-19 pneumonia -Highly suspicious that patient either has a reinfection, or persistent infection from her prior COVID-19 infection -COVID-19 positive -Has complaints of shortness of breath weakness fatigue and tiredness -On 11/26/2022, he developed fevers, placed on BiPAP, due to a concerns for respiratory failure, hypotension, requiring Levophed -He also had a ER visit on 11/16/2022 for left upper lob subsegmental pulmonary emboli, his D-dimer is increased, CT of the chest did show focal area of groundglass density in the posterior segment of the right upper lobe -Due to persistent shortness of breath, fevers, hypercoagulability, respiratory failure, is highly likely that patient's persistent shortness of breath, is from COVID-19 pneumonia -I discussed this in detail with patient, he voiced understanding, all questions answered -Continue remdesivir -Continue Decadron -Follow blood cultures, sputum cultures, clinical status Acute hypoxic respiratory failure -Secondary to history of pulmonary embolism, COVID pneumonia -With prior history of MRSA pneumonia -I was concerned for aspiration pneumonia, however chest x-ray this morning does not show any upper lobe infiltrates, he tolerated seizure diet well work with speech therapy, no choking or coughing episodes thus felt to be less likely, did have infiltrates in left upper lobe -Monitor respiratory status -Continue BiPAP Septic shock and metabolic encephalopathy related to MRSA pneumonia: Resolving -Off pressors -Continue vancomycin, Zosyn History of pulmonary embolism -Patient presented to the emergency room on 11/16/2022, he was positive for COVID, found to have a left upper lobe subsegmental filling defect suspicious for thrombus however differential diagnosis is mixing artifact, was placed on Eliquis -Here his D-dimer is elevated at 6.93, elevated troponins -Therapeutic Lovenox currently on hold due to anemia -Venous ultrasound negative for DVT -As patient is developed anemia he potentially will be a great candidate for anticoagulation, we will monitor his hemoglobin, consider IVC filter placement based on clinical progress or the other thought is is that his last CT angiogram of his chest showed focal area of filling defect which was soft segmental suspicious for thrombus, but it could have been mixing artifact we could repeat the CT angiogram of the test to give a definitive answer, creatinine is 1.3 we will hold off on for today Swelling of left hand, venous ultrasound, negative for DVT, monitor, will do x-ray Aspiration pneumonias concern, aspiration precautions, speech therapy eval, dysphagia diet Hypomagnesemia, will replace LAKEISHA related to sepsis: Resolving NSTEMI: -Type I versus type II -Does have sepsis, septic shock as above from pneumonia -Has no chest pain complaints -Echo unremarkable other than EF 40%, 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 -Serial EKGs, serial troponins, telemetry monitoring Fluctuant mentation with possible underlying dementia Patient seems to be well oriented, communicative, Will monitor Has evidence of acute anemia, iron deficiency anemia -Possible slow GI bleed -Possibly related to sepsis -Hemoglobin 7.1 on therapeutic Lovenox status post 1 unit PRBC, repeat hemoglobin 8.3, Lovenox on hold -Protonix, Carafate -Monitor hemoglobin closely Dehydration related hyponatremia Poor p.o. intake He seems to have dysphagia due to his muscle weakness CT head unremarkable I do not see any focal deficits He will need speech therapy Peripheral vascular disease: No acute signs of vascular compromise Diarrhea: Improved C. difficile ruled out, responded to Imodium disPosition: SNF long-term placement DNR/DNI, son okay with vasopressors and medical management in ICU and BiPAP High risk for readmission secondary to poor intake, fluctuant mentation Plan for today PT OT, monitor kidney function 1 dose Lasix, monitor hemoglobin Attestations Medical Necessity Statement*: Patient requires hospitalization for COVID-19 pneumonia, respiratory failure, pulmonary embolism, NSTEMI, anemia, Diagnoses Diarrhea R19.7 Hypokalemia E87.6 MRSA pneumonia J15.212 Hypoxia R09.02 Goals of care, counseling/discussion Z71.89 Hypernatremia E87.0 Septic shock A41.9; R65.21 NSTEMI (non-ST elevated myocardial infarction) I21.4 Sepsis A41.9 Elevated troponin R77.8 Lymphedema I89.0 PVD (peripheral vascular disease) I73.9 Acute encephalopathy G93.40 Aspiration pneumonia J69.0 Systolic CHF I50.20 Hypomagnesemia E83.42 Swelling of left hand M79.89 Acute anemia D64.9 GI bleed K92.2 Iron deficiency anemia D50.9 Acute respiratory failure with hypoxia J96.01 Pneumonia due to COVID-19 virus U07.1; J12.82
--- NOTE | 2022-11-29 14:30 | XRR_ITS ---
PROCEDURE INFORMATION: Exam: XR Left Hand Exam date and time: 11/29/2022 4:00 PM Age: 87 years old Clinical indication: Pain; Hand; Left TECHNIQUE: Imaging protocol: Radiologic exam of the left hand. Views: 3 or more views. COMPARISON: [place] [id number] 11/27/2022 10:51 AM FINDINGS: Bones/joints: Osseous structures are intact. Negative for fracture. Moderate DJD at the base of the thumb. Soft tissues: Soft tissue swelling dorsal hand. XR/XR hand LT 2V [id number] IMPRESSION: 1. No acute osseous abnormalities. 2. Soft tissue swelling along the dorsal hand.
[2022-11-29] MEDS: FUROsemide 10 mg/mL SDV 4mL 40 MG IVP (16:34)
[2022-11-30] VITALS (13 sets, daily range): BP systolic 122–144; BP diastolic 51–80; PULSE 60–82; RESP 16–20; TEMP 36.4–36.6; O2SAT 92–97
[2022-11-30] MEDS: ipratropium-albuterol 3 mL Neb INHALATION ×6 (03:02→23:27)
[2022-11-30] MEDS: piperacillin-tazobactam 3.375 GM in sodium chloride 0.9% (plus) 50 ML IV ×2 (04:11→15:20)
[2022-11-30 04:52] LABS: Basophils % 0.1 %; Eosinophils % 0.1 %; Hematocrit 27.2 % (42.0-52.0); Hemoglobin 8.6 g/dL (11.7-16.6); Lymphocytes # 1.5 10^3/uL (0.8-4.8); Lymphocytes % 13.3 %; Mean Corpuscular HGB Conc 31.6 g/dL (30.0-36.0); Mean Corpuscular Volume 91.6 fl (80-94); Mean Platelet Volume 10.4 fL (7.4-10.4); Monocytes # 0.6 10^3/uL (0.2-0.9); Monocytes % 5.6 %; Neutrophils # 8.76 10^3/uL (1.8-7.7); Neutrophils % 79.8 %; Nucleated Red Blood Cells % 0 %; Platelet Count 284 10^3/cmm (130-400); Red Blood Count 2.97 10^6/uL (4.1-5.3); Red Cell Distribution Width 15.6 % (12.1-15.1)
[2022-11-30 05:12] LABS: Lactate (Lactic Acid level) 0.9 mmol/L (0.5-2.2)
[2022-11-30 05:14] LABS: Alanine Aminotransferase 17 U/L (0-41); Albumin Level 2.2 g/dL (3.5-5.2); Alkaline Phosphatase 100 U/L (40-130); Anion Gap 12.5 (5-19); Aspartate Amino Transferase 25 U/L (0-40); Blood Urea Nitrogen 34 mg/dL (8-23); C Reactive Protein 60.2 mg/L (0.0-4.9); Calcium 7.9 mg/dL (8.5-10.5); Carbon Dioxide 31 mmol/L (22-29); Chloride 100 mmol/L (98-107); Creatine Phosphokinase 72 U/L (39-308); Globulin 3.9 g/dL (1.3-4.6); Glucose 103 mg/dL (65-115); Magnesium 1.8 mg/dL (1.7-2.3); Osmolality Calculated 298 mOsm/kg (285-295); Phosphorus 3.1 mg/dL (2.5-4.5); Potassium 3.5 mmol/L (3.5-5.1); Sodium 140 mmol/L (136-145); Total Bilirubin 0.3 mg/dL (0.15-1.2); Total Protein 6.1 g/dL (6.6-8.7)
[2022-11-30 05:18] LABS: Procalcitonin 0.26 ng/mL (0-0.5)
[2022-11-30] MEDS: remdesivir 100 MG in sodium chloride 0.9% (100 ml) 80 ML IV (05:56)
[2022-11-30] MEDS: vancomycin 1,500 MG/300 ML PIGGYBACK 200 MG IV (07:21)
--- NOTE | 2022-11-30 07:43 | CT_ITS ---
WS: [id number] CT CHEST ANGIOGRAPHY WITH REFORMATS HISTORY: PE in left upper lobe? TECHNIQUE: Contiguous axial images are obtained through the chest during arterial injection of intrav enous contrast. Images are reconstructed to evaluate the pulmonary arteries. MIP imaging also reviewe d. All CT scans at [facility] use at least one of these dose optimization techniques: automat ed exposure control; mA and/or kV adjustment per patient size (includes targeted exams where dose is matched to clinical indication); or iterative reconstruction. CONTRAST: Omnipaque 350; 100 mL IV. DLP: 485.63 mGy.cm COMPARISON: 11/27/2022 and 11/16/2022 Study is significantly compromised by patient's inability to follow directions and hold his breath fo r this exam. No large central pulmonary emboli. Very limited opacification of the segmental and subsegmental branc hes due to the breathing motion artifact. No definite RIGHT heart strain. There is mild cardiomegaly. Small layering LEFT pleural effusion with atelectasis in the LEFT lower lobe. Hazy attenuation throu ghout both lungs is probably on the basis of respiratory motion. No pneumothorax. Mild atherosclerosis aorta. No mediastinal or hilar adenopathy. Thyroid is enlarged. Marked enlargement of the LEFT thyroid extends substernal which has been previou sly described. There is mild deviation of the trachea to the RIGHT because of the thyroid enlargement . Pancreatic atrophy. Thoracolumbar posterior fusion. CT/CT angio chest PE protcl [id number] IMPRESSION: 1. Quality of this examination is compromised by breathing motion artifact. 2. No central pulmonary emboli. Segmental and subsegmental pulmonary arteries are not visualized well enough to exclude pulmonary emboli due to the respirato ry motion. 3. Small layering LEFT pleural effusion with compressive atelectasis LEFT lowe r lobe. 4. No RIGHT heart strain. 5. Enlarged LEFT thyroid.
[2022-11-30] MEDS: budesonide 0.5 mg/2 mL Neb INHALATION ×2 (08:02→20:16)
[2022-11-30] MEDS: iohexol 350 mg/mL 500 mL Btl (per mL) IV (09:08)
[2022-11-30] MEDS: potassium chloride ER 20 mEq Tablet 40 MEQ PO (09:30)
[2022-11-30] MEDS: magnesium oxide 400 mg tablet PO ×2 (09:30→18:20)
[2022-11-30] MEDS: pantoprazole 40 mg SDV IVP ×2 (09:30→21:18)
[2022-11-30] MEDS: aspirin 81 mg EC Tablet PO (09:30)
[2022-11-30] MEDS: sucralfate 1 gm Tablet PO ×2 (09:30→21:18)
[2022-11-30] MEDS: dexamethasone 10 mg/mL INJ 6 MG IVP (09:30)
[2022-11-30] MEDS: FUROsemide 10 mg/mL SDV 4mL 40 MG IVP (09:30)
--- NOTE | 2022-11-30 15:13 | PM.PN ---
Subjective Subjective: Patient was seen this morning, after CT angiogram of the chest, he is on room air, no fevers overnight, no chills, no nausea, no vomiting, no chest pain, he is alert to person, to place, not to time he does follow commands Vitals/I&O/Wt Last Vital Signs Temp 97.5 F L 11/30/22 12:00 Pulse 72 11/30/22 12:00 Resp 18 11/30/22 12:00 BP 128/68 11/30/22 12:00 Pulse Ox 94 11/30/22 12:00 O2 Del Method Room Air 11/30/22 12:00 O2 Flow Rate 2 11/30/22 08:00 FiO2 30 11/28/22 04:51 11/30/22 11/30/22 11/30/22 06:59 14:59 22:59 Intake Total 50 / 1530 1050 / 1050 Output Total 600 / 3100 Balance -550 / -1570 1050 / 1050 Weight last 48 hrs Weight 122.606 kg Weight 126.751 kg Physical Exam Const: COMMON NORMALS: no acute distress GENERAL APPEARANCE: cooperative and comfortable NUTRITIONAL APPEARANCE: cachectic ORIENTATION/CONSCIOUSNESS: Yes awake, Yes oriented to person and Yes oriented to place Resp: COMMON NORMALS: normal respiratory effort, No retractions, No use of accessory muscles and clear to auscultation bilaterally AUSCULTATION: clear to auscultation bilaterally Cardio: COMMON NORMALS: regular rate, regular rhythm, S1 normal heart sound present and S2 normal heart sound present RATE: regular rate RHYTHM: regular rhythm HEART SOUNDS: S1 normal heart sound present and S2 normal heart sound present GI: COMMON NORMALS: Normal to inspection, nondistended, normoactive bowel sounds present and non-tender Extremity: COMMON NORMALS: no pedal edema Neuro: SENSORIUM/ORIENTATION: Yes oriented to person and Yes oriented to place Psych: COMMON NORMALS: mental status grossly normal Urinary Catheter Management: Thomson: Cath Placed During This Visit: yes Reason for Continuing Indwelling Catheter: Other Urinary Catheter Date of Insertion: 11/21/22 Urinary Catheter Time of Insertion: 12:13 Data 11/30/22 04:17 11/30/22 04:17 A&P Assessment and plan (1) Diarrhea: (2) Hypokalemia: (3) MRSA pneumonia: (4) Hypoxia: (5) Goals of care, counseling/discussion: (6) Hypernatremia: (7) Septic shock: (8) NSTEMI (non-ST elevated myocardial infarction): (9) Sepsis: (10) Elevated troponin: (11) Lymphedema: (12) PVD (peripheral vascular disease): (13) Acute encephalopathy: (14) Aspiration pneumonia: (15) Systolic CHF: (16) Hypomagnesemia: (17) Swelling of left hand: (18) Acute anemia: (19) GI bleed: (20) Iron deficiency anemia: (21) Acute respiratory failure with hypoxia: (22) Pneumonia due to COVID-19 virus: Plan 87-year-old male resident of [facility], presented with altered mental status shortness of breath, dehydration, at the time of my admission CODE STATUS was discussed he was made DNR/DNI, his breathing status improved significantly with use of BiPAP, as per the son this time this is the most lucid condition of his father that they are able to communicate, as per the son patient was confused and obtunded for about 2 weeks at the skilled nursing they had concerns with [facility] now wants to change his skilled nursing, he has been accepted going through prior authorization, patient has been diagnosed with MRSA pneumonia, he recovered well from septic shock, metabolic encephalopathy improved, patient seems to have a new baseline mentation, he requires verbal clues when he is eating, otherwise able to answer most of the questions, he is doing well on room air, getting antibiotics for MRSA pneumonia, however 11/26/2022 patient developed fevers, placed on BiPAP due to increased work of breathing concerns for pneumonia, respiratory failure, that he was moved down to ICU due to hypotension COVID-19 pneumonia -Highly suspicious that patient either has a reinfection, or persistent infection from her prior COVID-19 infection -COVID-19 positive -Has complaints of shortness of breath weakness fatigue and tiredness -On 11/26/2022, he developed fevers, placed on BiPAP, due to a concerns for respiratory failure, hypotension, requiring Levophed -He also had a ER visit on 11/16/2022 for left upper lob subsegmental pulmonary emboli, his D-dimer is increased, CT of the chest did show focal area of groundglass density in the posterior segment of the right upper lobe -Due to persistent shortness of breath, fevers, hypercoagulability, respiratory failure, is highly likely that patient's persistent shortness of breath, is from COVID-19 pneumonia -I discussed this in detail with patient, he voiced understanding, all questions answered -Continue remdesivir -Continue Decadron -Follow blood cultures, sputum cultures, clinical status Acute hypoxic respiratory failure -Secondary to history of possible pulmonary embolism, COVID pneumonia -With prior history of MRSA pneumonia -I was concerned for aspiration pneumonia, however chest x-ray this morning does not show any upper lobe infiltrates, he tolerated seizure diet well work with speech therapy, no choking or coughing episodes thus felt to be less likely, did have infiltrates in left upper lobe -Monitor respiratory status -Continue BiPAP Septic shock and metabolic encephalopathy related to MRSA pneumonia: Resolving -Off pressors -Continue vancomycin, Zosyn History of possible pulmonary embolism -Patient presented to the emergency room on 11/16/2022, he was positive for COVID, found to have a left upper lobe subsegmental filling defect suspicious for thrombus however differential diagnosis is mixing artifact, was placed on Eliquis -Here his D-dimer is elevated at 6.93, elevated troponins -Therapeutic Lovenox discontinued due to anemia of 7.0, requiring 1 unit PRBC -Venous ultrasound negative for DVT -As patient is developed anemia he potentially will not be a great candidate for anticoagulation, hemoglobin remains low at 8.5, repeat CT angiogram of the chest no large pulm emboli, but segmental and subsegmental pulmonary arteries are not visualized well enough to exclude pulmonary emboli due to respiratory motion Swelling of left hand, venous ultrasound, negative for DVT, monitor, x-ray negative for fracture, swelling has improved Aspiration pneumonias concern, aspiration precautions, speech therapy eval, dysphagia diet Hypomagnesemia, will replace LAKEISHA related to sepsis: Resolving NSTEMI: -Type I versus type II -Does have sepsis, septic shock as above from pneumonia -Has no chest pain complaints -Echo unremarkable other than EF 40%, 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 intake He seems to have dysphagia due to his muscle weakness CT head unremarkable I do not see any focal deficits He will need speech therapy Peripheral vascular disease: No acute signs of vascular compromise Diarrhea: Improved C. difficile ruled out, responded to Imodium disPosition: SNF long-term placement DNR/DNI, son okay with vasopressors and medical management in ICU and BiPAP High risk for readmission secondary to poor intake, fluctuant mentation Plan for today PT OT, monitor kidney function 1 dose Lasix, monitor hemoglobin Attestations Medical Necessity Statement*: Patient requires hot position for COVID-19 pneumonia, pneumonia, respiratory failure, deconditioning Diagnoses Diarrhea R19.7 Hypokalemia E87.6 MRSA pneumonia J15.212 Hypoxia R09.02 Goals of care, counseling/discussion Z71.89 Hypernatremia E87.0 Septic shock A41.9; R65.21 NSTEMI (non-ST elevated myocardial infarction) I21.4 Sepsis A41.9 Elevated troponin R77.8 Lymphedema I89.0 PVD (peripheral vascular disease) I73.9 Acute encephalopathy G93.40 Aspiration pneumonia J69.0 Systolic CHF I50.20 Hypomagnesemia E83.42 Swelling of left hand M79.89 Acute anemia D64.9 GI bleed K92.2 Iron deficiency anemia D50.9 Acute respiratory failure with hypoxia J96.01 Pneumonia due to COVID-19 virus U07.1; J12.82
[2022-11-30] MEDS: piperacillin-tazobactam 3.375 GM in sodium chloride 0.9% (plus) 50 ML 2.5 GM IV (21:55)
[2022-12-01] VITALS (18 sets, daily range): BP systolic 134–163; BP diastolic 54–78; PULSE 56–95; RESP 16–22; TEMP 36.4–37.5; O2SAT 90–99
[2022-12-01 02:19] LABS: Basophils % 0.2 %; Hematocrit 27.7 % (42.0-52.0); Hemoglobin 8.4 g/dL (11.7-16.6); Lymphocytes # 1.3 10^3/uL (0.8-4.8); Lymphocytes % 12.5 %; Mean Corpuscular HGB Conc 30.3 g/dL (30.0-36.0); Mean Corpuscular Hemoglobin 27.9 pg (28.0-34.0); Mean Platelet Volume 10.5 fL (7.4-10.4); Monocytes # 0.6 10^3/uL (0.2-0.9); Monocytes % 5.8 %; Neutrophils # 8.15 10^3/uL (1.8-7.7); Neutrophils % 80.4 %; Nucleated Red Blood Cells % 0 %; Platelet Count 271 10^3/cmm (130-400); Red Blood Count 3.01 10^6/uL (4.1-5.3); Red Cell Distribution Width 15.6 % (12.1-15.1); White Blood Count 10.1 10^3/uL (4.0-10.0)
[2022-12-01 02:35] LABS: Alanine Aminotransferase 16 U/L (0-41); Albumin Level 2.2 g/dL (3.5-5.2); Alkaline Phosphatase 105 U/L (40-130); Anion Gap 11.9 (5-19); Aspartate Amino Transferase 23 U/L (0-40); Blood Urea Nitrogen 30 mg/dL (8-23); C Reactive Protein 39.2 mg/L (0.0-4.9); Calcium 7.6 mg/dL (8.5-10.5); Carbon Dioxide 32 mmol/L (22-29); Chloride 101 mmol/L (98-107); Globulin 3.2 g/dL (1.3-4.6); Glucose 97 mg/dL (65-115); Magnesium 1.8 mg/dL (1.7-2.3); Osmolality Calculated 298 mOsm/kg (285-295); Phosphorus 3.2 mg/dL (2.5-4.5); Potassium 3.9 mmol/L (3.5-5.1); Sodium 141 mmol/L (136-145); Total Bilirubin 0.3 mg/dL (0.15-1.2); Total Protein 5.4 g/dL (6.6-8.7)
[2022-12-01 02:45] LABS: NT Pro B Type Natriuretic Pept 2073 pg/mL (0-450); Procalcitonin 0.22 ng/mL (0-0.5)
--- NOTE | 2022-12-01 03:02 | PC.PHAR ---
Vancomycin Trough scheduled for 12/02 @ 0600, please hold 0700 dose until drawn. Thank you, Jagruti Malave [facility]
[2022-12-01] MEDS: ipratropium-albuterol 3 mL Neb INHALATION ×4 (03:12→15:32)
[2022-12-01] MEDS: piperacillin-tazobactam 3.375 GM in sodium chloride 0.9% (plus) 50 ML IV (05:07)
[2022-12-01] MEDS: remdesivir 100 MG in sodium chloride 0.9% (100 ml) 80 ML IV (05:08)
[2022-12-01] MEDS: vancomycin 1,500 MG/300 ML PIGGYBACK 200 MG IV (06:20)
[2022-12-01] MEDS: magnesium oxide 400 mg tablet PO ×2 (08:59→17:30)
[2022-12-01] MEDS: sucralfate 1 gm Tablet PO ×2 (08:59→22:23)
[2022-12-01] MEDS: dexamethasone 10 mg/mL INJ 6 MG IVP (09:00)
[2022-12-01] MEDS: aspirin 81 mg EC Tablet PO (09:00)
[2022-12-01] MEDS: pantoprazole 40 mg SDV IVP ×2 (09:00→22:25)
[2022-12-01] MEDS: doxycycline 100 mg Tablet PO ×2 (10:09→17:30)
[2022-12-01] MEDS: potassium chloride ER 20 mEq Tablet 40 MEQ PO (10:10)
[2022-12-01] MEDS: FUROsemide 10 mg/mL SDV 4mL 40 MG IVP (10:10)
[2022-12-01] MEDS: morphine 4 mg/mL SDV 1 mL 1 MG IVP (13:44)
--- NOTE | 2022-12-01 17:11 | P.PN_ITS ---
Subjective Subjective: Patient was seen this morning, he tells me that he feels great, no fevers, chills, no cough, no hemoptysis, -I had a detailed discussion with patient about anticoagulation his anemia, and his possibly pulmonary embolism -On 11/16/2022 which showed left upper lobe, subsegmental filling defect suspic ious for thrombus, differential diagnosis including mixing artifact, no right heart strain -And that he was placed on anticoagulation developed anemia -Hearing he was placed on full dose anticoagulation developed significant anemia down to 7.0, requiring PRBC -He also went into respiratory failure requiring transfer down to ICU and monitoring -As there is issues in terms of what we do now as he cannot tolerate anticoagulation to place an IVC filter he was too keen on it, but I did do a venous ultrasound that was negative for DVT echocardiogram did not show any significant right heart strain -And I repeat a CT angiogram of his chest although there is no large central pulm emboli, and his difficult to assess segmental branches, -Thus I advised him that currently there is no significant radiographic evidence of pulmonary emboli his D-dimer is elevated, and he does have COVID, so he has increased risk of hypercoagulability event, and his CT of his chest prior did show that he had a pulm emboli it could be that he was mixing defect it could be that the pulmonary embolism resolved it is difficult to say it is a difficult situation, especially given his anemia and his GI bleed but we have to keep in mind his goals of care, risk and benefits of all options -I discussed the risks and benefits of anticoagulation, shared decision making, complications including bilaterally to bleeding, GI bleed, his anemia, benefits of anticoagulation in preventing future blood clots -I also discussed with him IVC filter placement he is not very keen on it, discussed risks and benefits, he declines for now -After discussing all options, he voiced understanding, all questions answered, he does not want to have anticoagulation, he is worried about anemia, GI bleed for now agreeable to just continue aspirin 81 mg, agreeable to monitor Vitals/I&O/Wt Last Vital Signs Temp 97.7 F 12/01/22 16:00 Pulse 77 12/01/22 16:00 Resp 18 12/01/22 16:00 BP 136/77 12/01/22 16:00 Pulse Ox 94 12/01/22 16:00 O2 Del Method Room Air 12/01/22 16:00 O2 Flow Rate 2 12/01/22 15:30 FiO2 30 11/28/22 04:51 12/01/22 12/01/22 12/01/22 06:59 14:59 22:59 Intake Total 118 / 1458 830 / 830 Output Total 500 / 3300 500 / 500 Balance -382 / -1842 330 / 330 Weight last 48 hrs Weight 123.196 kg Weight 122.606 kg Physical Exam Const: COMMON NORMALS: no acute distress and patient oriented x3 Resp: COMMON NORMALS: normal respiratory effort, No retractions, No use of accessory muscles and clear to auscultation bilaterally AUSCULTATION: clear to auscultation bilaterally Cardio: COMMON NORMALS: regular rate, regular rhythm, S1 normal heart sound present and S2 normal heart sound present RATE: regular rate RHYTHM: regular rhythm HEART SOUNDS: S1 normal heart sound present and S2 normal heart sound present GI: COMMON NORMALS: Normal to inspection, nondistended, normoactive bowel sounds present and non-tender Extremity: COMMON NORMALS: no pedal edema Neuro: COMMON NORMALS: patient oriented x3 Psych: COMMON NORMALS: mental status grossly normal Urinary Catheter Management: Thomson: Cath Placed During This Visit: yes Reason for Continuing Indwelling Catheter: Other Urinary Catheter Date of Insertion: 11/21/22 Urinary Catheter Time of Insertion: 12:13 Data 12/01/22 01:45 12/01/22 01:45 A&P Assessment and plan (1) Diarrhea: (2) Hypokalemia: (3) MRSA pneumonia: (4) Hypoxia: (5) Goals of care, counseling/discussion: (6) Hypernatremia: (7) Septic shock: (8) NSTEMI (non-ST elevated myocardial infarction): (9) Sepsis: (10) Elevated troponin: (11) Lymphedema: (12) PVD (peripheral vascular disease): (13) Acute encephalopathy: (14) Aspiration pneumonia: (15) Systolic CHF: (16) Hypomagnesemia: (17) Swelling of left hand: (18) Acute anemia: (19) GI bleed: (20) Iron deficiency anemia: (21) Acute respiratory failure with hypoxia: (22) Pneumonia due to COVID-19 virus: Plan 87-year-old male resident of [facility], presented with altered mental status shortness of breath, dehydration, at the time of my admission CODE STATUS was discussed he was made DNR/DNI, his breathing status improved significantly with use of BiPAP, as per the son this time this is the most lucid condition of his father that they are able to communicate, as per the son patient was confused and [facility] they had concerns with [facility] now [facility] to change his [facility], he has been accepted going through prior authorization, patient has been diagnosed with MRSA pneumonia, he recovered well from septic shock, metabolic encephalopathy improved, patient seems to have a new baseline mentation, he requires verbal clues when he is eating, otherwise able to answer most of the questions, he is doing well on room air, getting antibiotics for MRSA pneumonia, however 11/26/2022 patient developed fevers, placed on BiPAP due to increased work of breathing concerns for pn eumonia, respiratory failure, that he was moved down to ICU due to hypotension COVID-19 pneumonia -Highly suspicious that patient either has a reinfection, or persistent infection from her prior COVID-19 infection -COVID-19 positive -Has complaints of shortness of breath weakness fatigue and tiredness -On 11/26/2022, he developed fevers, placed on BiPAP, due to a concerns for respiratory failure, hypotension, requiring Levophed -He also had a ER visit on 11/16/2022 for left upper lob subsegmental pulmonary emboli, his D-dimer is increased, CT of the chest did show focal area of groundglass density in the posterior segment of the right upper lobe -Due to persistent shortness of breath, fevers, hypercoagulability, respiratory failure, is highly likely that patient's persistent shortness of breath, is from COVID-19 pneumonia -I discussed this in detail with patient, he voiced understanding, all questions answered -Continue remdesivir -Continue Decadron -Follow blood cultures, sputum cultures, clinical status -Likely discharge tomorrow Acute hypoxic respiratory failure -Secondary to history of possible pulmonary embolism, COVID pneumonia -With prior history of MRSA pneumonia -I was concerned for aspiration pneumonia, however chest x-ray this morning does not show any upper lobe infiltrates, he tolerated dysphagia diet well work with speech therapy, no choking or coughing episodes thus felt to be less likely, did have infiltrates in left upper lobe -Monitor respiratory status -Continue BiPAP Septic shock and metabolic encephalopathy related to MRSA pneumonia: Resolving -Off pressors -Continue vancomycin, Zosyn History of possible pulmonary embolism -Patient presented to the emergency room on 11/16/2022, he was positive for COVID, found to have a left upper lobe subsegmental filling defect suspicious for thrombus however differential diagnosis is mixing artifact, was placed on Eliquis -Here his D-dimer is elevated at 6.93, elevated troponins -Therapeutic Lovenox discontinued due to anemia of 7.0, requiring 1 unit PRBC -Venous ultrasound negative for DVT -As patient is developed anemia he potentially will not be a great candidate for anticoagulation, hemoglobin remains low at 8.5, repeat CT angiogram of the chest no large pulm emboli, but segmental and subsegmental pulmonary arteries are not visualized well enough to exclude pulmonary emboli due to respiratory motion -Discussed risk and benefits of anticoagulation and VC filter, he voiced understanding, all questions answered, declined for now Swelling of left hand, venous ultrasound, negative for DVT, monitor, x-ray negative for fracture, swelling has improved Aspiration pneumonias concern, aspiration precautions, speech therapy eval, dysphagia diet Hypomagnesemia, will replace LAKEISHA related to sepsis: Resolving NSTEMI: -Type I versus type II -Does have sepsis, septic shock as above from pneumonia -Has no chest pain complaints -Echo unremarkable other than EF 40%, 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 -Serial EKGs, serial troponins, telemetry monitoring Systolic CHF exacerbation, fluid overload -Responded well to Lasix yesterday, over 3100 out, will repeat Lasix dosing today Fluctuant mentation with possible underlying dementia, resolved Patient seems to be well oriented, communicative, Will monitor Has evidence of acute anemia, iron deficiency anemia -Possible slow GI bleed -Possibly related to sepsis -Hemoglobin 7.1 on therapeutic Lovenox status post 1 unit PRBC, repeat hemoglobin 8.5, Lovenox on hold -Protonix, Carafate -Monitor hemoglobin closely Dehydration related hyponatremia Resolving He seems to have dysphagia due to his muscle weakness CT head unremarkable I do not see any focal deficits He will need speech therapy Peripheral vascular disease: No acute signs of vascular compromise Diarrhea: Improved C. difficile ruled out, responded to Imodium disPosition: SNF long-term placement DNR/DNI, son okay with vasopressors and medical management in ICU and BiPAP High risk for readmission secondary to poor intake, fluctuant mentation Plan for today PT OT, monitor kidney function 1 dose Lasix, continue remdesivir, Decadron, plan on discharging in the next 24 hours Attestations Medical Necessity Statement*: Patient requires for fluid overload systolic CHF exacerbation requiring Lasix therapy, COVID-19 pneumonia, and High MDM includes number and complexity of problems actively addressed during encounter, amount and/or complexity of data reviewed/ordered and described risk of complication, morbidity or mortality of management as documented Diagnoses Diarrhea R19.7 Hypokalemia E87.6 MRSA pneumonia J15.212 Hypoxia R09.02 Goals of care, counseling/discussion Z71.89 Hypernatremia E87.0 Septic shock A41.9; R65.21 NSTEMI (non-ST elevated myocardial infarction) I21.4 Sepsis A41.9 Elevated troponin R77.8 Lymphedema I89.0 PVD (peripheral vascular disease) I73.9 Acute encephalopathy G93.40 Aspiration pneumonia J69.0 Systolic CHF I50.20 Hypomagnesemia E83.42 Swelling of left hand M79.89 Acute anemia D64.9 GI bleed K92.2 Iron deficiency anemia D50.9 Acute respiratory failure with hypoxia J96.01 Pneumonia due to COVID-19 virus U07.1; J12.82
[2022-12-02] VITALS (14 sets, daily range): BP systolic 124–162; BP diastolic 56–81; PULSE 66–84; RESP 16–20; TEMP 36.4–36.8; O2SAT 91–98
[2022-12-02] MEDS: remdesivir 100 MG in sodium chloride 0.9% (100 ml) 80 ML IV (05:42)
[2022-12-02 06:42] LABS: Basophils % 0.3 %; Eosinophils # 0.1 10^3/uL (0.0-0.8); Eosinophils % 0.9 %; Hematocrit 29.2 % (42.0-52.0); Hemoglobin 9.1 g/dL (11.7-16.6); Lymphocytes # 2.8 10^3/uL (0.8-4.8); Lymphocytes % 23.9 %; Mean Corpuscular HGB Conc 31.2 g/dL (30.0-36.0); Mean Corpuscular Hemoglobin 28.7 pg (28.0-34.0); Mean Corpuscular Volume 92.1 fl (80-94); Mean Platelet Volume 10.1 fL (7.4-10.4); Monocytes # 0.6 10^3/uL (0.2-0.9); Monocytes % 5.3 %; Neutrophils # 7.77 10^3/uL (1.8-7.7); Neutrophils % 67.3 %; Nucleated Red Blood Cells % 0 %; Platelet Count 302 10^3/cmm (130-400); Red Blood Count 3.17 10^6/uL (4.1-5.3); Red Cell Distribution Width 15.7 % (12.1-15.1); White Blood Count 11.5 10^3/uL (4.0-10.0)
[2022-12-02 07:01] LABS: Alanine Aminotransferase 16 U/L (0-41); Albumin Level 2.3 g/dL (3.5-5.2); Alkaline Phosphatase 96 U/L (40-130); Anion Gap 11.8 (5-19); Aspartate Amino Transferase 22 U/L (0-40); Blood Urea Nitrogen 32 mg/dL (8-23); C Reactive Protein 26.2 mg/L (0.0-4.9); Calcium 7.8 mg/dL (8.5-10.5); Carbon Dioxide 30 mmol/L (22-29); Chloride 100 mmol/L (98-107); Globulin 3.7 g/dL (1.3-4.6); Glucose 79 mg/dL (65-115); Magnesium 1.6 mg/dL (1.7-2.3); Osmolality Calculated 292 mOsm/kg (285-295); Phosphorus 2.8 mg/dL (2.5-4.5); Potassium 3.8 mmol/L (3.5-5.1); Sodium 138 mmol/L (136-145); Total Bilirubin 0.3 mg/dL (0.15-1.2); Vancomycin Trough 22.4 ug/mL (10-15)
[2022-12-02 07:07] LABS: NT Pro B Type Natriuretic Pept 1471 pg/mL (0-450); Procalcitonin 0.18 ng/mL (0-0.5)
[2022-12-02] MEDS: budesonide 0.5 mg/2 mL Neb INHALATION ×2 (07:51→20:51)
[2022-12-02] MEDS: ipratropium-albuterol 3 mL Neb INHALATION ×3 (07:52→20:51)
[2022-12-02] MEDS: magnesium oxide 400 mg tablet PO ×2 (08:34→17:45)
[2022-12-02] MEDS: sucralfate 1 gm Tablet PO ×2 (08:34→21:16)
[2022-12-02] MEDS: aspirin 81 mg EC Tablet PO (08:34)
[2022-12-02] MEDS: pantoprazole 40 mg SDV IVP ×2 (08:34→22:42)
[2022-12-02] MEDS: doxycycline 100 mg Tablet PO ×2 (08:34→17:45)
[2022-12-02] MEDS: dexamethasone 10 mg/mL INJ 6 MG IVP (08:34)
[2022-12-02] MEDS: potassium chloride ER 20 mEq Tablet 40 MEQ PO (12:28)
[2022-12-02] MEDS: FUROsemide 10 mg/mL SDV 4mL 40 MG IVP (12:29)
--- NOTE | 2022-12-02 17:34 | P.PN_ITS ---
Subjective Subjective: Patient was seen this morning, he tells me he is very impressed with the care that he is given getting specially the nursing staff, he is ready to go to [facility], he tells me he needs to do well physically, he wants to do physical therapy, he is currently on room air, afebrile, does complain of weakness in both legs, Vitals/I&O/Wt Last Vital Signs Temp 97.5 F L 12/02/22 16:00 Pulse 75 12/02/22 16:00 Resp 16 12/02/22 16:00 BP 128/63 12/02/22 16:00 Pulse Ox 91 12/02/22 16:00 O2 Del Method Room Air 12/02/22 16:00 O2 Flow Rate 2 12/01/22 15:30 FiO2 30 11/28/22 04:51 12/02/22 12/02/22 12/02/22 06:59 14:59 22:59 Intake Total 100 / 100 Output Total 500 / 2700 550 / 550 2300 / 2850 Balance -500 / -1390 -450 / -450 -2300 / -2750 Weight last 48 hrs Weight 122.515 kg Weight 123.196 kg Physical Exam Const: COMMON NORMALS: no acute distress and patient oriented x3 Resp: COMMON NORMALS: normal respiratory effort, No retractions, No use of accessory muscles and clear to auscultation bilaterally AUSCULTATION: clear to auscultation bilaterally Cardio: COMMON NORMALS: regular rate, regular rhythm, S1 normal heart sound present and S2 normal heart sound present RATE: regular rate RHYTHM: regular rhythm HEART SOUNDS: S1 normal heart sound present and S2 normal heart sound present GI: COMMON NORMALS: Normal to inspection, nondistended, normoactive bowel sounds present and non-tender Extremity: COMMON NORMALS: no pedal edema Neuro: COMMON NORMALS: patient oriented x3 Psych: COMMON NORMALS: mental status grossly normal Urinary Catheter Management: Thomson: Cath Placed During This Visit: yes Reason for Continuing Indwelling Catheter: Accurate Measurement of Urinary Output in Critically Ill Patients Urinary Catheter Date of Insertion: 11/21/22 Urinary Catheter Time of Insertion: 12:13 Data 12/02/22 06:21 12/02/22 06:21 Micro: Microbiology 11/26/22 19:00 Blood Culture - Final Blood NO GROWTH AFTER 5 DAYS 11/26/22 19:00 Blood Culture - Final Blood NO GROWTH AFTER 5 DAYS A&P Assessment and plan (1) Diarrhea: (2) Hypokalemia: (3) MRSA pneumonia: (4) Hypoxia: (5) Goals of care, counseling/discussion: (6) Hypernatremia: (7) Septic shock: (8) NSTEMI (non-ST elevated myocardial infarction): (9) Sepsis: (10) Elevated troponin: (11) Lymphedema: (12) PVD (peripheral vascular disease): (13) Acute encephalopathy: (14) Aspiration pneumonia: (15) Systolic CHF: (16) Hypomagnesemia: (17) Swelling of left hand: (18) Acute anemia: (19) GI bleed: (20) Iron deficiency anemia: (21) Acute respiratory failure with hypoxia: (22) Pneumonia due to COVID-19 virus: Plan 87-year-old male resident of [facility], presented with altered mental status shortness of breath, dehydration, at the time of my admission CODE STATUS was discussed he was made DNR/DNI, his breathing status improved significantly with use of BiPAP, as per the son this time this is the most lucid condition of his father that they are able to communicate, as per the son patient was confused and obtunded for about 2 weeks at the group home they had concerns with [facility] now wants to change his group home, he has been accepted going through prior authorization, patient has been diagnosed with MRSA pneumonia, he recovered well from septic shock, metabolic encephalopathy improved, patient seems to have a new baseline mentation, he requires verbal clues when he is eating, otherwise able to answer most of the questions, he is doing well on room air, getting antibiotics for MRSA pneumonia, however 11/26/2022 patient developed fevers, placed on BiPAP due to increased work of breathing concerns for pn eumonia, respiratory failure, that he was moved down to ICU due to hypotension COVID-19 pneumonia -Highly suspicious that patient either has a reinfection, or persistent infection from her prior COVID-19 infection -COVID-19 positive -Has complaints of shortness of breath weakness fatigue and tiredness -On 11/26/2022, he developed fevers, placed on BiPAP, due to a concerns for respiratory failure, hypotension, requiring Levophed -He also had a ER visit on 11/16/2022 for left upper lob subsegmental pulmonary emboli, his D-dimer is increased, CT of the chest did show focal area of groundglass density in the posterior segment of the right upper lobe -Due to persistent shortness of breath, fevers, hypercoagulability, respiratory failure, is highly likely that patient's persistent shortness of breath, is from COVID-19 pneumonia -I discussed this in detail with patient, he voiced understanding, all questions answered -Completed remdesivir, Decadron here in clinic -Follow blood cultures, sputum cultures, clinical status -Likely discharge tomorrow Acute hypoxic respiratory failure -Secondary to history of possible pulmonary embolism, COVID pneumonia -With prior history of MRSA pneumonia -I was concerned for aspiration pneumonia, however chest x-ray this morning does not show any upper lobe infiltrates, he tolerated dysphagia diet well work with speech therapy, no choking or coughing episodes thus felt to be less likely, did have infiltrates in left upper lobe -Monitor respiratory status -Continue BiPAP Septic shock and metabolic encephalopathy related to MRSA pneumonia: Resolving -Off pressors -De-escalate to doxycycline History of possible pulmonary embolism -Patient presented to the emergency room on 11/16/2022, he was positive for COVID, found to have a left upper lobe subsegmental filling defect suspicious for thrombus however differential diagnosis is mixing artifact, was placed on Eliquis -Here his D-dimer is elevated at 6.93, elevated troponins -Therapeutic Lovenox discontinued due to anemia of 7.0, requiring 1 unit PRBC -Venous ultrasound negative for DVT -As patient is developed anemia he potentially will not be a great candidate for anticoagulation, hemoglobin remains low at 8.5, repeat CT angiogram of the chest no large pulm emboli, but segmental and subsegmental pulmonary arteries are not visualized well enough to exclude pulmonary emboli due to respiratory motion -Discussed risk and benefits of anticoagulation and VC filter, he voiced understanding, all questions answered, declined for now Swelling of left hand, venous ultrasound, negative for DVT, monitor, x-ray negative for fracture, swelling has improved Aspiration pneumonias concern, aspiration precautions, speech therapy eval, dysphagia diet Hypomagnesemia, monitor LAKEISHA related to sepsis: Resolving NSTEMI: -Type I versus type II -Does have sepsis, septic shock as above from pneumonia -Has no chest pain complaints -Echo unremarkable other than EF 40%, 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 -Serial EKGs, serial troponins, telemetry monitoring Systolic CHF exacerbation, fluid overload -Responded well to Lasix yesterday, over 3100 out, will give another dose of Lasix today, given complaints of intermittent shortness of breath, elevated BNP Fluctuant mentation with possible underlying dementia, resolved Patient seems to be well oriented, communicative, Will monitor Has evidence of acute anemia, iron deficiency anemia -Possible slow GI bleed -Possibly related to sepsis -Hemoglobin 7.1 on therapeutic Lovenox status post 1 unit PRBC, repeat hemoglobin 9.1, Lovenox on hold -Protonix, Carafate -Monitor hemoglobin closely Dehydration related hyponatremia Resolving He seems to have dysphagia due to his muscle weakness CT head unremarkable I do not see any focal deficits He will need speech therapy Peripheral vascular disease: No acute signs of vascular compromise Diarrhea: Improved C. difficile ruled out, responded to Imodium disPosition: SNF long-term placement DNR/DNI, son okay with vasopressors and medical management in ICU and BiPAP High risk for readmission secondary to poor intake, fluctuant mentation Plan for today PT OT, 1 dose Lasix today, monitor urine output, will diurese more given elevated BNP, has completed remdesivir, Decadron, de-escalate antibiotic therapy to doxycycline, will replace magnesium, replace potassium Attestations Medical Necessity Statement*: Patient requires hospitalization for fluid overload requiring further diuresis, replacement of hypokalemia, hypomagnesemia Diagnoses Diarrhea R19.7 Hypokalemia E87.6 MRSA pneumonia J15.212 Hypoxia R09.02 Goals of care, counseling/discussion Z71.89 Hypernatremia E87.0 Septic shock A41.9; R65.21 NSTEMI (non-ST elevated myocardial infarction) I21.4 Sepsis A41.9 Elevated troponin R77.8 Lymphedema I89.0 PVD (peripheral vascular disease) I73.9 Acute encephalopathy G93.40 Aspiration pneumonia J69.0 Systolic CHF I50.20 Hypomagnesemia E83.42 Swelling of left hand M79.89 Acute anemia D64.9 GI bleed K92.2 Iron deficiency anemia D50.9 Acute respiratory failure with hypoxia J96.01 Pneumonia due to COVID-19 virus U07.1; J12.82
[2022-12-03] VITALS (12 sets, daily range): BP systolic 116–170; BP diastolic 53–78; PULSE 68–79; RESP 18–20; TEMP 36.4–37.1; O2SAT 92–98
[2022-12-03] MEDS: ipratropium-albuterol 3 mL Neb INHALATION (00:04)
[2022-12-03 01:37] LABS: Basophils % 0.1 %; Eosinophils % 0.1 %; Hematocrit 28.6 % (42.0-52.0); Lymphocytes # 1.7 10^3/uL (0.8-4.8); Lymphocytes % 14.2 %; Mean Corpuscular HGB Conc 31.5 g/dL (30.0-36.0); Mean Corpuscular Hemoglobin 29.2 pg (28.0-34.0); Mean Corpuscular Volume 92.9 fl (80-94); Monocytes # 0.6 10^3/uL (0.2-0.9); Monocytes % 4.7 %; Neutrophils # 9.54 10^3/uL (1.8-7.7); Neutrophils % 79.2 %; Nucleated Red Blood Cells % 0 %; Platelet Count 283 10^3/cmm (130-400); Red Blood Count 3.08 10^6/uL (4.1-5.3); Red Cell Distribution Width 15.6 % (12.1-15.1); White Blood Count 12.1 10^3/uL (4.0-10.0)
[2022-12-03 02:01] LABS: Alanine Aminotransferase 15 U/L (0-41); Albumin Level 2.4 g/dL (3.5-5.2); Alkaline Phosphatase 110 U/L (40-130); Anion Gap 12.2 (5-19); Aspartate Amino Transferase 19 U/L (0-40); Blood Urea Nitrogen 31 mg/dL (8-23); Calcium 7.6 mg/dL (8.5-10.5); Carbon Dioxide 31 mmol/L (22-29); Chloride 102 mmol/L (98-107); Glucose 95 mg/dL (65-115); Magnesium 1.8 mg/dL (1.7-2.3); Osmolality Calculated 298 mOsm/kg (285-295); Phosphorus 3.3 mg/dL (2.5-4.5); Potassium 4.2 mmol/L (3.5-5.1); Sodium 141 mmol/L (136-145); Total Bilirubin 0.3 mg/dL (0.15-1.2); Total Protein 5.4 g/dL (6.6-8.7)
[2022-12-03 02:13] LABS: NT Pro B Type Natriuretic Pept 1453 pg/mL (0-450)
[2022-12-03] MEDS: sucralfate 1 gm Tablet PO ×2 (08:30→21:55)
[2022-12-03] MEDS: pantoprazole 40 mg SDV IVP (08:30)
[2022-12-03] MEDS: magnesium oxide 400 mg tablet PO ×2 (08:30→18:34)
[2022-12-03] MEDS: aspirin 81 mg EC Tablet PO (08:31)
[2022-12-03] MEDS: doxycycline 100 mg Tablet PO ×2 (08:31→18:34)
[2022-12-03] MEDS: FUROsemide 10 mg/mL SDV 4mL 40 MG IVP (11:09)
[2022-12-03] MEDS: amlodipine 10 mg Tablet PO (11:09)
--- NOTE | 2022-12-03 14:55 | PM.PN ---
Subjective Subjective: Patient was examined this morning, he is working with physical therapy he feels a lot better he is alert to person, to place, not to time, he tells me that it is old his back surgery that caused him to be this sick, it is the reason he can get up, it is the reason that he is not doing well he tells me, but he is willing to work with physical therapy, Vitals/I&O/Wt Last Vital Signs Temp 98.8 F 12/03/22 11:53 Pulse 75 12/03/22 11:53 Resp 20 H 12/03/22 11:53 BP 116/62 12/03/22 11:53 Pulse Ox 92 12/03/22 11:53 O2 Del Method Room Air 12/03/22 11:53 O2 Flow Rate 2 12/01/22 15:30 FiO2 30 11/28/22 04:51 12/02/22 12/03/22 12/03/22 22:59 06:59 14:59 Intake Total 172 / 272 600 / 600 Output Total 2600 / 3150 650 / 3800 1300 / 1300 Balance -2428 / -2878 -650 / -3528 -700 / -700 Weight last 48 hrs Weight 118.87 kg Weight 122.515 kg Physical Exam Const: COMMON NORMALS: no acute distress Resp: COMMON NORMALS: normal respiratory effort, No retractions, No use of accessory muscles and clear to auscultation bilaterally AUSCULTATION: clear to auscultation bilaterally Cardio: COMMON NORMALS: regular rate, regular rhythm, S1 normal heart sound present and S2 normal heart sound present RATE: regular rate RHYTHM: regular rhythm HEART SOUNDS: S1 normal heart sound present and S2 normal heart sound present GI: COMMON NORMALS: Normal to inspection, nondistended, normoactive bowel sounds present and non-tender Extremity: COMMON NORMALS: no calf tenderness and no pedal edema Urinary Catheter Management: Thomson: Cath Placed During This Visit: yes Reason for Continuing Indwelling Catheter: Acute Urinary Retention or Obstruction Urinary Catheter Date of Insertion: 11/21/22 Urinary Catheter Time of Insertion: 12:13 Data 12/03/22 01:28 12/03/22 01:28 A&P Assessment and plan (1) Diarrhea: (2) Hypokalemia: (3) MRSA pneumonia: (4) Hypoxia: (5) Goals of care, counseling/discussion: (6) Hypernatremia: (7) Septic shock: (8) NSTEMI (non-ST elevated myocardial infarction): (9) Sepsis: (10) Elevated troponin: (11) Lymphedema: (12) PVD (peripheral vascular disease): (13) Acute encephalopathy: (14) Aspiration pneumonia: (15) Systolic CHF: (16) Hypomagnesemia: (17) Swelling of left hand: (18) Acute anemia: (19) GI bleed: (20) Iron deficiency anemia: (21) Acute respiratory failure with hypoxia: (22) Pneumonia due to COVID-19 virus: (23) Muscular deconditioning: Plan 87-year-old male resident of [facility], presented with altered mental status shortness of breath, dehydration, at the time of my admission CODE STATUS was discussed he was made DNR/DNI, his breathing status improved significantly with use of BiPAP, as per the son this time this is the most lucid condition of his father that they are able to communicate, as per the son patient was confused and obtunded for about 2 weeks at the longterm they had concerns with [facility] now wants to change his longterm, he has been accepted going through prior authorization, patient has been diagnosed with MRSA pneumonia, he recovered well from septic shock, metabolic encephalopathy improved, patient seems to have a new baseline mentation, he requires verbal clues when he is eating, otherwise able to answer most of the questions, he is doing well on room air, getting antibiotics for MRSA pneumonia, however 11/26/2022 patient developed fevers, placed on BiPAP due to increased work of breathing concerns for pneumonia, respiratory failure, that he was moved down to ICU due to hypotension COVID-19 pneumonia -Highly suspicious that patient either has a reinfection, or persistent infection from her prior COVID-19 infection -COVID-19 positive -Has complaints of shortness of breath weakness fatigue and tiredness -On 11/26/2022, he developed fevers, placed on BiPAP, due to a concerns for respiratory failure, hypotension, requiring Levophed -He also had a ER visit on 11/16/2022 for left upper lob subsegmental pulmonary emboli, his D-dimer is increased, CT of the chest did show focal area of groundglass density in the posterior segment of the right upper lobe -Due to persistent shortness of breath, fevers, hypercoagulability, respiratory failure, is highly likely that patient's persistent shortness of breath, is from COVID-19 pneumonia -I discussed this in detail with patient, he voiced understanding, all questions answered -Completed remdesivir, Decadron here in clinic -Follow blood cultures, sputum cultures, clinical status -Likely discharge once accepted to senior care facility Acute hypoxic respiratory failure -Secondary to history of possible pulmonary embolism, COVID pneumonia -With prior history of MRSA pneumonia -I was concerned for aspiration pneumonia, however chest x-ray this morning does not show any upper lobe infiltrates, he tolerated dysphagia diet well work with speech therapy, no choking or coughing episodes thus felt to be less likely, did have infiltrates in left upper lobe -Monitor respiratory status -Continue BiPAP Septic shock and metabolic encephalopathy related to MRSA pneumonia: Resolving -Off pressors -De-escalate to doxycycline History of possible pulmonary embolism -Patient presented to the emergency room on 11/16/2022, he was positive for COVID, found to have a left upper lobe subsegmental filling defect suspicious for thrombus however differential diagnosis is mixing artifact, was placed on Eliquis -Here his D-dimer is elevated at 6.93, elevated troponins -Therapeutic Lovenox discontinued due to anemia of 7.0, requiring 1 unit PRBC -Venous ultrasound negative for DVT -As patient is developed anemia he potentially will not be a great candidate for anticoagulation, hemoglobin remains low at 8.5, repeat CT angiogram of the chest no large pulm emboli, but segmental and subsegmental pulmonary arteries are not visualized well enough to exclude pulmonary emboli due to respiratory motion -Discussed risk and benefits of anticoagulation and IVC filter, he voiced understanding, all questions answered, declined for now Swelling of left hand, venous ultrasound, negative for DVT, monitor, x-ray negative for fracture, swelling has improved Aspiration pneumonias concern, aspiration precautions, speech therapy eval, dysphagia diet Hypomagnesemia, monitor LA[place]ISHA related to sepsis: Resolving NSTEMI: -Type I versus type II -Does have sepsis, septic shock as above from pneumonia -Has no chest pain complaints -Echo unremarkable other than EF 40%, 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 -Serial EKGs, serial troponins, telemetry monitoring Systolic CHF exacerbation, fluid overload -Responded well to Lasix yesterday, over 3100 out, will give another dose of Lasix today, given complaints of intermittent shortness of breath, elevated BNP Fluctuant mentation with possible underlying dementia, resolved Patient seems to be well oriented, communicative, Will monitor Has evidence of acute anemia, iron deficiency anemia -Possible slow GI bleed -Possibly related to sepsis -Hemoglobin 7.1 on therapeutic Lovenox status post 1 unit PRBC, repeat hemoglobin 9.1, Lovenox on hold -Protonix, Carafate -Monitor hemoglobin closely Dehydration related hyponatremia Resolving He seems to have dysphagia due to his muscle weakness CT head unremarkable I do not see any focal deficits He will need speech therapy Peripheral vascular disease: No acute signs of vascular compromise Diarrhea: Improved C. difficile ruled out, responded to Imodium disPosition: SNF long-term placement DNR/DNI, son okay with vasopressors and medical management in ICU and BiPAP High risk for readmission secondary to poor intake, fluctuant mentation Plan for today PT OT, 1 dose Lasix today, monitor urine output, will diurese more given elevated BNP, has completed remdesivir, Decadron, de-escalate antibiotic therapy to doxycycline, monitor magnesium, monitor potassium, up out of bed if possible with physical therapy, white blood cell count up to 12.1 but afebrile Attestations Medical Necessity Statement*: Patient requires hospitalization fluid overload, requiring diuresis, Diagnoses Diarrhea R19.7 Hypokalemia E87.6 MRSA pneumonia J15.212 Hypoxia R09.02 Goals of care, counseling/discussion Z71.89 Hypernatremia E87.0 Septic shock A41.9; R65.21 NSTEMI (non-ST elevated myocardial infarction) I21.4 Sepsis A41.9 Elevated troponin R77.8 Lymphedema I89.0 PVD (peripheral vascular disease) I73.9 Acute encephalopathy G93.40 Aspiration pneumonia J69.0 Systolic CHF I50.20 Hypomagnesemia E83.42 Swelling of left hand M79.89 Acute anemia D64.9 GI bleed K92.2 Iron deficiency anemia D50.9 Acute respiratory failure with hypoxia J96.01 Pneumonia due to COVID-19 virus U07.1; J12.82 Muscular deconditioning R29.827
[2022-12-03] MEDS: pantoprazole DR 40 mg Tablet PO (18:34)
[2022-12-04] VITALS (11 sets, daily range): BP systolic 103–128; BP diastolic 56–66; PULSE 73–85; RESP 17–19; TEMP 36.5–36.8; O2SAT 92–94
[2022-12-04 06:03] LABS: Basophils % 0.2 %; Eosinophils # 0.4 10^3/uL (0.0-0.8); Eosinophils % 2.8 %; Hematocrit 30.6 % (42.0-52.0); Hemoglobin 9.7 g/dL (11.7-16.6); Lymphocytes # 2.1 10^3/uL (0.8-4.8); Lymphocytes % 16.2 %; Mean Corpuscular HGB Conc 31.7 g/dL (30.0-36.0); Mean Corpuscular Hemoglobin 29.4 pg (28.0-34.0); Mean Corpuscular Volume 92.7 fl (80-94); Mean Platelet Volume 10.5 fL (7.4-10.4); Monocytes # 0.7 10^3/uL (0.2-0.9); Monocytes % 5.3 %; Neutrophils # 9.31 10^3/uL (1.8-7.7); Neutrophils % 73.4 %; Nucleated Red Blood Cells % 0 %; Platelet Count 306 10^3/cmm (130-400); Red Cell Distribution Width 15.8 % (12.1-15.1); White Blood Count 12.7 10^3/uL (4.0-10.0)
[2022-12-04 06:11] LABS: Alanine Aminotransferase 14 U/L (0-41); Albumin Level 2.4 g/dL (3.5-5.2); Alkaline Phosphatase 117 U/L (40-130); Anion Gap 11.9 (5-19); Aspartate Amino Transferase 20 U/L (0-40); Blood Urea Nitrogen 30 mg/dL (8-23); Calcium 8.1 mg/dL (8.5-10.5); Carbon Dioxide 31 mmol/L (22-29); Chloride 99 mmol/L (98-107); Globulin 3.5 g/dL (1.3-4.6); Glucose 110 mg/dL (65-115); Magnesium 1.7 mg/dL (1.7-2.3); Osmolality Calculated 293 mOsm/kg (285-295); Phosphorus 2.9 mg/dL (2.5-4.5); Potassium 3.9 mmol/L (3.5-5.1); Sodium 138 mmol/L (136-145); Total Bilirubin 0.5 mg/dL (0.15-1.2); Total Protein 5.9 g/dL (6.6-8.7)
[2022-12-04 08:11] LABS: NT Pro B Type Natriuretic Pept 773 pg/mL (0-450)
[2022-12-04] MEDS: FUROsemide 10 mg/mL SDV 4mL 40 MG IVP (08:37)
[2022-12-04] MEDS: potassium chloride ER 20 mEq Tablet 40 MEQ PO (08:37)
[2022-12-04] MEDS: doxycycline 100 mg Tablet PO ×2 (08:37→17:48)
[2022-12-04] MEDS: magnesium oxide 400 mg tablet PO ×2 (08:37→17:48)
[2022-12-04] MEDS: pantoprazole DR 40 mg Tablet PO ×2 (08:38→17:49)
[2022-12-04] MEDS: amlodipine 10 mg Tablet PO (08:38)
[2022-12-04] MEDS: aspirin 81 mg EC Tablet PO (08:38)
[2022-12-04] MEDS: sucralfate 1 gm Tablet PO ×2 (08:38→21:31)
--- NOTE | 2022-12-04 11:11 | P.PN_ITS ---
Subjective Subjective: Patient was seen this morning, he is frustrated about being here in the hospital he does not want to go back to [facility], he is frustrated as there is issues with his insurance, he tells me that he is a [employer] he is wondering if he could use a VA benefits, overall he is feeling well, according to physical therapy patient still a max assist did tolerate rolling, according to their recommendation p atient would benefit from skilled therapy to improve overall strength balance and mobility for safe independence Vitals/I&O/Wt Last Vital Signs Temp 98.2 F 12/04/22 08:00 Pulse 74 12/04/22 08:25 Resp 17 12/04/22 08:20 BP 122/66 12/04/22 08:00 Pulse Ox 93 12/04/22 08:20 O2 Del Method Room Air 12/04/22 08:20 O2 Flow Rate 2 12/01/22 15:30 FiO2 30 11/28/22 04:51 12/03/22 12/04/22 12/04/22 22:59 06:59 14:59 Intake Total 120 / 720 480 / 480 Output Total 600 / 1900 1100 / 3000 Balance -480 / -1180 -1100 / -2280 480 / 480 Weight last 48 hrs Weight 119.023 kg Weight 118.87 kg Physical Exam Const: COMMON NORMALS: no acute distress and patient oriented x3 Resp: COMMON NORMALS: normal respiratory effort, No retractions, No use of accessory muscles and clear to auscultation bilaterally AUSCULTATION: clear to auscultation bilaterally Cardio: COMMON NORMALS: regular rate, regular rhythm, S1 normal heart sound present and S2 normal heart sound present RATE: regular rate RHYTHM: regular rhythm HEART SOUNDS: S1 normal heart sound present and S2 normal heart sound present GI: COMMON NORMALS: Normal to inspection, nondistended, normoactive bowel sounds present and non-tender Extremity: COMMON NORMALS: no pedal edema Neuro: COMMON NORMALS: patient oriented x3 Psych: COMMON NORMALS: mental status grossly normal Urinary Catheter Management: Thomson: Cath Placed During This Visit: yes Reason for Continuing Indwelling Catheter: Acute Urinary Retention or Obstruction Urinary Catheter Date of Insertion: 11/21/22 Urinary Catheter Time of Insertion: 12:13 Data 12/04/22 05:15 12/04/22 05:15 A&P Assessment and plan (1) Diarrhea: (2) Hypokalemia: (3) MRSA pneumonia: (4) Hypoxia: (5) Goals of care, counseling/discussion: (6) Hypernatremia: (7) Septic shock: (8) NSTEMI (non-ST elevated myocardial infarction): (9) Sepsis: (10) Elevated troponin: (11) Lymphedema: (12) PVD (peripheral vascular disease): (13) Acute encephalopathy: (14) Aspiration pneumonia: (15) Systolic CHF: (16) Hypomagnesemia: (17) Swelling of left hand: (18) Acute anemia: (19) GI bleed: (20) Iron deficiency anemia: (21) Acute respiratory failure with hypoxia: (22) Pneumonia due to COVID-19 virus: (23) Muscular deconditioning: Plan 87-year-old male resident of [facility], presented with altered mental status shortness of breath, dehydration, at the time of my admission CODE STATUS was d iscussed he was made DNR/DNI, his breathing status improved significantly with use of BiPAP, as per the son this time this is the most lucid condition of his father that they are able to communicate, as per the son patient was confused and obt[facility] the [facility] they had concerns with [facility] now wants to change his [facility], he has been accepted going through prior authorization, patient has been diagnosed with MRSA pneumonia, he recovered well from septic shock, metabolic encephalopathy improved, patient seems to have a new baseline mentation, he requires verbal clues when he is eating, otherwise able to answer most of the questions, he is doing well on room air, getting antibiotics for MRSA pneumonia, however 11/26/2022 patient developed fevers, placed on BiPAP due to increased work of breathing concerns for pneumonia, respiratory failure, that he was moved down to ICU due to hypotension COVID-19 pneumonia, resolved -Highly suspicious that patient either has a reinfection, or persistent infection from her prior COVID-19 infection -COVID-19 positive -Has complaints of shortness of breath weakness fatigue and tiredness -On 11/26/2022, he developed fevers, placed on BiPAP, due to a concerns for respiratory failure, hypotension, requiring Levophed -He also had a ER visit on 11/16/2022 for left upper lob subsegmental pulmonary emboli, his D-dimer is increased, CT of the chest did show focal area of groundglass density in the posterior segment of the right upper lobe -Due to persistent shortness of breath, fevers, hypercoagulability, respiratory failure, is highly likely that patient's persistent shortness of breath, is from COVID-19 pneumonia -I discussed this in detail with patient, he voiced understanding, all questions answered -Completed remdesivir, Decadron here in clinic -Follow blood cultures, sputum cultures, clinical status -Likely discharge once accepted to shelter facility Acute hypoxic respiratory failure, resolved -Secondary to history of possible pulmonary embolism, COVID pneumonia -With prior history of MRSA pneumonia -I was concerned for aspiration pneumonia, however chest x-ray this morning does not show any upper lobe infiltrates, he tolerated dysphagia diet well work with speech therapy, no choking or coughing episodes thus felt to be less likely, did have infiltrates in left upper lobe -Monitor respiratory status -Continue BiPAP Septic shock and metabolic encephalopathy related to MRSA pneumonia: Resolved -Off pressors -De-escalate to doxycycline History of possible pulmonary embolism, resolved -Patient presented to the emergency room on 11/16/2022, he was positive for COVID, found to have a left upper lobe subsegmental filling defect suspicious for thrombus however differential diagnosis is mixing artifact, was placed on Eliquis -Here his D-dimer is elevated at 6.93, elevated troponins -Therapeutic Lovenox discontinued due to anemia of 7.0, requiring 1 unit PRBC -Venous ultrasound negative for DVT -As patient is developed anemia he potentially will not be a great candidate for anticoagulation, hemoglobin remains low at 8.5, repeat CT angiogram of the chest no large pulm emboli, but segmental and subsegmental pulmonary arteries are not visualized well enough to exclude pulmonary emboli due to respiratory motion -Discussed risk and benefits of anticoagulation and IVC filter, he voiced understanding, all questions answered, declined for now Swelling of left hand, venous ultrasound, negative for DVT, monitor, x-ray negative for fracture, swelling has improved, resolved Aspiration pneumonias concern, aspiration precautions, speech therapy eval, dysphagia diet, resolved Hypomagnesemia, monitor [place] related to sepsis: Resolving NSTEMI: Resolved -Type I versus type II -Does have sepsis, septic shock as above from pneumonia -Has no chest pain complaints -Echo unremarkable other than EF 40%, 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 -Serial EKGs, serial troponins, telemetry monitoring Systolic CHF exacerbation, fluid overload -Patient is -5 L -On room air -BNP is elevated, does have some mild pitting edema -1 dose Lasix today Fluctuant mentation with possible underlying dementia, resolved Patient seems to be well oriented, communicative, Will monitor Has evidence of acute anemia, iron deficiency anemia -Possible slow GI bleed -Possibly related to sepsis -Hemoglobin 7.1 on therapeutic Lovenox status post 1 unit PRBC, repeat hemoglobin 9.7, Lovenox on hold -Protonix, Carafate -Monitor hemoglobin closely Dehydration related hyponatremia Resolving He seems to have dysphagia due to his muscle weakness CT head unremarkable I do not see any focal deficits He will need speech therapy Peripheral vascular disease: No acute signs of vascular compromise Diarrhea: Improved C. difficile ruled out, responded to Imodium disPosition: SNF long-term placement DNR/DNI, son okay with vasopressors and medical management in ICU and BiPAP Muscular deconditioning High risk for readmission secondary to poor intake, fluctuant mentation Plan for today PT OT, 1 dose Lasix today, monitor urine output, will diurese more given elevated BNP, has completed remdesivir, Decadron, de-escalate antibiotic therapy to doxycycline, monitor magnesium, monitor potassium, up out of bed if possible with physical therapy, white blood cell count up to 12.7 but afebrile, patient would clinically benefit from physical therapy, Lovenox on hold Attestations Medical Necessity Statement*: DishingPatient requires position for continued fluid overload requiring diuresis, Diagnoses Diarrhea R19.7 Hypokalemia E87.6 MRSA pneumonia J15.212 Hypoxia R09.02 Goals of care, counseling/discussion Z71.89 Hypernatremia E87.0 Septic shock A41.9; R65.21 NSTEMI (non-ST elevated myocardial infarction) I21.4 Sepsis A41.9 Elevated troponin R77.8 Lymphedema I89.0 PVD (peripheral vascular disease) I73.9 Acute encephalopathy G93.40 Aspiration pneumonia J69.0 Systolic CHF I50.20 Hypomagnesemia E83.42 Swelling of left hand M79.89 Acute anemia D64.9 GI bleed K92.2 Iron deficiency anemia D50.9 Acute respiratory failure with hypoxia J96.01 Pneumonia due to COVID-19 virus U07.1; J12.82 Muscular deconditioning R29.898
--- NOTE | 2022-12-04 14:46 | PC.SOCIAL ---
IMM Updated Updated pt on IMM. No questions voiced. Provided pt a copy. Initialed, dated, & timed copy in chart.
[2022-12-05] VITALS (10 sets, daily range): BP systolic 108–134; BP diastolic 47–69; PULSE 70–88; RESP 17–20; TEMP 36.4–36.8; O2SAT 92–95; BMI 37.2
[2022-12-05 06:50] LABS: Basophils % 0.3 %; Eosinophils # 0.3 10^3/uL (0.0-0.8); Hematocrit 32.5 % (42.0-52.0); Hemoglobin 10.1 g/dL (11.7-16.6); Lymphocytes # 1.9 10^3/uL (0.8-4.8); Lymphocytes % 14.1 %; Mean Corpuscular HGB Conc 31.1 g/dL (30.0-36.0); Mean Corpuscular Volume 93.4 fl (80-94); Mean Platelet Volume 10.3 fL (7.4-10.4); Monocytes # 0.7 10^3/uL (0.2-0.9); Monocytes % 5.2 %; Neutrophils % 76.1 %; Nucleated Red Blood Cells % 0 %; Platelet Count 294 10^3/cmm (130-400); Red Blood Count 3.48 10^6/uL (4.1-5.3); Red Cell Distribution Width 16.1 % (12.1-15.1); White Blood Count 13.8 10^3/uL (4.0-10.0)
[2022-12-05 07:27] LABS: Alanine Aminotransferase 12 U/L (0-41); Albumin Level 2.4 g/dL (3.5-5.2); Alkaline Phosphatase 121 U/L (40-130); Anion Gap 11.2 (5-19); Aspartate Amino Transferase 16 U/L (0-40); Blood Urea Nitrogen 28 mg/dL (8-23); Calcium 8.3 mg/dL (8.5-10.5); Carbon Dioxide 30 mmol/L (22-29); Chloride 102 mmol/L (98-107); Globulin 3.6 g/dL (1.3-4.6); Glucose 122 mg/dL (65-115); Magnesium 1.8 mg/dL (1.7-2.3); NT Pro B Type Natriuretic Pept 545 pg/mL (0-450); Osmolality Calculated 295 mOsm/kg (285-295); Phosphorus 2.6 mg/dL (2.5-4.5); Potassium 4.2 mmol/L (3.5-5.1); Sodium 139 mmol/L (136-145); Total Bilirubin 0.6 mg/dL (0.15-1.2)
[2022-12-05] MEDS: budesonide 0.5 mg/2 mL Neb INHALATION ×2 (08:31→20:15)
[2022-12-05] MEDS: ipratropium-albuterol 3 mL Neb INHALATION (08:31)
[2022-12-05] MEDS: doxycycline 100 mg Tablet PO ×2 (10:02→18:40)
[2022-12-05] MEDS: aspirin 81 mg EC Tablet PO (10:02)
[2022-12-05] MEDS: magnesium oxide 400 mg tablet PO ×2 (10:03→18:40)
[2022-12-05] MEDS: sucralfate 1 gm Tablet PO ×2 (10:03→21:26)
[2022-12-05] MEDS: potassium chloride ER 20 mEq Tablet PO (10:03)
[2022-12-05] MEDS: amlodipine 10 mg Tablet PO (10:04)
[2022-12-05] MEDS: pantoprazole DR 40 mg Tablet PO ×2 (10:04→18:40)
--- NOTE | 2022-12-05 14:09 | PM.PN ---
Subjective Subjective: Patient was seen this morning, no fevers, no chills, no cough Vitals/I&O/Wt Last Vital Signs Temp 97.9 F 12/05/22 12:00 Pulse 82 12/05/22 12:00 Resp 17 12/05/22 12:00 BP 113/64 12/05/22 12:00 Pulse Ox 94 12/05/22 12:00 O2 Del Method Room Air 12/05/22 12:00 O2 Flow Rate 2 12/04/22 21:35 FiO2 30 11/28/22 04:51 12/04/22 12/05/22 12/05/22 22:59 06:59 14:59 Intake Total 480 / 1200 720 / 720 Output Total 1900 / 1900 400 / 2300 Balance -1420 / -700 -400 / -1100 720 / 720 Weight last 48 hrs Weight 119.023 kg Physical Exam Const: COMMON NORMALS: no acute distress and patient oriented x3 Resp: COMMON NORMALS: normal respiratory effort, No retractions, No use of accessory muscles and clear to auscultation bilaterally AUSCULTATION: clear to auscultation bilaterally Cardio: COMMON NORMALS: regular rate, regular rhythm, S1 normal heart sound present and S2 normal heart sound present RATE: regular rate RHYTHM: regular rhythm HEART SOUNDS: S1 normal heart sound present and S2 normal heart sound present GI: COMMON NORMALS: Normal to inspection, nondistended, normoactive bowel sounds present and non-tender Extremity: COMMON NORMALS: no pedal edema Neuro: COMMON NORMALS: patient oriented x3 Psych: COMMON NORMALS: mental status grossly normal Urinary Catheter Management: Thomson: Cath Placed During This Visit: yes Reason for Continuing Indwelling Catheter: Acute Urinary Retention or Obstruction Urinary Catheter Date of Insertion: 11/21/22 Urinary Catheter Time of Insertion: 12:13 Data 12/05/22 06:37 12/05/22 06:37 A&P Assessment and plan (1) Diarrhea: (2) Hypokalemia: (3) MRSA pneumonia: (4) Hypoxia: (5) Goals of care, counseling/discussion: (6) Hypernatremia: (7) Septic shock: (8) NSTEMI (non-ST elevated myocardial infarction): (9) Sepsis: (10) Elevated troponin: (11) Lymphedema: (12) PVD (peripheral vascular disease): (13) Acute encephalopathy: (14) Aspiration pneumonia: (15) Systolic CHF: (16) Hypomagnesemia: (17) Swelling of left hand: (18) Acute anemia: (19) GI bleed: (20) Iron deficiency anemia: (21) Acute respiratory failure with hypoxia: (22) Pneumonia due to COVID-19 virus: (23) Muscular deconditioning: Plan 87-year-old male resident of [facility], presented with altered mental status shortness of breath, dehydration, at the time of my admission CODE STATUS was discussed he was made DNR/DNI, his breathing status improved significantly with use of BiPAP, as per the son this time this is the most lucid condition of his father that they are able to communicate, as per the son patient was confused and [facility] they had concerns with [facility] now wants to change his penitentiary, he has been accepted going through prior authorization, patient has been diagnosed with MRSA pneumonia, he recovered well from septic shock, metabolic encephalopathy improved, patient seems to have a new baseline mentation, he requires verbal clues when he is eating, otherwise able to answer most of the questions, he is doing well on room air, getting antibiotics for MRSA pneumonia, however 11/26/2022 patient developed fevers, placed on BiPAP due to increased work of breathing concerns for pneumonia, respiratory failure, that he was moved down to ICU due to hypotension COVID-19 pneumonia, resolved -Highly suspicious that patient either has a reinfection, or persistent infection from her prior COVID-19 infection -COVID-19 positive -Has complaints of shortness of breath weakness fatigue and tiredness -On 11/26/2022, he developed fevers, placed on BiPAP, due to a concerns for respiratory failure, hypotension, requiring Levophed -He also had a ER visit on 11/16/2022 for left upper lob subsegmental pulmonary emboli, his D-dimer is increased, CT of the chest did show focal area of groundglass density in the posterior segment of the right upper lobe -Due to persistent shortness of breath, fevers, hypercoagulability, respiratory failure, is highly likely that patient's persistent shortness of breath, is from COVID-19 pneumonia -I discussed this in detail with patient, he voiced understanding, all questions answered -Completed remdesivir, Decadron here in clinic -Follow blood cultures, sputum cultures, so far negative -Likely discharge once accepted to [facility] facility Acute hypoxic respiratory failure, resolved -Secondary to history of possible pulmonary embolism, COVID pneumonia -With prior history of MRSA pneumonia -I was concerned for aspiration pneumonia, however chest x-ray this morning does not show any upper lobe infiltrates, he tolerated dysphagia diet well work with speech therapy, no choking or coughing episodes thus felt to be less likely, did have infiltrates in left upper lobe -Monitor respiratory status -Continue BiPAP Septic shock and metabolic encephalopathy related to MRSA pneumonia: Resolved -Off pressors -De-escalate to doxycycline History of possible pulmonary embolism, resolved -Patient presented to the emergency room on 11/16/2022, he was positive for COVID, found to have a left upper lobe subsegmental filling defect suspicious for thrombus however differential diagnosis is mixing artifact, was placed on Eliquis -Here his D-dimer is elevated at 6.93, elevated troponins -Therapeutic Lovenox discontinued due to anemia of 7.0, requiring 1 unit PRBC -Venous ultrasound negative for DVT -As patient is developed anemia he potentially will not be a great candidate for anticoagulation, hemoglobin remains low at 8.5, repeat CT angiogram of the chest no large pulm emboli, but segmental and subsegmental pulmonary arteries are not visualized well enough to exclude pulmonary emboli due to respiratory motion -Discussed risk and benefits of anticoagulation and IVC filter, he voiced understanding, all questions answered, declined for now Swelling of left hand, venous ultrasound, negative for DVT, monitor, x-ray negative for fracture, swelling has improved, resolved Aspiration pneumonias concern, aspiration precautions, speech therapy eval, dysphagia diet, resolved Hypomagnesemia, monitor LAKEISHA related to sepsis: Resolving NSTEMI: Resolved -Type I versus type II -Does have sepsis, septic shock as above from pneumonia -Has no chest pain complaints -Echo unremarkable other than EF 40%, 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 -Serial EKGs, serial troponins, telemetry monitoring Systolic CHF exacerbation, fluid overload -Patient is -5 L -On room air -BNP is elevated, does have some mild pitting edema -1 dose Lasix today Fluctuant mentation with possible underlying dementia, resolved Patient seems to be well oriented, communicative, Will monitor Has evidence of acute anemia, iron deficiency anemia -Possible slow GI bleed -Possibly related to sepsis -Hemoglobin 7.1 on therapeutic Lovenox status post 1 unit PRBC, repeat hemoglobin 9.7, Lovenox on hold -Protonix, Carafate -Monitor hemoglobin closely Dehydration related hyponatremia Resolving He seems to have dysphagia due to his muscle weakness CT head unremarkable I do not see any focal deficits He will need speech therapy Peripheral vascular disease: No acute signs of vascular compromise Diarrhea: Improved C. difficile ruled out, responded to Imodium disPosition: SNF long-term placement DNR/DNI, son okay with vasopressors and medical management in ICU and BiPAP Muscular deconditioning High risk for readmission secondary to poor intake, fluctuant mentation Plan for today PT OT, switch to p.o. Lasix, up out of bed, plan on discharge planning Attestations Medical Necessity Statement*: Patient requires hospitalization for fluid overload requiring further diuresis Diagnoses Diarrhea R19.7 Hypokalemia E87.6 MRSA pneumonia J15.212 Hypoxia R09.02 Goals of care, counseling/discussion Z71.89 Hypernatremia E87.0 Septic shock A41.9; R65.21 NSTEMI (non-ST elevated myocardial infarction) I21.4 Sepsis A41.9 Elevated troponin R77.8 Lymphedema I89.0 PVD (peripheral vascular disease) I73.9 Acute encephalopathy G93.40 Aspiration pneumonia J69.0 Systolic CHF I50.20 Hypomagnesemia E83.42 Swelling of left hand M79.89 Acute anemia D64.9 GI bleed K92.2 Iron deficiency anemia D50.9 Acute respiratory failure with hypoxia J96.01 Pneumonia due to COVID-19 virus U07.1; J12.82 Muscular deconditioning R29.898
[2022-12-06] VITALS (12 sets, daily range): BP systolic 102–125; BP diastolic 45–78; PULSE 77–88; RESP 16–23; TEMP 36.6–37.7; O2SAT 90–94
[2022-12-06 06:48] LABS: Basophils % 0.2 %; Eosinophils # 0.2 10^3/uL (0.0-0.8); Eosinophils % 1.5 %; Hematocrit 31.6 % (42.0-52.0); Hemoglobin 9.6 g/dL (11.7-16.6); Lymphocytes # 1.4 10^3/uL (0.8-4.8); Lymphocytes % 9.7 %; Mean Corpuscular HGB Conc 30.4 g/dL (30.0-36.0); Mean Corpuscular Hemoglobin 28.8 pg (28.0-34.0); Mean Corpuscular Volume 94.9 fl (80-94); Mean Platelet Volume 10.4 fL (7.4-10.4); Neutrophils # 11.46 10^3/uL (1.8-7.7); Neutrophils % 80.2 %; Nucleated Red Blood Cells % 0 %; Platelet Count 257 10^3/cmm (130-400); Red Blood Count 3.33 10^6/uL (4.1-5.3); Red Cell Distribution Width 16.1 % (12.1-15.1); White Blood Count 14.3 10^3/uL (4.0-10.0)
[2022-12-06 07:14] LABS: Alanine Aminotransferase 10 U/L (0-41); Albumin Level 2.2 g/dL (3.5-5.2); Alkaline Phosphatase 113 U/L (40-130); Anion Gap 13.2 (5-19); Aspartate Amino Transferase 13 U/L (0-40); Blood Urea Nitrogen 24 mg/dL (8-23); Calcium 8.3 mg/dL (8.5-10.5); Carbon Dioxide 27 mmol/L (22-29); Chloride 100 mmol/L (98-107); Globulin 3.5 g/dL (1.3-4.6); Glucose 128 mg/dL (65-115); Magnesium 1.7 mg/dL (1.7-2.3); NT Pro B Type Natriuretic Pept 575 pg/mL (0-450); Osmolality Calculated 288 mOsm/kg (285-295); Phosphorus 2.6 mg/dL (2.5-4.5); Potassium 4.2 mmol/L (3.5-5.1); Sodium 136 mmol/L (136-145); Total Bilirubin 0.7 mg/dL (0.15-1.2); Total Protein 5.7 g/dL (6.6-8.7)
[2022-12-06] MEDS: budesonide 0.5 mg/2 mL Neb INHALATION (08:56)
[2022-12-06] MEDS: doxycycline 100 mg Tablet PO ×2 (09:51→17:37)
[2022-12-06] MEDS: magnesium oxide 400 mg tablet PO ×2 (09:51→17:36)
[2022-12-06] MEDS: amoxicillin-clav 875-125 mg Tablet 1 TAB PO ×2 (09:51→17:36)
[2022-12-06] MEDS: aspirin 81 mg EC Tablet PO (09:52)
[2022-12-06] MEDS: amlodipine 10 mg Tablet PO (09:52)
[2022-12-06] MEDS: FUROsemide 40 mg Tablet PO (09:52)
[2022-12-06] MEDS: sucralfate 1 gm Tablet PO ×2 (09:52→20:44)
[2022-12-06] MEDS: potassium chloride ER 20 mEq Tablet PO (09:52)
[2022-12-06] MEDS: pantoprazole DR 40 mg Tablet PO ×2 (09:52→17:37)
--- NOTE | 2022-12-06 11:38 | PC.SOCIAL ---
IMM Updated Updated pt on IMM. No questions voiced. Provided pt a copy. Initialed, dated, & timed copy in chart.
--- NOTE | 2022-12-06 13:19 | P.PN_ITS ---
Subjective Subjective: Patient was seen this morning, denies any fevers, no chills, no nausea, vomiting, he is on room air, afebrile Vitals/I&O/Wt Last Vital Signs Temp 98.1 F 12/06/22 11:57 Pulse 82 12/06/22 11:57 Resp 20 H 12/06/22 11:57 BP 124/65 12/06/22 11:57 Pulse Ox 94 12/06/22 11:57 O2 Del Method Room Air 12/06/22 11:57 O2 Flow Rate 2 12/04/22 21:35 FiO2 30 11/28/22 04:51 12/05/22 12/06/22 12/06/22 22:59 06:59 14:59 Intake Total 480 / 1200 120 / 1320 120 / 120 Output Total 700 / 700 475 / 475 Balance -220 / 500 120 / 620 -355 / -355 Weight last 48 hrs Weight 116.528 kg Weight 117.594 kg Physical Exam Const: COMMON NORMALS: no acute distress and patient oriented x3 Resp: COMMON NORMALS: normal respiratory effort, No retractions, No use of accessory muscles and clear to auscultation bilaterally AUSCULTATION: clear to auscultation bilaterally Cardio: COMMON NORMALS: regular rate, regular rhythm, S1 normal heart sound present and S2 normal heart sound present RATE: regular rate RHYTHM: regular rhythm HEART SOUNDS: S1 normal heart sound present and S2 normal heart sound present GI: COMMON NORMALS: Normal to inspection, nondistended, normoactive bowel s ounds present and non-tender Extremity: COMMON NORMALS: no pedal edema Neuro: COMMON NORMALS: patient oriented x3 Psych: COMMON NORMALS: mental status grossly normal Urinary Catheter Management: Thomson: Cath Placed During This Visit: yes Reason for Continuing Indwelling Catheter: Acute Urinary Retention or Obstruction Urinary Catheter Date of Insertion: 11/21/22 Urinary Catheter Time of Insertion: 12:13 Data 12/06/22 06:32 12/06/22 06:32 A&P Assessment and plan (1) Diarrhea: (2) Hypokalemia: (3) MRSA pneumonia: (4) Hypoxia: (5) Goals of care, counseling/discussion: (6) Hypernatremia: (7) Septic shock: (8) NSTEMI (non-ST elevated myocardial infarction): (9) Sepsis: (10) Elevated troponin: (11) Lymphedema: (12) PVD (peripheral vascular disease): (13) Acute encephalopathy: (14) Aspiration pneumonia: (15) Systolic CHF: (16) Hypomagnesemia: (17) Swelling of left hand: (18) Acute anemia: (19) GI bleed: (20) Iron deficiency anemia: (21) Acute respiratory failure with hypoxia: (22) Pneumonia due to COVID-19 virus: (23) Muscular deconditioning: (24) Deep tissue injury: Plan 87-year-old male resident of [facility], presented with altered mental status shortness of breath, dehydration, at the time of my admission CODE STATUS was discussed he was made DNR/DNI, his breathing status improved significantly with use of BiPAP, as per the son this time this is the most lucid condition of his father that they are able to communicate, as per the son patient was confused and [facility] they had concerns with [facility] now wants to change his penitentiary, he has been accepted going through prior authorization, patient has been diagnosed with MRSA pneumonia, he rec overed well from septic shock, metabolic encephalopathy improved, patient seems to have a new baseline mentation, he requires verbal clues when he is eating, otherwise able to answer most of the questions, he is doing well on room air, getting antibiotics for MRSA pneumonia, however 11/26/2022 patient developed fevers, placed on BiPAP due to increased work of breathing concerns for pneumonia, respiratory failure, that he was moved down to ICU due to hypotension COVID-19 pneumonia, resolved -Highly suspicious that patient either has a reinfection, or persistent infection from her prior COVID-19 infection -COVID-19 positive -Has complaints of shortness of breath weakness fatigue and tiredness -On 11/26/2022, he developed fevers, placed on BiPAP, due to a concerns for respiratory failure, hypotension, requiring Levophed -He also had a ER visit on 11/16/2022 for left upper lob subsegmental pulmonary emboli, his D-dimer is increased, CT of the chest did show focal area of groundglass density in the posterior segment of the right upper lobe -Due to persistent shortness of breath, fevers, hypercoagulability, respiratory failure, is highly likely that patient's persistent shortness of breath, is from COVID-19 pneumonia -I discussed this in detail with patient, he voiced understanding, all questions answered -Completed remdesivir, Decadron here in clinic -Follow blood cultures, sputum cultures, so far negative -Likely discharge once accepted to senior care facility Acute hypoxic respiratory failure, resolved -Secondary to history of possible pulmonary embolism, COVID pneumonia -With prior history of MRSA pneumonia -I was concerned for aspiration pneumonia, however chest x-ray this morning does not show any upper lobe infiltrates, he tolerated dysphagia diet well work with speech therapy, no choking or coughing episodes thus felt to be less likely, did have infiltrates in left upper lobe -Monitor respiratory status -Continue BiPAP Septic shock and metabolic encephalopathy related to MRSA pneumonia: Resolved -Off pressors -De-escalate to doxycycline History of possible pulmonary embolism, resolved -Patient presented to the emergency room on 11/16/2022, he was positive for COVID, found to have a left upper lobe subsegmental filling defect suspicious for thrombus however differential diagnosis is mixing artifact, was placed on Eliquis -Here his D-dimer is elevated at 6.93, elevated troponins -Therapeutic Lovenox discontinued due to anemia of 7.0, requiring 1 unit PRBC -Venous ultrasound negative for DVT -As patient is developed anemia he potentially will not be a great candidate for anticoagulation, hemoglobin remains low at 8.5, repeat CT angiogram of the chest no large pulm emboli, but segmental and subsegmental pulmonary arteries are not visualized well enough to exclude pulmonary emboli due to respiratory motion -Discussed risk and benefits of anticoagulation and IVC filter, he voiced understanding, all questions answered, declined for now Swelling of left hand, venous ultrasound, negative for DVT, monitor, x-ray negative for fracture, swelling has improved, resolved Aspiration pneumonias concern, aspiration precautions, speech therapy eval, dysp hagia diet, resolved Hypomagnesemia, monitor [place]HA related to sepsis: Resolving NSTEMI: Resolved -Type I versus type II -Does have sepsis, septic shock as above from pneumonia -Has no chest pain complaints -Echo unremarkable other than EF 40%, 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 -Serial EKGs, serial troponins, telemetry monitoring Systolic CHF exacerbation, fluid overload -Patient is -5 L -On room air -BNP is elevated, does have some mild pitting edema -1 dose Lasix today Fluctuant mentation with possible underlying dementia, resolved Patient seems to be well oriented, communicative, Will monitor Has evidence of acute anemia, iron deficiency anemia -Possible slow GI bleed -Possibly related to sepsis -Hemoglobin 7.1 on therapeutic Lovenox status post 1 unit PRBC, repeat hemoglobin 9.7, Lovenox on hold -Protonix, Carafate -Monitor hemoglobin closely Dehydration related hyponatremia Resolving He seems to have dysphagia due to his muscle weakness CT head unremarkable I do not see any focal deficits He will need speech therapy Peripheral vascular disease: No acute signs of vascular compromise Diarrhea: Improved C. difficile ruled out, responded to Imodium disPosition: SNF long-term placement DNR/DNI, son okay with vasopressors and medical management in ICU and BiPAP Muscular deconditioning High risk for readmission secondary to poor intake, fluctuant mentation Deep tissue injury, over sacrum, measuring 1 x 1 cm, likely source of leukocytosis, antibiotics as above, wound care Leukocytosis, afebrile, monitor possibly secondary to deep tissue injury Plan for today PT OT, switch to p.o. Lasix, up out of bed, plan on discharge planning Attestations Medical Necessity Statement*: Patient requires hospitalization, for leukocytosis, fluid overload, likely sacral DTI Diagnoses Diarrhea R19.7 Hypokalemia E87.6 MRSA pneumonia J15.212 Hypoxia R09.02 Goals of care, counseling/discussion Z71.89 Hypernatremia E87.0 Septic shock A41.9; R65.21 NSTEMI (non-ST elevated myocardial infarction) I21.4 Sepsis A41.9 Elevated troponin R77.8 Lymphedema I89.0 PVD (peripheral vascular disease) I73.9 Acute encephalopathy G93.40 Aspiration pneumonia J69.0 Systolic CHF I50.20 Hypomagnesemia E83.42 Swelling of left hand M79.89 Acute anemia D64.9 GI bleed K92.2 Iron deficiency anemia D50.9 Acute respiratory failure with hypoxia J96.01 Pneumonia due to COVID-19 virus U07.1; J12.82 Muscular deconditioning R29.898 Deep tissue injury T14.8XXA
[2022-12-07] VITALS (9 sets, daily range): BP systolic 104–120; BP diastolic 50–68; PULSE 68–87; RESP 16–20; TEMP 36.6–37.5; O2SAT 92–95
--- NOTE | 2022-12-07 02:40 | PC.NURSE ---
Patient incontinent. Unable to measure urine output.
[2022-12-07] MEDS: acetaminophen 500 mg Tablet PO ×3 (03:29→18:03)
[2022-12-07 06:16] LABS: Basophils % 0.1 %; Eosinophils # 0.4 10^3/uL (0.0-0.8); Eosinophils % 2.5 %; Hematocrit 28.3 % (42.0-52.0); Hemoglobin 8.8 g/dL (11.7-16.6); Lymphocytes # 1.5 10^3/uL (0.8-4.8); Lymphocytes % 10.4 %; Mean Corpuscular HGB Conc 31.1 g/dL (30.0-36.0); Mean Corpuscular Hemoglobin 29.2 pg (28.0-34.0); Mean Platelet Volume 10.5 fL (7.4-10.4); Monocytes # 1.1 10^3/uL (0.2-0.9); Monocytes % 7.6 %; Neutrophils % 78.4 %; Nucleated Red Blood Cells % 0 %; Platelet Count 222 10^3/cmm (130-400); Red Blood Count 3.01 10^6/uL (4.1-5.3); Red Cell Distribution Width 16.2 % (12.1-15.1); White Blood Count 14.3 10^3/uL (4.0-10.0)
[2022-12-07 06:35] LABS: Blood Urea Nitrogen 22 mg/dL (8-23); C Reactive Protein 130.9 mg/L (0.0-4.9); Calcium 8.2 mg/dL (8.5-10.5); Carbon Dioxide 28 mmol/L (22-29); Chloride 98 mmol/L (98-107); Glucose 115 mg/dL (65-115); Magnesium 1.8 mg/dL (1.7-2.3); Osmolality Calculated 282 mOsm/kg (285-295); Sodium 134 mmol/L (136-145)
[2022-12-07 06:40] LABS: Procalcitonin 0.24 ng/mL (0-0.5)
[2022-12-07] MEDS: budesonide 0.5 mg/2 mL Neb INHALATION ×2 (08:56→21:50)
[2022-12-07 09:03] LABS: Alanine Aminotransferase 8 U/L (0-41); Albumin Level 2.1 g/dL (3.5-5.2); Alkaline Phosphatase 104 U/L (40-130); Aspartate Amino Transferase 12 U/L (0-40); Gamma Glutamyl Transferase 21 U/L (8-61); Globulin 3.4 g/dL (1.3-4.6); Lipase 10 U/L (13-60); Total Bilirubin 0.7 mg/dL (0.15-1.2); Total Protein 5.5 g/dL (6.6-8.7)
[2022-12-07] MEDS: amlodipine 10 mg Tablet PO (11:17)
[2022-12-07] MEDS: aspirin 81 mg EC Tablet PO (11:17)
[2022-12-07] MEDS: magnesium oxide 400 mg tablet PO ×2 (11:17→18:03)
[2022-12-07] MEDS: doxycycline 100 mg Tablet PO ×2 (11:18→18:03)
[2022-12-07] MEDS: sucralfate 1 gm Tablet PO ×2 (11:18→19:51)
[2022-12-07] MEDS: pantoprazole DR 40 mg Tablet PO ×2 (11:18→18:03)
[2022-12-07] MEDS: FUROsemide 40 mg Tablet PO (11:18)
[2022-12-07] MEDS: potassium chloride ER 20 mEq Tablet PO (11:18)
[2022-12-07] MEDS: amoxicillin-clav 875-125 mg Tablet 1 TAB PO ×2 (11:18→18:02)
--- NOTE | 2022-12-07 13:48 | XRR_ITS ---
PROCEDURE INFORMATION: Exam: XR Chest Exam date and time: 12/07/2022 12:54 PM Age: 87 years old Clinical indication: Shortness of breath; Additional info: SOB TECHNIQUE: Imaging protocol: Radiologic exam of the chest. Views: 1 view. COMPARISON: CR (CHEST, ) 11/28/2022 9:54 AM FINDINGS: Lungs: See Heart/Mediastinum finding. Pleural spaces: See Heart/Mediastinum finding. Heart/Mediastinum: [id number] cardiomegaly. Suggestion of interval decreased opacity left lung base with prior exam. Mild residual opacity left lung base likely reflecting residual mild effusion with atelectasis. Mild pulmonary vascular congestion without overt pulmonary edema. No consolidation within the lungs, otherwise. No pneumothorax is seen. Interval removal of right internal jugular central venous catheter since prior exam. Bones/joints: Worley rods again noted within the lower thoracic and visualized upper lumbar spine. XR/XR chest 1V portable [id number] IMPRESSION: 1. Interval decrease or improvement in opacity in the left lung base with prior exam though incompletely resolved, as noted above. 2. [id number] cardiomegaly. 3. Mild pulmonary vascular congestion.
--- NOTE | 2022-12-07 14:35 | P.PN_ITS ---
Subjective Subjective: Patient was seen this morning, he is frustrated about being here in the hospital, frustrated about his longterm situation, he tells me that he likes his physician Dr. Ariza, and wondering if there is any way Dr. Ariza can help with the situation, no fevers reported, no cough reported, no chills reported, no nausea, vomiting, abdominal pain, no new rashes, I did discuss with him his sacral DTI as a source of his elevated white count, Vitals/I&O/Wt Last Vital Signs Temp 98.3 F 12/07/22 12:00 Pulse 72 12/07/22 12:00 Resp 17 12/07/22 12:00 BP 111/68 12/07/22 12:00 Pulse Ox 95 12/07/22 12:00 O2 Del Method Room Air 12/07/22 12:00 O2 Flow Rate 2 12/07/22 08:00 FiO2 30 11/28/22 04:51 12/06/22 12/07/22 12/07/22 22:59 06:59 14:59 Intake Total 360 / 600 120 / 720 236 / 236 Output Total 100 / 1225 100 / 1325 Balance 260 / -625 20 / -605 236 / 236 Weight last 48 hrs Weight 120.202 kg Weight 116.528 kg Physical Exam Const: COMMON NORMALS: no acute distress and patient oriented x3 Resp: COMMON NORMALS: normal respiratory effort, No retractions, No use of accessory muscles and clear to auscultation bilaterally AUSCULTATION: clear to auscultation bilaterally Cardio: COMMON NORMALS: regular rate, regular rhythm, S1 normal heart sound present and S2 normal heart sound present RATE: regular rate RHYTHM: regular rhythm HEART SOUNDS: S1 normal heart sound present and S2 normal heart sound present GI: COMMON NORMALS: Normal to inspection, nondistended, normoactive bowel sounds present, non-tender and no bruits Extremity: COMMON NORMALS: no pedal edema Neuro: COMMON NORMALS: patient oriented x3 Psych: COMMON NORMALS: mental status grossly normal Urinary Catheter Management: Thomson: Cath Placed During This Visit: yes, but has since been removed by the nurse Reason for Continuing Indwelling Catheter: Decision to DC Catheter Urinary Catheter Date of Insertion: 11/21/22 Urinary Catheter Time of Insertion: 12:13 Date Urinary Catheter Removed: 12/06/22 Time Urinary Catheter Discontinued: 17:51 Data 12/07/22 06:06 12/07/22 06:06 A&P Assessment and plan (1) Diarrhea: (2) Hypokalemia: (3) MRSA pneumonia: (4) Hypoxia: (5) Goals of care, counseling/discussion: (6) Hypernatremia: (7) Septic shock: (8) NSTEMI (non-ST elevated myocardial infarction): (9) Sepsis: (10) Elevated troponin: (11) Lymphedema: (12) PVD (peripheral vascular disease): (13) Acute encephalopathy: (14) Aspiration pneumonia: (15) Systolic CHF: (16) Hypomagnesemia: (17) Swelling of left hand: (18) Acute anemia: (19) GI bleed: (20) Iron deficiency anemia: (21) Acute respiratory failure with hypoxia: (22) Pneumonia due to COVID-19 virus: (23) Muscular deconditioning: (24) Deep tissue injury: Plan 87-year-old male resident of [facility], presented with altered mental status shortness of breath, dehydration, at the time of my admission CODE STATUS was discussed he was made DNR/DNI, his breathing status improved significantly with use of BiPAP, as per the son this time this is the most lucid condition of his father that they are able to communicate, as per the son patient was confused and obtunded for about 2 weeks at the longterm they had concerns with [facility] now wants to change his longterm, he has been accepted going through prior authorization, patient has been diagnosed with MRSA pneumonia, he re covered well from septic shock, metabolic encephalopathy improved, patient seems to have a new baseline mentation, he requires verbal clues when he is eating, otherwise able to answer most of the questions, he is doing well on room air, getting antibiotics for MRSA pneumonia, however 11/26/2022 patient developed fevers, placed on BiPAP due to increased work of breathing concerns for pneumonia, respiratory failure, that he was moved down to ICU due to hypotension COVID-19 pneumonia, resolved -Highly suspicious that patient either has a reinfection, or persistent infection from her prior COVID-19 infection -COVID-19 positive -Has complaints of shortness of breath weakness fatigue and tiredness -On 11/26/2022, he developed fevers, placed on BiPAP, due to a concerns for respiratory failure, hypotension, requiring Levophed -He also had a ER visit on 11/16/2022 for left upper lob subsegmental pulmonary emboli, his D-dimer is increased, CT of the chest did show focal area of groundglass density in the posterior segment of the right upper lobe -Due to persistent shortness of breath, fevers, hypercoagulability, respiratory failure, is highly likely that patient's persistent shortness of breath, is from COVID-19 pneumonia -I discussed this in detail with patient, he voiced understanding, all questions answered -Completed remdesivir, Decadron here in clinic -Follow blood cultures, sputum cultures, so far negative -Likely discharge once accepted to [facility] facility Acute hypoxic respiratory failure, resolved -Secondary to history of possible pulmonary embolism, COVID pneumonia -With prior history of MRSA pneumonia -I was concerned for aspiration pneumonia, however chest x-ray this morning does not show any upper lobe infiltrates, he tolerated dysphagia diet well work with speech therapy, no choking or coughing episodes thus felt to be less likely, did have infiltrates in left upper lobe -Monitor respiratory status -Continue BiPAP Septic shock and metabolic encephalopathy related to MRSA pneumonia: Resolved -Off pressors -De-escalate to doxycycline History of possible pulmonary embolism, resolved -Patient presented to the emergency room on 11/16/2022, he was positive for COVID, found to have a left upper lobe subsegmental filling defect suspicious for thrombus however differential diagnosis is mixing artifact, was placed on Eliquis -Here his D-dimer is elevated at 6.93, elevated troponins -Therapeutic Lovenox discontinued due to anemia of 7.0, requiring 1 unit PRBC -Venous ultrasound negative for DVT -As patient is developed anemia he potentially will not be a great candidate for anticoagulation, hemoglobin remains low at 8.5, repeat CT angiogram of the chest no large pulm emboli, but segmental and subsegmental pulmonary arteries are not visualized well enough to exclude pulmonary emboli due to respiratory motion -Discussed risk and benefits of anticoagulation and IVC filter, he voiced understanding, all questions answered, declined for now Swelling of left hand, venous ultrasound, negative for DVT, monitor, x-ray negative for fracture, swelling has improved, resolved Aspiration pneumonias concern, aspiration precautions, speech therapy eval, dys phagia diet, resolved Hypomagnesemia, resolved [place] related to sepsis: Resolved NSTEMI: Resolved -Type I versus type II -Does have sepsis, septic shock as above from pneumonia -Has no chest pain complaints -Echo unremarkable other than EF 40%, 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 -Serial EKGs, serial troponins, telemetry monitoring Systolic CHF exacerbation, resolved -On room air -BNP is elevated, does have some mild pitting edema -1 dose Lasix today Fluctuant mentation with possible underlying dementia, resolved Patient seems to be well oriented, communicative, Will monitor Has evidence of acute anemia, iron deficiency anemia, resolving -Possible slow GI bleed -Possibly related to sepsis -Hemoglobin 7.1 on therapeutic Lovenox status post 1 unit PRBC, repeat hemoglobin 9.7, Lovenox on hold -Protonix, Carafate -Monitor hemoglobin closely Dehydration related hyponatremia, resolved Resolving He seems to have dysphagia due to his muscle weakness CT head unremarkable I do not see any focal deficits He will need speech therapy Peripheral vascular disease: No acute signs of vascular compromise Diarrhea: Improved C. difficile ruled out, responded to Imodium disPosition: SNF long-term placement DNR/DNI, son okay with vasopressors and medical management in ICU and BiPAP Muscular deconditioning High risk for readmission secondary to poor intake, fluctuant mentation Deep tissue injury, over sacrum, measuring 1 x 1 cm, likely source of leukocytosis, antibiotics as above, wound care Leukocytosis, afebrile, monitor possibly secondary to deep tissue injury, elevated CRP, will reobtain urine culture, repeat chest x-ray Plan for today PT OT, switch to p.o. Lasix, follow-up for fevers, chest x-ray, urine cultures, recommended for him to get up out of bed, into a chair, chest x- ray, urinalysis, Attestations Medical Necessity Statement*: Patient requires hospitalization for persistent leukocytosis, DTI, Diagnoses Diarrhea R19.7 Hypokalemia E87.6 MRSA pneumonia J15.212 Hypoxia R09.02 Goals of care, counseling/discussion Z71.89 Hypernatremia E87.0 Septic shock A41.9; R65.21 NSTEMI (non-ST elevated myocardial infarction) I21.4 Sepsis A41.9 Elevated troponin R77.8 Lymphedema I89.0 PVD (peripheral vascular disease) I73.9 Acute encephalopathy G93.40 Aspiration pneumonia J69.0 Systolic CHF I50.20 Hypomagnesemia E83.42 Swelling of left hand M79.89 Acute anemia D64.9 GI bleed K92.2 Iron deficiency anemia D50.9 Acute respiratory failure with hypoxia J96.01 Pneumonia due to COVID-19 virus U07.1; J12.82 Muscular deconditioning R29.898 Deep tissue injury T14.8XXA
[2022-12-07 18:00] LABS: Add Urine Microscopic? YES; Bacteria Urine TRACE /hpf; Bilirubin Urine Neg (Negative); Blood Urine 2+ (Negative); Glucose Urine UA Norm (Normal); Ketones Urine Negative (Negative); Leukocyte Esterase Urine 2+ (Negative); Nitrate Urine Negative (Negative); Protein Urine Neg (Negative); Squamous Epithelial Cell Urine 15-25 /hpf (0-5); Urine Appearance Cloudy (CLEAR); Urine Color Yellow (Yellow); Urobilinogen Urine Norm (Negative); WBC Urine 55-80 /hpf (0-5); pH Urine 7 (5-7)
[2022-12-07 18:01] LABS: Add Urine Culture? No
[2022-12-08] VITALS (8 sets, daily range): BP systolic 119–132; BP diastolic 56–74; PULSE 73–82; RESP 16–18; TEMP 36.8–37.1; O2SAT 92–95
[2022-12-08 04:55] LABS: Basophils % 0.3 %; Eosinophils # 0.5 10^3/uL (0.0-0.8); Eosinophils % 3.9 %; Lymphocytes # 1.1 10^3/uL (0.8-4.8); Lymphocytes % 8.5 %; Mean Corpuscular Hemoglobin 29.2 pg (28.0-34.0); Mean Corpuscular Volume 94.2 fl (80-94); Mean Platelet Volume 10.7 fL (7.4-10.4); Monocytes # 0.9 10^3/uL (0.2-0.9); Monocytes % 6.9 %; Neutrophils # 10.27 10^3/uL (1.8-7.7); Neutrophils % 79.4 %; Nucleated Red Blood Cells % 0 %; Platelet Count 243 10^3/cmm (130-400); Red Blood Count 3.08 10^6/uL (4.1-5.3); Red Cell Distribution Width 16.2 % (12.1-15.1); White Blood Count 12.9 10^3/uL (4.0-10.0)
[2022-12-08 05:12] LABS: Anion Gap 10.2 (5-19); Blood Urea Nitrogen 22 mg/dL (8-23); C Reactive Protein 126.1 mg/L (0.0-4.9); Calcium 8.3 mg/dL (8.5-10.5); Carbon Dioxide 29 mmol/L (22-29); Chloride 100 mmol/L (98-107); Glucose 111 mg/dL (65-115); Magnesium 1.8 mg/dL (1.7-2.3); Osmolality Calculated 284 mOsm/kg (285-295); Potassium 4.2 mmol/L (3.5-5.1); Sodium 135 mmol/L (136-145)
[2022-12-08 05:19] LABS: Procalcitonin 0.19 ng/mL (0-0.5)
[2022-12-08] MEDS: budesonide 0.5 mg/2 mL Neb INHALATION (08:56)
[2022-12-08] MEDS: aspirin 81 mg EC Tablet PO (09:59)
[2022-12-08] MEDS: pantoprazole DR 40 mg Tablet PO (09:59)
[2022-12-08] MEDS: sucralfate 1 gm Tablet PO (09:59)
[2022-12-08] MEDS: doxycycline 100 mg Tablet PO (09:59)
[2022-12-08] MEDS: potassium chloride ER 20 mEq Tablet PO (09:59)
[2022-12-08] MEDS: amlodipine 10 mg Tablet PO (09:59)
[2022-12-08] MEDS: FUROsemide 40 mg Tablet PO (09:59)
[2022-12-08] MEDS: magnesium oxide 400 mg tablet PO (09:59)
[2022-12-08] MEDS: ciprofloxacin 500 mg Tablet PO (09:59)
--- NOTE | 2022-12-08 11:00 | P.DS_ITS ---
Discharge Providers Date of Admission: 11/21/22 13:22 Date of Discharge: December 08, 2022 Attending Provider at Admission: Pramod Antonio MD Attending Provider at Discharge: Edwin Onofre MD Primary Care Provider: Miki Ariza MD Diagnoses at Discharge Discharge Diagnosis (1) Diarrhea: Status: Acute (2) Hypokalemia: Status: Acute (3) MRSA pneumonia: Status: Acute (4) Hypoxia: Status: Acute (5) Goals of care, counseling/discussion: Status: Acute (6) Hypernatremia: Status: Acute (7) Septic shock: Status: Acute (8) NSTEMI (non-ST elevated myocardial infarction): Status: Acute (9) Sepsis: Status: Acute (10) Elevated troponin: Status: Acute (11) Lymphedema: Status: Acute (12) PVD (peripheral vascular disease): Status: Acute (13) Acute encephalopathy: Status: Acute (14) Aspiration pneumonia: Status: Acute (15) Systolic CHF: Status: Acute (16) Hypomagnesemia: Status: Acute (17) Swelling of left hand: Status: Acute (18) Acute anemia: Status: Acute (19) GI bleed: Status: Acute (20) Iron deficiency anemia: Status: Acute (21) Acute respiratory failure with hypoxia: Status: Acute (22) Pneumonia due to COVID-19 virus: Status: Acute (23) Muscular deconditioning: Status: Acute (24) Deep tissue injury: Status: Acute Reason for Visit Reason for Visit: AMS Hospital Course Hospital Course Chuckie Gandhi is a 87 year old male who was sent from a senior living when he was found to be confused/obtunded.? In the ER he was in respiratory distress was put on BiPAP, troponin significantly high, ACS protocol initiated, son was called to address goals of care, he does not want intubation or chest compressions however agreeable for BiPAP, antibiotics central line placement, patient recently had back surgery and then suffered with UTI, it was partially treated.? Most of the information has been taken from the collaterals, patient is not able to provide any history.? He grimaces to pain withdraws to pain but does not open eyes or make eye contact he has been given septic bolus and antibiotics, lactic acid unremarkable, he does have acute on chronic kidney disease, hyponatremia, stat echo was requested approximate EF seems to be around 40 to 45% official read is pending, central line right IJ has been placed, blood pressure improving at the time of my evaluation, will give him albumin Patient had a prolonged hospital course, please look at my last progress note for further details Patient initially presented to [facility] due to altered mental status, shortness of breath, when he came in there was concerns for pneumonia, septic shock, metabolic encephalopathy, manner with antibiotic therapy, placed on BiPAP and monitored in the intensive care unit Patient got diagnosed with COVID-19 pneumonia, concerns for reinfection, with respiratory failure, requiring BiPAP, Levophed, septic shock, requiring Decadron, remdesivir, respiratory therapy management, broad-spectrum antibiotic therapy for concerns for site of bacterial infection. Overall patient clinically improved, moved to the general medical floors, completed 2 weeks of COVID-19 isolation, completed Decadron, remdesivir, discharged on room air For acute on chronic respiratory failure secondary to COVID-19 pneumonia, resolved He had septic shock during hospitalization with metabolic encephalopathy, likely second to COVID-19 pneumonia, secondary bacterial infection, resolved During his hospitalization there was concerns for history of possible pulmonary embolism -Patient presented to the emergency room on 11/16/2022, he was positive for COVID, found to have a left upper lobe subsegmental filling defect suspicious for thrombus however differential diagnosis is mixing artifact, was placed on Eliquis -Here his D-dimer is elevated at 6.93, elevated troponins -Managed with therapeutic Lovenox, however it had to be discontinued due to anemia of 7.0, requiring 1 unit PRBC -Venous ultrasound negative for DVT -As patient is developed anemia he potentially will not be a great candidate for anticoagulation, hemoglobin remained on the lower end, had evidence of iron deficiency anemia, repeat CT angiogram of the chest no large pulm emboli, but segmental and subsegmental pulmonary arteries are not visualized well enough to exclude pulmonary emboli due to respiratory motion -Discussed risk and benefits of anticoagulation and IVC filter, he voiced understanding, all questions answered, declined for anticoagulation and IVC filter -Continue to be mobile, monitor for hypercoagulability events Patient had swelling of his left hand, venous ultrasound negative for DVT, x-ray negative for fracture, continue repositioning, elevation Concerns for NSTEMI during hospitalization, likely type II supply/demand ischemia from sepsis, septic shock, COVID-19, echocardiogram showed EF of 40%, 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, follow with cardiology as outpatient, no chest pain complaints Had systolic CHF exacerbation during his hospitalization, was diuresed over 7 L, discharged on Lasix, potassium therapy, follow-up cardiology Patient had anemia during his hospitalization requiring 1 unit PRBC has evidence of iron deficiency anemia, possible slow GI bleed, anticoagulation discontinued as above managed with Protonix, Carafate hemoglobin on discharge was 9.0, follow-up with primary care provider, recheck hemoglobin as outpatient Patient had evidence of leukocytosis, later on his hospital mission likely suffered UTI, discharged on ciprofloxacin Patient has a deep tissue injury over his sacrum, likely another source of his leukocytosis, continue aggressive repositioning, wet-to-dry dressing, discharged on doxycycline, will need to monitor very closely due to concerns for risk of progression, and his relative immobility, Discharge to retirement facility Physical Exam Const: COMMON NORMALS: no acute distress and patient oriented x3 Resp: COMMON NORMALS: normal respiratory effort, No retractions, No use of accessory muscles and clear to auscultation bilaterally AUSCULTATION: clear to auscultation bilaterally Cardio: COMMON NORMALS: regular rate, regular rhythm, S1 normal heart sound present and S2 normal heart sound present RATE: regular rate RHYTHM: regular rhythm HEART SOUNDS: S1 normal heart sound present and S2 normal heart sound present GI: COMMON NORMALS: Normal to inspection, nondistended, normoactive bowel sounds present and non-tender Extremity: COMMON NORMALS: no pedal edema Neuro: COMMON NORMALS: patient oriented x3 Psych: COMMON NORMALS: mental status grossly normal Urinary Catheter Management: Thomson: Cath Placed During This Visit: yes, but has since been removed by the nurse Reason for Continuing Indwelling Catheter: Decision to DC Catheter Urinary Catheter Date of Insertion: 11/21/22 Urinary Catheter Time of Insertion: 12:13 Date Urinary Catheter Removed: 12/06/22 Time Urinary Catheter Discontinued: 17:51 Discharge Data Studies Completed and Pending Completed Studies During Hospitalization Category Date Time Status CT angio chest PE protcl [id number] Stat Cat Scan 11/30/22 07:[address] chest wo con [id number] Stat Cat Scan 11/26/22 20:[address] head wo con* [id number] Stat Cat Scan 11/21/22 11:[address] head wo con* [id number] Stat Cat Scan 11/26/22 19:46 Completed CXRP [XR chest 1V portable [id number]] Stat Exams 11/21/22 13:02 Completed XR chest 1V portable [id number] Routine Exams 11/28/22 09:12 Completed XR chest 1V portable [id number] Routine Exams 12/07/22 13:48 Completed XR chest 1V portable [id number] Stat Exams 11/21/22 11:17 Completed XR chest 1V portable [id number] Stat Exams 11/26/22 16:57 Completed XR hand LT 2V [id number] Routine Exams 11/29/22 14:30 [place] [id number] Stat Ultrasound 11/27/22 08:42 Completed US echo limited [CV. echo limited 36366] Stat Ultrasound 11/21/22 12:20 Completed US venous duplex upper extremity LT [CV venous duplex Ultrasound 11/27/22 08:42 [place] [id number]] Routine Pending at discharge Category Date Time Status Basic Metabolic Panel AM LABS Lab 12/09/22 04:00 Ordered C Reactive Protein AM LABS Lab 12/09/22 04:00 Ordered Complete Blood Count w/Auto AM LABS Lab 12/09/22 04:00 Ordered Magnesium AM LABS Lab 12/09/22 04:00 Ordered Procalcitonin AM LABS Lab 12/09/22 04:00 Ordered Sputum Culture and Gram Stain Routine Lab 11/26/22 18:43 Uncollected Radiology Impressions Head CT 11/26/22 19:46 IMPRESSION: 1. No non-contrast CT evidence of intracranial hemorrhage, masses or subacute stroke. 2. Age related changes, as noted above. Chest CT 11/26/22 20:48 IMPRESSION: No significant change from prior exam. Venous Duplex 11/27/22 08:42 IMPRESSION: No evidence of deep vein thrombosis. Hand X-Ray 11/29/22 14:30 IMPRESSION: 1. No acute osseous abnormalities. 2. Soft tissue swelling along the dorsal hand. Chest CTA 11/30/22 07:43 IMPRESSION: 1. Quality of this examination is compromised by breathing motion artifact. 2. No central pulmonary emboli. Segmental and subsegmental pulmonary arteries are not visualized well enough to exclude pulmonary emboli due to the respiratory motion. 3. Small layering LEFT pleural effusion with compressive atelectasis LEFT lower lobe. 4. No RIGHT heart strain. 5. Enlarged LEFT thyroid. Chest X-Ray 12/07/22 13:48 IMPRESSION: 1. Interval decrease or improvement in opacity in the left lung base with prior exam though incompletely resolved, as noted above. 2. Kqnv-tk-kqleqger cardiomegaly. 3. Mild pulmonary vascular congestion. Laboratory Results WBC 12.9 10^3/uL (4.0-10.0) H 12/08/22 04:13 RBC 3.08 10^6/uL (4.1-5.3) L 12/08/22 04:13 Hgb 9.0 g/dL (11.7-16.6) L 12/08/22 04:13 Hct 29.0 % (42.0-52.0) L 12/08/22 04:13 MCV 94.2 fl (80-94) H 12/08/22 04:13 MCH 29.2 pg (28.0-34.0) 12/08/22 04:13 MCHC 31.0 g/dL (30.0-36.0) 12/08/22 04:13 RDW 16.2 % (12.1-15.1) H 12/08/22 04:13 Plt Count 243 10^3/cmm (130-400) 12/08/22 04:13 MPV 10.7 fL (7.4-10.4) H 12/08/22 04:13 Neut % (Auto) 79.4 % 12/08/22 04:13 Lymph % (Auto) 8.5 % 12/08/22 04:13 [place] % (Auto) 6.9 % 12/08/22 04:13 Eos % (Auto) 3.9 % 12/08/22 04:13 Baso % (Auto) 0.3 % 12/08/22 04:13 Neut # (Auto) 10.27 10^3/uL (1.8-7.7) H 12/08/22 04:13 Lymph # (Auto) 1.1 10^3/uL (0.8-4.8) 12/08/22 04:13 [place] # (Auto) 0.9 10^3/uL (0.2-0.9) 12/08/22 04:13 Eos # (Auto) 0.5 10^3/uL (0.0-0.8) 12/08/22 04:13 Baso # (Auto) 0.0 10^3/uL (0.0-0.1) 12/08/22 04:13 Nucleated RBC % (auto) 0 % 12/08/22 04:13 Nucleated RBCs # 0.0 /100WBC 12/08/22 04:13 APTT 192.3 SECONDS (23.9-36.7) H* D 11/22/22 11:37 D-Dimer 6.93 ug/mIFEU (0-0.59) H 11/27/22 09:08 Specimen Type Arterial 11/26/22 19:45 Sample Site Radial, right 11/26/22 19:45 ABG pH 7.52 (7.35-7.45) H 11/26/22 19:45 ABG pCO2 46.3 mmHg (35-45) H 11/26/22 19:45 ABG pO2 119.0 mmHg (80.0-100.0) H 11/26/22 19:45 ABG HCO3 37.5 mmol/L (22-26) H 11/26/22 19:45 ABG O2 Saturation 99.1 11/26/22 19:45 ABG Base Excess 13.2 mmol/L (-2.0-2.0) H 11/26/22 19:45 Navjot Test Pos 11/26/22 19:45 A-a O2 Gradient 4.8 mmHg (5-10) L 11/26/22 19:45 Hematocrit 29.5 % (42-52) L 11/26/22 19:45 Hgb O2 Saturation 97.3 % (95-100) 11/26/22 19:45 Carboxyhemoglobin 1.4 %THgb (0.4-20.1) 11/26/22 19:45 Methemoglobin 0.4 % (0.4-1.5) 11/26/22 19:45 Total Hemoglobin 9.6 g/dL (14-18) L 11/26/22 19:45 Sodium 147.0 mmol/L (131-143) H 11/26/22 19:45 Potassium 3.6 mmol/L (3.5-5.0) 11/26/22 19:45 Glucose 152.0 mg/dL (70-115) H 11/26/22 19:45 Ionized Calcium 1.2 mmol/L (1.1-1.4) 11/26/22 19:45 O2 Delivery Device Bipap 11/26/22 19:45 O2 Liters/Min 10.0 % 11/21/22 11:25 FiO2 30.0 % 11/26/22 19:45 Tidal Volume 0.50 11/21/22 17:24 PEEP 8.0 cmH20 11/26/22 19:45 Ballast Inspector ID [email or web address] 11/26/22 19:45 Sodium 135 mmol/L (136-145) L 12/08/22 04:13 Potassium 4.2 mmol/L (3.5-5.1) 12/08/22 04:13 Chloride 100 mmol/L (98-107) 12/08/22 04:13 Carbon Dioxide 29 mmol/L (22-29) 12/08/22 04:13 Anion Gap 10.2 (5-19) 12/08/22 04:13 BUN 22 mg/dL (8-23) 12/08/22 04:13 Creatinine 1.1 mg/dL (0.7-1.2) 12/08/22 04:13 GFR Calculation Not Reportable 12/08/22 04:13 Glucose 111 mg/dL (65-115) 12/08/22 04:13 Calculated Osmolality 284 mOsm/kg (285-295) L 12/08/22 04:13 Lactic Acid 0.9 mmol/L (0.5-2.2) 11/27/22 04:10 Lactate 0.9 mmol/L (0.5-2.2) 11/30/22 04:17 Calcium 8.3 mg/dL (8.5-10.5) L 12/08/22 04:13 Phosphorus 2.6 mg/dL (2.5-4.5) 12/06/22 06:32 Magnesium 1.8 mg/dL (1.7-2.3) 12/08/22 04:13 Iron 15 ug/dL (59-158) L 11/27/22 09:08 Iron Cancelled 11/27/22 09:08 TIBC 105 mcg/dl 11/27/22 09:08 % Saturation 14.2 % (20-50) L 11/27/22 09:08 Unsat Iron Binding 90 ug/dL (112-347) L 11/27/22 09:08 Ferritin 820 ng/mL (30-400) H 11/27/22 09:08 Total Bilirubin 0.7 mg/dL (0.15-1.2) 12/07/22 06:06 Direct Bilirubin 0.30 mg/dL (0.00-0.30) 12/07/22 06:06 GGT 21 U/L (8-61) 12/07/22 06:06 AST 12 U/L (0-40) 12/07/22 06:06 ALT 8 U/L (0-41) 12/07/22 06:06 Alkaline Phosphatase 104 U/L (40-130) 12/07/22 06:06 Lactate Dehydrogenase 224 U/L (135-225) 11/21/22 11:20 Creatine Kinase 72 U/L (39-308) 11/30/22 04:17 CK-MB (CK-2) 4.7 ng/mL (0-10.4) 11/21/22 11:20 CK-MB (CK-2) Rel Index % (0.0-5.3) 11/21/22 11:20 Troponin T Gen 5 ng/L 228 ng/L (0-15) H* 11/21/22 11:20 Troponin T Baseline 102 ng/L (0-15) H* 11/27/22 09:08 Troponin T 120 Minute 101.0 ng/L (0-15) H 11/27/22 11:25 Delta Troponin T -1.0 ABS# (0-10) L 11/27/22 11:25 Troponin T Hi Sens 6Hr 99.11 ng/L (0-15) H 11/27/22 15:03 Troponin T Hi Sens 6Hr Delta -2.89 ng/L (0-12) L 11/27/22 15:03 C-Reactive Protein 126.1 mg/L (0.0-4.9) H 12/08/22 04:13 NT-Pro-B Natriuret Pep 575 pg/mL (0-450) H 12/06/22 06:32 Total Protein 5.5 g/dL (6.6-8.7) L 12/07/22 06:06 Albumin 2.1 g/dL (3.5-5.2) L 12/07/22 06:06 Globulin 3.4 g/dL (1.3-4.6) 12/07/22 06:06 Lipase 10 U/L (13-60) L 12/07/22 06:06 Vitamin B12 483 pg/mL (232-1245) 11/27/22 09:08 Procalcitonin 0.19 ng/mL (0-0.5) 12/08/22 04:13 TSH 0.11 uIU/mL (0.27-4.20) L 11/27/22 09:08 Free T4 1.60 ng/dL (0.82-1.77) 11/23/22 03:00 Urine Color Yellow (Yellow) 12/07/22 16:16 Urine Appearance Cloudy (CLEAR) A 12/07/22 16:16 Urine pH 7 (5-7) 12/07/22 16:16 Ur Specific [place] 1.010 (1.005-1.030) 12/07/22 16:16 Urine Protein Neg (Negative) 12/07/22 16:16 Urine Glucose (UA) Norm (Normal) 12/07/22 16:16 Urine Ketones Negative (Negative) 12/07/22 16:16 Urine Blood 2+ (Negative) H 12/07/22 16:16 Urine Nitrate Negative (Negative) 12/07/22 16:16 Urine Bilirubin Neg (Negative) 12/07/22 16:16 Urine Urobilinogen Norm mg/dL (Negative) 12/07/22 16:16 Ur Leukocyte Esterase 2+ (Negative) H 12/07/22 16:16 Urine RBC 5-10 /hpf (0-2) H 12/07/22 16:16 Urine WBC 55-80 /hpf (0-5) H 12/07/22 16:16 Ur Squamous Epith Cells 15-25 /hpf (0-5) H 12/07/22 16:16 Amorphous Sediment Not Reportable 12/07/22 16:16 Urine Bacteria Trace /hpf (NONE) 12/07/22 16:16 Urine Mucus Trace /hpf 11/26/22 17:05 Nasal Influ A H1 2008 PCR Not detected (NOT DETECT) 11/27/22 16:36 Vancomycin Trough 22.4 ug/mL (10-15) H 12/02/22 06:21 Urine Opiates Screen Positive ng/mL (Negative) H 11/21/22 12:10 Ur Barbiturates Screen Negative ng/mL (Negative) 11/21/22 12:10 Ur Phencyclidine Scrn Negative ng/mL (Negative) 11/21/22 12:10 Ur Amphetamines Screen Negative ng/mL (Negative) 11/21/22 12:10 U Benzodiazepines Scrn Negative ng/mL (Negative) 11/21/22 12:10 Urine Cocaine Screen Negative ng/mL (Negative) 11/21/22 12:10 U Marijuana (THC) Screen Negative ng/mL (Negative) 11/21/22 12:10 Adenovirus (PCR) Not detected (NOT DETECT) 11/27/22 16:36 C. pneumoniae DNA (PCR) Not detected (NOT DETECT) 11/27/22 16:36 Coronavirus 229E (PCR) Not detected (NOT DETECT) 11/27/22 16:36 Human Metapneumovir PCR Not detected (NOT DETECT) 11/27/22 16:36 Influenza A (H1) PCR Not detected (NOT DETECT) 11/27/22 16:36 Influenza A (H3) PCR Not detected (NOT DETECT) 11/27/22 16:36 Influenza Type A (PCR) Not detected (NOT DETECT) 11/27/22 16:36 Influenza Type B (PCR) Not detected (NOT DETECT) 11/27/22 16:36 M. pneumoniae (PCR) Not detected (NOT DETECT) 11/27/22 16:36 Parainfluenza 1 (PCR) Not detected (NOT DETECT) 11/27/22 16:36 Parainfluenza 2 (PCR) Not detected (NOT DETECT) 11/27/22 16:36 Parainfluenza 3 (PCR) Not detected (NOT DETECT) 11/27/22 16:36 Parainfluenza 4 (PCR) Not detected (NOT DETECT) 11/27/22 16:36 RSV Type A (PCR) Not detected (NOT DETECT) 11/27/22 16:36 RSV Type B (PCR) Not detected (NOT DETECT) 11/27/22 16:36 Entero/Rhino (PCR) Not detected (NOT DETECT) 11/27/22 16:36 SARS-CoV-2 (PCR) Detected (NOT DETECT) A 11/27/22 16:36 Blood Type B Positive 11/28/22 05:25 Rho(D) Type Positive 11/28/22 05:25 Antibody Screen Negative 11/28/22 05:25 Crossmatch See Detail 11/28/22 05:25 Vitals Last Vital Signs Temp 98.2 F 12/08/22 08:00 Pulse 81 12/08/22 08:58 Resp 16 12/08/22 08:58 BP 130/70 12/08/22 08:00 Pulse Ox 95 12/08/22 08:58 O2 Del Method Room Air 12/08/22 08:58 O2 Flow Rate 2 12/07/22 08:00 FiO2 30 11/28/22 04:51 Discharge Plan Discharge Patient Disposition: Xfer SNF Condition: Stable Prescriptions: New potassium chloride [Klor-Con M20] 20 mEq Tablet,Er Particles/Crystals 20 meq PO DAILY 30 Days Qty: 30 0RF ciprofloxacin HCl 500 mg Tablet 500 mg PO BID@0900,2100 5 Days Qty: 10 0RF aspirin 81 mg Tablet,Delayed Release (Dr/Ec) 81 mg PO DAILY 30 Days Qty: 30 0RF sucralfate 1 gram Tablet 1 g PO Q12H 30 Days Qty: 60 0RF doxycycline monohydrate 100 mg Tablet 100 mg PO BID 5 Days Qty: 10 0RF amlodipine 10 mg Tablet 10 mg PO DAILY 30 Days Qty: 30 0RF pantoprazole 40 mg Tablet,Delayed Release (Dr/Ec) 40 mg PO BID 30 Days Qty: 60 0RF furosemide 40 mg Tablet 40 mg PO DAILY@0800 30 Days Qty: 30 0RF Continued duloxetine 20 mg capsule,delayed release(DR/EC) 20 mg PO DAILY tramadol 50 mg Tablet 50 mg PO Q8H PRN (Reason: Pain) ibuprofen 600 mg Tablet 600 mg PO Q8H PRN (Reason: Pain) methimazole 10 mg tablet 10 mg PO DAILY bisacodyl 5 mg Tablet,Delayed Release (Dr/Ec) 10 mg PO DAILY PRN (Reason: Constipation (see protocol)) 30 Days Qty: 60 0RF docusate sodium 100 mg Capsule 100 mg PO BID 30 Days Qty: 60 0RF Discontinued irbesartan-hydrochlorothiazide 300-12.5 mg tablet 1 tab PO DAILY Eliquis 5 mg tablet 5 mg PO BID Qty: 60 0RF Rx Instructions: start after first week of loading dose Discharge Orders: Discharge Order (Routine); Ordered 12/08/22 Ordered By: Edwin Onofre Referrals: Jimmy Acosta DO [Physician] - 1 month (egd and colonscopy) DatarDelvin MD [Physician] - 1 month Brennon Mckeon M.D [Physician] - 1 month Miki Ariza MD [Primary Care Provider] - [facility], [Staff Physician] - 1 month Discharge Diet: Cardiac Discharge Activity: Resume usual activity Activity Restrictions/Additional Instructions: - For your COVID-19 pneumonia, continue self-isolation, social distancing at least 14 days from symptom onset -Face mask, handwashing -Monitor of hypercoagulability events -If any chest pain, palpitations go to emergency room -If any worsening shortness of breath go to emergency room -Please follow-up with pulmonary -Please follow-up with cardiology -Have senior living recheck your hemoglobin on your CBC, recheck your kidney function on a BMP in 1 week -For your deep tissue in the very, over the sacrum continue repositioning, dressing changes, wet-to-dry if possible -Take ciprofloxacin for UTI Discharge Attestations Time Spent in Discharge Care*: greater than 30 min Quality Metrics Clinical Quality Measures [ No reported AMI, CVA or VTE this stay] Coding Level of Care Code 17259 Total time (in minutes) for Discharge: 60 Diagnoses Diarrhea R19.7 Hypokalemia E87.6 MRSA pneumonia J15.212 Hypoxia R09.02 Goals of care, counseling/discussion Z71.89 Hypernatremia E87.0 Septic shock A41.9; R65.21 NSTEMI (non-ST elevated myocardial infarction) I21.4 Sepsis A41.9 Elevated troponin R77.8 Lymphedema I89.0 PVD (peripheral vascular disease) I73.9 Acute encephalopathy G93.40 Aspiration pneumonia J69.0 Systolic CHF I50.20 Hypomagnesemia E83.42 Swelling of left hand M79.89 Acute anemia D64.9 GI bleed K92.2 Iron deficiency anemia D50.9 Acute respiratory failure with hypoxia J96.01 Pneumonia due to COVID-19 virus U07.1; J12.82 Muscular deconditioning R29.898 Deep tissue injury T14.8XXA
--- NOTE | 2022-12-08 12:02 | PC.SOCIAL ---
Imm update Imm updated with patient at bedside. Copy of page 2 provided. Patient verbalized understanding. Copy in chart initialed, dated and timed.
--- NOTE | 2022-12-08 15:42 | PC.NURSE ---
Discharge Note Patient discharged to [facility] via Ambulance accompanied by ambulance personnel. Discharge instructions reviewed with patient and/or credit and collections representative. Mobile pharmacy medications and/or prescriptions provided. Belongings/home medications returned.
== END 2022-12-08 15:43 | disposition skilled nursing facility (03) | DRG 871 ==
LOC: ER 11:57 → ER IP 13:39 → ICU 15:37 → MEDSURG 11-25 14:40 → ICU 11-26 20:24 → MEDSURG 11-28 20:05
PROVIDERS: Internal Medicine; Admitting Provider Internal Medicine; Emergency Provider Emergency Medicine; PCP Family Medicine; Visit Provider Family Medicine
DX: A41.9 Sepsis, unspecified organism (principal); G93.41 Metabolic encephalopathy; R65.21 Severe sepsis with septic shock; J15.212 Pneumonia due to Methicillin resistant Staphylococcus aureus; I50.23 Acute on chronic systolic (congestive) heart failure; U07.1 COVID-19; J12.82 Pneumonia due to coronavirus disease 2019; J96.01 Acute respiratory failure with hypoxia; I26.93 Single subsegmental thrombotic pulmonary embolism without acute cor pulmonale; I21.4 Non-ST elevation (NSTEMI) myocardial infarction; N17.9 Acute kidney failure, unspecified; I13.0 Hypertensive heart and chronic kidney disease with heart failure and stage 1 through stage 4 chronic kidney disease, or unspecified chronic kidney disease; N39.0 Urinary tract infection, site not specified; E87.0 Hyperosmolality and hypernatremia; N18.9 Chronic kidney disease, unspecified; D50.9 Iron deficiency anemia, unspecified; L89.156 Pressure-induced deep tissue damage of sacral region; Z79.891 Long term (current) use of opiate analgesic; Z98.1 Arthrodesis status; E66.01 Morbid (severe) obesity due to excess calories; Z68.37 Body mass index [BMI] 37.0-37.9, adult; I73.9 Peripheral vascular disease, unspecified; Z66 Do not resuscitate; E87.6 Hypokalemia; Z87.440 Personal history of urinary (tract) infections; F03.90 Unspecified dementia, unspecified severity, without behavioral disturbance, psychotic disturbance, mood disturbance, and anxiety; E86.0 Dehydration; R19.7 Diarrhea, unspecified; I95.9 Hypotension, unspecified; E83.42 Hypomagnesemia; R13.10 Dysphagia, unspecified; M79.89 Other specified soft tissue disorders
CPT/HCPCS: 36415; 36430; 36556; 36592; 36600; 51702; 51798; 70450; 71045; 71250; 71275; 73120; 80048; 80051; 80053; 80076; 80202; 80306; 81001; 81003; 82274; 82330; 82550; 82553; 82607; 82728; 82803; 82805; 82977; 83540; 83550; 83605; 83615; 83690; 83735; 83880; 84100; 84145; 84439; 84443; 84484; 85014; 85018; 85025; 85378; 85730; 86140; 86403; 86850; 86900; 86920; 87040; 87086; 87449; 87486; 87493; 87581; 87633; 87641; 92507; 92523; 92526; 92610; 93005; 93308; 93970; 93971; 94640; 94660; 96365; 96367; 96372; 96375; 96376; 97110; 97161; 97167; 97530; 97535; 99285; C9113; J0248; J0696; J1100; J1644; J1650; J1756; J1940; J2270; J2310; J2405; J2543; J3370; J3475; J3480; J7030; J7040; J7060; J7070; J7120; J7626; J7799; P9016; P9045; Q3014; Q9967

== ENCOUNTER 2022-12-22 17:15 | Inpatient (IN) | payer MEDICARE, SELFPAY ==
[2022-12-22 17:17] VITALS: BP 147/76; PULSE 90; RESP 18; TEMP 36.5; O2SAT 97; BMI 36.8
--- NOTE | 2022-12-22 17:37 | XRR_ITS ---
PROCEDURE INFORMATION: Exam: XR Chest Exam date and time: 12/22/2022 5:51 PM Age: 87 years old Clinical indication: Shortness of breath TECHNIQUE: Imaging protocol: Radiologic exam of the chest. Views: 1 view. COMPARISON: CR XR chest 1V portable [id number] 12/07/2022 12:54 PM FINDINGS: Lungs: There are mildly decreased lung volumes with mild accentuation of the pulmonary vascularity. Poor radiographic penetration in the left retrocardiac region. Mild left basilar atelectasis/interstitial opacities are seen with suspected small left pleural effusion. This could be related to pneumonia. Pleural spaces: There is no right pleural effusion or pneumothorax. Heart/Mediastinum: Unchanged mild enlargement of the cardiac silhouette. The mediastinal contour is normal. The trachea is in the midline. Bones/joints: No acute abnormalities. Unchanged postsurgical changes of the lower thoracic spine with transpedicular screws and rods. Moderate bilateral shoulder degenerative changes. XR/XR chest 1V portable [id number] IMPRESSION: 1. Mildly decreased lung volumes with mild accentuation of the pulmonary vascularity. Poor radiographic penetration in the left retrocardiac region. Mild left basilar atelectasis/interstitial opacities with suspected small left pleural effusion. This could be related to pneumonia. 2. Unchanged mild enlargement of the cardiac silhouette.
--- NOTE | 2022-12-22 17:37 | ECG_ITS ---
[facility] Test Date: 2022-12-22 Pat Name: Chuckie Gandhi Department: Room: Gender: Male Leader Assembler: : 1935 Requested By: Matt Wilkins Order Number: [id number] Zuly MD: Brennon Mckeon M.D. Measurements Intervals [place] Rate: 73 P: 60 CO: 120 QRS: 45 QRSD: 94 T: 24 QT: 374 QTc: 414 Interpretive Statements SINUS RHYTHM Compared to ECG 11/27/2022 12:11:49 Intraventricular conduction delay no longer present Myocardial infarct finding no longer present Electronically Signed On 12-22-2022 18:18:11 CDT by Brennon Mckeon M.D. [email or web address]
--- NOTE | 2022-12-22 17:43 | W.ED.SOB ---
HPI - SOB/Dyspnea General: Chief Complaint: Shortness of Breath/Dyspnea Stated Complaint: SOB Time Seen by Provider: 12/22/22 17:34 History of Present Illness: HPI Narrative: Patient presents to the ER by EMS with complaints of increasing shortness of breath after lunch. And increasing confusion. Per EMS patient was satting in the 70s upon their arrival and they put 2 L on him per nasal cannula. Is currently satting 97% in no distress. Patient is pleasantly confused this may be dementia or his baseline status this is unknown. MD elicited complaint: shortness of breath Pertinent past history: congestive heart failure Onset (ago): day(s) (Started today after lunch) Timing: constant Severity: mild Exacerbating factors: nothing Relieving factors: oxygen Known history of: congestive heart failure Associated symptoms: Reports no associated symptoms Treatment prior to arrival: oxygen Review of Systems General: Reports: 10 or more systems reviewed and unremarkable except in HPI and below PFSH ED PFSH: Medical History Acute urinary retention Acute UTI LAKEISHA (acute kidney injury) Altered mental status COVID Fracture of thoracic spine HTN (hypertension) Hyperthyroidism Pneumonia Pulmonary embolism Thoracic spine fracture Traumatic compression fracture of T10 vertebra Surgical History History of spinal fusion S/P spinal fusion Physical Exam Const: COMMON NORMALS: no acute distress, average body habitus, no limitations, healthy appearing, alert and well nourished HENMT: COMMON NORMALS: normocephalic, atraumatic, hearing grossly normal bilaterally, external ears normal, EAC's normal and Normal nasal mucous membranes and turbinates present HEAD & SCALP: normocephalic and atraumatic NOSE: Normal nasal mucous membranes and turbinates present EXTERNAL EAR: Yes external ears normal EXTERNAL AUDITORY CANAL: EAC's normal Eye: COMMON NORMALS: Equal, round and reactive pupils present, EOMs intact bilaterally, conjunctivae normal and no scleral icterus CONJUNCTIVA: Yes conjunctivae normal PUPIL: Yes Equal, round and reactive pupils present Neck/C-Spine: COMMON NORMALS: full ROM, no lymphadenopathy, supple, no meningeal signs, no JVD and Thyroid normal THYROID: Thyroid normal Lymph: LYMPHATIC: no lymphadenopathy noted Chest: COMMONS NORMALS: normal inspection of the chest and normal palpation of entire chest wall Resp: COMMON NORMALS: normal respiratory effort, No retractions, No use of accessory muscles and clear to auscultation bilaterally AUSCULTATION: clear to auscultation bilaterally Cardio: COMMON NORMALS: no JVD, regular rate, regular rhythm, S1 normal heart sound present, S2 normal heart sound present, No gallops present (Cardio), No clicks present (Cardio), No murmurs present (Cardio) and No rub (Cardio) RATE: regular rate RHYTHM: regular rhythm HEART SOUNDS: S1 normal heart sound present and S2 normal heart sound present GI: COMMON NORMALS: Normal to inspection, nondistended, normoactive bowel sounds present, Soft to palpation, non-tender, No hepatosplenomegaly present and no masses PALPATION: Yes Soft to palpation and Yes No hepatosplenomegaly present : COMMON NORMALS: Yes no CVA tenderness BLADDER/KIDNEY EXAM: Yes no CVA tenderness Back/Pelvis: COMMON NORMALS: no CVA tenderness Neuro: SENSORIUM/ORIENTATION: Yes alert MENINGEAL SIGNS: Yes no meningeal signs Course Vital Signs: Vital signs: Vital Signs Temperature 97.7 F 12/22/22 17:17 Pulse Rate 84 12/22/22 19:35 Respiratory Rate 18 12/22/22 19:35 Blood Pressure 131/75 12/22/22 19:35 Pulse Oximetry 93 12/22/22 19:35 Oxygen Delivery Me thod Nasal Cannula 12/22/22 19:35 Oxygen Flow Rate 2 12/22/22 19:35 MDM - SOB/Dyspnea Medical Decision Making Patient presents today with complaints of shortness of breath and altered mental status. Patient supposedly was satting 70% on room air at the [facility] however he satting 97% on 2 L here. Patient is very lightly altered mental status. Lab work was obtained as well as chest x-ray. Lab work showed slightly elevated white count 11.9 slightly anemia at 10.0 and 32.1, UA did show positive for leukocyte Estrace white blood cells 80-100, chest x-ray did show mild left basilar atelectasis/interstitial opacities with suspected small left pleural effusion. Patient was given ciprofloxacin orally here. Dr. Quinn was consulted she reviewed patient's previous records she suggested we start him on Zosyn for altered mental status and urinary tract infection. Patient [facility] be [facility] For further evaluation and treatment Differential Diagnosis Likely congestive heart failure; Unlikely acute exacerbation of chronic obstructive airways disease, community acquired pneumonia, asthma with exacerbation or pulmonary embolism Medical Records I reviewed the patient's medical records. Lab Data I reviewed the patient's lab results. 12/22/22 17:52 12/22/22 17:52 Labs/Radiology: Radiology Impressions Chest X-Ray 12/22/22 17:37 IMPRESSION: 1. Mildly decreased lung volumes with mild accentuation of the pulmonary vascularity. Poor radiographic penetration in the left retrocardiac region. Mild left basilar atelectasis/interstitial opacities with suspected small left pleural effusion. This could be related to pneumonia. 2. Unchanged mild enlargement of the cardiac silhouette. Laboratory Results WBC 11.9 10^3/uL (4.0-10.0) H 12/22/22 17:52 RBC 3.51 10^6/uL (4.1-5.3) L 12/22/22 17:52 Hgb 10.0 g/dL (11.7-16.6) L 12/22/22 17:52 Hct 32.1 % (42.0-52.0) L 12/22/22 17:52 MCV 91.5 fl (80-94) 12/22/22 17:52 MCH 28.5 pg (28.0-34.0) 12/22/22 17:52 MCHC 31.2 g/dL (30.0-36.0) 12/22/22 17:52 RDW 16.2 % (12.1-15.1) H 12/22/22 17:52 Plt Count 409 10^3/cmm (130-400) H 12/22/22 17:52 MPV 9.2 fL (7.4-10.4) 12/22/22 17:52 Neut % (Auto) 75.1 % 12/22/22 17:52 Lymph % (Auto) 14.7 % 12/22/22 17:52 Power % (Auto) 7.1 % 12/22/22 17:52 Eos % (Auto) 1.5 % 12/22/22 17:52 Baso % (Auto) 0.3 % 12/22/22 17:52 Neut # (Auto) 8.96 10^3/uL (1.8-7.7) H 12/22/22 17:52 Lymph # (Auto) 1.8 10^3/uL (0.8-4.8) 12/22/22 17:52 Power # (Auto) 0.8 10^3/uL (0.2-0.9) 12/22/22 17:52 Eos # (Auto) 0.2 10^3/uL (0.0-0.8) 12/22/22 17:52 Baso # (Auto) 0.0 10^3/uL (0.0-0.1) 12/22/22 17:52 Nucleated RBC % (auto) 0 % 12/22/22 17:52 Nucleated RBCs # 0.0 /100WBC 12/22/22 17:52 Sodium 136 mmol/L (136-145) 12/22/22 17:52 Potassium 4.0 mmol/L (3.5-5.1) 12/22/22 17:52 Chloride 98 mmol/L (98-107) 12/22/22 17:52 Carbon Dioxide 28 mmol/L (22-29) 12/22/22 17:52 Anion Gap 14.0 (5-19) 12/22/22 17:52 BUN 27 mg/dL (8-23) H 12/22/22 17:52 Creatinine 1.0 mg/dL (0.7-1.2) 12/22/22 17:52 GFR Calculation Not Reportable 12/22/22 17:52 Glucose 102 mg/dL (65-115) 12/22/22 17:52 Calculated Osmolality 287 mOsm/kg (285-295) 12/22/22 17:52 Calcium 8.5 mg/dL (8.5-10.5) 12/22/22 17:52 Total Bilirubin 0.3 mg/dL (0.15-1.2) 12/22/22 17:52 AST 15 U/L (0-40) 12/22/22 17:52 ALT 9 U/L (0-41) 12/22/22 17:52 Alkaline Phosphatase 123 U/L (40-130) 12/22/22 17:52 NT-Pro-B Natriuret Pep 660 pg/mL (0-450) H 12/22/22 17:52 Total Protein 6.6 g/dL (6.6-8.7) 12/22/22 17:52 Albumin 2.4 g/dL (3.5-5.2) L 12/22/22 17:52 Globulin 4.2 g/dL (1.3-4.6) 12/22/22 17:52 Urine Color Yellow (Yellow) 12/22/22 18:22 Urine Appearance Cloudy (CLEAR) A 12/22/22 18:22 Urine pH 6 (5-7) 12/22/22 18:22 Ur Specific [place] 1.015 (1.005-1.030) 12/22/22 18:22 Urine Protein Neg (Negative) 12/22/22 18:22 Urine Glucose (UA) Norm (Normal) 12/22/22 18:22 Urine Ketones Negative (Negative) 12/22/22 18:22 Urine Blood 2+ (Negative) H 12/22/22 18:22 Urine Nitrate Negative (Negative) 12/22/22 18:22 Urine Bilirubin Neg (Negative) 12/22/22 18:22 Urine Urobilinogen Norm mg/dL (Negative) 12/22/22 18:22 Ur Leukocyte Esterase 2+ (Negative) H 12/22/22 18:22 Urine RBC 10-15 /hpf (0-2) H 12/22/22 18:22 Urine WBC 80-100 /hpf (0-5) H 12/22/22 18:22 Ur Squamous Epith Cells 0-4 /hpf (0-5) H 12/22/22 18:22 Amorphous Sediment Not Reportable 12/22/22 18:22 Urine Bacteria 1+ /hpf (NONE) H 12/22/22 18:22 Urine Mucus 1+ /hpf 12/22/22 18:22 Discharge Plan Discharge Patient Disposition: Admitted As Inpatient Clinical Impression: Altered mental status, Urinary tract infection, Breath shortness Condition: Stable Prescriptions: No Action duloxetine 20 mg capsule,delayed release(DR/EC) 20 mg PO DAILY tramadol 50 mg Tablet 50 mg PO Q8H PRN (Reason: Pain) ibuprofen 600 mg Tablet 600 mg PO Q8H PRN (Reason: Pain) aspirin 81 mg Tablet,Delayed Release (Dr/Ec) 81 mg PO DAILY 30 Days Qty: 30 0RF amlodipine 10 mg Tablet 10 mg PO DAILY 30 Days Qty: 30 0RF furosemide 40 mg Tablet 40 mg PO DAILY@0800 30 Days Qty: 30 0RF sucralfate 1 gram Tablet 1 g PO Q12H 30 Days Qty: 60 0RF Klor-Con M20 20 mEq Tablet,Er Particles/Crystals 20 meq PO DAILY 30 Days Qty: 30 0RF pantoprazole 40 mg Tablet,Delayed Release (Dr/Ec) 40 mg PO BID 30 Days Qty: 60 0RF methimazole 10 mg tablet 10 mg PO DAILY Referrals: Miki Ariza MD [Primary Care Provider] - Coding Level of Care Code ED Storage Battery Tester for Sonny Nelson
[2022-12-22 17:59] LABS: Basophils % 0.3 %; Eosinophils # 0.2 10^3/uL (0.0-0.8); Eosinophils % 1.5 %; Hematocrit 32.1 % (42.0-52.0); Lymphocytes # 1.8 10^3/uL (0.8-4.8); Lymphocytes % 14.7 %; Mean Corpuscular HGB Conc 31.2 g/dL (30.0-36.0); Mean Corpuscular Hemoglobin 28.5 pg (28.0-34.0); Mean Corpuscular Volume 91.5 fl (80-94); Mean Platelet Volume 9.2 fL (7.4-10.4); Monocytes # 0.8 10^3/uL (0.2-0.9); Monocytes % 7.1 %; Neutrophils # 8.96 10^3/uL (1.8-7.7); Neutrophils % 75.1 %; Nucleated Red Blood Cells % 0 %; Platelet Count 409 10^3/cmm (130-400); Red Blood Count 3.51 10^6/uL (4.1-5.3); Red Cell Distribution Width 16.2 % (12.1-15.1); White Blood Count 11.9 10^3/uL (4.0-10.0)
[2022-12-22 18:29] VITALS: BP 144/78; O2SAT 98
[2022-12-22 18:39] LABS: Alanine Aminotransferase 9 U/L (0-41); Albumin Level 2.4 g/dL (3.5-5.2); Alkaline Phosphatase 123 U/L (40-130); Aspartate Amino Transferase 15 U/L (0-40); Blood Urea Nitrogen 27 mg/dL (8-23); Calcium 8.5 mg/dL (8.5-10.5); Carbon Dioxide 28 mmol/L (22-29); Chloride 98 mmol/L (98-107); Globulin 4.2 g/dL (1.3-4.6); Glucose 102 mg/dL (65-115); NT Pro B Type Natriuretic Pept 660 pg/mL (0-450); Osmolality Calculated 287 mOsm/kg (285-295); Sodium 136 mmol/L (136-145); Total Bilirubin 0.3 mg/dL (0.15-1.2); Total Protein 6.6 g/dL (6.6-8.7)
[2022-12-22 19:07] LABS: Add Urine Microscopic? YES; Bilirubin Urine Neg (Negative); Blood Urine 2+ (Negative); Glucose Urine UA Norm (Normal); Ketones Urine Negative (Negative); Leukocyte Esterase Urine 2+ (Negative); Nitrate Urine Negative (Negative); Protein Urine Neg (Negative); Specific Gravity, Urine 1.015 (1.005-1.030); Urine Appearance Cloudy (CLEAR); Urine Color Yellow (Yellow); Urobilinogen Urine Norm (Negative); pH Urine 6 (5-7)
[2022-12-22 19:08] LABS: Squamous Epithelial Cell Urine 0-4 /hpf (0-5); WBC Urine 80-100 /hpf (0-5)
[2022-12-22 19:09] LABS: Add Urine Culture? Yes; Bacteria Urine 1+ /hpf; Mucus Urine 1+ /hpf
[2022-12-22 19:20] VITALS: BP 116/58; O2SAT 95
[2022-12-22] MEDS: haloperidol 5 mg Tablet PO (19:32)
[2022-12-22] MEDS: ciprofloxacin 500 mg Tablet PO (19:32)
[2022-12-22 19:35] VITALS: BP 131/75; PULSE 84; RESP 18; O2SAT 93
--- NOTE | 2022-12-22 19:39 | PC.NURSE ---
i talked to son and he states pt was released 2 weeks ago today from [facility] [place] floor and he had a uti. sone said pt is not normally confused but since he was released he has intermittent confusion moreso when he does not get much rest. pt son states that he would also be okay with us admitting his father for observation for 24 hours and giving him antibiotics to get ahead on treatment of UTI.
--- NOTE | 2022-12-22 20:07 | P.HP_ITS ---
Providers/Chief Complaint Primary Care Provider: Miki Ariza MD Chief Complaint: SOB History of Present Illness Chuckie Gandhi is a 87 year old male With past medical history of UTI, LAKEISHA, altered mental status, hypertension, hypothyroidism, pulmonary embolism, pneumonia, thoracic spine fracture, COVID presented to the hospital today for shortness of breath and increasing confusion. Patient lives at a custodial and was saturating 70% when EMS arrived and he was placed on 2 L nasal cannula and at this point is saturating 97%. He is in no acute distress. He was recently discharged from the hospital on December 08. At that visit he did present with confusion. Patient had a prolonged hospital course he presented with altered mental status shortness of breath and was positive for COVID-19. Patient went into septic shock requiring Levophed requiring Decadron remdesivir. There was also concern for possible pulmonary embolism and was managed with therapeutic Lovenox but it had to be discontinued due to anemia of 7 requiring 1 unit of packed RBC. Venous ultrasound negative for DVT. Patient was not a good candidate for anticoagulation and therefore was discharged without it. Discussion was made with family regarding IVC filter but at this time they declined. 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 Patient was asked to follow-up with cardiology as an outpatient. He did not complain of any chest pain during that stay. For his CHF exacerbation during hospitalization he was discharged on Lasix. Lastly there was concern for UTI and patient was discharged on ciprofloxacin. Urine culture at that visit however was sterile. He also has a deep tissue injury over sacrum and was discharged on doxycycline. He was sent to a custodial at discharge. Thomson placement got milky white pus drained from bladder. Today he was seen at the custodial hallucinating and using a laptop that was not present. He has been confused and more altered compared to before. Unsure if he has a history of dementia we will need to clarify that with family. ED course: 131/75 course rate 18, pulse 84, temperature 97.7 saturating 93% on 2 L nasal cannula. Hemoglobin 10.0 hematocrit 32.1. UA showed positive for leukocyte esterase white blood cells 80-100, chest x-ray show mild left basilar atelectasis interstitial opacities with small suspected left pleural effusion. Patient was given a dose of ciprofloxacin orally and was recommended admission to medical surgical floor. Sodium 136, potassium 4.0, BUN 27, creatinine 1.0. WBC 11.9. BNP 660. Medications/Allergies Home Medications Medication Instructions Recorded Confirmed Last Taken Type duloxetine 20 mg capsule,delayed 20 mg PO DAILY 10/19/22 11/21/22 11/21/22 History release methimazole 10 mg tablet 10 mg PO DAILY 10/26/22 11/21/22 11/21/22 History ibuprofen 600 mg tablet 600 mg PO Q8H PRN Pain 11/21/22 11/21/22 Unknown History tramadol 50 mg tablet 50 mg PO Q8H PRN Pain 11/21/22 11/21/22 Unknown History amlodipine 10 mg tablet 10 mg PO DAILY 30 days #30 tabs 12/06/22 Unknown Rx aspirin 81 mg tablet,delayed 81 mg PO DAILY 30 days #30 tabs 12/06/22 Unknown Rx release furosemide 40 mg tablet 40 mg PO DAILY@0800 30 days #30 12/06/22 Unknown Rx tabs pantoprazole 40 mg tablet,delayed 40 mg PO BID 30 days #60 tabs 12/06/22 Unknown Rx release potassium chloride 20 mEq 20 meq PO DAILY 30 days #30 tabs 12/06/22 Unknown Rx tablet,extended release(part/cryst) (Klor-Con M) sucralfate 1 gram tablet 1 g PO Q12H 30 days #60 tabs 12/06/22 Unknown Rx Allergies Allergy/AdvReac Type Severity Reaction Status Date / Time No Known Allergies Allergy Verified 12/22/22 17:22 PFSH Acute PFSH: Medical History Acute urinary retention Acute UTI LAKEISHA (acute kidney injury) Altered mental status COVID Fracture of thoracic spine HTN (hypertension) Hyperthyroidism Pneumonia Pulmonary embolism Thoracic spine fracture Traumatic compression fracture of T10 vertebra Surgical History History of spinal fusion S/P spinal fusion Vitals/I&O/Wt Last Vital Signs Temp 97.7 F 12/22/22 17:17 Pulse 84 12/22/22 19:35 Resp 18 12/22/22 19:35 BP 131/75 12/22/22 19:35 Pulse Ox 93 12/22/22 19:35 O2 Del Method Nasal Cannula 12/22/22 19:35 O2 Flow Rate 2 12/22/22 19:35 Weight last 48 hrs Weight 116.573 kg Physical Exam Narrative: General: Alert oriented x2, no acute respiratory distress, saturating on 2 L nasal cannula HEENT: Normocephalic, atraumatic, EOMI Cardio: Regular rate rhythm, normal S1-S2 Respiratory: Mainly clear to auscultation with mild rhonchi at left base GI: Abdomen soft, nontender, bowel sounds + Extremities: No edema noted at this time Data 12/22/22 17:52 12/22/22 17:52 A&P Assessment and plan (1) Altered mental status: Qualifiers: Altered mental status type: disorientation Qualified Code(s): R41.0 - Disorientation, unspecified (2) Urinary tract infection: Qualifiers: Hematuria presence: with hematuria Urinary tract infection type: acute cystitis Qualified Code(s): N30.01 - Acute cystitis with hematuria (3) Acute respiratory failure with hypoxia: (4) Acute anemia: (5) Systolic CHF: (6) Iron deficiency anemia: (7) Deep tissue injury: Plan #Altered mental status #Acute UTI #Shortness of breath possibly secondary to acute on chronic systolic congestive heart failure exacerbation #Small left pleural effusion #Anemia iron deficiency #Hypoalbuminemia #Hypertension #Hyperthyroidism ? Patient did have a prolonged hospital stay recently and was discharged on December 08, 2022. ? We will continue patient on ferritin, Carafate, Protonix for anemia at this time. ? He was discharged home on Lasix 40 daily orally[address] I will place on 40 IV daily at this time ? Check blood culture, urine culture, sputum Gram stain culture ? Chest x-ray seems similar to prior from previous visit. Unsure if new developing pneumonia. ? We will place on Zosyn at this time to cover for UTI. He was discharged home on oral ciprofloxacin. UA shows 80-100 WBCs and 0-4 squamous cells. Will check urine culture as mentioned above. We will add vancomycin to cover for MRSA due to recent hospital stay. ? Recheck chest x-ray in a.m. after IV Lasix to assess for improvement in pleural effusion. Patient may need to have thoracentesis? ? We will check CT abdomen pelvis to rule out hydronephrosis. He does have a history of urinary retention. Will place Thomson catheter at this time for accurate output ? Continue amlodipine, aspirin, duloxetine, tramadol for pain ? We will consult dietitian for optimization of nutrition. Albumin level is 2.4. I will hold off on IV albumin due to heavy salt load to prevent worsening heart failure. ? There were concerns of COVID-19 reinfection at previous visit. I would hold off on repeating respiratory viral panel at this time. ? Check procalcitonin level ? Patient's D-dimer was up to 6.93 at previous admission. He could not tolerate therapeutic anticoagulation. I will recheck another D-dimer. Will consider CTA if elevated. Previous CTA on 18 November did not show PE however was also obscured by motion artifact and smaller vessels could not evaluate for PE. ? Vitamin B12 level 483 2 weeks ago ? TSH 0.112 weeks prior. I would hold methimazole at this time. We will check free T4 DVT prophylaxis: SCDs. We will hold off on pharmacological prophylaxis due to anemia. Patient required blood transfusion most recently. CODE STATUS: Will need to discuss with son Attestations Medical Necessity Statement*: Greater than 2 midnight stay for management of UTI, CHF exacerbation Coding Level of Care Code G0426 (50 min) TH Encounter Time (min): 65 Patient seen via Telehealth in the acute care setting (hospital or ED location) by agreement and consent of patient or patient in home sales representative. Telehealth technology used during the visit includes video and audio. This patient encounter is appropriate and reasonable under the circumstances given the patient?s particular presentation at this time. The patient has been advised of the potential risks and limitations of this mode of treatment (including but not limited to the absence of in-person examination at this time) and has agreed to be treated by an off-site physician for this visit. If deemed clinically necessary from this telehealth visit, or if condition or consent for telehealth visit changes, an in-person visit will be arranged. For this encounter, total time for the origination of telehealth care on this date is as shown. Diagnoses Altered mental status R41.0 Altered mental status type: disorientation Urinary tract infection N30.01 Hematuria presence: with hematuria Urinary tract infection type: acute cystitis Acute respiratory failure with hypoxia J96.01 Acute anemia D64.9 Systolic CHF I50.20 Iron deficiency anemia D50.9 Deep tissue injury T14.8XXA
[2022-12-22] MEDS: piperacillin-tazobactam 3.375 GM in sodium chloride 0.9% (plus) 50 ML IV (20:45)
[2022-12-22] MEDS: pantoprazole 40 mg SDV IVP (20:45)
[2022-12-22 21:18] LABS: Procalcitonin 0.32 ng/mL (0-0.5)
[2022-12-22 22:00] VITALS: BP 131/78; PULSE 88; RESP 20; TEMP 37.3; O2SAT 96
--- NOTE | 2022-12-22 23:20 | CTR_ITS ---
PROCEDURE INFORMATION: Exam: CT Chest With Contrast; Diagnostic Exam date and time: 12/22/2022 11:48 PM Age: 87 years old Clinical indication: Abnormal findings; Abnormal lab test and abnormal radiologic finding of the abdomen; Radiologic exam and body structure: Chest xray; Other: N/a; Shortness of breath; Prior surgery; Surgery date: 6+ months; Surgery type: Spinal fusion. Brian; Patient HX: SOB with hematuria. Elevated wbc. Left pleural effusion noted on cxr. ; Additional info: R/O hydronephrosis, pyelo TECHNIQUE: Imaging protocol: Diagnostic computed tomography of the chest with contrast. Radiation optimization: All CT scans at this facility use at least one of these dose optimization techniques: automated exposure control; mA and/or kV adjustment per patient size (includes targeted exams where dose is matched to clinical indication); or iterative reconstruction. Contrast material: OMNI 350; Contrast volume: 100 ml; Contrast route: INTRAVENOUS (IV); REPORTING DATA: Count of CT and Cardiac NM exams in prior 12 months: This patient has received 10 known CTs and 0 known cardiac nuclear medicine studies in the 12 months prior to the current study. COMPARISON: CT chest con [id number] 11/27/2022 7:24 AM RADIATION DOSE METRICS: Total DLP (mGy-cm): 1809.9 FINDINGS: Thyroid: Left thyroid 4.8 cm heterogeneous cystic mass, similar to prior exam, nonemergent thyroid ultrasound could further characterize this. Lungs: Emphysematous changes. Bilateral dependent atelectasis versus infiltrate. Pleural spaces: Moderate to large left pleural effusion. Heart: Cardiomegaly. Coronary arteries: Coronary artery atherosclerotic calcifications. Lymph nodes: Unremarkable. No enlarged lymph nodes. Vasculature: Unremarkable. No aortic aneurysm. Bones/joints: Surgical hardware seen in the thoracic spine. Soft tissues: Unremarkable. PROCEDURE INFORMATION: Exam: CT Abdomen And Pelvis With Contrast Exam date and time: 12/22/2022 11:48 PM Age: 87 years old Clinical indication: Abnormal findings; Abnormal lab test and abnormal radiologic finding of the abdomen; Radiologic exam and body structure: Chest xray; Other: N/a; Shortness of breath; Prior surgery; Surgery date: 6+ months; Surgery type: Spinal fusion. Brian; Patient HX: SOB with hematuria. Elevated wbc. Left pleural effusion noted on cxr. ; Additional info: R/O hydronephrosis, pyelo TECHNIQUE: Imaging protocol: Computed tomography of the abdomen and pelvis with contrast. Radiation optimization: All CT scans at this facility use at least one of these dose optimization techniques: automated exposure control; mA and/or kV adjustment per patient size (includes targeted exams where dose is matched to clinical indication); or iterative reconstruction. Contrast material: OMNI 350; Contrast volume: 100 ml; Contrast route: INTRAVENOUS (IV); REPORTING DATA: Count of CT and Cardiac NM exams in prior 12 months: This patient has received 10 known CTs and 0 known cardiac nuclear medicine studies in the 12 months prior to the current study. COMPARISON: US renal BI* [id number] 11/07/2022 2:09 AM RADIATION DOSE METRICS: Total DLP (mGy-cm): 1809.9 FINDINGS: Liver: Normal. No mass. Gallbladder and bile ducts: Normal. No calcified stones. No ductal dilation. Pancreas: Normal. No ductal dilation. Spleen: Normal. No splenomegaly. Adrenal glands: Normal. No mass. Kidneys and ureters: Bilateral renal cysts, negative for follow-up advised. Stomach and bowel: Constipation. Appendix: No evidence of appendicitis. Intraperitoneal space: Unremarkable. No free air. No significant fluid collection. Vasculature: Unremarkable. No abdominal aortic aneurysm. Lymph nodes: Unremarkable. No enlarged lymph nodes. Urinary bladder: Thomson catheter in the urinary bladder with diffuse wall thickening likely due to nondistention, please correlate for cystitis. Reproductive: Unremarkable as visualized. Bones/joints: Left hip arthroplasty changes. Soft tissues: Unremarkable. CT/CT chest abdpel w/*[id number] IMPRESSION: 1. Moderate to large left pleural effusion. 2. Cardiomegaly. 3. Coronary artery atherosclerotic calcifications. 4. Emphysematous changes. 5. Bilateral dependent atelectasis versus infiltrate. 6. Surgical hardware seen in the thoracic spine. 7. Left thyroid 4.8 cm heterogeneous cystic mass, similar to prior exam, nonemergent thyroid ultrasound could further characterize this. IMPRESSION: 1. Thomson catheter in the urinary bladder with diffuse wall thickening likely due to nondistention, please correlate for cystitis. 2. Bilateral renal cysts, negative for follow-up advised. 3. Constipation. 4. Left hip arthroplasty changes. COMMENTS: Consistent with the [employer]'s Incidental Findings Committee white paper (J Am Jose Radiol 2018): Any incidental renal lesion less than 1 cm or classified as too small to characterize, or any incidental cystic renal lesion characterized as simple-appearing, is likely benign. No follow-up imaging is recommended for these lesions per consensus recommendations based on imaging criteria.
[2022-12-22] MEDS: vancomycin 1,250 MG/250 ML PIGGYBACK 250 MG IV (23:26)
[2022-12-22] MEDS: FUROsemide 10 mg/mL SDV 4mL 40 MG IVP (23:26)
[2022-12-22] MEDS: sucralfate 1 gm Tablet PO (23:26)
[2022-12-22 23:30] VITALS: BP 130/83; PULSE 64; RESP 17; TEMP 36.7; O2SAT 96
[2022-12-22] MEDS: iohexol 350 mg/mL 500 mL Btl (per mL) IV (23:46)
[2022-12-23] VITALS (14 sets, daily range): BP systolic 109–127; BP diastolic 62–74; PULSE 64–84; RESP 16–22; TEMP 36.2–37.2; O2SAT 93–99
[2022-12-23 00:42] LABS: D Dimer 4.22 ug/mIFEU (0-0.59)
--- NOTE | 2022-12-23 02:02 | US_ITS ---
WS: [id number] ULTRASOUND-GUIDED THORACENTESIS, LEFT HISTORY: Moderate to large LEFT pleural effusion. Procedure, risks, and complications were explained to the patient. With the patient in an upright pos ition, the skin over the LEFT posterior thorax was cleansed with ChloraPrep and anesthetized with 1% buffered lidocaine. A 5 Urdu Yueh needle is inserted into the pleural fluid without complication. A pproximately 400 cc of light red pleural fluid is removed without difficulty. Specimen collected for analysis as requested. / thoracentesis [id number] IMPRESSION: 1. LEFT thoracentesis yielding 400 cc of fluid. 2. Chest radiograph to follow to evaluate for pneumothorax. 3. Pleural fluid collected for analysis as requested.
[2022-12-23] MEDS: piperacillin-tazobactam 3.375 GM in sodium chloride 0.9% (plus) 50 ML IV ×3 (05:12→21:10)
[2022-12-23 06:32] LABS: Basophils % 0.4 %; Eosinophils # 0.2 10^3/uL (0.0-0.8); Eosinophils % 1.8 %; Hematocrit 31.9 % (42.0-52.0); Hemoglobin 9.8 g/dL (11.7-16.6); Lymphocytes # 1.5 10^3/uL (0.8-4.8); Lymphocytes % 13.9 %; Mean Corpuscular HGB Conc 30.7 g/dL (30.0-36.0); Mean Corpuscular Hemoglobin 28.7 pg (28.0-34.0); Mean Corpuscular Volume 93.3 fl (80-94); Mean Platelet Volume 9.3 fL (7.4-10.4); Monocytes # 0.8 10^3/uL (0.2-0.9); Monocytes % 7.5 %; Neutrophils # 8.13 10^3/uL (1.8-7.7); Neutrophils % 75.1 %; Nucleated Red Blood Cells % 0 %; Platelet Count 382 10^3/cmm (130-400); Red Blood Count 3.42 10^6/uL (4.1-5.3); Red Cell Distribution Width 16.1 % (12.1-15.1); White Blood Count 10.8 10^3/uL (4.0-10.0)
[2022-12-23 06:51] LABS: Anion Gap 13.5 (5-19); Blood Urea Nitrogen 25 mg/dL (8-23); Calcium 8.3 mg/dL (8.5-10.5); Carbon Dioxide 31 mmol/L (22-29); Chloride 97 mmol/L (98-107); Glucose 112 mg/dL (65-115); Magnesium 1.6 mg/dL (1.7-2.3); Osmolality Calculated 291 mOsm/kg (285-295); Potassium 3.5 mmol/L (3.5-5.1); Sodium 138 mmol/L (136-145)
[2022-12-23] MEDS: ipratropium-albuterol 3 mL Neb INHALATION ×4 (07:28→21:41)
[2022-12-23 08:02] LABS: INR 1.19 (0.8-1.2)
[2022-12-23] MEDS: pantoprazole 40 mg SDV IVP ×2 (10:45→21:10)
--- NOTE | 2022-12-23 11:05 | PC.CHAP ---
Pastoral Care Encounter/Spiritual Assessment Type of Contact [] Declined branch general manager visit [] Patient/Family/Request visit [] Outpatient visit [x] Follow-up visit [] Physician referral [] Code/Alert [x] Routine visit [] Staff referral [] Actively dying [] Patient sleeping [] Family support [] [] Out of room [] Palliative care [] [x] Receiving care in room [x] Pre-surgical visit [] Trauma [] Long length of stay [] ICU visit [] Other: Relational/Emotional Strength [] Patient feels connected with others/family/visitors/staff [] Distress [] Loneliness/isolation [] Abandonment Spirituality of Patient [] Person of Aliyah [] Attends Confucianism of their Aliyah [] Believes in Prayer [] Reads Bible or Confucianism materials [] There are Spiritual issues to be addressed 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 Interventions [] Prayer [] Active listening [] Non-anxious presence [] Spiritual/emotional support [] Crisis/trauma care [] Spiritual counseling [] Bereavement support [] Provided bereavement packet [] Provided Bible/devotional materials [] Provided toy/stuffed animal, coloring book to patient or family member [] Provided Communion [] Anointing/[place] [] Salvation [] Completed spiritual assessment [] Other: Impact on Illness or Injury [] Angry [] Fearful [] Anxious [] Often cries [] Exhaustion [] Unable to work [] Unable to attend religion [] Unable to walk/stand [] Unable to read [] Unable to drive [] Unable to eat/drink [] Unable to sleep [] Unable to be with family [] Patient intubated [] Other: Summary surgical proceduer fellow up Time spent with patient 10 mins
[2022-12-23] MEDS: sucralfate 1 gm Tablet PO ×2 (11:27→22:38)
[2022-12-23] MEDS: duloxetine 20 mg Capsule PO (11:27)
[2022-12-23] MEDS: potassium chloride ER 20 mEq Tablet 40 MEQ PO (11:27)
[2022-12-23] MEDS: magnesium sulfate premix 2 GM/50 ML PIGGYBACK IV (11:27)
[2022-12-23 12:54] LABS: ABG PCO2 41.4 mmHg (35-45); Arterial Blood Gas Hematocrit 32.4 % (42-52); Base Excess ABG 8.7 mmol/L (-2.0-2.0); Blood Gas Allen Test Pos; Blood Gas Sample Site Radial, left; Blood Gas Sample Type Arterial; Carboxyhemoglobin 1.5 %THgb (0.4-20.1); HCO3 ABG 32.6 mmol/L (22-26); Ionized Calcium Level - ABG 1.2 mmol/L (1.1-1.4); Methemoglobin 0.5 % (0.4-1.5); Oxygen Device NC; Potassium Level - ABG 3.3 mmol/L (3.5-5.0); Total Hemoglobin 10.6 g/dL (14-18)
[2022-12-23] MEDS: midodrine 5 mg TABLET PO (13:01)
--- NOTE | 2022-12-23 14:05 | PM.PN ---
Subjective Subjective: History and physical was reviewed. Patient is difficult to awaken, and seems somewhat confused but conversant when awake. Denies any pain currently. Medications: Reviewed: Yes Vitals/I&O/Wt Last Vital Signs Temp 97.2 F L 12/23/22 11:35 Pulse 76 12/23/22 11:35 Resp 20 H 12/23/22 11:35 BP 127/68 12/23/22 11:35 Pulse Ox 99 12/23/22 11:35 O2 Del Method Nasal Cannula 12/23/22 11:35 O2 Flow Rate 3 12/23/22 11:35 12/22/22 12/23/22 12/23/22 22:59 06:59 14:59 Intake Total 360 / 360 400 / 400 Output Total 2600 / 2600 400 / 400 Balance -2240 / -2240 0 / 0 Weight last 48 hrs Weight 116.573 kg Physical Exam Narrative: General exam is no apparent distress Neck is supple Cardiovascular regular rate and rhythm, no murmur Lungs clear. Diminished breath sounds are noted bilaterally left greater than right Abdomen is soft, positive bowel sounds Extremities no cyanosis clubbing. Trace edema bilaterally., cap refill brisk Skin no rash Urinary Catheter Management: Thomson: Cath Placed During This Visit: yes Reason for Continuing Indwelling Catheter: Acute Urinary Retention or Obstruction Urinary Catheter Date of Insertion: 12/21/22 Urinary Catheter Time of Insertion: 22:00 Data 12/23/22 06:18 12/23/22 06:18 Micro: Microbiology 12/23/22 05:10 MRSA Culture - Final Nose 12/22/22 18:22 Urine Culture - Preliminary Urine,Clean Catch Gram Negative Rods Gram Negative Rods#2 12/22/22 20:45 Blood Culture - Preliminary Blood SPECIMEN COLLECTED 12/22/22 20:45 Blood Culture - Preliminary Blood SPECIMEN COLLECTED A&P Assessment and plan (1) Altered mental status: Consistent with acute metabolic encephalopathy. Believe he also has underlying dementia This appears improved. No evidence of CO2 retention on ABG. Hold any sedating medication. Qualifiers: Altered mental status type: disorientation Qualified Code(s): R41.0 - Disorientation, unspecified (2) Urinary tract infection: Patient has UTI Continue Zosyn Await culture Qualifiers: Hematuria presence: with hematuria Urinary tract infection type: acute cystitis Qualified Code(s): N30.01 - Acute cystitis with hematuria (3) Pleural effusion, left: Radiology is consulted for thoracentesis. Rule out parapneumonic effusion/empyema. He has had multiple hospital stays for sepsis/infection. Currently on vancomycin and Zosyn. (4) Iron deficiency anemia: CBC daily. Continue Protonix Plan History of chronic congestive heart failure, mild acute on chronic heart failure present currently.. Lasix IV currently. Follow BMP daily. Last echocardiogram demonstrated EF of 40% Speech therapy consultation Pur?ed diet nectar thick liquids Discussed CODE STATUS with son in detail. He is allow natural , but would want ICU admission. No CPR, intubation, ventilation. Patient had significant anemia requiring transfusion last hospital stay and did not tolerate anticoagulation. Therefore SCDs are being used for DVT prophylaxis. Attestations Medical Necessity Statement*: Needs continued hospitalization for IV antibiotics secondary to UTI with acute encephalopathy. Diagnoses Altered mental status R41.0 Altered mental status type: disorientation Urinary tract infection N30.01 Hematuria presence: with hematuria Urinary tract infection type: acute cystitis Pleural effusion, left J90 Iron deficiency anemia D50.9 Time Spent (min) 42
--- NOTE | 2022-12-23 14:58 | XR_ITS ---
WS: [id number] PORTABLE CHEST HISTORY: S/P thoracentesis, LEFT COMPARISON: None available. Status post LEFT thoracentesis. No pneumothorax. Small amount of residual pleural fluid and atelectas is at the LEFT base. RIGHT lung is clear. Cardiac size: Normal. Mediastinum/Aorta: Mild atherosclerosis aorta. Postoperative hardware thoracic spine. XR/XR chest 1V portable [id number] IMPRESSION: 1. No pneumothorax status post LEFT thoracentesis. 2. Small residual LEFT pleural effusion with LEFT basilar atelectasis.
[2022-12-23 15:25] LABS: Body Fluid Polynuclear #Cells 0.514; Body Fluid WBC 1485 /uL; Monocytes # Body Fluid 0.971
[2022-12-23 15:46] LABS: Apprearance, Body Fluid CLOUDY; Color, Body Fluid RED; Cyto Order Verification Order Verified
[2022-12-23 15:57] LABS: Albumin Body Fluid 1.7 g/dL; LDH Pleural Fluid 152 U/L; Triglycerides, Pleural Fluid 27 mg/dL
[2022-12-23 16:10] LABS: Total Protein Pleural Fluid 3.5 g/dL
[2022-12-23 16:41] LABS: Hematocrit Body Fluid 0.4 %
[2022-12-23 16:43] LABS: Fluid Laterality LEFT PLEURAL
[2022-12-23] MEDS: vancomycin 1,250 MG/250 ML PIGGYBACK 250 MG IV (17:48)
[2022-12-23 19:30] LABS: Lactate Dehydrogenase 177 U/L (135-225)
[2022-12-23] MEDS: FUROsemide 10 mg/mL SDV 4mL 40 MG IVP (22:38)
[2022-12-24] VITALS (14 sets, daily range): BP systolic 110–123; BP diastolic 53–74; PULSE 66–83; RESP 16–18; TEMP 36.4–37.1; O2SAT 95–98
[2022-12-24 05:13] LABS: Basophils # 0.1 10^3/uL (0.0-0.1); Basophils % 0.4 %; Eosinophils # 0.5 10^3/uL (0.0-0.8); Eosinophils % 4.4 %; Hematocrit 29.5 % (42.0-52.0); Hemoglobin 9.1 g/dL (11.7-16.6); Lymphocytes % 16.6 %; Mean Corpuscular HGB Conc 30.8 g/dL (30.0-36.0); Mean Corpuscular Hemoglobin 28.8 pg (28.0-34.0); Mean Corpuscular Volume 93.4 fl (80-94); Mean Platelet Volume 9.3 fL (7.4-10.4); Monocytes # 0.9 10^3/uL (0.2-0.9); Monocytes % 7.6 %; Neutrophils # 8.33 10^3/uL (1.8-7.7); Neutrophils % 69.7 %; Nucleated Red Blood Cells % 0 %; Platelet Count 380 10^3/cmm (130-400); Red Blood Count 3.16 10^6/uL (4.1-5.3); Red Cell Distribution Width 16.1 % (12.1-15.1); White Blood Count 11.9 10^3/uL (4.0-10.0)
[2022-12-24] MEDS: piperacillin-tazobactam 3.375 GM in sodium chloride 0.9% (plus) 50 ML IV ×3 (05:21→21:24)
[2022-12-24 05:40] LABS: Alanine Aminotransferase 10 U/L (0-41); Albumin Level 2.2 g/dL (3.5-5.2); Alkaline Phosphatase 116 U/L (40-130); Anion Gap 12.5 (5-19); Aspartate Amino Transferase 16 U/L (0-40); Blood Urea Nitrogen 28 mg/dL (8-23); Calcium 8.3 mg/dL (8.5-10.5); Carbon Dioxide 31 mmol/L (22-29); Chloride 96 mmol/L (98-107); Glucose 104 mg/dL (65-115); Osmolality Calculated 288 mOsm/kg (285-295); Potassium 3.5 mmol/L (3.5-5.1); Sodium 136 mmol/L (136-145); Total Bilirubin 0.4 mg/dL (0.15-1.2); Total Protein 6.2 g/dL (6.6-8.7)
[2022-12-24] MEDS: ipratropium-albuterol 3 mL Neb INHALATION ×4 (07:31→21:26)
[2022-12-24] MEDS: duloxetine 20 mg Capsule PO (08:14)
[2022-12-24] MEDS: aspirin 81 mg EC Tablet PO (08:15)
[2022-12-24] MEDS: potassium chloride ER 20 mEq Tablet 40 MEQ PO ×2 (08:15→18:16)
[2022-12-24] MEDS: amlodipine 10 mg Tablet PO (08:15)
[2022-12-24] MEDS: methIMAzole 5 MG Tablet 10 MG PO (08:15)
[2022-12-24] MEDS: tamsulosin 0.4 mg Capsule PO (09:27)
[2022-12-24] MEDS: pantoprazole 40 mg SDV IVP ×2 (09:43→21:42)
--- NOTE | 2022-12-24 10:39 | PC.PHAR ---
PHARMACY TO DOSE CONSULT - VANCOMYCIN Placed order for the lab trough draw for 12/25/22 @ 2200. We predict the trough to come in at somewhere around 11 mcg/ml. Will make adjustments to the dosage/frequency depending on the trough results and any changes in renal function. Thanks, Tyson Salazar, Pharm. D
--- NOTE | 2022-12-24 10:42 | P.PN_ITS ---
Subjective Subjective: Chuckie reports he feels better. No chest pain. Does not feel short of breath. Denies any abdominal pain. Medications: Reviewed: Yes Vitals/I&O/Wt Last Vital Signs Temp 97.5 F L 12/24/22 07:53 Pulse 75 12/24/22 07:53 Resp 17 12/24/22 07:53 BP 110/59 12/24/22 07:53 Pulse Ox 96 12/24/22 07:53 O2 Del Method Nasal Cannula 12/24/22 07:53 O2 Flow Rate 3 12/24/22 08:00 12/23/22 12/24/22 12/24/22 22:59 06:59 14:59 Intake Total 50 / 450 530 / 980 780 / 780 Output Total 800 / 1200 200 / 1400 Balance -750 / -750 330 / -420 780 / 780 Weight last 48 hrs Weight 116.573 kg Physical Exam Narrative: General exam is no apparent distress Neck is supple Cardiovascular regular rate and rhythm, no murmur Lungs clear. Diminished breath sounds are noted bilaterally left greater than right Abdomen is soft, positive bowel sounds Extremities no cyanosis clubbing. Trace edema bilaterally., cap refill brisk Skin no rash Urinary Catheter Management: Thomson: Cath Placed During This Visit: yes Reason for Continuing Indwelling Catheter: Acute Urinary Retention or Obstruction Urinary Catheter Date of Insertion: 12/21/22 Urinary Catheter Time of Insertion: 22:00 Data 12/24/22 04:36 12/24/22 04:36 Micro: Microbiology 12/22/22 20:45 Blood Culture - Preliminary Blood NEGATIVE TO DATE 12/22/22 20:45 Blood Culture - Preliminary Blood NEGATIVE TO DATE 12/23/22 05:10 MRSA Culture - Final Nose 12/22/22 18:22 Urine Culture - Preliminary Urine,Clean Catch Gram Negative Rods Gram Negative Rods#2 A&P Assessment and plan (1) Altered mental status: Consistent with acute metabolic encephalopathy. Believe he also has underlying dementia He appears back to baseline Hold any sedating medication. 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 Qualifiers: Hematuria presence: with hematuria Urinary tract infection type: acute cystitis Qualified Code(s): N30.01 - Acute cystitis with hematuria (3) Pleural effusion, left: Radiology is consulted for thoracentesis. Rule out parapneumonic effusion/emp yema. He has had multiple hospital stays for sepsis/infection. This appears to be an exudate Currently on vancomycin and Zosyn. MRSA PCR negative. Discontinue vancomycin. Repeat chest x-ray demonstrated only small effusion left. Some studies pending. Gram stain is still pending. (4) Iron deficiency anemia: CBC daily. Continue Protonix Hemoglobin is stable Plan History of chronic congestive heart failure, mild acute on chronic heart failure present currently.. Lasix IV currently. Follow BMP daily. Last echocardiogram demonstrated EF of 40%. Supplement potassium today, 40 mill equivalents extra this afternoon Speech therapy consultation appreciated Pur?ed diet nectar thick liquids Discussed CODE STATUS with son in detail. He is allow natural , but would want ICU admission. No CPR, intubation, ventilation. Patient had significant anemia requiring transfusion last hospital stay and did not tolerate anticoagulation. Therefore SCDs are being used for DVT prophylaxis. Plan to go back to nursing facility at discharge. This could perhaps happen as early as tomorrow. Attestations Medical Necessity Statement*: Needs continued hospital stay, for IV antibiotics pending identification of urinary organism. Diagnoses Altered mental status R41.0 Altered mental status type: disorientation Urinary tract infection N30.01 Hematuria presence: with hematuria Urinary tract infection type: acute cystitis Pleural effusion, left J90 Iron deficiency anemia D50.9 Time Spent (min) 29
[2022-12-24] MEDS: sucralfate 1 gm Tablet PO ×2 (11:27→23:01)
[2022-12-24] MEDS: vancomycin 1,250 MG/250 ML PIGGYBACK 250 MG IV (11:27)
[2022-12-24] MEDS: FUROsemide 10 mg/mL SDV 4mL 40 MG IVP (23:01)
[2022-12-25] VITALS (13 sets, daily range): BP systolic 108–125; BP diastolic 65–72; PULSE 74–89; RESP 16–18; TEMP 36.4–37.1; O2SAT 90–98
[2022-12-25] MEDS: piperacillin-tazobactam 3.375 GM in sodium chloride 0.9% (plus) 50 ML IV ×3 (05:00→20:08)
[2022-12-25 05:35] LABS: Basophils % 0.2 %; Eosinophils # 0.4 10^3/uL (0.0-0.8); Eosinophils % 2.9 %; Hematocrit 27.3 % (42.0-52.0); Hemoglobin 8.1 g/dL (11.7-16.6); Lymphocytes # 2.1 10^3/uL (0.8-4.8); Lymphocytes % 15.6 %; Mean Corpuscular HGB Conc 29.7 g/dL (30.0-36.0); Mean Corpuscular Hemoglobin 28.1 pg (28.0-34.0); Mean Corpuscular Volume 94.8 fl (80-94); Mean Platelet Volume 9.7 fL (7.4-10.4); Monocytes # 0.8 10^3/uL (0.2-0.9); Monocytes % 6.1 %; Neutrophils # 10.02 10^3/uL (1.8-7.7); Neutrophils % 74.3 %; Nucleated Red Blood Cells % 0 %; Platelet Count 363 10^3/cmm (130-400); Red Blood Count 2.88 10^6/uL (4.1-5.3); Red Cell Distribution Width 16.1 % (12.1-15.1); White Blood Count 13.5 10^3/uL (4.0-10.0)
[2022-12-25 05:49] LABS: Anion Gap 14.8 (5-19); Blood Urea Nitrogen 28 mg/dL (8-23); Carbon Dioxide 27 mmol/L (22-29); Chloride 94 mmol/L (98-107); Glucose 96 mg/dL (65-115); Magnesium 1.6 mg/dL (1.7-2.3); Osmolality Calculated 279 mOsm/kg (285-295); Potassium 3.8 mmol/L (3.5-5.1); Sodium 132 mmol/L (136-145)
--- NOTE | 2022-12-25 08:00 | P.PN_ITS ---
Subjective Subjective: seen at bedside this AM eating early lunch. pt states he is starting to feel improved. some back pain from procedure yesterday. breathing has slightly improved. had BM yday denies CP, palpitations, SOB. no overnight concerns. Medications: Reviewed: Yes Vitals/I&O/Wt Last Vital Signs Temp 98.1 F 12/25/22 07:12 Pulse 76 12/25/22 07:12 Resp 17 12/25/22 07:12 BP 116/66 12/25/22 07:12 Pulse Ox 98 12/25/22 07:12 O2 Del Method Nasal Cannula 12/25/22 07:12 O2 Flow Rate 2 12/25/22 03:37 12/24/22 12/25/22 12/25/22 22:59 06:59 14:59 Intake Total 1250 / 2760 530 / 3290 Output Total 350 / 350 1350 / 1700 Balance 900 / 2410 -820 / 1590 Physical Exam Narrative: General: AOx3, no acute distress psych: appropriate mood and affect. good judgment and insight. Head: atraumatic, normocephalic, no mass/lesions Ears: clear external auditory canals. Hearing intact Eyes: conjunctiva clear w/o exudate or hemorrhage. non-icteric, EOM intact, PERRLA. no signs of nystagmus Nose: nasal mucosa pink, septum midline Oropharynx: good dentition Neck: FROM, no lymphadenopathy, supple Chest: atraumatic, symmetrical CVD: RRR, normal S1 and S2, no M/R/G. 2+ pulse x 4 extremities, : love in place, 50cc dark yellow urine Lungs: Diminished lung sounds L>R, no crackles/wheezing/rhonchi. Abdomen: obese abdomen. NT, ND, soft, NABS. No hepatosplenomegaly, Extremities: FROM and 5/5 strength in BUE and BLE. no visible joint abnormalities on active and passive ROM. Neuro: CNII-XII grossly intact. No atrophy, weakness, tremors or clonus.? 2+ DTR, no sensory abnormalities. Skin:? no rash, vesicles, lesions. Urinary Catheter Management: Love: Cath Placed During This Visit: yes Reason for Continuing Indwelling Catheter: Other Urinary Catheter Date of Insertion: 12/21/22 Urinary Catheter Time of Insertion: 22:00 Data 12/25/22 04:18 12/25/22 04:18 Micro: Microbiology 12/23/22 14:45 Gram Stain - Final Pleural Fluid Body Fluid Culture - Preliminary A&P Assessment and plan (1) Altered mental status: Consistent with acute metabolic encephalopathy. Believe he also has underlying dementia He appears back to baseline Hold any sedating medication. Qualifiers: Altered mental status type: disorientation Qualified Code(s): R41.0 - Disorientation, unspecified (2) Urinary tract infection: Patient has UTI Continue Zosyn Await culture, currently growing 2 types of gram-negative rods flomax 2/2 Hx of urinary retention Qualifiers: Hematuria presence: with hematuria Urinary tract infection type: acute cystitis Qualified Code(s): N30.01 - Acute cystitis with hematuria (3) Pleural effusion, left: Radiology is consulted for thoracentesis. Rule out parapneumonic effusion/empyema. He has had multiple hospital stays for sepsis/infection. This appears to be an exudate Currently on vancomycin and Zosyn. MRSA PCR negative thus VANC discontinued Repeat chest x-ray demonstrated only small effusion left. Some studies pending. Gram stain neg x 1 day Blood Cx neg to date (4) Iron deficiency anemia: CBC daily. Continue Protonix Hemoglobin is trending downards. possibly 2/2 thoracentesis. will monitor Plan History of chronic congestive heart failure, mild acute on chronic heart failure present currently.. Lasix IV currently. Follow BMP daily. Last echocardiogram demonstrated EF of 40%. Supplement Speech therapy consultation appreciated Pur?ed diet nectar thick liquids Discussed CODE STATUS with son in detail. He is allow natural , but would want ICU admission. No CPR, intubation, ventilation. Patient had significant anemia requiring transfusion last hospital stay and did not tolerate anticoagulation. Therefore SCDs are being used for DVT prophyla xis. Plan to go back to nursing facility at discharge. This could perhaps happen as early as today . Plan: continue current management will monitor anemia and WBC count pt showing sings of improvement. back to baseline mentation. NH unable to transport patient until tuesday Attestations Medical Necessity Statement*: Needs continued hospital stay, for IV antibiotics pending identification of urinary organism. Coding Level of Care Code 49899 Diagnoses Altered mental status R41.0 Altered mental status type: disorientation Urinary tract infection N30.01 Hematuria presence: with hematuria Urinary tract infection type: acute cystitis Pleural effusion, left J90 Iron deficiency anemia D50.9
[2022-12-25] MEDS: ipratropium-albuterol 3 mL Neb INHALATION ×4 (08:05→19:07)
[2022-12-25] MEDS: tamsulosin 0.4 mg Capsule PO (08:39)
[2022-12-25] MEDS: amlodipine 10 mg Tablet PO (08:39)
[2022-12-25] MEDS: aspirin 81 mg EC Tablet PO (08:39)
[2022-12-25] MEDS: duloxetine 20 mg Capsule PO (08:39)
[2022-12-25] MEDS: methIMAzole 5 MG Tablet 10 MG PO (08:39)
[2022-12-25] MEDS: pantoprazole 40 mg SDV IVP ×2 (08:40→20:32)
[2022-12-25] MEDS: potassium chloride ER 20 mEq Tablet 40 MEQ PO (08:40)
--- NOTE | 2022-12-25 11:50 | PC.SOCIAL ---
Pg 2 IMM Explained to pt Pg 2 IMM. No questions voiced. Provided pt a copy. Initialed, dated, & timed a copy & placed in chart.
[2022-12-25] MEDS: sucralfate 1 gm Tablet PO ×2 (12:00→22:35)
[2022-12-25] MEDS: FUROsemide 10 mg/mL SDV 4mL 40 MG IVP (22:21)
[2022-12-26] VITALS (15 sets, daily range): BP systolic 104–121; BP diastolic 61–68; PULSE 75–93; RESP 16–18; TEMP 36.7–36.9; O2SAT 90–94
[2022-12-26] MEDS: piperacillin-tazobactam 3.375 GM in sodium chloride 0.9% (plus) 50 ML IV ×3 (04:29→20:25)
[2022-12-26 05:16] LABS: Basophils % 0.3 %; Eosinophils # 0.3 10^3/uL (0.0-0.8); Eosinophils % 2.5 %; Hematocrit 27.3 % (42.0-52.0); Hemoglobin 8.7 g/dL (11.7-16.6); Lymphocytes # 2.2 10^3/uL (0.8-4.8); Lymphocytes % 18.7 %; Mean Corpuscular HGB Conc 31.9 g/dL (30.0-36.0); Mean Corpuscular Hemoglobin 29.6 pg (28.0-34.0); Mean Corpuscular Volume 92.9 fl (80-94); Mean Platelet Volume 9.3 fL (7.4-10.4); Monocytes # 0.7 10^3/uL (0.2-0.9); Monocytes % 6.3 %; Neutrophils # 8.37 10^3/uL (1.8-7.7); Neutrophils % 70.9 %; Nucleated Red Blood Cells % 0 %; Platelet Count 353 10^3/cmm (130-400); Red Blood Count 2.94 10^6/uL (4.1-5.3); Red Cell Distribution Width 16.2 % (12.1-15.1); White Blood Count 11.8 10^3/uL (4.0-10.0)
[2022-12-26 05:38] LABS: Anion Gap 12.5 (5-19); Blood Urea Nitrogen 28 mg/dL (8-23); Calcium 8.2 mg/dL (8.5-10.5); Carbon Dioxide 30 mmol/L (22-29); Chloride 96 mmol/L (98-107); Glucose 101 mg/dL (65-115); Magnesium 1.5 mg/dL (1.7-2.3); Osmolality Calculated 286 mOsm/kg (285-295); Potassium 3.5 mmol/L (3.5-5.1); Sodium 135 mmol/L (136-145)
[2022-12-26] MEDS: ipratropium-albuterol 3 mL Neb INHALATION ×4 (08:49→19:21)
[2022-12-26] MEDS: duloxetine 20 mg Capsule PO (09:39)
[2022-12-26] MEDS: aspirin 81 mg EC Tablet PO (09:39)
[2022-12-26] MEDS: amlodipine 10 mg Tablet PO (09:39)
[2022-12-26] MEDS: tamsulosin 0.4 mg Capsule PO (09:39)
[2022-12-26] MEDS: potassium chloride ER 20 mEq Tablet 40 MEQ PO (09:39)
[2022-12-26] MEDS: methIMAzole 5 MG Tablet 10 MG PO (09:39)
[2022-12-26] MEDS: pantoprazole 40 mg SDV IVP ×2 (09:41→20:42)
--- NOTE | 2022-12-26 10:28 | PM.PN ---
Subjective Subjective: seen at bedside this AM eating early lunch. pt states he is starting to feel improved. Back pain has since resolved. breathing improved. denies CP, palpitations, SOB. no overnight concerns. Medications: Reviewed: Yes Vitals/I&O/Wt Last Vital Signs Temp 98.5 F 12/26/22 07:38 Pulse 78 12/26/22 08:00 Resp 18 12/26/22 08:00 BP 111/66 12/26/22 07:38 Pulse Ox 93 12/26/22 08:00 O2 Del Method Room Air 12/26/22 08:00 O2 Flow Rate 2 12/25/22 11:37 12/25/22 12/26/22 12/26/22 22:59 06:59 14:59 Intake Total 290 / 1300 530 / 1830 120 / 120 Output Total 1200 / 1200 Balance 290 / 1300 -670 / 630 120 / 120 Physical Exam Narrative: General: AOx3, no acute distress psych: appropriate mood and affect. good judgment and insight. Head: atraumatic, normocephalic, no mass/lesions Ears: clear external auditory canals. Hearing intact Eyes: conjunctiva clear w/o exudate or hemorrhage. non-icteric, EOM intact, PERRLA. no signs of nystagmus Nose: nasal mucosa pink, septum midline Oropharynx: good dentition Neck: FROM, no lymphadenopathy, supple Chest: atraumatic, symmetrical CVD: RRR, normal S1 and S2, no M/R/G. 2+ pulse x 4 extremities, : love in place, 50cc dark yellow urine Lungs: Diminished lung sounds L>R, no crackles/wheezing/rhonchi. Abdomen: obese abdomen. NT, ND, soft, NABS. No hepatosplenomegaly, Extremities: FROM and 5/5 strength in BUE and BLE. no visible joint abnormalities on active and passive ROM. Neuro: CNII-XII grossly intact. No atrophy, weakness, tremors or clonus.? 2+ DTR, no sensory abnormalities. Skin:? no rash, vesicles, lesions. Urinary Catheter Management: Love: Cath Placed During This Visit: yes Reason for Continuing Indwelling Catheter: Other Urinary Catheter Date of Insertion: 12/21/22 Urinary Catheter Time of Insertion: 22:00 Data 12/26/22 04:40 12/26/22 04:40 Micro: Microbiology 12/23/22 14:45 Gram Stain - Final Pleural Fluid Body Fluid Culture - Preliminary 12/22/22 18:22 Urine Culture - Preliminary Urine,Clean Catch Gram Negative Rods Escherichia coli A&P Assessment and plan (1) Altered mental status: Consistent with acute metabolic encephalopathy. Believe he also has underlying dementia He appears back to baseline Hold any sedating medication. Qualifiers: Altered mental status type: disorientation Qualified Code(s): R41.0 - Disorientation, unspecified (2) Urinary tract infection: Patient has UTI Continue Zosyn E.Coli susceptable to zosyn. de-escalate at time fo discharge. multiple resistances. tolerating medication well at this time flomax 2/2 Hx of urinary retention Qualifiers: Hematuria presence: with hematuria Urinary tract infection type: acute cystitis Qualified Code(s): N30.01 - Acute cystitis with hematuria (3) Pleural effusion, left: Radiology is consulted for thoracentesis. Rule out parapneumonic effusion/empyema. He has had multiple hospital stays for sepsis/infection. Exudative, Cx and grame stain negative Cx negative to date (4) Iron deficiency anemia: CBC daily. Continue Protonix Hemoglobin is trending downards. possibly 2/2 thoracentesis. will monitor Plan History of chronic congestive heart failure, mild acute on chronic heart failure present currently.. Lasix IV currently. Follow BMP daily. Last echocardiogram demonstrated EF of 40%. Supplement Pur?ed diet nectar thick liquids Discussed CODE STATUS with son in detail. He is allow natural , but would want ICU admission. No CPR, intubation, ventilation. Patient had significant anemia requiring transfusion last hospital stay and did not tolerate anticoagulation. Therefore SCDs are being used for DVT prophylaxis. Plan to go back to nursing facility at discharge. This could perhaps happen as early as today . Plan: continue current management -anemia improving -repleat Mg -continue zosyn and change to PO on discharge pt showing sings of improvement. back to baseline mentation. NH unable to transport patient until tuesday Attestations Medical Necessity Statement*: Needs continued hospital stay, for IV antibiotics pending identification of urinary organism. Coding Level of Care Code 63497 Diagnoses Altered mental status R41.0 Altered mental status type: disorientation Urinary tract infection N30.01 Hematuria presence: with hematuria Urinary tract infection type: acute cystitis Pleural effusion, left J90 Iron deficiency anemia D50.9
[2022-12-26] MEDS: sucralfate 1 gm Tablet PO ×2 (12:30→22:44)
[2022-12-26] MEDS: acetaminophen 325 mg Tablet 650 MG PO (22:43)
[2022-12-26] MEDS: FUROsemide 10 mg/mL SDV 4mL 40 MG IVP (23:04)
[2022-12-27] VITALS (9 sets, daily range): BP systolic 107–118; BP diastolic 49–70; PULSE 72–82; RESP 16–18; TEMP 36.7–36.8; O2SAT 93–95
[2022-12-27 04:22] LABS: Basophils % 0.3 %; Eosinophils # 0.2 10^3/uL (0.0-0.8); Eosinophils % 1.7 %; Hematocrit 27.4 % (42.0-52.0); Hemoglobin 8.7 g/dL (11.7-16.6); Lymphocytes # 2.4 10^3/uL (0.8-4.8); Lymphocytes % 18.8 %; Mean Corpuscular HGB Conc 31.8 g/dL (30.0-36.0); Mean Corpuscular Hemoglobin 28.6 pg (28.0-34.0); Mean Corpuscular Volume 90.1 fl (80-94); Mean Platelet Volume 9.2 fL (7.4-10.4); Monocytes % 8.2 %; Neutrophils # 8.81 10^3/uL (1.8-7.7); Neutrophils % 69.6 %; Nucleated Red Blood Cells % 0 %; Platelet Count 352 10^3/cmm (130-400); Red Blood Count 3.04 10^6/uL (4.1-5.3); Red Cell Distribution Width 16.2 % (12.1-15.1); White Blood Count 12.7 10^3/uL (4.0-10.0)
[2022-12-27] MEDS: piperacillin-tazobactam 3.375 GM in sodium chloride 0.9% (plus) 50 ML IV (04:31)
[2022-12-27 04:35] LABS: Anion Gap 12.6 (5-19); Blood Urea Nitrogen 27 mg/dL (8-23); Calcium 8.3 mg/dL (8.5-10.5); Carbon Dioxide 30 mmol/L (22-29); Chloride 96 mmol/L (98-107); Glucose 98 mg/dL (65-115); Osmolality Calculated 285 mOsm/kg (285-295); Potassium 3.6 mmol/L (3.5-5.1); Sodium 135 mmol/L (136-145)
[2022-12-27] MEDS: ipratropium-albuterol 3 mL Neb INHALATION ×2 (07:20→10:59)
[2022-12-27] MEDS: duloxetine 20 mg Capsule PO (08:16)
[2022-12-27] MEDS: potassium chloride ER 20 mEq Tablet 40 MEQ PO (08:16)
[2022-12-27] MEDS: tamsulosin 0.4 mg Capsule PO (08:16)
[2022-12-27] MEDS: amlodipine 10 mg Tablet PO (08:16)
[2022-12-27] MEDS: aspirin 81 mg EC Tablet PO (08:16)
[2022-12-27] MEDS: pantoprazole 40 mg SDV IVP (08:17)
[2022-12-27] MEDS: methIMAzole 5 MG Tablet 10 MG PO (08:17)
--- NOTE | 2022-12-27 09:47 | PC.SOCIAL ---
IMM update: IMM updated with patient, copy provided and copy dated/initialed and placed in chart.
[2022-12-27] MEDS: sucralfate 1 gm Tablet PO (11:19)
--- NOTE | 2022-12-27 11:26 | P.DS_ITS ---
Discharge Providers Date of Admission: 12/22/22 20:07 Date of Discharge: December 27, 2022 Attending Provider at Admission: Kasia Quinn MD Attending Provider at Discharge: Ana Rosa Corbin MD Primary Care Provider: Miki Ariza MD Diagnoses at Discharge Discharge Diagnosis (1) Altered mental status: Status: Acute Qualifiers: Altered mental status type: disorientation Qualified Code(s): R41.0 - Disorientation, unspecified (2) Urinary tract infection: Status: Acute Qualifiers: Hematuria presence: with hematuria Urinary tract infection type: acute cystitis Qualified Code(s): N30.01 - Acute cystitis with hematuria (3) Pleural effusion, left: Status: Acute (4) Iron deficiency anemia: Status: Acute Reason for Visit Reason for Visit: SOB Brief History: 87yo M with Hx of HTN, hypothyroidism, PE, PNA, recent COVID 19 pneumonia, thoracic spine fracture presented to ED with SOB, confusion at nursing hime, and hypoxemia in EMS (1) Altered mental status: Consistent with acute metabolic encephalopathy. likely multifactorial contributed by hypoxia upon admission with SPO2 70% and also by UTI with a baseline h/o dementia. He appears back to baseline. He is awake alert and oriented x3. Able to hold an appropriate conversation. (2) Urinary tract infection: Patient has UTI currently with a history of recurrent UTIs since October 2022. 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 Current hospital admission is with 2 separate isolates of E. coli. CT of the abdomen and pelvis showed bilateral renal cysts but otherwise no obstructing lesions. He received empiric treatment with piperacillin/tazobactam during the course of admission. Day 6 of antibiotics today. Recurrent Thomson catheterization on multiple recent admissions may be A potential risk factor. At discharge he is being transitioned to nitrofurantoin in keeping with susceptibility of the most recent isolates. Recommend treating for an additional 14 days given recurrence of symptoms and chronic bladder wall thickening noted on abdominal imaging. If continues to have recurrent UTI in spite of appropriate antimicrobials, would suspect possible prostatitis as contributing in which case nitrofurantoin would not be a good choice.-His isolate is currently resistant to fluoroquinolones and Bactrim, additional susceptibilities requested for fosfomycin from the lab which may be a potential oral option for future treatment. This remains currently pending. Did patient have a recurrent episode of UTI would likely benefit from a urology assessment. ? ? ? (3) Pleural effusion, left: Patient underwent thoracentesis of moderate to large left-sided pleural effusion, likely related to recent history of COVID-19 and possibly bacterial pneumonia on his last admission in November 2022. Pleural fluid analysis consistent with exudative fluid Cx and gram stain negative Currently saturating 94% on room air. Low suspicion for empyema. Full pleural fluid pH at 8, LDH 152,total protein 3.5 (4) Iron deficiency anemia: Hemoglobin currently stabilized at 8.7. He has not required any current transfusions. Continue iron supplementation as outpatient. Recent history of PE, not on anticoagulation due to anemia. Declined IVC filter. 5. History of chronic congestive heart failure, mild acute on chronic heart failure. Received IV diuretics during admission, currently clinically euvolemic, transition to oral Lasix at discharge 6. Incidentally noted low TSH at a previous admission. Repeating TSH T3-T4 today. Patient has a known history of her large goiter. He is hyperthyroid and currently on methimazole. Please follow-up pending studies upon discharge at the residential, management per the treating residential physician. 7. continue wound care management for pressure injuries over sacrum. Overall patient is clinically improving. Stable for discharge back to nursing facility Diet: dysphagia level 5 Physical Exam Narrative: General: No acute distress, AO x3 HEENT: PERRLA, pupils bilaterally equal and reactive, pallors not present Chest: Normal vesicular breath sounds, no added sounds, equal good air entry bilaterally CVS: S1-S2 regular, no murmurs, no tachycardia, no gallops, no rubs Abdomen: Soft, nontender, no organomegaly, bowel sounds present Neuro: No focal deficits, no facial deformity, AO x3, power 5/5 in all limbs Urinary Catheter Management: Thomson: Cath Placed During This Visit: yes Reason for Continuing Indwelling Catheter: Acute Urinary Retention or Obstruction Urinary Catheter Date of Insertion: 12/21/22 Urinary Catheter Time of Insertion: 22:00 Discharge Data Studies Completed and Pending Completed Studies During Hospitalization Category Date Time Status CT chest abdomen pelvis [CT chest abdpel w/*[id number] Cat Scan 12/22/22 23:20 Completed ] Urgent XR chest 1V portable [id number] Stat Exams 12/22/22 17:37 Completed XR chest 1V portable [id number] Stat Exams 12/23/22 14:58 Completed US thoracentesis [id number] Routine Ultrasound 12/23/22 02:02 Completed Pending at discharge Category Date Time Status BMP [Basic Metabolic Panel] AM LABS Lab 12/28/22 04:00 Ordered Blood Culture Routine Lab 12/22/22 20:45 Results CBC Auto Diff [Complete Blood Count w/Auto] AM LABS Lab 12/28/22 04:00 Ordered Mycobacteria, Culture w/Fluor Routine Lab 12/23/22 14:45 Received Sputum Culture and Gram Stain Stat Lab 12/22/22 23:09 Uncollected Urine Culture Stat Lab 12/22/22 18:22 Results Cytology [PTH] Routine Pth 12/23/22 02:03 Received Radiology Impressions Chest/Abdomen/Pelvis CT 12/22/22 23:20 IMPRESSION: 1. Moderate to large left pleural effusion. 2. Cardiomegaly. 3. Coronary artery atherosclerotic calcifications. 4. Emphysematous changes. 5. Bilateral dependent atelectasis versus infiltrate. 6. Surgical hardware seen in the thoracic spine. 7. Left thyroid 4.8 cm heterogeneous cystic mass, similar to prior exam, nonemergent thyroid ultrasound could further characterize this. IMPRESSION: 1. Thomson catheter in the urinary bladder with diffuse wall thickening likely due to nondistention, please correlate for cystitis. 2. Bilateral renal cysts, negative for follow-up advised. 3. Constipation. 4. Left hip arthroplasty changes. COMMENTS: Consistent with the [employer]'s Incidental Findings Committee white paper (J Am Jose Radiol 2018): Any incidental renal lesion less than 1 cm or classified as too small to characterize, or any incidental cystic renal lesion characterized as simple-appearing, is likely benign. No follow-up imaging is recommended for these lesions per consensus recommendations based on imaging criteria. Thoracentesis Ultrasound 12/23/22 02:02 IMPRESSION: 1. LEFT thoracentesis yielding 400 cc of fluid. 2. Chest radiograph to follow to evaluate for pneumothorax. 3. Pleural fluid collected for analysis as requested. Chest X-Ray 12/23/22 14:58 IMPRESSION: 1. No pneumothorax status post LEFT thoracentesis. 2. Small residual LEFT pleural effusion with LEFT basilar atelectasis. Laboratory Results WBC 12.7 10^3/uL (4.0-10.0) H 12/27/22 03:42 RBC 3.04 10^6/uL (4.1-5.3) L 12/27/22 03:42 Hgb 8.7 g/dL (11.7-16.6) L 12/27/22 03:42 Hct 27.4 % (42.0-52.0) L 12/27/22 03:42 MCV 90.1 fl (80-94) 12/27/22 03:42 MCH 28.6 pg (28.0-34.0) 12/27/22 03:42 MCHC 31.8 g/dL (30.0-36.0) 12/27/22 03:42 RDW 16.2 % (12.1-15.1) H 12/27/22 03:42 Plt Count 352 10^3/cmm (130-400) 12/27/22 03:42 MPV 9.2 fL (7.4-10.4) 12/27/22 03:42 Neut % (Auto) 69.6 % 12/27/22 03:42 Lymph % (Auto) 18.8 % 12/27/22 03:42 Green % (Auto) 8.2 % 12/27/22 03:42 Eos % (Auto) 1.7 % 12/27/22 03:42 Baso % (Auto) 0.3 % 12/27/22 03:42 Neut # (Auto) 8.81 10^3/uL (1.8-7.7) H 12/27/22 03:42 Lymph # (Auto) 2.4 10^3/uL (0.8-4.8) 12/27/22 03:42 Green # (Auto) 1.0 10^3/uL (0.2-0.9) H 12/27/22 03:42 Eos # (Auto) 0.2 10^3/uL (0.0-0.8) 12/27/22 03:42 Baso # (Auto) 0.0 10^3/uL (0.0-0.1) 12/27/22 03:42 Nucleated RBC % (auto) 0 % 12/27/22 03:42 Nucleated RBCs # 0.0 /100WBC 12/27/22 03:42 PT 15.50 SECONDS (12.1-14.9) H 12/23/22 07:30 INR 1.19 (0.8-1.2) 12/23/22 07:30 D-Dimer 4.22 ug/mIFEU (0-0.59) H 12/22/22 00:10 Specimen Type Arterial 12/23/22 12:42 Sample Site Radial, left 12/23/22 12:42 ABG pH 7.50 (7.35-7.45) H 12/23/22 12:42 ABG pCO2 41.4 mmHg (35-45) 12/23/22 12:42 ABG pO2 100.0 mmHg (80.0-100.0) 12/23/22 12:42 ABG HCO3 32.6 mmol/L (22-26) H 12/23/22 12:42 ABG O2 Saturation 99.0 12/23/22 12:42 ABG Base Excess 8.7 mmol/L (-2.0-2.0) H 12/23/22 12:42 Navjot Test Pos 12/23/22 12:42 A-a O2 Gradient Not Reportable 12/23/22 12:42 Hematocrit 32.4 % (42-52) L 12/23/22 12:42 Hgb O2 Saturation 97.0 % (95-100) 12/23/22 12:42 Carboxyhemoglobin 1.5 %THgb (0.4-20.1) 12/23/22 12:42 Methemoglobin 0.5 % (0.4-1.5) 12/23/22 12:42 Total Hemoglobin 10.6 g/dL (14-18) L 12/23/22 12:42 Sodium 139.0 mmol/L (131-143) 12/23/22 12:42 Potassium 3.3 mmol/L (3.5-5.0) L 12/23/22 12:42 Glucose 122.0 mg/dL (70-115) H 12/23/22 12:42 Ionized Calcium 1.2 mmol/L (1.1-1.4) 12/23/22 12:42 O2 Delivery Device Nc 12/23/22 12:42 O2 Liters/Min 2.0 % 12/23/22 12:42 [employer] 12/23/22 12:42 Sodium 135 mmol/L (136-145) L 12/27/22 03:42 Potassium 3.6 mmol/L (3.5-5.1) 12/27/22 03:42 Chloride 96 mmol/L (98-107) L 12/27/22 03:42 Carbon Dioxide 30 mmol/L (22-29) H 12/27/22 03:42 Anion Gap 12.6 (5-19) 12/27/22 03:42 BUN 27 mg/dL (8-23) H 12/27/22 03:42 Creatinine 1.0 mg/dL (0.7-1.2) 12/27/22 03:42 GFR Calculation Not Reportable 12/27/22 03:42 Glucose 98 mg/dL (65-115) 12/27/22 03:42 Calculated Osmolality 285 mOsm/kg (285-295) 12/27/22 03:42 Calcium 8.3 mg/dL (8.5-10.5) L 12/27/22 03:42 Magnesium 1.5 mg/dL (1.7-2.3) L 12/26/22 04:40 Total Bilirubin 0.4 mg/dL (0.15-1.2) 12/24/22 04:36 AST 16 U/L (0-40) 12/24/22 04:36 ALT 10 U/L (0-41) 12/24/22 04:36 Alkaline Phosphatase 116 U/L (40-130) 12/24/22 04:36 Lactate Dehydrogenase 177 U/L (135-225) 12/23/22 06:18 NT-Pro-B Natriuret Pep 660 pg/mL (0-450) H 12/22/22 17:52 Total Protein 6.2 g/dL (6.6-8.7) L 12/24/22 04:36 Albumin 2.2 g/dL (3.5-5.2) L 12/24/22 04:36 Globulin 4.0 g/dL (1.3-4.6) 12/24/22 04:36 Procalcitonin 0.32 ng/mL (0-0.5) 12/22/22 17:52 Urine Color Yellow (Yellow) 12/22/22 18:22 Urine Appearance Cloudy (CLEAR) A 12/22/22 18:22 Urine pH 6 (5-7) 12/22/22 18:22 Ur Specific [place] 1.015 (1.005-1.030) 12/22/22 18:22 Urine Protein Neg (Negative) 12/22/22 18:22 Urine Glucose (UA) Norm (Normal) 12/22/22 18:22 Urine Ketones Negative (Negative) 12/22/22 18:22 Urine Blood 2+ (Negative) H 12/22/22 18:22 Urine Nitrate Negative (Negative) 12/22/22 18:22 Urine Bilirubin Neg (Negative) 12/22/22 18:22 Urine Urobilinogen Norm mg/dL (Negative) 12/22/22 18:22 Ur Leukocyte Esterase 2+ (Negative) H 12/22/22 18:22 Urine RBC 10-15 /hpf (0-2) H 12/22/22 18:22 Urine WBC 80-100 /hpf (0-5) H 12/22/22 18:22 Ur Squamous Epith Cells 0-4 /hpf (0-5) H 12/22/22 18:22 Amorphous Sediment Not Reportable 12/22/22 18:22 Urine Bacteria 1+ /hpf (NONE) H 12/22/22 18:22 Urine Mucus 1+ /hpf 12/22/22 18:22 Fluid Color Red 12/23/22 14:45 Fluid Appearance Cloudy 12/23/22 14:45 Fluid WBC 1485 /uL 12/23/22 14:45 Fluid RBC 36.000 10^3/uL 12/23/22 14:45 Fluid Hematocrit 0.4 % 12/23/22 14:45 Fld Polynuclear WBCs # 0.514 12/23/22 14:45 Fld Polynuclear WBCs % 34.600 % 12/23/22 14:45 Fl Mononucl WBCs #(Auto) 0.971 12/23/22 14:45 Fl Mononuclear % Auto 65.400 % 12/23/22 14:45 Fld Crystal Laterality Left pleural 12/23/22 14:45 Fluid Albumin 1.7 g/dL 12/23/22 14:45 Fluid Creatinine 1.00 (0.7-1.2) 12/23/22 14:45 Pleural pH 8.00 (6.5-7.5) H 12/23/22 14:45 Pleural Total Protein 3.5 g/dL 12/23/22 14:45 Pleural LDH 152 U/L 12/23/22 14:45 Pleural Glucose 112.0 mg/dL 12/23/22 14:45 Pleural Amylase 9.0 U/L 12/23/22 14:45 Pleural Triglycerides 27 mg/dL 12/23/22 14:45 Vitals Last Vital Signs Temp 98.0 F 12/27/22 11:25 Pulse 77 12/27/22 11:25 Resp 18 12/27/22 11:25 BP 113/49 12/27/22 11:25 Pulse Ox 94 12/27/22 11:25 O2 Del Method Room Air 12/27/22 11:25 O2 Flow Rate 2 12/27/22 08:00 Discharge Plan Discharge Patient Disposition: Xfer SNF Condition: Stable Prescriptions: New nitrofurantoin monohyd/m-cryst [Macrobid] 100 mg capsule 100 mg PO BID 14 Days Qty: 28 0RF Rx Instructions: must administer with a meal/food tamsulosin 0.4 mg Capsule 0.4 mg PO DAILY 30 Days Qty: 30 0RF Continued duloxetine 20 mg capsule,delayed release(DR/EC) 20 mg PO DAILY tramadol 50 mg Tablet 50 mg PO Q8H PRN (Reason: Pain) aspirin 81 mg Tablet,Delayed Release (Dr/Ec) 81 mg PO DAILY 30 Days Qty: 30 0RF amlodipine 10 mg Tablet 10 mg PO DAILY 30 Days Qty: 30 0RF furosemide 40 mg Tablet 40 mg PO DAILY@0800 30 Days Qty: 30 0RF sucralfate 1 gram Tablet 1 g PO Q12H 30 Days Qty: 60 0RF potassium chloride [Klor-Con M20] 20 mEq Tablet,Er Particles/Crystals 20 meq PO DAILY 30 Days Qty: 30 0RF pantoprazole 40 mg Tablet,Delayed Release (Dr/Ec) 40 mg PO BID 30 Days Qty: 60 0RF methimazole 10 mg tablet 10 mg PO DAILY acetaminophen 325 mg Tablet 650 mg PO QID PRN (Reason: Pain) Milk of Magnesia 400 mg/5 mL Suspension 30 ml PO Q3D PRN (Reason: Constipation) Dulcolax (bisacodyl) 10 mg Suppository 10 mg NM DAILY PRN (Reason: Constipation) magnesium citrate Solution 150 ml PO DAILY PRN (Reason: Constipation) Dulcolax (bisacodyl) 5 mg Tablet,Delayed Release (Dr/Ec) 20 mg PO DAILY PRN (Reason: Constipation) Mylanta 200-200-20 mg/5 mL Suspension 30 ml PO Q24H PRN (Reason: Constipation) Rx Instructions: administer between meals and at bedtime Discontinued ibuprofen 600 mg Tablet 600 mg PO Q8H PRN (Reason: Pain) Discharge Orders: Discharge Order (Routine); Ordered 12/27/22 Ordered By: Ana Rosa Corbin Referrals: [facility] [Outside] Miki Ariza MD [Primary Care Provider] - Discharge Diet: As Directed Discharge Activity: Resume usual activity Patient Instructions: Opioid Safety Discharge Attestations Time Spent in Discharge Care*: greater than 30 min Quality Metrics Clinical Quality Measures [ No reported AMI, CVA or VTE this stay] Coding Level of Care Code Acute Code for Chg Fwd Diagnoses Altered mental status R41.0 Altered mental status type: disorientation Urinary tract infection N30.01 Hematuria presence: with hematuria Urinary tract infection type: acute cystitis Pleural effusion, left J90 Iron deficiency anemia D50.9
[2022-12-27 12:00] LABS: Free T4 Free Thyroxine 1.34 ng/dL (0.82-1.77); T3 Free 1.6 PG/ML (2.0-4.4); Thyroid Stimulating Hormone 0.19 uIU/mL (0.27-4.20)
--- NOTE | 2022-12-27 13:37 | PC.NURSE ---
Report called to [facility]. all questions answered. Going with [facility], they requested it and will get an order while there.
== END 2022-12-27 15:30 | disposition skilled nursing facility (03) | DRG 70 ==
LOC: ER 21:09 → MEDSURG 22:10
PROVIDERS: Family Medicine; Internal Medicine; Admitting Provider Internal Medicine; Emergency Provider Emergency Medicine; PCP Family Medicine; Visit Provider Student in an Organized Health Care Education/Training Program
DX: G93.41 Metabolic encephalopathy (principal); I50.23 Acute on chronic systolic (congestive) heart failure; J96.01 Acute respiratory failure with hypoxia; N30.01 Acute cystitis with hematuria; J90 Pleural effusion, not elsewhere classified; B96.20 Unspecified Escherichia coli [E. coli] as the cause of diseases classified elsewhere; Z86.16 Personal history of COVID-19; E05.90 Thyrotoxicosis, unspecified without thyrotoxic crisis or storm; Z86.711 Personal history of pulmonary embolism; Z98.1 Arthrodesis status; D50.9 Iron deficiency anemia, unspecified; I11.0 Hypertensive heart disease with heart failure; R33.9 Retention of urine, unspecified; F03.90 Unspecified dementia, unspecified severity, without behavioral disturbance, psychotic disturbance, mood disturbance, and anxiety; E88.09 Other disorders of plasma-protein metabolism, not elsewhere classified; L89.156 Pressure-induced deep tissue damage of sacral region; Z87.01 Personal history of pneumonia (recurrent)
CPT/HCPCS: 32555; 36415; 36600; 51702; 71045; 71260; 74177; 80048; 80051; 80053; 80503; 81001; 82042; 82150; 82330; 82570; 82805; 82945; 83615; 83735; 83880; 83986; 84145; 84157; 84439; 84443; 84478; 84481; 85014; 85025; 85378; 85610; 87015; 87040; 87070; 87075; 87077; 87086; 87116; 87186; 87205; 87206; 87641; 87801; 88112; 88305; 89050; 92507; 92523; 92526; 92610; 93005; 94640; 94664; 96365; 96375; 99285; C9113; J1940; J2543; J3370; J3475; Q9967